=== PATIENT | female | born 1995 | race African-American/Black ===

== ENCOUNTER 2022-12-18 13:11 | Emergency (ER) | payer SELFPAY ==
[2022-12-18 13:15] VITALS: BP 126/80; PULSE 84; RESP 16; TEMP 36.6; O2SAT 99; BMI 28.3
--- NOTE | 2022-12-18 13:33 | EDS_ITS ---
HPI HPI - Female History of Present Illness Chief Complaint: Informant: patient Pain Pain: Positive for Pelvic Pain Onset: Days Context: Gradual Onset Timing: Waxes and wanes Quality: Positive for Cramping and Aching Location: Suprapubic Current Severity: Mild Maximum Severity: Moderate Narrative Narrative: Patient presents with lower abdominal cramping and positive test. She states her last normal period was November 01. Late last month she had a positive home test. She recently moved to the area from [place] and does not have any doctors established in this area. She states over the past couple days she has had pelvic cramping as if she is going to start her period but has not had any bleeding or spotting. Yesterday she noted sharp pain in the left lower quadrant. Patient has had 2 prior successful pregnancies. She is unsure of her blood type but does believe that she has had RhoGAM shots in the past. [facility] Medical History Anemia Allergy/AdvReac Type Severity Reaction Status Date / Time No Known Allergies Allergy Verified 12/18/22 13:20 Social History Smoking Status: Never smoker ROS ROS ED Constitutional Constitutional ED: Denies chills or fever(s) Eyes Eyes: Denies change in vision or discharge from eye(s) ENT ENT ED: Denies discharge from eye(s), rhinorrhea or sore throat Cardiovascular Cardiovascular: Denies chest pain Respiratory/Chest Respiratory/Chest: Denies cough or dyspnea Gastrointestinal Gastrointestinal: Reports abdominal pain; Denies nausea or vomiting Genitourinary Genitourinary ED: Denies difficulty urinating or dysuria Musculoskeletal Musculoskeletal: Reports back pain; Denies extremity pain Integumentary Denies Abrasions or rash Neurologic Neurologic: Denies headache(s) or weakness Allergic/Immunologic Allergic/Immunologic ED: Denies lip swelling or urticaria EXAM Physical Exam Const Vital Signs: 12/18/22 13:15 12/18/22 14:23 Temperature 98 F Temperature Source Temporal Pulse Rate 84 78 Respiratory Rate 16 16 Blood Pressure 126/80 H 126/76 H Blood Pressure Mean 95 92 Pulse Ox 99 98 Oxygen Delivery Method Room Air Room Air Positive well nourished and well developed General Appearance ED: well developed HEENT Reports normocephalic and head/scalp atraumatic Eyes PERRL and EOMs intact bilaterally Neck supple Chest Wall inspection of chest normal and palpation of chest normal Resp normal respiratory effort and clear to auscultation bilaterally Cardio regular rate and regular rhythm GI GI Narrative: Abdomen soft with minimal tenderness in the suprapubic area. No guarding or rebound. Palpation: soft Back/Spine no CVA tenderness Extremity normal to inspection Neuro oriented x3 and no sensory deficits noted Sensorium / Orientation: alert Motor Exam: strength 5/5 throughout Psych mental status grossly normal Skin no rashes or lesions noted MDM MDM MDM Narrative Medical decision making narrative: Labwork obtained to evaluate for leukocytosis, anemia, and electrolyte derangement. Urinalysis obtained to evaluate for infection/hematuria. Patient given IV fluids. Lab Data Attestation: I reviewed the patient's lab results. Labs: Laboratory Results - last 24 hr 12/18/22 12/18/22 12/18/22 13:40 13:50 13:50 WBC 4.6 RBC 3.72 L Hgb 10.4 L Hct 32.5 L MCV 87.4 MCH 28.0 MCHC 32.0 RDW Std Deviation 43.3 RDW Coeff of Danii 13.6 Plt Count 199 MPV 11.1 Immature Gran % (Auto) 0.200 Neut % (Auto) 45.9 L Lymph % (Auto) 43.1 H [place] % (Auto) 9.3 Eos % (Auto) 1.1 Baso % (Auto) 0.4 Absolute Neuts (auto) 2.1 Absolute Lymphs (auto) 2.00 Nucleated RBC % 0 Sodium 139 Potassium 3.9 Chloride 110 H Carbon Dioxide 22.0 Anion Gap 7 BUN 8 Creatinine 0.78 Estim Creat Clear Calc 114.22 Est GFR (MDRD) Af Amer 115 Est GFR (MDRD) Non-Af 95 BUN/Creatinine Ratio 10.3 Glucose 87 Calcium 8.9 HCG, Quant Urine Color Yellow Urine Clarity Sl. Cloudy Urine pH 6.0 Ur Specific [place] 1.010 Urine Protein Negative Urine Glucose (UA) Normal Urine Ketones Negative Urine Occult Blood Negative Urine Nitrite Negative Urine Bilirubin Negative Urine Urobilinogen Normal Ur Leukocyte Esterase 25 H Urine RBC 0 SEEN Urine WBC 0 SEEN Ur Squamous Epith Cells 0-5 SEEN Urine Bacteria 0 SEEN Urine Mucus 0 SEEN 12/18/22 13:50 WBC RBC Hgb Hct MCV MCH MCHC RDW Std Deviation RDW Coeff of Danii Plt Count MPV Immature Gran % (Auto) Neut % (Auto) Lymph % (Auto) [place] % (Auto) Eos % (Auto) Baso % (Auto) Absolute Neuts (auto) Absolute Lymphs (auto) Nucleated RBC % Sodium Potassium Chloride Carbon Dioxide Anion Gap BUN Creatinine Estim Creat Clear Calc Est GFR (MDRD) Af Amer Est GFR (MDRD) Non-Af BUN/Creatinine Ratio Glucose Calcium HCG, Quant 1352 H Urine Color Urine Clarity Urine pH Ur Specific [place] Urine Protein Urine Glucose (UA) Urine Ketones Urine Occult Blood Urine Nitrite Urine Bilirubin Urine Urobilinogen Ur Leukocyte Esterase Urine RBC Urine WBC Ur Squamous Epith Cells Urine Bacteria Urine Mucus Radiography Diagnostic Testing: Clinical Impression(s) from Imaging Studies Obstetrics Ultrasound 12/18/22 15:18 IMPRESSION: Early intrauterine with no pole identified. Electronically Signed: Allison Tinsley MD at 15:55 EDT , Treatment and Re-Evaluation Narrative: CBC and chemistry studies unremarkable. Quant does return at 1352. Urinalysis reveals no sign of infection or hematuria. Given the patient's positive and having sharp left lower quadrant pain yesterday ultrasound was performed. I advised her ahead of time that I will likely not see much with the , but but wanted to ensure there is no cyst noted around the left ovary. Ultrasound returns with evidence of a very early intrauterine . No abnormal findings noted around the left ovary. Patient states she had previously been referred to Dr. Sheron Spicer and will follow-up. Discharge Plan Triage Chief Complaint: ED Provider: Juliana Houston Dx/Rx/DC Orders Clinical Impression: First trimester Instructions: First Trimester Primary Care Provider: Care Physician,No Primary Referrals: Sheron Spicer MD [Med Staff - Active Staff] - 1-2 Weeks Care Physician,No Primary [Primary Care Provider] - Disposition Disposition: Home, Self Care
[2022-12-18 13:59] LABS: Bacteria 0 SEEN /hpf (None Seen); Mucous, Urine 0 SEEN /hpf (<or=2+); Red Blood Cells-Urine 0 SEEN /hpf (0-5); White Blood Cells 0 SEEN /hpf (0-5)
[2022-12-18 14:03] LABS: Absolute Neutrophil Count 2.1 X10^3/uL (2.0-7.7); Basophil# 0.02 X10^3/uL; Basophil% 0.4 % (0-1); Eosinophil# 0.05 X10^3/uL; Eosinophils% 1.1 % (0-5); Hematocrit 32.5 % (37-47); Hemoglobin 10.4 g/dL (12.0-15.0); Lymphocyte % 43.1 % (19-41); Mean Corpuscular Volume 87.4 fL (81-99); Mean Platelet Vol. 11.1 fl (6.2-12.0); Monocyte# 0.43 X10^3/uL; Monocyte% 9.3 % (0-10); NRBC Flagged by Analyzer 0 % (0-5); Neutrophil # 2.13 X10^3/uL (2.7-7.7); Neutrophil % 45.9 % (47-70); Platelet Count 199 K/mm3 (150-450); RBC Distribution Width CV 13.6 % (11.6-14.6); RBC Distribution Width SD 43.3 fl (35.1-43.9); Red Blood Count 3.72 M/mm3 (4.2-5.4); White Blood Count 4.6 K/mm3 (4.4-11.0)
[2022-12-18 14:15] LABS: Color, Urine Yellow (Yellow); Glucose, Dipstick Normal (Normal); Ketone-Dipstick Negative (Negative); Leukocyte Esterase-Dipstick 25 /ul (Negative); Nitrite-Dipstick Negative (Negative); Occult Blood-Urine Negative /ul (Negative); Protein-Dipstick Negative (Negative); Urine Bilirubin Dipstick Negative (Negative); Urine Clarity Sl. Cloudy (Clear); Urine Urobilinogen Normal (Normal)
[2022-12-18 14:21] LABS: Anion Gap 7 (5-15); BUN 8 mg/dL (7-18); BUN/Creat Ratio 10.3 RATIO (10-20); Calcium,Total 8.9 mg/dL (8.5-10.1); Chloride 110 mmol/L (98-107); Creatinine, Serum 0.78 mg/dL (0.55-1.02); EST Glomerular Filtration Rate 95 mL/min (>60); Est Glom Filt Rate - Afr Amer 115 mL/min (>60); Estimated Creatinine Clearance 114.22 ml/min; Glucose 87 mg/dL (74-106); Potassium 3.9 mmol/L (3.5-5.1); Sodium Level 139 mmol/L (136-145)
[2022-12-18 14:23] VITALS: BP 126/76; PULSE 78; RESP 16; O2SAT 98
[2022-12-18 14:23] LABS: Squamous Epithelial Cells - UA 0-5 SEEN /hpf (5-10)
[2022-12-18] MEDS: 0.9% Normal Saline 1,000 ML 150 ML IV (15:02)
[2022-12-18 15:14] LABS: hCG Titer Quant., Serum 1352 mIU/mL (1-3)
--- NOTE | 2022-12-18 15:18 | US_ITS ---
INDICATION: early , LLQ pain, hcg today-[id number] EXAMINATION: Ultrasound US OB Transvaginal TECHNIQUE: Transabdominal pelvic ultrasound was performed. Grayscale, spectral waveform, and color flow Doppler evaluation of the adnexa. COMPARISON: None. LMP: [December 02, 2022 corresponding to a gestational age of 5 weeks and 3 days. Beta-hC FINDINGS: UTERUS: 8.0 x 6.2 x 7.4 cm.. RIGHT OVARY: 1.9 x 2.4 x 2.4 cm. Normal. LEFT OVARY: 1.8 x 1.9 x 1.3 cm. Normal. FREE FLUID: None. INTRAUTERINE GESTATIONAL SAC(s) (size/shape): Single. The mean sac diameter measures 0.68 cm corresponding to gestational age of 5 weeks and 3 days. YOLK SAC: Identified POLE: Identified. No pole is identified. ESTIMATED GESTATION AGE by ultrasound: 5 weeks and 3 days. HEART MOTION: No cardiac activity is identified. PLACENTA: Not visualized due to age. SUBCHORIONIC HEMORRHAGE: None. AMNIOTIC FLUID: Qualitatively normal. US/Transvaginal w/Preg US IMPRESSION: Early intrauterine with no pole identified. Electronically Signed: Allison Tinsley MD at 15:55 EDT ,
[2022-12-18 16:51] VITALS: BP 118/79; PULSE 64; RESP 16; TEMP 36.6; O2SAT 100
== END 2022-12-18 16:53 | disposition home or self-care (01) ==
PROVIDERS: Emergency Provider Emergency Medicine; Visit Provider Emergency Medicine
DX: O26.891 Other specified pregnancy related conditions, first trimester (principal); R10.2 Pelvic and perineal pain; Z3A.00 Weeks of gestation of pregnancy not specified
CPT/HCPCS: 76817; 80048; 81001; 84702; 85025; 99283; J7030; A4216

== ENCOUNTER 2022-12-22 17:12 | Emergency (ER) | payer SELFPAY ==
[2022-12-22 17:12] VITALS: BP 121/84; PULSE 109; RESP 16; TEMP 36.2; O2SAT 99; BMI 27.8
--- NOTE | 2022-12-22 17:22 | US_ITS ---
EXAM: US , TRANSVAGINAL CLINICAL INDICATION: bleeding TECHNIQUE: Real-time transvaginal obstetrical ultrasound of the maternal pelvis and a first trimester with image documentation. Transvaginal imaging was used for better evaluation of the fetus and adnexa. COMPARISON: No relevant prior studies available. FINDINGS: GESTATION: There is a gestational sac that has a mean sac diameter of 8 mm age 5 weeks 4 days. There is a 1 mm yolk sac. There is a pole crown-rump length of 1.5 mm which is out of range for dates. No heart rate is identified. PLACENTA/AMNIOTIC FLUID: Cannot be adequately evaluated due to the early gestational age. UTERUS/CERVIX: Uterus measures 7.8 x 5.0 x 7.1 cm. No myometrial mass. OVARIES: The right ovary measures 4.2 x 1.7 x 2.7 cm. There is a 2.3 x 1.5 x 1.4 cm hypoechoic structure in the ovary which may represent a corpus luteum. The left ovary measures 2.8 x 1.6 x 1.7 cm. No mass. FREE FLUID: No free fluid. US/Transvaginal w/Preg US IMPRESSION: Intrauterine gestation with an average ultrasound age of 5 weeks 4 days and ultrasound estimated due date of 08/20/2023. There is a pole present but no evidence of a heart rate yet which is likely too early in the . Electronically Signed: Harsha Epstein MD at 19:39 EDT ,
--- NOTE | 2022-12-22 17:22 | EDS_ITS ---
HPI HPI - Female History of Present Illness Chief Complaint: Vag Bld, Preg Detail of Chief Complaint: Vaginal bleeding Informant: patient and spouse/S.O. Narrative Narrative: Patient presents with vaginal bleeding that started this morning. Patient states initially she woke up and had a bit of a headache and body aches. Patient then subsequently noticed some blood when she wiped after using the restroom and started having some increased vaginal bleeding. Patient think she is about 7 weeks . She was seen in the emergency department for 5 days ago for abdominal pain in and had a pelvic ultrasound that showed of intrauterine . Patient is unsure of her blood type but thinks she may be Rh- because she did have an injection possibly of RhoGAM in the past with other pregnancies. She is G3, P2. Patient's daughter recently had a viral infection about a week and a half 2 weeks ago and her thinks he may have had a little virus 5 days ago. [facility] Medical History Anemia Allergy/AdvReac Type Severity Reaction Status Date / Time No Known Allergies Allergy Verified 12/22/22 17:14 Social History Smoking Status: Never smoker ROS ROS ED Review of Systems ROS Unobtainable: other Constitutional Constitutional ED: Reports lethargy; Denies chills, fever(s), sweats or weight loss Eyes Eyes: Denies blurry vision, change in vision or diplopia ENT ENT ED: Denies rhinorrhea or sore throat Cardiovascular Cardiovascular: Denies chest pain, orthopnea or racing heartbeat Respiratory/Chest Respiratory/Chest: Denies cough, dyspnea, dyspnea on exertion, orthopnea or sputum Gastrointestinal Gastrointestinal: Denies abdominal pain, diarrhea, nausea or vomiting Genitourinary Genitourinary ED: Reports other Details: Vaginal bleeding ; Denies dysuria, hematuria or urinary frequency Musculoskeletal Musculoskeletal: Reports myalgias; Denies arthralgias, back pain or neck pain Integumentary Denies abscess, Abrasions or rash Neurologic Neurologic: Reports headache(s); Denies weakness Psychiatric Psychiatric: Denies anxiety, depression or suicidal thoughts Endocrine Endocrinology: Denies polydipsia, polyphagia or polyuria Hematologic/Lymphatic Hematologic/Lymphatic: Denies easy bleeding, easy bruising or lymphadenopathy Allergic/Immunologic Allergic/Immunologic ED: Denies mouth swelling, tongue swelling or urticaria EXAM Physical Exam Const Vital Signs: 12/22/22 17:12 Temperature 97.1 F L Temperature Source Temporal Pulse Rate 109 H Respiratory Rate 16 Blood Pressure 121/84 H Blood Pressure Mean 96 Pulse Ox 99 Oxygen Delivery Method Room Air Positive well nourished and well developed General Appearance ED: well developed and NAD HEENT Reports TM's clear and moist mucous membranes normocephalic and atraumatic; Negative for trauma or tenderness Tympanic Membrane ED: Yes TM's clear Eyes PERRL and EOMs intact bilaterally General Eye ED: Negative for pale conjunctiva or scleral icterus Neck no lymphadenopathy, supple and no JVD General: Negative for tenderness Chest Wall inspection of chest normal and palpation of chest normal Chest: Negative for tenderness Resp normal respiratory effort and clear to auscultation bilaterally Effort and Inspection: Negative for respiratory distress or pain with movement Auscultation: Negative for rhonchi, wheezes or diminished lung sounds Cardio regular rate, regular rhythm, S1 normal heart sound, S2 normal heart sound and no murmurs Peripheral Pulses: pulses 2+ throughout GI normal to inspection, nondistended, normoactive bowel sounds, soft to palpation, non-tender, non-distended and no masses Back/Spine no CVA tenderness and no thoracic nor lumbar tenderness Extremity normal to inspection General Extremety ED: Negative for edema General Extremity: Negative for edema Neuro oriented x3, CN's II-XII intact bilaterally, no sensory deficits noted and gait normal Sensorium / Orientation: awake, alert, oriented to person, oriented to place and oriented to time Motor Exam: strength 5/5 throughout and strength abnormal Psych mental status grossly normal Skin no rashes or lesions noted and no wounds MDM MDM MDM Narrative Medical decision making narrative: Patient presents with and vaginal bleeding. Concern for miscarriage. She has already had an ultrasound 4 days ago that showed an intrauterine gestation. Ectopic less likely. Patient not having pain. IV line was established. CBC with differential obtained showed a white count 4.6 and hemoglobin 10.9 hematocrit of 34.3 and platelets of 210. Quantitative hCG was 1408. Blood type was B-. Urinalysis showed blood otherwise no signs of infection. Pelvic ultrasound obtained showed intrauterine gestation with average ultrasound age of 5 weeks and 4 days and ultrasound estimated due date of 08/20/2023. There is a pole present but no evidence of heartbeat yet. [place]-rump length was 1.5 mm. I did discuss case with [facility] [employer] on-call Dr. Malcolm Pascual who recommended that she follow-up either with their office or she establish with somebody else. I was advised to give her RhoGAM. Patient will likely require an ultrasound repeat in 2 weeks. Patient advised to return if persistent heavy bleeding or severe pain or condition should worsen anyway. Patient likely having a threatened . Lab Data Attestation: I reviewed the patient's lab results. Labs: Laboratory Results - last 24 hr 12/22/22 12/22/22 12/22/22 17:38 17:38 17:38 WBC 4.6 RBC 3.84 L Hgb 10.9 L Hct 34.3 L MCV 89.3 MCH 28.4 MCHC 31.8 L RDW Std Deviation 43.9 RDW Coeff of Danii 13.5 Plt Count 210 MPV 11.0 Immature Gran % (Auto) 0.200 Neut % (Auto) 44.4 L Lymph % (Auto) 44.0 H [place] % (Auto) 9.3 Eos % (Auto) 1.7 Baso % (Auto) 0.4 Absolute Neuts (auto) 2.1 Absolute Lymphs (auto) 2.04 Nucleated RBC % 0 HCG, Quant 1408 H Urine Color Urine Clarity Urine pH Ur Specific [place] Urine Protein Urine Glucose (UA) Urine Ketones Urine Occult Blood Urine Nitrite Urine Bilirubin Urine Urobilinogen Ur Leukocyte Esterase Urine RBC Urine WBC Ur Squamous Epith Cells Urine Bacteria Urine Mucus Blood Type B NEGATIVE 12/22/22 18:00 WBC RBC Hgb Hct MCV MCH MCHC RDW Std Deviation RDW Coeff of Danii Plt Count MPV Immature Gran % (Auto) Neut % (Auto) Lymph % (Auto) [place] % (Auto) Eos % (Auto) Baso % (Auto) Absolute Neuts (auto) Absolute Lymphs (auto) Nucleated RBC % HCG, Quant Urine Color [place] Urine Clarity Turbid Urine pH 6.0 Ur Specific [place] 1.020 Urine Protein 100 H Urine Glucose (UA) Normal Urine Ketones 5 H Urine Occult Blood 250 H Urine Nitrite Negative Urine Bilirubin 1 H Urine Urobilinogen 4 H Ur Leukocyte Esterase 100 H Urine RBC > 100 SEEN Urine WBC 0-5 SEEN Ur Squamous Epith Cells 25-50 SEEN Urine Bacteria 0 SEEN Urine Mucus 0 SEEN Blood Type Radiography Diagnostic Testing: Clinical Impression(s) from Imaging Studies Obstetrics Ultrasound 12/22/22 17:22 IMPRESSION: Intrauterine gestation with an average ultrasound age of 5 weeks 4 days and ultrasound estimated due date of 08/20/2023. There is a pole present but no evidence of a heart rate yet which is likely too early in the . Electronically Signed: Harsha Epstein MD at 19:39 EDT , Discharge Plan Triage Chief Complaint: Vag Bld, Preg ED Provider: Alek Bowden Dx/Rx/DC Orders Clinical Impression: , threatened, First trimester Instructions: ED Possible Miscarriage ... Primary Care Provider: Care Physician,No Primary Referrals: Malcolm Pascual MD [Med Staff - Active Staff] - 3-5 Days Sheron Spicer MD [Med Staff - Active Staff] - 3-5 Days Care Physician,No Primary [Primary Care Provider] - Disposition Disposition: Home, Self Care
[2022-12-22 17:52] LABS: Absolute Lymphocyte Count 2.04 X10^3/uL (0.83-4.51); Absolute Neutrophil Count 2.1 X10^3/uL (2.0-7.7); Basophil# 0.02 X10^3/uL; Basophil% 0.4 % (0-1); Eosinophil# 0.08 X10^3/uL; Eosinophils% 1.7 % (0-5); Hematocrit 34.3 % (37-47); Hemoglobin 10.9 g/dL (12.0-15.0); Lymphocyte # 2.04 X10^3/ul (0.83-4.51); Mean Corp Hgb Conc 31.8 g/dL (32-36); Mean Corpuscular Hgb 28.4 pg (27.0-32.0); Mean Corpuscular Volume 89.3 fL (81-99); Monocyte# 0.43 X10^3/uL; Monocyte% 9.3 % (0-10); NRBC Flagged by Analyzer 0 % (0-5); Neutrophil # 2.06 X10^3/uL (2.7-7.7); Neutrophil % 44.4 % (47-70); Platelet Count 210 K/mm3 (150-450); RBC Distribution Width CV 13.5 % (11.6-14.6); RBC Distribution Width SD 43.9 fl (35.1-43.9); Red Blood Count 3.84 M/mm3 (4.2-5.4); White Blood Count 4.6 K/mm3 (4.4-11.0)
[2022-12-22 18:10] LABS: Bacteria 0 SEEN /hpf (None Seen); Mucous, Urine 0 SEEN /hpf (<or=2+)
[2022-12-22 18:12] LABS: Color, Urine Amber (Yellow); Glucose, Dipstick Normal (Normal); Ketone-Dipstick 5 mg/dl (Negative); Leukocyte Esterase-Dipstick 100 /ul (Negative); Nitrite-Dipstick Negative (Negative); Occult Blood-Urine 250 /ul (Negative); Protein-Dipstick 100 mg/dl (Negative); Urine Clarity Turbid (Clear); Urine Urobilinogen 4 mg/dl (Normal)
--- NOTE | 2022-12-22 18:13 | CM.ED ---
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 Patient agrees to speak with SW with guest present. SW inquired about patient's current insurance/ PCP. Patient reports she does not currently have insurance or PCP. SW reviewed Medicaid application and encouraged patient to complete the application by phone, computer or in person with completed application. SW also reviewed [employer], Aretha Mclaughlin and [employer] resource list. Patient is receptive towards resources and reports no other needs. SW remains available if needs arise. Kathleen Olea PUSHER OPERATOR, [employer]
[2022-12-22 18:18] LABS: Urine Bilirubin Dipstick 1 mg/dL (Negative)
[2022-12-22 18:19] LABS: Squamous Epithelial Cells - UA 25-50 SEEN /hpf (5-10)
[2022-12-22 18:20] LABS: Red Blood Cells-Urine > 100 SEEN /hpf (0-5); White Blood Cells 0-5 SEEN /hpf (0-5)
[2022-12-22 19:28] LABS: hCG Titer Quant., Serum 1408 mIU/mL (1-3)
[2022-12-22 20:20] VITALS: BP 125/74; PULSE 93; RESP 16; O2SAT 99
== END 2022-12-22 21:32 | disposition home or self-care (01) ==
PROVIDERS: Emergency Provider Emergency Medicine; Visit Provider Emergency Medicine
DX: O20.0 Threatened abortion (principal); Z3A.01 Less than 8 weeks gestation of pregnancy
CPT/HCPCS: 76817; 81001; 84702; 85025; 86850; 86900; 86901; 87428; 99283; A4216; J2790

== ENCOUNTER 2022-12-23 11:34 | Emergency (ER) | payer SELFPAY ==
[2022-12-23 11:35] VITALS: BP 114/75; PULSE 100; RESP 16; TEMP 36.6; O2SAT 100; BMI 26.1
--- NOTE | 2022-12-23 12:31 | ED.VIS.FEGU ---
HPI HPI - Female History of Present Illness Chief Complaint: Vag Bld, Preg Informant: patient Bleeding Issue: Positive for Vaginal bleeding Onset: Yesterday Context: Sudden Onset Timing: Waxes and wanes Current Severity: Mild Maximum Severity: Heavy Associated Symptoms Associated Symptoms: Negative for Dysuria, Frequency or Hematuria Test: Positive P: 2 Narrative Narrative: Patient presents with vaginal bleeding that began yesterday. Patient was seen here for this yesterday. Patient had ultrasound done yesterday along with blood work. Patient states that she was told that her quantitative hCG had increased from previous result 4 days earlier to that but it was not more than double the previous result. Patient states she was told to follow-up with her HELP DESK INTERN. Patient states she started having more bleeding today. Patient is unsure if she passed any tissue. Patient thinks that may have been either a clot or some small tissue. Patient states her cramping has improved after this. Patient denies any nausea or vomiting. Patient states she thinks she is approximately 7 weeks and 3 days. Patient states her blood type is B-. Patient states she did receive an injection of RhoGAM yesterday. PFSH PFS Medical History Anemia Allergy/AdvReac Type Severity Reaction Status Date / Time No Known Allergies Allergy Verified 12/23/22 11:35 Surgical History no surgical history no surgical history Social History Smoking Status: Never smoker ROS ROS ED Constitutional Constitutional ED: Denies chills or fever(s) Eyes Eyes: Denies blurry vision or change in vision ENT ENT ED: Denies rhinorrhea or sore throat Cardiovascular Cardiovascular: Denies chest pain or palpitations Respiratory/Chest Respiratory/Chest: Denies cough or dyspnea Gastrointestinal Gastrointestinal: Denies nausea or vomiting Genitourinary Genitourinary ED: Denies dysuria or hematuria Musculoskeletal Musculoskeletal: Denies back pain or neck pain Integumentary Denies abscess or rash Neurologic Neurologic: Reports headache(s); Denies weakness Allergic/Immunologic Allergic/Immunologic ED: Denies mouth swelling or urticaria EXAM Physical Exam Const Vital Signs: 12/23/22 11:35 Temperature 98 F Temperature Source Temporal Pulse Rate 100 Respiratory Rate 16 Blood Pressure 114/75 Blood Pressure Mean 88 Pulse Ox 100 Oxygen Delivery Method Room Air Positive well nourished and well developed General Appearance ED: well developed HEENT Reports moist mucous membranes Neck supple and no JVD Resp normal respiratory effort and clear to auscultation bilaterally Cardio regular rate, regular rhythm and no murmurs GI normal to inspection, nondistended, normoactive bowel sounds and non-tender Palpation: soft Extremity normal to inspection General Extremety ED: Negative for edema or tenderness General Extremity: Negative for edema Neuro oriented x3, CN's II-XII intact bilaterally and no sensory deficits noted Sensorium / Orientation: alert Motor Exam: strength 5/5 throughout Psych mental status grossly normal Skin no rashes or lesions noted MDM MDM MDM Narrative Medical decision making narrative: Differential diagnosis includes threatened miscarriage, spontaneous miscarriage, and incomplete miscarriage. CBC will be obtained to assess for anemia and leukocytosis. Quantitative hCG will be obtained to assess for level. Since patient has not currently having any bleeding or cramping, I do not feel the patient needs a repeat ultrasound at this time. However, if the quantitative hCG is markedly low compared to yesterday's result, we may need to repeat the pelvic ultrasound at that time. Lab Data Attestation: I reviewed the patient's lab results. Lab results narrative: CBC was reviewed and showed a mild anemia with a hemoglobin of 11.3 and hematocrit 33.7. Platelets were normal. Quantitative hCG was obtained and was 1015. This has decreased since yesterday. Labs: Laboratory Results - last 24 hr 12/23/22 12/23/22 12/23/22 12:25 12:45 13:20 WBC Cancelled 6.1 Corrected WBC Cancelled RBC Cancelled 3.85 L Hgb Cancelled 11.3 L Hct Cancelled 33.7 L MCV Cancelled 87.5 MCH Cancelled 29.4 MCHC Cancelled 33.5 D RDW Std Deviation Cancelled 43.4 RDW Coeff of Danii Cancelled 13.6 Plt Count Cancelled 193 MPV Cancelled 11.1 Immature Gran % (Auto) Cancelled 0.200 Neut % (Auto) Cancelled 66.9 Lymph % (Auto) Cancelled 24.6 Weston % (Auto) Cancelled 7.5 Eos % (Auto) Cancelled 0.5 Baso % (Auto) Cancelled 0.3 Absolute Neuts (auto) Cancelled 4.1 Absolute Lymphs (auto) Cancelled 1.51 Total Counted Cancelled Neutrophils % (Manual) Cancelled Band Neutrophils % Cancelled Lymphocytes % (Manual) Cancelled Monocytes % (Manual) Cancelled Eosinophils % (Manual) Cancelled Basophils % (Manual) Cancelled Metamyelocytes % Cancelled Myelocytes % Cancelled Promyelocytes % Cancelled Blast Cells % Cancelled Plasma Cell % (Manual) Cancelled Other Cells % Cancelled Nucleated RBC % Cancelled 0 Nucleated RBCs/100 WBC Cancelled Differential Comment Cancelled Diff Path Review Cancelled Hypersegmented Neuts Cancelled Atypical Lymphocytes Cancelled Reactive Lymphocytes Cancelled Smudge Cells Cancelled Toxic Granulation Cancelled Toxic Vacuolation Cancelled Dohle Bodies Cancelled Jer Rods Cancelled Platelet Estimate Cancelled Plt Morphology Comment Cancelled RBC Morphology Cancelled Polychromasia Cancelled Hypochromasia Cancelled Poikilocytosis Cancelled Basophilic Stippling Cancelled Anisocytosis Cancelled Microcytosis Cancelled Macrocytosis Cancelled Spherocytes Cancelled Sickle Cells Cancelled Target Cells Cancelled Tear Drop Cells Cancelled Ovalocytes Cancelled Stomatocytes Cancelled [place] Bodies Cancelled Dominguez Cells Cancelled Bite Cells Cancelled Crenated Cell Cancelled Acanthocytes (Spur) Cancelled Rouleaux Cancelled Schistocytes Cancelled HCG, Quant Cancelled 12/23/22 14:22 WBC Corrected WBC RBC Hgb Hct MCV MCH MCHC RDW Std Deviation RDW Coeff of Danii Plt Count MPV Immature Gran % (Auto) Neut % (Auto) Lymph % (Auto) Weston % (Auto) Eos % (Auto) Baso % (Auto) Absolute Neuts (auto) Absolute Lymphs (auto) Total Counted Neutrophils % (Manual) Band Neutrophils % Lymphocytes % (Manual) Monocytes % (Manual) Eosinophils % (Manual) Basophils % (Manual) Metamyelocytes % Myelocytes % Promyelocytes % Blast Cells % Plasma Cell % (Manual) Other Cells % Nucleated RBC % Nucleated RBCs/100 WBC Differential Comment Diff Path Review Hypersegmented Neuts Atypical Lymphocytes Reactive Lymphocytes Smudge Cells Toxic Granulation Toxic Vacuolation Dohle Bodies Jer Rods Platelet Estimate Plt Morphology Comment RBC Morphology Polychromasia Hypochromasia Poikilocytosis Basophilic Stippling Anisocytosis Microcytosis Macrocytosis Spherocytes Sickle Cells Target Cells Tear Drop Cells Ovalocytes Stomatocytes [place] Bodies Dominguez Cells Bite Cells Crenated Cell Acanthocytes (Spur) Rouleaux Schistocytes HCG, Quant 1015 H Treatment and Re-Evaluation Narrative: Patient was advised of her findings. Patient states she has not had any further bleeding or cramping since she has been here. Patient was advised that the tissue she passed could have been the fetus. Patient does not want any pain medication at this time. Patient was advised to follow-up with her HELP DESK INTERN in 3 to 5 days. Patient was instructed to return if any worsening bleeding or cramping. Patient was instructed return if worse in any way. Patient understood and was agreeable with the plan. All questions were answered. Discharge Plan Triage Chief Complaint: Vag Bld, Preg ED Provider: Jeff Cruz Dx/Rx/DC Orders Clinical Impression: Spontaneous Instructions: ED Miscarriage Spontaneous Primary Care Provider: Care Physician,No Primary Referrals: Juliana Mike DO [Med Staff - Active Staff] - 3-5 Days Care Physician,No Primary [Primary Care Provider] - Disposition Disposition: Home, Self Care
[2022-12-23 12:57] LABS: Absolute Lymphocyte Count 1.51 X10^3/uL (0.83-4.51); Absolute Neutrophil Count 4.1 X10^3/uL (2.0-7.7); Basophil# 0.02 X10^3/uL; Basophil% 0.3 % (0-1); Eosinophil# 0.03 X10^3/uL; Eosinophils% 0.5 % (0-5); Hematocrit 33.7 % (37-47); Hemoglobin 11.3 g/dL (12.0-15.0); Lymphocyte # 1.51 X10^3/ul (0.83-4.51); Lymphocyte % 24.6 % (19-41); Mean Corp Hgb Conc 33.5 g/dL (32-36); Mean Corpuscular Hgb 29.4 pg (27.0-32.0); Mean Corpuscular Volume 87.5 fL (81-99); Mean Platelet Vol. 11.1 fl (6.2-12.0); Monocyte# 0.46 X10^3/uL; Monocyte% 7.5 % (0-10); NRBC Flagged by Analyzer 0 % (0-5); Neutrophil % 66.9 % (47-70); Platelet Count 193 K/mm3 (150-450); RBC Distribution Width CV 13.6 % (11.6-14.6); RBC Distribution Width SD 43.4 fl (35.1-43.9); Red Blood Count 3.85 M/mm3 (4.2-5.4); White Blood Count 6.1 K/mm3 (4.4-11.0)
[2022-12-23 15:24] LABS: hCG Titer Quant., Serum 1015 mIU/mL (1-3)
[2022-12-23 15:38] VITALS: BP 121/71; PULSE 81; RESP 16; O2SAT 97
--- NOTE | 2022-12-23 18:26 | CM.ED ---
Social Work SW introduced self and role. SW provided emotional support as patient was tearful. SW provided counseling resources and PCP resource. Miri Brar TELEPRINTER, RECIPROCATING DRILL OPERATOR
== END 2022-12-23 15:45 | disposition home or self-care (01) ==
PROVIDERS: Emergency Provider Emergency Medicine; Visit Provider Emergency Medicine
DX: O03.9 Complete or unspecified spontaneous abortion without complication (principal)
CPT/HCPCS: 36415; 84702; 85025; 99283; A4216

== ENCOUNTER → 2023-03-29 | Outpatient (CLI) | payer OTHER, SELFPAY ==
[2023-03-29 11:06] LABS: hCG Titer Quant., Serum 11113 mIU/mL (1-3)
== END | disposition home or self-care (01) ==
LOC: LAB 09:55
PROVIDERS: Referring Provider Obstetrics & Gynecology; Visit Provider Obstetrics & Gynecology
DX: N91.2 Amenorrhea, unspecified (principal)
CPT/HCPCS: 36415; 84702

== ENCOUNTER → 2023-03-31 | Outpatient (CLI) | payer OTHER, SELFPAY ==
[2023-03-31 08:49] LABS: Absolute Lymphocyte Count 1.31 X10^3/uL (0.83-4.51); Absolute Neutrophil Count 2.7 X10^3/uL (2.0-7.7); Basophil# 0.02 X10^3/uL; Basophil% 0.5 % (0-1); Eosinophil# 0.04 X10^3/uL; Eosinophils% 0.9 % (0-5); Hematocrit 32.9 % (37-47); Hemoglobin 10.2 g/dL (12.0-15.0); Lymphocyte # 1.31 X10^3/ul (0.83-4.51); Mean Corpuscular Hgb 27.3 pg (27.0-32.0); Mean Corpuscular Volume 88.2 fL (81-99); Mean Platelet Vol. 11.4 fl (6.2-12.0); Monocyte% 6.9 % (0-10); NRBC Flagged by Analyzer 0 % (0-5); Neutrophil # 2.69 X10^3/uL (2.7-7.7); Neutrophil % 61.7 % (47-70); Platelet Count 213 K/mm3 (150-450); RBC Distribution Width CV 14.4 % (11.6-14.6); RBC Distribution Width SD 46.3 fl (35.1-43.9); Red Blood Count 3.73 M/mm3 (4.2-5.4); White Blood Count 4.4 K/mm3 (4.4-11.0)
[2023-03-31 10:01] LABS: hCG Titer Quant., Serum 13160 mIU/mL (1-3)
[2023-03-31 22:08] LABS: HIV - WCH Non-Reactive (Nonreactive); Hepatitis B Surface Antigen Non-Reactive (Nonreactive); Hepatitis C Antibody Non-Reactive (Nonreactive); Rubella IgG Reactive (Nonreactive); Syphilis Antibodies Non-reactive
== END | disposition home or self-care (01) ==
LOC: LAB 08:20
PROVIDERS: Referring Provider Obstetrics & Gynecology; Visit Provider Obstetrics & Gynecology
DX: Z34.90 Encounter for supervision of normal pregnancy, unspecified, unspecified trimester (principal)
CPT/HCPCS: 36415; 84702; 85025; 86703; 86762; 86780; 86803; 86850; 86870; 86900; 86901; 87340

== ENCOUNTER → 2023-04-08 | Outpatient (CLI) | payer OTHER, SELFPAY ==
[2023-04-08 11:36] LABS: Protein, Urine (Random) 6.4 mg/dL (<11.9); Protein:Creat Ratio 101 mg/g CRE (0-200)
[2023-04-11 07:07] LABS: Chlamydia By Nucleic Acid AMP Negative (Negative); Gonococcus By Nucleic Acid AMP Negative (Negative)
== END | disposition home or self-care (01) ==
LOC: LABSPEC 11:09
PROVIDERS: Referring Provider Obstetrics & Gynecology; Visit Provider Obstetrics & Gynecology
DX: Z34.90 Encounter for supervision of normal pregnancy, unspecified, unspecified trimester (principal); Z87.59 Personal history of other complications of pregnancy, childbirth and the puerperium
CPT/HCPCS: 82570; 84156; 87086; 87088; 87491; 87591

== ENCOUNTER → 2023-05-06 | Outpatient (CLI) | payer OTHER, SELFPAY | END | disposition home or self-care (01) | LOC: LABSPEC 11:51 | PROVIDERS: Referring Provider Registered Nurse; Visit Provider Registered Nurse | DX: Z34.90 Encounter for supervision of normal pregnancy, unspecified, unspecified trimester (principal) | CPT/HCPCS: 87086; 87088 ==

== ENCOUNTER → 2023-09-02 | Outpatient (CLI) | payer OTHER, SELFPAY ==
--- OUTSIDE RECORDS SUMMARY | 2023-09-02 09:12 | XMS RPT_ITS | CCD ---
Author Name Unknown Address [address] [place] [address] Organization [facility] Care Team Providers Care Chip Drier Name Role Phone ROXI JEAN Referring Unavailab ROXI Vivar Primary Care Unavailab MECCA Higgins Attending Unavailable Encounters Encounter Date Encounter Type Care Provider Facility Start: 06-27-2023 End: 06-27-2023 ambulatory ROXI JEAN [facility] Payers Date Payer Category Payer Unknown [id number] Unknown [id number] Summary Purpose Family History No Family History Records Found Advance Directives No Advanced Directives Records Found Additional Source Comments INFORMATION SOURCE (unrecogn ized section and content) FOR RECORDS PERTAINING TO PATIENTS WHO ARE OR HAVE BEEN ENROLLED IN A CHEMICAL DEPENDENCY/SUBSTANCEABUSE PROGRAM, SOME INFORMATION MAY BE OMITTED. This clinical summary was aggregated from multiple sources. Caution should be exercised in using it in the provision of clinical care. This summary normalizes information from multiple sources, and as a consequence, information in this document may materially change the coding, format and clinical context of patient data. In addition, data may be omitted in some cases. CLINICAL DECISIONS SHOULD BE BASED ON THE PRIMARY CLINICAL RECORDS. [facility]. provides no warranty or guarantee of the accuracy or completeness of information in this document.
[2023-09-02 09:37] LABS: Absolute Neutrophil Count 3.8 X10^3/uL (2.0-7.7); Basophil# 0.01 X10^3/uL; Basophil% 0.2 % (0-1); Eosinophil# 0.04 X10^3/uL; Eosinophils% 0.8 % (0-5); Hematocrit 27.6 % (37-47); Hemoglobin 9.3 g/dL (12.0-15.0); Lymphocyte % 20.8 % (19-41); Mean Corp Hgb Conc 33.7 g/dL (32-36); Mean Corpuscular Hgb 29.4 pg (27.0-32.0); Mean Corpuscular Volume 87.3 fL (81-99); Monocyte# 0.31 X10^3/uL; Monocyte% 5.8 % (0-10); NRBC Flagged by Analyzer 0 % (0-5); Neutrophil # 3.81 X10^3/uL (2.7-7.7); Neutrophil % 71.8 % (47-70); Platelet Count 200 K/mm3 (150-450); RBC Distribution Width CV 13.1 % (11.6-14.6); RBC Distribution Width SD 41.8 fl (35.1-43.9); Red Blood Count 3.16 M/mm3 (4.2-5.4); White Blood Count 5.3 K/mm3 (4.4-11.0)
[2023-09-02 10:09] LABS: Glucose Challenge Gest 1H 50g 147 mg/dL (70-140)
[2023-09-02 10:13] LABS: HIV - WCH Non-Reactive (Nonreactive); Syphilis Antibodies Non-reactive
[2023-09-02 10:22] LABS: ALB/GLOB Ratio 0.7 RATIO (0.9-2.4); AST(SGOT) 10 U/L (15-37); Alanine Aminotransfer ALT/SGPT 11 U/L (13-56); Albumin, Serum 2.8 g/dL (3.2-5.0); Alkaline Phosphatase 89 U/L (45-117); Anion Gap 7 (5-15); BUN 4 mg/dL (7-18); BUN/Creat Ratio 7.3 RATIO (10-20); Calcium,Total 9.2 mg/dL (8.5-10.1); Chloride 109 mmol/L (98-107); Creatinine, Serum 0.55 mg/dL (0.55-1.02); EST Glomerular Filtration Rate 141 mL/min (>60); Est Glom Filt Rate - Afr Amer 170 mL/min (>60); Globulin 4.2 g/dL (2.2-4.2); Glucose 145 mg/dL (74-106); Potassium 2.8 mmol/L (3.5-5.1); Sodium Level 138 mmol/L (136-145)
[2023-09-02 10:41] LABS: Vitamin B12 317 pg/mL (211-911)
[2023-09-02 10:47] LABS: Ferritin 5 ng/mL (8-252); Iron Binding Capacity,Total 478 ug/dL (250-450)
== END | disposition home or self-care (01) ==
LOC: LAB 08:53
PROVIDERS: Registered Nurse; Referring Provider Obstetrics & Gynecology; Visit Provider Obstetrics & Gynecology
DX: O99.019 Anemia complicating pregnancy, unspecified trimester (principal); O26.899 Other specified pregnancy related conditions, unspecified trimester; Z67.91 Unspecified blood type, Rh negative; Z3A.00 Weeks of gestation of pregnancy not specified; Z13.1 Encounter for screening for diabetes mellitus
CPT/HCPCS: 36415; 80053; 82607; 82728; 82950; 83550; 85025; 86703; 86780; 86850; 86900; 86901

== ENCOUNTER → 2023-09-09 | Outpatient (CLI) | payer OTHER, SELFPAY ==
--- OUTSIDE RECORDS SUMMARY | 2023-09-09 08:05 | XMS RPT_ITS | CCD ---
Author Name Unknown Address [address] [place] [address] Organization [facility] Care Team Providers Care Tapper Bit Name Role Phone ROXI JEAN Referring Unavailab ROXI Vivar Primary Care Unavailab MECCA Higgins Attending Unavailable Encounters Encounter Date Encounter Type Care Provider Facility Start: 06-27-2023 End: 06-27-2023 ambulatory ROXI JEAN [facility] Payers Date Payer Category Payer Unknown [id number] Unknown [id number] Summary Purpose Family History No Family History [...] BE BASED ON THE PRIMARY CLINICAL RECORDS. [facility] listedplaces [facility]. provides no warranty or guarantee of the accuracy or completeness of information in this document.
--- NOTE | 2023-09-09 08:06 | US_ITS ---
HISTORY: growth. age by LMP 29 weeks 2 days. TECHNIQUE: Transabdominal pelvic ultrasound was performed. 52 images. COMPARISON: None. FINDINGS: INTRAUTERINE GESTATION(s): Single. PRESENTATION: Cephalic. HEART MOTION: 152 bpm. PLACENTA: Anterior, grade 0. No placenta previa. CERVIX: Not well visualized. AMNIOTIC FLUID INDEX (TAINA): 15.1 cm. Largest fluid pocket 5.5 cm. biometry- BIPARIETAL DIAMETER: 7.5 cm, corresponding to 30 weeks 0 days. HEAD CIRCUMFERENCE: 27.4 cm, corresponding to 29 weeks 6 days. ABDOMINAL CIRCUMFERENCE: 24.5 cm, corresponding to 28 weeks 5 days. FEMUR LENGTH: 5.8 cm, corresponding to 30 weeks 2 days. ESTIMATED GESTATIONAL AGE: 29 weeks 3 days. ESTIMATED DUE DATE (SIVA): 11/22/2023. ESTIMATED WEIGHT: 1408 g corresponding to 45th percentile. US/OB Limited With Biometrics IMPRESSION: Single live intrauterine with an estimated gestational age of 29 weeks 3 days. Electronically Signed: Dory Ellis MD at 9:18 EST ,
== END | disposition home or self-care (01) ==
LOC: OPUS 08:02
PROVIDERS: Referring Provider Obstetrics & Gynecology; Visit Provider Obstetrics & Gynecology
DX: O43.119 Circumvallate placenta, unspecified trimester (principal); Z3A.00 Weeks of gestation of pregnancy not specified
CPT/HCPCS: 76816

== ENCOUNTER 2023-09-16 10:20 | Outpatient (CLI) | payer OTHER, SELFPAY ==
[2023-09-16] VITALS (36 sets, daily range): BP systolic 118–130; BP diastolic 78–86; PULSE 86–163; RESP 16; TEMP 37.1–38.1; O2SAT 81–100; BMI 31.2
[2023-09-16] MEDS: Magnesium Sulfate 4gm/100mL 4 GM/100 ML IV.SOLN. IV (10:46)
[2023-09-16 10:54] LABS: Hematocrit 27.9 % (37-47); Mean Corp Hgb Conc 32.3 g/dL (32-36); Mean Corpuscular Hgb 28.4 pg (27.0-32.0); Mean Platelet Vol. 11.1 fl (6.2-12.0); Platelet Count 183 K/mm3 (150-450); RBC Distribution Width CV 13.7 % (11.6-14.6); RBC Distribution Width SD 43.6 fl (35.1-43.9); Red Blood Count 3.17 M/mm3 (4.2-5.4); White Blood Count 5.3 K/mm3 (4.4-11.0)
[2023-09-16 10:59] LABS: Protein, Urine (Random) 19.9 mg/dL (<11.9); Protein:Creat Ratio 186 mg/g CRE (0-200)
[2023-09-16 11:02] LABS: Protein, Urine (Random) < 6.0 mg/dL (<11.9); Protein:Creat Ratio 277 mg/g CRE (0-200)
[2023-09-16] MEDS: Magnesium Sulfate 4gm/100mL 2 GM/50 ML IV.SOLN. IV (11:16)
[2023-09-16] MEDS: Betamethasone/Betamethasone 30 MG/5 ML Vial 12 MG IM (11:17)
[2023-09-16 11:20] LABS: AST(SGOT) 18 U/L (15-37); Alanine Aminotransfer ALT/SGPT 13 U/L (13-56); Creatinine, Serum 0.55 mg/dL (0.55-1.02); EST Glomerular Filtration Rate 140 mL/min (>60); Est Glom Filt Rate - Afr Amer 170 mL/min (>60); Estimated Creatinine Clearance 189.38 ml/min; Uric Acid 2.9 mg/dL (2.6-6.0)
[2023-09-16] MEDS: Magnesium Sulfate 20 GM/500 ML BAG IV (11:26)
--- NOTE | 2023-09-16 12:11 | OB.TRI.PN ---
Progress Notes Laboratory Studies: Laboratory Tests 09/16/23 09/16/23 Range/Units 10:43 10:30 WBC 5.3 (4.4-11.0) K/mm3 RBC 3.17 L (4.2-5.4) M/mm3 Hgb 9.0 L (12.0-15.0) g/dL Hct 27.9 L (37-47) % MCV 88.0 (81-99) fL MCH 28.4 (27.0-32.0) pg MCHC 32.3 (32-36) g/dL RDW Std Deviation 43.6 (35.1-43.9) fl RDW Coeff of Danii 13.7 (11.6-14.6) % Plt Count 183 (150-450) K/mm3 MPV 11.1 (6.2-12.0) fl Creatinine 0.55 (0.55-1.02) mg/dL Estim Creat Clear Calc 189.38 ml/min Est GFR (MDRD) Af Amer 170 (>60) mL/min Est GFR (MDRD) Non-Af 140 (>60) mL/min Uric Acid 2.9 (2.6-6.0) mg/dL AST 18 (15-37) U/L ALT 13 (13-56) U/L U Random Total Protein 19.9 H < 6.0 (<11.9) mg/dL Urine Creatinine 107.00 18.80 (NO RANGE EST.) mg/dL Protein/Creatinin Ratio 186 277 H (0-200) mg/g CRE Assessment & Plan (1) Preeclampsia, severe:
--- OUTSIDE RECORDS SUMMARY | 2023-09-16 13:20 | XMS RPT_ITS | CCD ---
Author Name Unknown Address [address] [place] [address] Organization [facility] Care Team Providers Care Seasonal Greenery Bundler Name Role Phone ROXI JEAN Referring Unavailab ROXI Vivar Primary Care Unavailab MECCA Higgins Attending Unavailable Encounters Encounter Date Encounter Type Care Provider Facility Start: 06-27-2023 End: 06-27-2023 ambulatory ROXI JEAN [facility] Payers Date Payer Category Payer Unknown [id number] Unknown [id number] Summary Purpose Family History No Family History [...] BE BASED ON THE PRIMARY CLINICAL RECORDS. [facility] [employer] [facility]. provides no warranty or guarantee of the accuracy or completeness of information in this document.
[2023-09-16 13:36] LABS: Syphilis Antibodies Non-reactive
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
== END 2023-09-16 13:43 | disposition home or self-care (01) ==
LOC: WPOUT 10:25 → WP 10:26
PROVIDERS: Registered Nurse; Referring Provider Obstetrics & Gynecology; Visit Provider Obstetrics & Gynecology
DX: O14.13 Severe pre-eclampsia, third trimester (principal); Z3A.30 30 weeks gestation of pregnancy
CPT/HCPCS: 96365; 36415; 59050; 82565; 82570; 84156; 84450; 84460; 84550; 85027; 86780; 86850; 86870; 86900; 86901; 96372; J0702

== ENCOUNTER 2023-09-26 03:30 | Outpatient (CLI) | payer OTHER, SELFPAY ==
[2023-09-26] VITALS (97 sets, daily range): BP systolic 115–147; BP diastolic 68–98; PULSE 81–118; RESP 16; TEMP 36.6–37.3; O2SAT 92–100; BMI 31.4
--- OUTSIDE RECORDS SUMMARY | 2023-09-26 03:40 | XMS RPT_ITS | CCD ---
Author Name Unknown Address [address] [place] [address] Organization [facility] Care Team Providers Care Sausage Machine Operator Name Role Phone Unavailable Primary Care Provider UnavailSTEPHANIE Gould Attending Unavailable STEPHANIE RUIZ Admitting Unavailable ROXI JEAN Referring Unavailab ROXI Vivar Primary Care Unavailab ZEYAD Gutierrez Attending Unavailable MECCA GILLESPIE Attending Unavailable ROXI JEAN Referring Unavailab ROXI Vivar Primary Care Unavailab le Medications Current Medications Medication Drug Class(es) Dates Sig (Normalized) Sig (Original) acetaminophen 325 mg oral tablet (4 sources) Start: 09-18-2023 End: 09-28-2023 take 2 tablets by mouth every four hours as needed for pain acetaminophen (Tylenol) 325 MG tablet Take 2 tablets (650 mg) by mouth every 4 hours as needed for mild pain (1-3) (Fever GREATER than 100.5 F (38 C)) for up to 10 days. 30 tablet 0 09/18/2023 09/28/2023 Active Completed/Discontinued Medications Medication Drug Class(es) Dates Sig (Normalized) Sig (Original) betamethasone 3 mg/ml / betamethasone acetate 3 mg/ml injectable suspension (2 sources) Corticosteroid Start: 09-17-2023 End: 09-17-2023 betamethasone acetate-betamethaso ne sodium phosphate (Celestone) injection 12 mg calcium chloride 0.0014 meq/ml / potassium chloride 0.004 meq/ml / sodium chloride 0.103 meq/ml / sodium lactate 0.028 meq/ml injectable solution (2 sources) Start: 09-16-2023 End: 09-17-2023 lactated Ringer's infusion 10 ml calcium gluconate 100 mg/ml injection (2 sources) Start: 09-16-2023 End: 09-18-2023 calcium gluconate 10 % injection 1 g Famotidine (2 sources) Histamine-2 Receptor Antagonist Start: 09-17-2023 End: 09-18-2023 famotidine (Pepcid) tablet 20 mg famotidine (Pepcid) 20 mg in sodium chloride (PF) 0.9 % 10 mL injection (2 sources) Start: 09-16-2023 End: 09-17-2023 famotidine (Pepcid) 20 mg in sodium chloride (PF) 0.9 % 10 mL injection ferrous sulfate 325 mg oral tablet (4 sources) Start: 09-16-2023 End: 09-18-2023 ferrous sulfate tablet 325 mg 500 ml magnesium sulfate 40 mg/ml injection (2 sources) Start: 09-16-2023 End: 09-17-2023 magnesium sulfate 20 GM/500ML infusion 2 ml metoclopramide 5 mg/ml prefilled syringe (2 sources) Dopamine-2 Receptor Antagonist Start: 09-16-2023 End: 09-17-2023 take 10 mg intravenously every six hours as needed metoclopramide (Reglan) injection 10 mg vitamin tablet (2 sources) Start: 09-16-2023 End: 09-18-2023 take 1 tablet by mouth once daily 1 tablet, Oral, Daily, First dose on Tue09/16/23 at 1500 5 ml sodium chloride 9 mg/ml injection (6 sources) Start: 09-16-2023 End: 09-18-2023 10 mL, IntraVENous, Every 12 hours scheduled (2 times per day), First dose on Tue09/16/23 at 2100 Problems Problem Classification Problem Date Documented Da te Episodic/Chronic Hypertension complicating ; childbirth and the puerperium (6 sources) Severe pre-eclampsia; Translations: [Severe pre-eclampsia, third trimester] Onset: 09-16-2023 09-16-2023 Episodic Results Test Name Value Interpretation Reference Range Facil ity Vital Signs Date Time Vital Sign Value Performing Clinician Rambo allen 09-18-2023 16:55-0500 Body temperature 97.9 [degF] Stephanie Ruiz DO Work Phone: [employer] 09-18-2023 16:55-0500 Diastolic blood pressure 75 mm[Hg] Stephanie Ruiz DO Work Phone: [employer] 09-18-2023 16:55-0500 Heart rate 92 /min Stephanie Ruiz DO Work Phone: [employer] 09-18-2023 16:55-0500 Respiratory rate 18 /min Stephanie Ruiz DO Work Phone: [employer] 09-18-2023 16:55-0500 SaO2% (BldA) [Mass fraction] 98 % Stephanie Ruiz DO Work Phone: [employer] 09-18-2023 16:55-0500 Systolic blood pressure 113 mm[Hg] Stephanie Ruiz DO Work Phone: [employer] 09-16-2023 15:10-0500 Body height 165.1 cm Stephanie Ruiz DO Work Phone: [employer] 09-16-2023 15:10-0500 Body mass index (BMI) [Ratio] 33.95 kg/m2 Stephanie Ruiz DO Work Phone: [employer] 09-16-2023 15:10-0500 Body weight 92.53 kg Stephanie Ruiz DO Work Phone: [employer] Encounters Encounter Date Encounter Type Care Provider Facility Start: 09-20-2023 End: [facility]: 09-16-2023 End: 09-18-2023 Evaluation and management of inpatient STEPHANIE RUIZ [facility] Start: 09-16-2023 End: 09-18-2023 Evaluation and management of inpatient Stephanie Ruiz DO Work Phone: [facility] Start: 06-27-2023 End: 06-27-2023 ambulatory MECCA GILLESPIE [facility] Procedures Date Procedure Procedure Detail Performing Clinician Start: 09-18-2023 Glucose quantitative blood xcpt reagent strip Stephanie Ruiz DO Work Phone: Start: 09-18-2023 Glucose quantitative blood xcpt reagent strip Stephanie Ruiz DO Work Phone: Start: 09-18-2023 Glucose quantitative blood xcpt reagent strip Stephanie Ruiz DO Work Phone: Start: 09-18-2023 Ecg routine ecg w/le ast 12 lds trcg only w/o i&r Kassi Wiseman DO Work Phone: Start: 09-17-2023 End: 09-17-2023 Mra head w/o contrst material Erwin Leone MD Work Phone: Start: 09-17-2023 Glucose quantitative blood xcpt reagent strip Stephanie Ruiz DO Work Phone: Start: 09-17-2023 Glucose quantitative blood xcpt reagent strip Stephanie Ruiz DO Work Phone: Start: 09-17-2023 Glucose quantitative blood xcpt reagent strip Stephanie Ruiz DO Work Phone: Start: 09-17-2023 Antibody screen COREEN RUIZ Plan of Treatment Date Care Activity Detail Author Start: 2046 Zoster Vaccines (1 of 2) Zoster Vacc daisy (1 of 2) [facility] Start: 04-15-2023 Influenza vaccination Influenza Vacc ine (#1) [facility] Start: 2017 Screening for malign ant neoplasm of cervix Pap Smear [facility] Start: 2015 DTaP/Tdap/Td Vaccine s (1 - Tdap) DTaP/Tdap/Td Vaccines (1 - Tdap) [facility] Start: 2014 Hepatitis C screening Hepatitis C Sc reening [facility] Start: 2008 Depression Screening Depression Scre ening [facility] Start: 1997 MMR Vaccines (1 of 1 - Standard series) MMR Vaccines (1 of 1 - Standard series) [facility] Start: 1997 Varicella vaccination Varicell a Vaccines (1 of 2 - 2-dose childhood series) [facility] Start: 1996 COVID-19 Vaccine (#1) COVID-19 Vacci ne (#1) [facility] Start: 1996 Hepatitis B Vaccines (1 of 3 - 3-dose series) Hepatitis B Vaccines (1 of 3 - 3-dose series) [facility] Start: 1996 HIV screening HIV Screening [facility] Start: 1996 Lipid panel Lipid Panel [facility] Payers Date Payer Category Payer Unknown [employer] [id number] 2023-Present [address] [place] [address] Commercial [id number] 2023 Unknown [id number] 1995 Unknown [id number] 1995 Unknown [id number] Social History Date Type Detail Facility Start: 09-16-2023 Tobacco smoking status NHIS Never sm oked tobacco [facility] Start: 09-16-2023 Tobacco use and exposure Smoke less tobacco non-user [facility] Start: 09-16-2023 Alcohol intake Ex-drinker (finding) [facility] Start: 09-16-2023 History of Social function [facility] Start: 09-16-2023 Humiliation, Afraid, Rape, and Kick questionnaire [HARK] [facility] Within the last year , have you been afraid of your partner or ex-partner? No [facility] In the past 12 month s, has lack of transportation kept you from medical appointments or from getting medications? No [facility] Start: 03-02-2023 [facility] Start: 1995 Sex Assigned At Not on file S [facility] History of Present illness Narrative 09-18-2023 Herbert Mohan RN - 09/18/2023 7:14 PM Mariah Leone MD - 09/18/2023 9:47 AM Bautista Pascual - 09/18/2023 7:47 AM Ava Warner DO - 09/18/2023 6:10 AM EST Note Date & Type Note Facility 09-18-2023 History of Presen t illness Narrative Discharge instructions given to the patient at this time. Kick counts reviewed with the patient. Patient is to follow up with her OB within a week, has appointment scheduled for Tuesday09/23/23. Patient will cone picker her antibiotic from the pharmacy in [place] tomorrow morning when the pharmacy opens. IV removed. Patient verbalizes understanding of instructions. Neurology update: Patient's neuroimaging study results are pending. Please review neurology consultation note from yesterday for detailed recommendations. Thank you. .Nutrition rescreen completed. Chart reviewed. Patient to be monitored and followed by the diet precision optics technician. .WILLY Hannah Images from the original note were not included. Maternal Medicine Service Resident Progress Note 09/18/2023 6:11 AM 09/16/2023 Hospital Day: 3 Jo Linda, 28 y.o. 30w4d Patient has been seen and examined. Pt has no complaints this AM. Patient states that her BOURGEOIS has completely resolved and denies any other s/sx of PreE. Positive movement Negative vaginal bleeding Negative LOF Negative Contractions Vitals: 09/17/23 1559 09/17/23 1932 09/17/23 2331 09/18/23 0511 BP: 110/81 118/79 117/76 111/71 BP Location: Right arm Right arm Right arm Right arm Patient Position: Sitting Lying Lying Lying Pulse: 101 112 95 90 Resp: 20 18 18 16 Temp: 36.7 C (98 F) 36.6 C (97.8 F) 36.4 C (97.6 F) 36.8 C (98.3 F) TempSrc: Temporal Temporal Temporal Temporal SpO2: 97% 98% 98% 98% Weight: Height: FHT: 130, moderate variability Accels: present Decels: absentabsent Contractions: none Physical Exam: Gen: NAD, resting comfortably in bed HEENT: Normocephalic, Atraumatic Resp: No increased WOB, no respiratory distress Card: Regular rate Ext: No calf tenderness, swelling Medications: Current Facility-Administered Medications Medication Dose Route Frequency Provider Last Rate Last Admin acetaminophen (Tylenol) tablet 650 mg 650 mg Oral q4h PRN Noelle Moschella, DO 650 mg at 09/17/23 0703 amoxicillin (Amoxil) capsule 500 mg 500 mg Oral 3 times per day Silvia Aramovic, DO 500 mg at 09/18/23 0512 calcium gluconate 10 % injection 1 g 1 g IntraVENous PRN Noelle Moschella, DO famotidine (Pepcid) tablet 20 mg 20 mg Oral q12h PRN Kassi Ivone, DO Or famotidine (Pepcid) 20 mg in sodium chloride (PF) 0.9 % 10 mL injection 20 mg IntraVENous q12h PRN Kassi Ivone, DO ferrous sulfate tablet 325 mg 325 mg Oral BID WC Noelle Moschella, DO 325 mg at 09/17/23 1719 vitamin tablet 1 tablet Oral Daily Noelle Moschella, DO 1 tablet at 09/17/23 0953 sodium chloride 0.9 % infusion 5-250 mL/hr IntraVENous PRN Noelle Moschella, DO sodium chloride 0.9% (NS) flush 10 mL 10 mL IntraVENous 2 times per day Noelle Moschella, DO 10 mL at 09/17/232127 sodium chloride 0.9% (NS) flush 10 mL 10 mL IntraVENous PRN Noelle Moschella, DO 10 mL at 09/16/232027 Assessment/Plan: Jo Linda is a 28 y.o. female 30w4d PreEwSF vs Complex Migraine Hx gHTN - Presented to [facility] on 09/16/23 with headache, vision changes, and mild range BPs; PreE labs negative at [place], [facility] WNL - Started on magnesium at [facility] with improvement of BOURGEOIS - Transferred to [facility] for further management - History of gHTN in G2 , had seizure mid but suspect related to epilepsy - Endorsed mild BOURGEOIS short episodes of blurred vision, and chest pain or arrival - EKG ordered on admission and NSR - BSUS performed with grossly normal TAINA and measuring appropriate for GA - S/P Magnesium fo seizure ppx - S/p BMZ x2 09/16-09/17 - Bps overnight normotensive - Repeat PreE labs on 09/17 WNL - Patient declines BOURGEOIS this AM and overall asymptomatic this morning - Growth US and BPP ordered for 09/19/23 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 - Per patient, history of stroke as an - 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 - Last seizure in 2019 (during last ) - Previously followed with neurologist in [place], has not established care in [place] - Not currently on antiepileptic medications - Neurology consulted, appreciate further recommendations - MRA, MRV, MRI Brain read pending this AM Dental Infection - Diagnosed with tooth infection at [facility] - Started on Augmentin on 09/11, adjusted to Amoxicillin overnight in setting of concern for NEC in third trimester, plan to continue 10 day course - Dentistry consulted, appreciate further recommendations Abnormal Glucose Testing - Failed 1 hour GCT, never completed 3 hour GTT - Continue trending BGTs - Fasting BGT elevated yesterday, other BGTs WNL Rh Negative - S/p Rhogam at 09/02/23 Anemia - Hgb 9.0 - Continue PO iron supplementation - Asymptomatic Circumvallate Placenta - Will obtain growth US on 09/19/23 IUP @ 30w4d - Dating by 7w2d US - Cephalic on 09/16 - Monitoring:CEFM - Diet:General - BMZ x2 on 09/16 - 09/17 Further plan pending d/w attending. Christina Warner DO 09/18/2023, 6:11 AM Associated attestation - Stephanie Ruiz DO - 09/18/2023 7:11 PM EST Hospital Care (Independent): I independently saw and evaluated the patient. I agree with the findings and plan of care as documented in the resident's note. Pt doing well today. No BOURGEOIS, visual changes, abdominal pain. No CTXS, VB, LOF. +FM. BP 111/71 (BP Location: Right arm, Patient Position: Lying) Pulse 90 Temp 36.8 C (98.3 F) (Temporal) Resp 16 Ht 1.651 m (5' 5 ) Wt 92.5 kg (204 lb) SpO2 98% BMI 33.95 kg/m AAOx3, NAD Resp effort normal Neuro evaluation in progress. EKG with borderline QT prolongation. Consult cardiology. Please advise if pt can receive magnesium sulfate if needed during . Evaluation not consistent with preeclampsia at this time. If neurology and cardiology assessment normal - will likely dc to home today. Will need FU growth as outpt. Has dental follow-up scheduled. Chart review and preparation: 10 minutes. Face to face: 10 minutes. Documentation and care coordination: 10 minutes. Total time spent on patient care today: 30 minutes. [facility] update: Pt asymptomatic, would like to be dced to home. [facility] team discussed EKG with cardiology. Borderline prolonged QT was okay, cardiology consult not indicated, no medication restriction advised. Neuroimaging completed. IMPRESSION: 1. 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 2. No evidence of an acute intracranial process. [facility] team to review with neurologist for any additional recommendations. Outpt FU with opthalmology as an outpt for evaluation as recommended by neurology's initial consult. Outpt FU with dentist for dental infection. Outpt FU with [facility] [place] office for growth US this week. (Note sent to [facility] materials scheduler). Please screen patient for MRI. Thank you Images from the original note were not included. Maternal Medicine Service Resident Progress Note 09/17/2023 6:01 AM 09/16/2023 Hospital Day: 2 Jo Linda, 28 y.o. 30w3d Patient has been seen and examined. Pt notes she is feeling much better this morning than when she first arrived. She notes her headache has resolved at this time. She denies any further vision changes or chest pain, denies RUQ pain. She notes that she also feels that the swelling in her face has improved . Positive movement Negative vaginal bleeding Negative LOF Negative Contractions Vitals: 09/16/23 1942 09/16/23 1942 09/16/23 2345 09/17/23 0328 BP: 122/84 114/73 109/69 BP Location: Right arm Pulse: 111 92 109 Resp: 17 17 17 Temp: 36.7 C (98 F) 36.7 C (98 F) 36.8 C (98.2 F) TempSrc: Temporal Temporal Temporal SpO2: 97% 98% 98% Weight: Height: FHT: 120, moderate variability Accels: present Decels: absent Contractions: none Physical Exam: Gen: NAD HEENT: Normocephalic, Atraumatic, EOMI, MMM Resp: CTABL, no WRR Card: RRR S1S2 Abd: soft, gravid, NTND, no rebound, no guarding. No fundal tenderness Ext: No LE edema, no calf tenderness or swelling Medications: Current Facility-Administered Medications Medication Dose Route Frequency Provider Last Rate Last Admin acetaminophen (Tylenol) tablet 650 mg 650 mg Oral q4h PRN Noelle Yumikolla, DO 650 mg at 09/16/23 1622 amoxicillin (Amoxil) capsule 500 mg 500 mg Oral 3 times per day Silvia Morelos, betamethasone acetate-betamethasone sodium phosphate (Celestone) injection 12 mg 12 mg IntraMUSCular Once Noelle Escalante, DO calcium gluconate 10 % injection 1 g 1 g IntraVENous PRN Noellejeff Escalante, DO famotidine (Pepcid) 20 mg in sodium chloride (PF) 0.9 % 10 mL injection 20 mg IntraVENous q12h PRN Noellejeff Calderonlla, DO 20 mg at 09/16/23 2026 ferrous sulfate tablet 325 mg 325 mg Oral BID WC Noelle Bonifacioa, DO 325 mg at 09/16/23 1741 lactated Ringer's infusion 25 mL/hr IntraVENous Continuous Paulina Schlieper, DO 25 mL/hr at 09/16/23 1620 25 mL/hr at 09/16/23 1620 magnesium sulfate 20 GM/500ML infusion 2,000 mg/hr IntraVENous Continuous Noelle Yumikolla, DO 50 mL/hr at 09/17/23 0231 2,000 mg/hr at 09/17/23 0231 metoclopramide (Reglan) injection 10 mg 10 mg IntraVENous q6h PRN Silvia Jethro, DO 10 mg at 09/16/232008 ondansetron ODT (Zofran-ODT) disintegrating tablet 4 mg 4 mg Oral q8h PRN Noelle Moschella, DO Or ondansetron (Zofran) injection 4 mg 4 mg IntraVENous q6h PRN Noelle Moschella, DO vitamin tablet 1 tablet Oral Daily Noelle Moschella, DO sodium chloride 0.9 % infusion 5-250 mL/hr IntraVENous PRN Noelle Moschella, DO sodium chloride 0.9% (NS) flush 10 mL 10 mL IntraVENous 2 times per day Noelle Moschella, DO 10 mL at 09/16/232007 sodium chloride 0.9% (NS) flush 10 mL 10 mL IntraVENous PRN Noelle Moschella, DO 10 mL at 09/16/232027 Assessment/Plan: Jo Linda is a 28 y.o. female 30w3d PreEwSF vs. Complex Migraine Hx gHTN - Presented to [facility] on 09/16/23 with headache, vision changes, and mild range BPs; PreE labs negative at [place], [facility] WNL - Started on magnesium at OSH with improvement of BOURGEOIS - Transferred to [facility] for further management - History of gHTN in G2 , had seizure mid but suspect related to epilepsy - Endorsed mild BOURGEOIS short episodes of blurred vision, and chest pain or arrival - EKG ordered on admission and NSR - BSUS performed with grossly normal TAINA and measuring appropriate for GA - Magnesium running for seizure ppx - S/p BMZ x1 09/16, second dose ordered for today - Bps overnight normotensive - Repeat PreE labs this am pending - Patient asymptomatic this morning - Growth US and BPP ordered for 09/19/23 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 - Per patient, history of stroke as an - 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 - Last seizure in 2019 (during last ) - Previously followed with neurologist in [place], has not established care in [place] - Not currently on antiepileptic medications - Neurology consulted, appreciate further recommendations Dental Infection - Diagnosed with tooth infection at [facility] - Started on Augmentin on 09/11, adjusted to Amoxicillin overnight in setting of concern for NEC in third trimester, plan to continue 10 day course - Dentistry consulted, appreciate further recommendations Abnormal Glucose Testing - Failed 1 hour GCT, never completed 3 hour GTT - Plan to trend BGTs AM fasting and 1 hour postprandial Rh Negative - S/p Rhogam at 09/02/23 Anemia - Hgb 9.0 - Continue PO iron supplementation Circumvallate Placenta - Will obtain growth US on 09/19/23 IUP @ 30w3d - Dating by 7 w 2 d US - Cephalic 09/16 - Monitoring:CEFM - Diet:General - BMZ x1 on 09/16 Further plan pending d/w attending. Paulina Nath DO 09/17/2023, 6:01 AM Associated attestation - Stephanie Ruiz DO - 09/17/2023 8:20 AM EST Hospital Care (Independent): I independently saw and evaluated the patient. I agree with the findings and plan of care as documented in the resident's note. Ashamonique denies nausea, vomiting, swelling, RUQ pain. Headache waxes and wanes. Mild BOURGEOIS now. BP 115/83 (BP Location: Right arm, Patient Position: Sitting) Pulse 102 Temp 36.6 C (97.8 F) (Temporal) Resp 20 Ht 1.651 m (5' 5 ) Wt 92.5 kg (204 lb) SpO2 99% BMI 33.95 kg/m AAOx3 NAD Resp effort normal Abd gravid, NTTP Ext no edema, patellar reflex normal 2/4 FHR reassuring [place] - irritability this AM, no ctxs or irritability at this time Borderline prolonged QT - will dc magnesium sulfate as she is stable from a preeclampsia evaluation. Repeat EKG off magnesium sulfate. No visual changes. BP normotensive. Anemia on CBC - will check ferritin level. Pt reports tolerating PNV without difficulty. Give second dose of BMZ today. Neurology consult today. Chart review and preparation: 10 minutes. Face to face: 10 minutes. Documentation and care coordination: 15 minutes. Total time spent on patient care today: 35 minutes. Per day shift RN in report, resident on day shift told her that we can wait to obtain Type and screen tomorrow am with patient's other lab work. documented in this encounter [facility] Discharge instructions 09-18-2023 Discharge Instructions Note Date & Type Note Facility 09-18-2023 Hospital Discharg e instructions Rosamaria Galvez DO - 09/18/2023 6:49 PM EST Follow up appointment with your doctor/manager of care - Call office for appointment in 7days Activity - Normal Activity Call your doctor/manager of care if you have: - leaking fluid - vaginal bleeding - regular contractions: More than 6 contractions in one hour - decreased movement - worsening abdominal (belly) pain - headache, blurry vision, increased swelling, upper abdominal pain If you are going home with contractions that are uncomfortable/painful- we recommend these coping strategies: rhythmic breathing, hydrotherapy, imagery or visualization, gentle massage, walking and changing your position. Treatment Verification: Jo Linda was assessed on Labor and Delivery for a related visit on 09/18/23 . ROSAMARIA Galvez DO [facility] documented in this encounter [facility] Clinical Note 09-18-2023 Note Date & Type Note Facility 09-18-2023 Note Neurology update: Patient's neuroimaging study results are pending. Please review neurology consultation note from yesterday for detailed recommendations. Thank you. [facility] Consult note 09-17-2023 Erwin Leone MD - 09/17/2023 10:45 AM EST Note Date & Type Note Facility 09-17-2023 Consult note Associated Order (s): IP CONSULT TO NEUROLOGY Neurology Consult Note - Neurology Service Patient Name: Jo Linda Patient : 1995 Acct: [id number] Date of Admission: 09/16/2023 Room/Bed: H-2205/H-2205 A PCP: No primary care provider on file. Date of service: 09/17/2023 Reason for Consult: Headache and vision changes in . History of Presenting Illness: The patient is 28 y.o. -female- who is being seen as a new consult for headache and vision changes in . Symptom: Headache and vision changes while . Manner of onset: Sudden with gradual progression. Description of event(s): The patient reports prior history of headaches while . The patient reports history of migraine like headaches in the past. However, the headaches were reasonably well-controlled prior to the start of the current headaches. The patient reports that she developed mild headache while she was in her 20th week of the current . She reports that since then, the headaches have been getting worse and currently she is 30 weeks and 3 days with ongoing headache that is moderate to severe and, incapacitating while severe. The patient has a baseline history of stroke in childhood with dense right upper extremity and modest right lower extremity weakness along with some spasticity in the right upper extremity. Due to worsening of her headaches in , the patient became concerned and came into the ER at [facility] where she was admitted for further evaluation and recommendations. Duration: Symptoms started while she was 20 weeks . Current state: Symptoms are ongoing. Severity: Current severity reported at ranging between 4-6 out of 10 with treatment by the primary team on board. Symptoms fluctuate between mild to severe and while severe, they impair ability to perform ADLs. Modifying factors: Symptomatic care provided by the primary team improves the headache. Neurology service was consulted. Thank you. Review of systems: General: No reported chills, no fever, reports obesity. HEENT: Reported history of migraine headaches, no head injury. No reported eye pain or eye congestion. No reported ear pain or ear congestion. No reported nasal congestion or nosebleed. No reported throat congestion or infection. Neck: No reported neck pain. No reported neck stiffness. Respiratory: No reported wheezing and no reported shortness of breath. Cardiac: No reported chest pain and no reported palpitations. Gastrointestinal: No reported nausea, vomiting, abdominal pain and, no reported diarrhea. Musculoskeletal: No reported arthralgia and, no reported low back pain. Endocrine: No reported thyroid disease. No reported type 1 or type 2 diabetes mellitus. Psychiatry: No reported anxiety and no reported depression. Neurological: No reported alteration in mental state. Reported right upper extremity and right lower extremity weakness due to old stroke no reported speech deficit. No reported seizures. No reported tongue bite or loss of bowel/bladder control. Reports headache associated intermittent generalized blurred vision and, seeing spots in front of her eyes on and off. No reported vertigo. No reported hearing loss. No reported new gait or new ambulatory decline. However, patient does have an impaired gait and ambulation when walking for prolonged duration of time. Past medical History, surgical history, family history and social history were reviewed with the patient/care provider and were reviewed in the chart. Only the available information is documented below. Thank you. 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 No pertinent surgical history. Family History: No family history on file. Social History: TOBACCO: reports that she has never smoked. She has never used smokeless tobacco. ETOH: reports that she does not currently use alcohol. RECREATIONAL DRUG USE: Social History Substance and Sexual Activity Drug Use Never The patient's medications and allergies were reviewed and the available information is documented below. Thank you. Allergies: Patient has no known allergies. Home Medications: Prior to Admission medications Medication Sig Start Date End Date Taking? Authorizing Provider ferrous sulfate 325 (65 Fe) MG tablet Take 325 mg by mouth in the morning and 325 mg in the evening. Take with meals. Historical ProviderMD Vit-Fe Fumarate-FA ( VITAMINS PO) Take 1 tablet by mouth daily. Historical Provider, Current Hospital Medications: Current Facility-Administered Medications: acetaminophen (Tylenol) tablet 650 mg, 650 mg, Oral, q4h PRN, Noelle Escalante DO, 650 mg at 09/17/23 0703 amoxicillin (Amoxil) capsule 500 mg, 500 mg, Oral, 3 times per day, Silviabindu Morelos DO, 500 mg at 09/17/23 0603 betamethasone acetate-betamethasone sodium phosphate (Celestone) injection 12 mg, 12 mg, IntraMUSCular, Once, Noelle Escalante DO calcium gluconate 10 % injection 1 g, 1 g, IntraVENous, PRN, Noelle Moschella, DO famotidine (Pepcid) tablet 20 mg, 20 mg, Oral, q12h PRN OR famotidine (Pepcid) 20 mg in sodium chloride (PF) 0.9 % 10 mL injection, 20 mg, IntraVENous, q12h PRN, Kassi Wiseman, ferrous sulfate tablet 325 mg, 325 mg, Oral, BID WC, Noelle Moschella, DO, 325 mg at 09/17/23 09 vitamin tablet, 1 tablet, Oral, Daily, Noelle Moschella, DO, 1 tablet at 09/17/23 09 sodium chloride 0.9 % infusion, 5-250 mL/hr, IntraVENous, PRN, Noelle Moschella, DO sodium chloride 0.9% (NS) flush 10 mL, 10 mL, IntraVENous, 2 times per day, Noelle Moschella, DO, 10 mL at 09/16/232007 sodium chloride 0.9% (NS) flush 10 mL, 10 mL, IntraVENous, PRN, Noelle Moschella, DO, 10 mL at 09/16/232027 Continuous Infusions: Vital Signs: Patient Vitals for the past 24 hrs: BP Temp Temp src Pulse Resp SpO2 Height Weight 09/17/23 0749 115/83 36.6 C (97.8 F) Temporal 102 20 99 % -- -- 09/17/238 109/69 36.8 C (98.2 F) Temporal 109 17 98 % -- -- 09/16/235 114/73 36.7 C (98 F) Temporal 92 17 98 % -- -- 09/16/231941 -- -- -- -- 17 -- -- -- 09/16/231941 122/84 36.7 C (98 F) Temporal 111 -- 97 % -- -- 09/16/231834 -- -- -- 103 -- -- -- -- 09/16/231829 -- -- -- 100 -- -- -- -- 09/16/231824 -- -- -- 105 -- -- -- -- 09/16/231819 -- -- -- 102 -- -- -- -- 09/16/231809 -- -- -- 90 -- -- -- -- 09/16/23 1805 -- -- -- 95 -- -- -- -- 09/16/23 180 111/73 -- -- 92 -- -- -- -- 09/16/23 1800 -- -- -- 93 -- -- -- -- 09/16/23 1755 -- -- -- 92 -- -- -- -- 09/16/23 1750 -- -- -- 92 -- -- -- -- 09/16/23 1745 -- -- -- 94 -- -- -- -- 09/16/23 174 -- -- -- 89 -- -- -- -- 09/16/23 173 -- -- -- 94 -- -- -- -- 09/16/23 173 -- -- -- 90 -- -- -- -- 09/16/23 1730 119/76 -- -- 91 -- -- -- -- 09/16/23 1725 -- -- -- 94 -- -- -- -- 09/16/23 172 -- -- -- 88 -- -- -- -- 09/16/23 1715 -- -- -- 95 -- -- -- -- 09/16/23 171 -- -- -- 88 -- -- -- -- 09/16/23 170 -- -- -- 92 -- -- -- -- 09/16/23 1701 123/82 -- -- 95 -- -- -- -- 09/16/23 1700 -- -- -- 90 -- -- -- -- 09/16/23 1655 -- -- -- 92 -- -- -- -- 09/16/23 1650 -- -- -- 89 -- -- -- -- 09/16/23 1645 123/71 -- -- 94 -- -- -- -- 09/16/23 1640 -- -- -- 87 -- -- -- -- 09/16/23 1635 -- -- -- 88 -- -- -- -- 09/16/23 1632 127/76 -- -- 89 -- -- -- -- 09/16/23 1630 -- -- -- 92 -- -- -- -- 09/16/23 1625 -- -- -- 89 -- -- -- -- 09/16/23 1620 -- -- -- 91 -- -- -- -- 09/16/23 1616 -- -- -- 88 -- -- -- -- 09/16/23 1615 122/75 36.7 C (98.1 F) Oral 91 16 100 % -- -- 09/16/23 1610 -- -- -- 95 -- -- -- -- 09/16/23 1605 -- -- -- 93 -- -- -- -- 09/16/23 1600 -- -- -- 96 -- -- -- -- 09/16/23 1555 -- -- -- (!) 164 -- -- -- -- 09/16/23 1510 -- -- -- -- -- -- 5' 5 (1.651 m) 204 lb (92.5 kg) Physical Examination: General Exam: Constitutional: The patient is obese. Cardiovascular: S1 and S2, regular rate and rhythm no overt murmurs. No carotid bruit and normal carotid pulse. Extremities: No cyanosis, no clubbing, and no edema. Ophthalmology/funduscopic exam: Unremarkable/normal. Neurological Exam: Dexterity: The patient is LEFT handed. Mental Status: Alert, Awake, Oriented x 4, Normal Speech and intact comprehension - 3/3 repetition and recall. Follows 1-3 step commands. Fund of knowledge: Appropriate. Attention/concentration: Appropriate. Cranial Nerves: CN-II, CN-III, CN-IV, CN-V, CN-, CN-VII, CN-VIII, CN-IX, CN-X, CN-XI and, CN-XII are within normal limits bilaterally. Motor: Bulk = profoundly diminished in the right upper extremity and modestly diminished in the right lower extremity. Normal on the left side. Tone = normal on the left. Spastic on the right, worse in the upper than in the lower extremity. Strength = 5+/5 in all 4 extremities. DTRs = Trace throughout. Plantars = upgoing on the right and downgoing on the left. Abnormal movements = None. Opposition = Normal in both upper extremities. Pronator Drift = Pronator drift is present on the right, and, no pronator drift on the LEFT side. Sensory: Light touch, pinprick and vibration exams are within normal limits on the left and, are significantly diminished on the right side throughout. Coordination: Finger to nose is grossly impaired on the right side and, is within normal limits on the left side. Heel to ellsworth is modestly impaired on the right side and, is within normal limits on the left side. Rapid alternation movements are grossly impaired on the right side and, are within normal limits on the left side. Gait: Deferred due to patient's inability to participate at this time. Romberg: Deferred due to patient's inability to participate at this time. NIHSS score: N/A. Results: Labs: Last 24hrs Recent Results (from the past 24 hour(s)) ECG 12 lead Collection Time: 09/16/23 4:55 PM Result Value Ref Range Heart Rate 91 bpm QRSD Interval 100 ms QT Interval 397 ms QTC Interval 489 ms P Stanley 39 degrees QRS Stanley 31 degrees T Wave Stanley 31 degrees [place] Interval 144 ms Chlamydia/Gonorrhea Collection Time: 09/16/23 6:21 PM Specimen: Urine, Clean Catch Result Value Ref Range N gonorrhoeae, DNA Probe Not Detected Not Detected Chlamydia, DNA Probe Not Detected Not Detected Trichomonas vaginalis PCR Collection Time: 09/16/23 6:21 PM Specimen: Urine, Clean Catch Result Value Ref Range Trichomonas vaginalis Not Detected Not Detected POCT glucose meter Collection Time: 09/16/23 7:46 PM Result Value Ref Range Glucose 149 (H) 70 - 100 mg/dL CBC Collection Time: 09/17/23 6:11 AM Result Value Ref Range Auto WBC 8.3 3.6 - 10.7 10*3/uL RBC 3.34 (L) 3.8 - 5.20 10*6/uL Hemoglobin 9.6 (L) 11.7 - 16.0 g/dL Hematocrit 28.8 (L) 35.0 - 47.0 % MCV 86.0 80.0 - 98.0 fL MCH 28.7 26.0 - 34.0 pg MCHC 33.4 32.0 - 36.0 % RDW 14.8 (H) 11.5 - 14.5 % Platelets 204 140 - 440 10*3/uL MPV 9.4 7.4 - 12.4 fL Comprehensive metabolic panel Collection Time: 09/17/23 6:11 AM Result Value Ref Range SODIUM 135 135 - 145 mmol/L POTASSIUM 3.5 3.5 - 5.1 mmol/L CHLORIDE 106 98 - 107 mmol/L CARBON DIOXIDE 20 (L) 22 - 30 mmol/L ANION GAP 9 3 - 13 mmol/L UREA NITROGEN 3 (L) 7 - 17 mg/dL CREATININE 0.44 (L) 0.52 - 1.04 mg/dL GLUCOSE 124 (H) 70 - 100 mg/dL CALCIUM 7.3 (L) 8.4 - 10.4 mg/dL AST (SGOT) 22 15 - 46 U/L ALT 12 0 - 34 U/L ALKALINE PHOSPHATASE 114 38 - 126 U/L ALBUMIN 3.5 3.5 - 5.0 g/dL BILIRUBIN, TOTAL 0.3 0.2 - 1.3 mg/dL TOTAL PROTEIN 7.2 6.3 - 8.2 g/dL eGFR >90.0 >60.0 mL/min/1.73m*2 Type and screen Collection Time: 09/17/23 6:11 AM Result Value Ref Range ABO Grouping B Antibody Screen POS Rh Type NEG Confirmatory ABO/Rh Collection Time: 09/17/23 6:11 AM Result Value Ref Range ABO Grouping B Rh Type NEG Ferritin Collection Time: 09/17/23 6:11 AM Result Value Ref Range FERRITIN 5 (L) 6 - 137 ng/mL Antibody identification Collection Time: 09/17/23 6:11 AM Result Value Ref Range Antibody Identification DPASSIVE POCT glucose meter Collection Time: 09/17/23 7:52 AM Result Value Ref Range Glucose 119 (H) 70 - 100 mg/dL POCT glucose meter Collection Time: 09/17/23 9:57 AM Result Value Ref Range Glucose 131 (H) 70 - 100 mg/dL Recent Labs 09/17/23 0611 ALKPHOS 114 ALT 12 AST 22 BILITOT 0.3 Radiology Personal review: None available for my review. Neurophysiology Results: EEG: N/A EMG/NCS: N/A. ASSESSMENT / PLAN / RECOMMENDATIONS : Assessment: Progressively worsening headache starting at the 20th week of the . Rule out intracranial etiology such as extension of stroke versus venous sinus thrombosis versus occlusive or stenotic cerebral vascular disease. The patient is currently in the 31st week of . Baseline history of stroke as a child with dense right upper extremity weakness and mild right lower extremity weakness. Recommendations: MRI of the brain without contrast. Ordered. MRV of the head without contrast. Ordered MRA of the head without contrast. Ordered. With contrast studies were not ordered due to [facility] radiology protocol. Please continue with symptomatic treatment of patient's headaches. No triptan, DHE or any other migraine abortive treatment is recommended at this time. Outpatient neurology follow-up, 4 to 6 weeks postdischarge for evaluation and treatment of migraines. Please obtain ophthalmology consult for eye exam to rule out any intraocular pathology related to patient's headaches. This may be performed as outpatient versus inpatient, per discretion of the primary team. Please continue with supportive care and, please implement fall precautions. Disposition/Discharge issues: Neurology service will make further recommendations after reviewing the results of the above ordered and, pending studies. Further recommendations, per primary and the other care providing teams. Attestation: I spent 80 minutes in providing care to this patient. I discussed the above assessment and plan with the patient in detail and, addressed all of her questions and concerns to her expressed understanding and satisfaction. Thank you. [facility] Consult note 09-17-2023 Erwin Leone MD - 09/17/2023 10:45 AM EST Note Date & Type Note Facility 09-17-2023 Consult note Associated Order (s): IP CONSULT TO NEUROLOGY Neurology Consult Note - Neurology Service Patient Name: Jo Linda Patient : 1995 Acct: [id number] Date of Admission: 09/16/2023 Room/Bed: H-2205/H-2205 A PCP: No primary care provider on file. Date of service: 09/17/2023 Reason for Consult: Headache and vision changes in . History of Presenting Illness: The patient is 28 y.o. -female- who is being seen as a new consult for headache and vision changes in . Symptom: Headache and vision changes while . Manner of onset: Sudden with gradual progression. Description of event(s): The patient reports prior history of headaches while . The patient reports history of migraine like headaches in the past. However, the headaches were reasonably well-controlled prior to the start of the current headaches. The patient reports that she developed mild headache while she was in her 20th week of the current . She reports that since then, the headaches have been getting worse and currently she is 30 weeks and 3 days with ongoing headache that is moderate to severe and, incapacitating while severe. The patient has a baseline history of stroke in childhood with dense right upper extremity and modest right lower extremity weakness along with some spasticity in the right upper extremity. Due to worsening of her headaches in , the patient became concerned and came into the ER at [facility] where she was admitted for further evaluation and recommendations. Duration: Symptoms started while she was 20 weeks . Current state: Symptoms are ongoing. Severity: Current severity reported at ranging between 4-6 out of 10 with treatment by the primary team on board. Symptoms fluctuate between mild to severe and while severe, they impair ability to perform ADLs. Modifying factors: Symptomatic care provided by the primary team improves the headache. Neurology service was consulted. Thank you. Review of systems: General: No reported chills, no fever, reports obesity. HEENT: Reported history of migraine headaches, no head injury. No reported eye pain or eye congestion. No reported ear pain or ear congestion. No reported nasal congestion or nosebleed. No reported throat congestion or infection. Neck: No reported neck pain. No reported neck stiffness. Respiratory: No reported wheezing and no reported shortness of breath. Cardiac: No reported chest pain and no reported palpitations. Gastrointestinal: No reported nausea, vomiting, abdominal pain and, no reported diarrhea. Musculoskeletal: No reported arthralgia and, no reported low back pain. Endocrine: No reported thyroid disease. No reported type 1 or type 2 diabetes mellitus. Psychiatry: No reported anxiety and no reported depression. Neurological: No reported alteration in mental state. Reported right upper extremity and right lower extremity weakness due to old stroke no reported speech deficit. No reported seizures. No reported tongue bite or loss of bowel/bladder control. Reports headache associated intermittent generalized blurred vision and, seeing spots in front of her eyes on and off. No reported vertigo. No reported hearing loss. No reported new gait or new ambulatory decline. However, patient does have an impaired gait and ambulation when walking for prolonged duration of time. Past medical History, surgical history, family history and social history were reviewed with the patient/care provider and were reviewed in the chart. Only the available information is documented below. Thank you. 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 No pertinent surgical history. Family History: No family history on file. Social History: TOBACCO: reports that she has never smoked. She has never used smokeless tobacco. ETOH: reports that she does not currently use alcohol. RECREATIONAL DRUG USE: Social History Substance and Sexual Activity Drug Use Never The patient's medications and allergies were reviewed and the available information is documented below. Thank you. Allergies: Patient has no known allergies. Home Medications: Prior to Admission medications Medication Sig Start Date End Date Taking? Authorizing Provider ferrous sulfate 325 (65 Fe) MG tablet Take 325 mg by mouth in the morning and 325 mg in the evening. Take with meals. Historical Provider, Vit-Fe Fumarate-FA ( VITAMINS PO) Take 1 tablet by mouth daily. Historical Provider, Current Hospital Medications: Current Facility-Administered Medications: acetaminophen (Tylenol) tablet 650 mg, 650 mg, Oral, q4h PRN, Noelle Escalante DO, 650 mg at 09/17/23 0703 amoxicillin (Amoxil) capsule 500 mg, 500 mg, Oral, 3 times per day, Silvia Jethro, DO, 500 mg at 09/17/23 0603 betamethasone acetate-betamethasone sodium phosphate (Celestone) injection 12 mg, 12 mg, IntraMUSCular, Once, Noelle Escalante DO calcium gluconate 10 % injection 1 g, 1 g, IntraVENous, PRN, Noelle Escalante DO famotidine (Pepcid) tablet 20 mg, 20 mg, Oral, q12h PRN OR famotidine (Pepcid) 20 mg in sodium chloride (PF) 0.9 % 10 mL injection, 20 mg, IntraVENous, q12h PRN, Kassi Wiseman DO ferrous sulfate tablet 325 mg, 325 mg, Oral, BID WC, Noelle Aurorachella, DO, 325 mg at 09/17/23 0953 vitamin tablet, 1 tablet, Oral, Daily, Noelle Aurorachella, DO, 1 tablet at 09/17/23 0953 sodium chloride 0.9 % infusion, 5-250 mL/hr, IntraVENous, PRN, Noelle Moschella, DO sodium chloride 0.9% (NS) flush 10 mL, 10 mL, IntraVENous, 2 times per day, Noelle Moschella, DO, 10 mL at 09/16/232007 sodium chloride 0.9% (NS) flush 10 mL, 10 mL, IntraVENous, PRN, Noelle Moschella, DO, 10 mL at 09/16/232027 Continuous Infusions: Vital Signs: Patient Vitals for the past 24 hrs: BP Temp Temp src Pulse Resp SpO2 Height Weight 09/17/23 0749 115/83 36.6 C (97.8 F) Temporal 102 20 99 % -- -- 09/17/23 0328 109/69 36.8 C (98.2 F) Temporal 109 17 98 % -- -- 09/16/23 2345 114/73 36.7 C (98 F) Temporal 92 17 98 % -- -- 09/16/231941 -- -- -- -- 17 -- -- -- 09/16/231941 122/84 36.7 C (98 F) Temporal 111 -- 97 % -- -- 09/16/231834 -- -- -- 103 -- -- -- -- 09/16/231829 -- -- -- 100 -- -- -- -- 09/16/231824 -- -- -- 105 -- -- -- -- 09/16/231819 -- -- -- 102 -- -- -- -- 09/16/23 181 -- -- -- 90 -- -- -- -- 09/16/231804 -- -- -- 95 -- -- -- -- 09/16/231800 111/73 -- -- 92 -- -- -- -- 09/16/23 1800 -- -- -- 93 -- -- -- -- 09/16/23 1755 -- -- -- 92 -- -- -- -- 09/16/23 175 -- -- -- 92 -- -- -- -- 09/16/23 1745 -- -- -- 94 -- -- -- -- 09/16/23 174 -- -- -- 89 -- -- -- -- 09/16/23 1735 -- -- -- 94 -- -- -- -- 09/16/23 173 -- -- -- 90 -- -- -- -- 09/16/23 1730 119/76 -- -- 91 -- -- -- -- 09/16/23 1725 -- -- -- 94 -- -- -- -- 09/16/23 172 -- -- -- 88 -- -- -- -- 09/16/23 171 -- -- -- 95 -- -- -- -- 09/16/23 171 -- -- -- 88 -- -- -- -- 09/16/23 170 -- -- -- 92 -- -- -- -- 09/16/23 170 123/82 -- -- 95 -- -- -- -- 09/16/23 170 -- -- -- 90 -- -- -- -- 09/16/23 165 -- -- -- 92 -- -- -- -- 09/16/23 165 -- -- -- 89 -- -- -- -- 09/16/23 1645 123/71 -- -- 94 -- -- -- -- 09/16/23 1640 -- -- -- 87 -- -- -- -- 09/16/23 1635 -- -- -- 88 -- -- -- -- 09/16/23 1632 127/76 -- -- 89 -- -- -- -- 09/16/23 163 -- -- -- 92 -- -- -- -- 09/16/23 1625 -- -- -- 89 -- -- -- -- 09/16/23 1620 -- -- -- 91 -- -- -- -- 09/16/23 1616 -- -- -- 88 -- -- -- -- 09/16/23 1615 122/75 36.7 C (98.1 F) Oral 91 16 100 % -- -- 09/16/23 1610 -- -- -- 95 -- -- -- -- 09/16/23 1605 -- -- -- 93 -- -- -- -- 09/16/23 1600 -- -- -- 96 -- -- -- -- 09/16/23 1555 -- -- -- (!) 164 -- -- -- -- 09/16/23 1510 -- -- -- -- -- -- 5' 5 (1.651 m) 204 lb (92.5 kg) Physical Examination: General Exam: Constitutional: The patient is obese. Cardiovascular: S1 and S2, regular rate and rhythm no overt murmurs. No carotid bruit and normal carotid pulse. Extremities: No cyanosis, no clubbing, and no edema. Ophthalmology/funduscopic exam: Unremarkable/normal. Neurological Exam: Dexterity: The patient is LEFT handed. Mental Status: Alert, Awake, Oriented x 4, Normal Speech and intact comprehension - 3/3 repetition and recall. Follows 1-3 step commands. Fund of knowledge: Appropriate. Attention/concentration: Appropriate. Cranial Nerves: CN-II, CN-III, CN-IV, CN-V, CN-, CN-VII, CN-VIII, CN-IX, CN-X, CN-XI and, CN-XII are within normal limits bilaterally. Motor: Bulk = profoundly diminished in the right upper extremity and modestly diminished in the right lower extremity. Normal on the left side. Tone = normal on the left. Spastic on the right, worse in the upper than in the lower extremity. Strength = 5+/5 in all 4 extremities. DTRs = Trace throughout. Plantars = upgoing on the right and downgoing on the left. Abnormal movements = None. Opposition = Normal in both upper extremities. Pronator Drift = Pronator drift is present on the right, and, no pronator drift on the LEFT side. Sensory: Light touch, pinprick and vibration exams are within normal limits on the left and, are significantly diminished on the right side throughout. Coordination: Finger to nose is grossly impaired on the right side and, is within normal limits on the left side. Heel to ellsworth is modestly impaired on the right side and, is within normal limits on the left side. Rapid alternation movements are grossly impaired on the right side and, are within normal limits on the left side. Gait: Deferred due to patient's inability to participate at this time. Romberg: Deferred due to patient's inability to participate at this time. NIHSS score: N/A. Results: Labs: Last 24hrs Recent Results (from the past 24 hour(s)) ECG 12 lead Collection Time: 09/16/23 4:55 PM Result Value Ref Range Heart Rate 91 bpm QRSD Interval 100 ms QT Interval 397 ms QTC Interval 489 ms P Stanley 39 degrees QRS Stanley 31 degrees T Wave Stanley 31 degrees [place] Interval 144 ms Chlamydia/Gonorrhea Collection Time: 09/16/23 6:21 PM Specimen: Urine, Clean Catch Result Value Ref Range N gonorrhoeae, DNA Probe Not Detected Not Detected Chlamydia, DNA Probe Not Detected Not Detected Trichomonas vaginalis PCR Collection Time: 09/16/23 6:21 PM Specimen: Urine, Clean Catch Result Value Ref Range Trichomonas vaginalis Not Detected Not Detected POCT glucose meter Collection Time: 09/16/23 7:46 PM Result Value Ref Range Glucose 149 (H) 70 - 100 mg/dL CBC Collection Time: 09/17/23 6:11 AM Result Value Ref Range Auto WBC 8.3 3.6 - 10.7 10*3/uL RBC 3.34 (L) 3.8 - 5.20 10*6/uL Hemoglobin 9.6 (L) 11.7 - 16.0 g/dL Hematocrit 28.8 (L) 35.0 - 47.0 % MCV 86.0 80.0 - 98.0 fL MCH 28.7 26.0 - 34.0 pg MCHC 33.4 32.0 - 36.0 % RDW 14.8 (H) 11.5 - 14.5 % Platelets 204 140 - 440 10*3/uL MPV 9.4 7.4 - 12.4 fL Comprehensive metabolic panel Collection Time: 09/17/23 6:11 AM Result Value Ref Range SODIUM 135 135 - 145 mmol/L POTASSIUM 3.5 3.5 - 5.1 mmol/L CHLORIDE 106 98 - 107 mmol/L CARBON DIOXIDE 20 (L) 22 - 30 mmol/L ANION GAP 9 3 - 13 mmol/L UREA NITROGEN 3 (L) 7 - 17 mg/dL CREATININE 0.44 (L) 0.52 - 1.04 mg/dL GLUCOSE 124 (H) 70 - 100 mg/dL CALCIUM 7.3 (L) 8.4 - 10.4 mg/dL AST (SGOT) 22 15 - 46 U/L ALT 12 0 - 34 U/L ALKALINE PHOSPHATASE 114 38 - 126 U/L ALBUMIN 3.5 3.5 - 5.0 g/dL BILIRUBIN, TOTAL 0.3 0.2 - 1.3 mg/dL TOTAL PROTEIN 7.2 6.3 - 8.2 g/dL eGFR >90.0 >60.0 mL/min/1.73m*2 Type and screen Collection Time: 09/17/23 6:11 AM Result Value Ref Range ABO Grouping B Antibody Screen POS Rh Type NEG Confirmatory ABO/Rh Collection Time: 09/17/23 6:11 AM Result Value Ref Range ABO Grouping B Rh Type NEG Ferritin Collection Time: 09/17/23 6:11 AM Result Value Ref Range FERRITIN 5 (L) 6 - 137 ng/mL Antibody identification Collection Time: 09/17/23 6:11 AM Result Value Ref Range Antibody Identification DPASSIVE POCT glucose meter Collection Time: 09/17/23 7:52 AM Result Value Ref Range Glucose 119 (H) 70 - 100 mg/dL POCT glucose meter Collection Time: 09/17/23 9:57 AM Result Value Ref Range Glucose 131 (H) 70 - 100 mg/dL Recent Labs 09/17/23 0611 ALKPHOS 114 ALT 12 AST 22 BILITOT 0.3 Radiology Personal review: None available for my review. Neurophysiology Results: EEG: N/A EMG/NCS: N/A. ASSESSMENT / PLAN / RECOMMENDATIONS : Assessment: Progressively worsening headache starting at the 20th week of the . Rule out intracranial etiology such as extension of stroke versus venous sinus thrombosis versus occlusive or stenotic cerebral vascular disease. The patient is currently in the 31st week of . Baseline history of stroke as a child with dense right upper extremity weakness and mild right lower extremity weakness. Recommendations: MRI of the brain without contrast. Ordered. MRV of the head without contrast. Ordered MRA of the head without contrast. Ordered. With contrast studies were not ordered due to [facility] radiology protocol. Please continue with symptomatic treatment of patient's headaches. No triptan, DHE or any other migraine abortive treatment is recommended at this time. Outpatient neurology follow-up, 4 to 6 weeks postdischarge for evaluation and treatment of migraines. Please obtain ophthalmology consult for eye exam to rule out any intraocular pathology related to patient's headaches. This may be performed as outpatient versus inpatient, per discretion of the primary team. Please continue with supportive care and, please implement fall precautions. Disposition/Discharge issues: Neurology service will make further recommendations after reviewing the results of the above ordered and, pending studies. Further recommendations, per primary and the other care providing teams. Attestation: I spent 80 minutes in providing care to this patient. I discussed the above assessment and plan with the patient in detail and, addressed all of her questions and concerns to her expressed understanding and satisfaction. Thank you. documented in this encounter [facility] Discharge summary note 09-16-2023 Note Date & Type Note Facility 09-16-2023 Note Attestation signed by Stephanie Ruiz DO at 09/19/2023 9:06 AM Pt discharged to home 09/18/23 evening. She was asymptomatic at discharge. No headache, vision changes nor chest pain. EKG IMPRESSION: Sinus rhythm Borderline prolonged QT interval [facility] team discussed EKG results with cardiology. Borderline prolonged QT not clinically significant and does not need restriction of medications including magnesium sulfate. MRV HEAD WO CONTRAST IMPRESSION: Normal study without evidence of superior sagittal sinus thrombosis. MR HEAD ANGIO WO IV CONTRAST IMPRESSION: 1. 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 2. No evidence of an acute intracranial process. MR BRAIN WO CONTRASTIMPRESSION: 1. 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 2. No evidence of an acute intracranial process. Recommended follow up: Outpatient neurology follow-up, 4 to 6 weeks postdischarge for evaluation and treatment of migraines. Please obtain ophthalmology consult for eye exam to rule out any intraocular pathology related to patient's headaches. Jo elects for outpatient follow-up. [facility] growth ultrasound - note sent to office to schedule. OB follow-up with Dr. Spicer this week. Department of Obstetrics and Gynecology [facility] Discharge Summary Admission on 09/16/2023 2:47 PM Jo Linda is a 28 y.o. at 30 w 2 d who presented to Labor and Delivery for direct admission as transfer of care from [place] for concerns for PreEwSF vs complex migraine. Patient initially presented to her Ob visit on 09/16/2023 with complaints of BOURGEOIS, vision changes, and intermittent chest pain. She was noted to have mild range Bps in the office. She was started on magnesium sulfate at OSH on 09/16/23. Her initial PreE labs collected at OSH were wnl. She received BMZ x2 on 09/16-09/17. Neurology was consulted in setting of BOURGEOIS and vision changes. Workup included MRI/MRA imaging of the brain, all that were WNL. Neurology recommended symptomatic treatment and follow up as an outpatient. Patient also was being treated for suspected tooth infection diagnosed prior to admission, so Dentistry was consulted and she was started on Augmentin, which was switched to Amoxicillin. During admission, pt did have prolonged QT interval, and cardiology was contacted about magnesium sulfate if she should need another dose later in her . They said that it should be fine. Meds: Current Facility-Administered Medications: acetaminophen (Tylenol) tablet 650 mg, 650 mg, Oral, q4h PRN, Noelle Yumikolla, DO, 650 mg at 09/17/23 0703 amoxicillin (Amoxil) capsule 500 mg, 500 mg, Oral, 3 times per day, Silvia Jethro, DO, 500 mg at 09/18/23 1405 calcium gluconate 10 % injection 1 g, 1 g, IntraVENous, PRN, Noelle Moschella, DO famotidine (Pepcid) tablet 20 mg, 20 mg, Oral, q12h PRN OR famotidine (Pepcid) 20 mg in sodium chloride (PF) 0.9 % 10 mL injection, 20 mg, IntraVENous, q12h PRN, Kassi Wiseman DO ferrous sulfate tablet 325 mg, 325 mg, Oral, BID WC, Noelle Moschella, DO, 325 mg at 09/18/23 0906 vitamin tablet, 1 tablet, Oral, Daily, Noelle Moschella, DO, 1 tablet at 09/18/23 0906 sodium chloride 0.9 % infusion, 5-250 mL/hr, IntraVENous, PRN, Noelle Moschella, DO sodium chloride 0.9% (NS) flush 10 mL, 10 mL, IntraVENous, 2 times per day, Noelle Moschella, DO, 10 mL at 09/18/23 0907 sodium chloride 0.9% (NS) flush 10 mL, 10 mL, IntraVENous, PRN, Noelle Moschella, DO, 10 mL at 09/16/232027 Discharge to: Home Discharge date: 09/18/23 Discharge Dx: Complex migraine Follow up appointment with your doctor/manager of care - Keep next scheduled appointment Activity - Normal Activity Call your doctor/manager of care if you have: - leaking fluid - vaginal bleeding - regular contractions: More than 6 contractions in one hour - decreased movement - worsening abdominal (belly) pain - headache, blurry vision, increased swelling, upper abdominal pain ROSAMARIA Galvez DO 09/18/2023 4:22 PM [facility] Clinical Note 09-16-2023 Note Date & Type Note Facility 09-16-2023 Note Attestation signed by Stephanie Ruiz DO at 09/16/2023 8:09 PM Hospital Care (Present): I was present with the resident during the history and exam. I discussed the case with the resident and agree with the findings and plan as documented in the resident's note. Transport from Dr. Spicer at [facility] due to concern for preeclampsia. Mild range HTN and BOURGEOIS. Pt reports PMHx of epilepsy, stroke and subsequent muscle atrophy on her right side. BP 122/84 Pulse 111 Temp 36.7 ?C (98 ?F) (Temporal) Resp 17 Ht 1.651 m (5' 5 ) Wt 92.5 kg (204 lb) SpO2 97% BMI 33.95 kg/m? AAOx3, NAD HRRR LCTABL Abd gravid NTTP Upper extremities: right arm limited in extension of the elbow, R upper extremity smaller than left Lower extremities - no swelling, negative Homans, normal 2/4 patellar reflex Plan: - monitor for preeclampsia - continue magnesium sulfate for seizure prophylaxis x 24 hours. Repeat CBC, CMP, UPC in AM. CFM at this time. - Neurology consult regarding new onset BOURGEOIS, hx of epilepsy, hx of stroke - Continue antibiotics for dental infection, consult dentistry Chart review and preparation: 15 minutes. Face to face: 40 minutes. Documentation and care coordination: 10 minutes. Total time spent on patient care today: 65 minutes. Department of Maternal Medicine History and Physical CHIEF COMPLAINT: PreEwSF vs. Complex Migraine HISTORY OF PRESENT ILLNESS: The patient is a 28 y.o. female at 30w2d. OB History No obstetric history on file. Patient presents with a chief complaint as above and is being admitted for headache, vision changes, and elevated BPs. Patient presented to [facility] due to two week history of headaches and episodes of blurred vision and vision loss. Patient states the headaches were intermittent but would not resolve with Tylenol. The episodes of vision changes come and go. She states she will get episodes of spots in her vision and vision loss in her peripheral vision as well as generalized blurred vision. She denies history of headaches or migraines. She states she also has had episodes of chest pain/burning as well as shortness of breath both with exertion and laying down that has progressively been getting worse over the past few weeks. She also endorses increased pelvic pain and low back pain. Denies leakage of fluid, vaginal bleeding, or decreased movement. 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 Last seizure was in 2019. She is not currently on antiepileptic medications. She has RUE motor deficits and full body right-sided sensory deficits. Transport: Yes Prior Hospitalizations: No Estimated Due Date: Estimated Date of Delivery: 11/23/23. CARE: Complications: See Below Past OB History: OB History No obstetric history on file. Detailed OB History at 36 weeks Term MAB Current Past Medical History: No past medical history on file. Past Surgical History: No past surgical history on file. Allergies: Not on File Social History: Social History Socioeconomic History Marital status: Spouse name: Not on file Number of children: Not on file Years of education: Not on file Highest education level: Not on file Occupational History Not on file Tobacco Use Smoking status: Not on file Smokeless tobacco: Not on file Substance and Sexual Activity Alcohol use: Not on file Drug use: Not on file Sexual activity: Not on file Other Topics Concern Not on file Social History Narrative Not on file Social Determinants of Health Financial Resource Strain: Not on file Food Insecurity: Not on file Transportation Needs: Not on file Physical Activity: Not on file Stress: Not on file Social Connections: Not on file Intimate Partner Violence: Not on file Housing Stability: Not on file Family History: No family history on file. Medications Prior to Admission: No medications prior to admission. REVIEW OF SYSTEMS: Review of Systems Constitutional: Negative for chills and fever. HENT: Negative for congestion, hearing loss and voice change. Eyes: Positive for visual disturbance. Negative for pain. Respiratory: Negative for shortness of breath. Cardiovascular: Negative for chest pain and leg swelling. Gastrointestinal: Negative for abdominal pain, constipation, diarrhea, nausea and vomiting. Genitourinary: Positive for pelvic pain. Negative for difficulty urinating, dysuria and frequency. Musculoskeletal: Negative for arthralgias, back pain and myalgias. Skin: Negative for color change and wound. Allergic/Immunologic: Ne (more content not included)... [facility] History and physical note 09-16-2023 Noelle EscalanteDO - 09/16/2023 2:52 PM EST Note Date & Type Note Facility 09-16-2023 History and physi gustavo note Department of Maternal Medicine History and Physical CHIEF COMPLAINT: PreEwSF vs. Complex Migraine HISTORY OF PRESENT ILLNESS: The patient is a 28 y.o. female at 30w2d. OB History No obstetric history on file. Patient presents with a chief complaint as above and is being admitted for headache, vision changes, and elevated BPs. Patient presented to [facility] due to two week history of headaches and episodes of blurred vision and vision loss. Patient states the headaches were intermittent but would not resolve with Tylenol. The episodes of vision changes come and go. She states she will get episodes of spots in her vision and vision loss in her peripheral vision as well as generalized blurred vision. She denies history of headaches or migraines. She states she also has had episodes of chest pain/burning as well as shortness of breath both with exertion and laying down that has progressively been getting worse over the past few weeks. She also endorses increased pelvic pain and low back pain. Denies leakage of fluid, vaginal bleeding, or decreased movement. She has a history of epilepsy, stroke as an , and hemiplegia related to brain damage. Last seizure was in 2019. She is not currently on antiepileptic medications. She has RUE motor deficits and full body right-sided sensory deficits. Transport: Yes Prior Hospitalizations: No Estimated Due Date: Estimated Date of Delivery: 11/23/23. CARE: Complications: See Below Past OB History: OB History No obstetric history on file. Detailed OB History at 36 weeks Term MAB Current Past Medical History: No past medical history on file. Past Surgical History: No past surgical history on file. Allergies: Not on File Social History: Social History Socioeconomic History Marital status: Spouse name: Not on file Number of children: Not on file Years of education: Not on file Highest education level: Not on file Occupational History Not on file Tobacco Use Smoking status: Not on file Smokeless tobacco: Not on file Substance and Sexual Activity Alcohol use: Not on file Drug use: Not on file Sexual activity: Not on file Other Topics Concern Not on file Social History Narrative Not on file Social Determinants of Health Financial Resource Strain: Not on file Food Insecurity: Not on file Transportation Needs: Not on file Physical Activity: Not on file Stress: Not on file Social Connections: Not on file Intimate Partner Violence: Not on file Housing Stability: Not on file Family History: No family history on file. Medications Prior to Admission: No medications prior to admission. REVIEW OF SYSTEMS: Review of Systems Constitutional: Negative for chills and fever. HENT: Negative for congestion, hearing loss and voice change. Eyes: Positive for visual disturbance. Negative for pain. Respiratory: Negative for shortness of breath. Cardiovascular: Negative for chest pain and leg swelling. Gastrointestinal: Negative for abdominal pain, constipation, diarrhea, nausea and vomiting. Genitourinary: Positive for pelvic pain. Negative for difficulty urinating, dysuria and frequency. Musculoskeletal: Negative for arthralgias, back pain and myalgias. Skin: Negative for color change and wound. Allergic/Immunologic: Negative for immunocompromised state. Neurological: Positive for numbness and headaches. Negative for weakness and light-headedness. Psychiatric/Behavioral: Negative for agitation, behavioral problems and dysphoric mood. PHYSICAL EXAM: Vitals: 09/16/23 1510 Weight: 204 lb (92.5 kg) General appearance: awake, alert, cooperative, no apparent distress, and appears stated age Neurologic: Awake, alert, oriented to name, place and time. Lungs: No increased work of breathing, good air exchange Abdomen: Soft, non tender, gravid, consistent with her gestational age Sterile Speculum Exam: Membranes: Intact HSV Lesions: not applicable Cervix: Closed Contraction frequency: None Fetus: EFW: Not available Presentation: Vertex by U/S NST: N/A BPP: Not Performed ASSESSMENT AND PLAN: LABOR DELIVERY ??? SCD's ONLY (labor through ambulation) SCD's PLUS Prophylactic Anticoagulation until discharge SCD's PLUS Prophylactic Anticoagulation for 6 weeks SCD's PLUS Therapeutic Anticoagulation for 6 weeks Vaginal Delivery [] BMI ? 40 kg/m2 Delivery All patients Vaginal Delivery [] BMI ? 40 kg/m2 AND [] Antepartum hospitalization ? 72 hours within the past month Delivery 1 Major Risk Factor: [] BMI ? 35 kg/m2 [] Low Risk Thrombophilia [] PPH+RBCs, IR, or operation [] Infection+Antibiotics [] Antepartum hospitalization ? 72 hours within the past month [] PMH: Sickle Cell, SLE, Cardiac Dz, Active IBD, Active Cancer, Nephrotic Syndrome OR 2 Minor Risk Factors: [] Multiple gestation [] Age > 40 [] PPH ? 1,000cc [] (+)FMH of VTE [] Smoker [] Preeclampsia [] BMI ? 40 kg/m2 AND [] Low Risk Thrombophilia OR ANY OF THE FOLLOWING: [] High Risk Thrombophilia without prior VTE [] Low Risk Thrombophilia with (+)FMH of VTE [] Any single prior VTE ANY OF THE FOLLOWING: [] Already on LMWH/UFH [] Multiple prior VTE [] High Risk Thrombophilia with prior VTE Low Risk Thrombophilia: FVL (heterozygous), Prothrombin (heterozygous), Protein C, Protein S High Risk Thrombophilia: FVL (homozygous), Prothrombin (homozygous), FVL+Prothrombin (heterozygous), Antithrombin III, APLS VTE Prophylaxis: Not Indicated Admission: Admit to FHR: Category 1 Labs: GBS: ordered, but not yet obtained GC/CT: ordered, but not yet obtained Urine: ordered, but not yet obtained FFN: not obtained Type & Screen: ordered, but not yet obtained Serum Labs: CBC, CMP Consults: Neurology and Dentistry Imaging: Indicated/ordered: Growth US, BPP Diet: General Testing: TBD Timing and Route of Delivery: TBD Medications: Neuroprotection: Not indicated Tocolysis: Not indicated Antibiotics: Not indicated Steroids: Indicated/ordered PreEwSF vs. Complex Migraine Hx gHTN - Presented to [facility] on 09/16/23 with headache, vision changes, and mild range BPs; PreE labs negative at [place], UPC WNL - Started on magnesium at OSH with improvement of BOURGEOIS - Transferred to [facility] for further management - History of gHTN in G2 , had seizure mid but suspect related to epilepsy - BP normotensive on admission - Complaining of mild BOURGEOIS currently, short episodes of blurred vision, and chest pain - EKG ordered - Continue magnesium sulfate for seizure prophylaxis - S/p BMZ x1 today for lung maturity, will give second dose tomorrow - BSUS performed with grossly normal TAINA and measuring appropriate for GA - Repeat PreE labs tomorrow - Growth US and BPP ordered for 09/19/23 - Continue to monitor BPs and signs/symptoms of PreE 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 - Per patient, history of stroke as an - 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 - Last seizure in 2019 (during last ) - Previously followed with neurologist in [place], has not established care in [place] - Not currently on antiepileptic medications - Neurology consulted, appreciate further recommendations Dental Infection - Diagnosed with tooth infection at [facility] - Started on Augmentin on 09/11, plan to continue 10 day course - Dentistry consulted, appreciate further recommendations Abnormal Glucose Testing - Failed 1 hour GCT, never completed 3 hour GTT - Plan to trend BGTs AM fasting and 1 hour postprandial Rh Negative - S/p Rhogam at 09/02/23 Anemia - Hgb 9.0 - Continue PO iron supplementation Circumvallate Placenta - Will obtain growth US on 09/19/23 IUP @ 30w2d - Dating by: 7w2d US - Presentation: Cephalic on 09/16 - Monitoring: CEFM - Diet: General - Steroids: BMZ x1 on 09/[address] Ruiz, who agrees with plan. NOELLE ESCALANTE DO 09/16/2023, 4:15 PM Cc: Stephanie Ruiz DO Associated attestation - Stephanie Ruiz DO - 09/16/2023 8:09 PM EST Hospital Care (Present): I was present with the resident during the history and exam. I discussed the case with the resident and agree with the findings and plan as documented in the resident's note. Transport from Dr. Spicer at [facility] due to concern for preeclampsia. Mild range HTN and BOURGEOIS. Pt reports PMHx of epilepsy, stroke and subsequent muscle atrophy on her right side. BP 122/84 Pulse 111 Temp 36.7 C (98 F) (Temporal) Resp 17 Ht 1.651 m (5' 5 ) Wt 92.5 kg (204 lb) SpO2 97% BMI 33.95 kg/m AAOx3, NAD HRRR LCTABL Abd gravid NTTP Upper extremities: right arm limited in extension of the elbow, R upper extremity smaller than left Lower extremities - no swelling, negative Homans, normal 2/4 patellar reflex Plan: - monitor for preeclampsia - continue magnesium sulfate for seizure prophylaxis x 24 hours. Repeat CBC, CMP, UPC in AM. CFM at this time. - Neurology consult regarding new onset BOURGEOIS, hx of epilepsy, hx of stroke - Continue antibiotics for dental infection, consult dentistry Chart review and preparation: 15 minutes. Face to face: 40 minutes. Documentation and care coordination: 10 minutes. Total time spent on patient care today: 65 minutes. [facility] History and physical note 09-16-2023 Noelle Escalante DO - 09/16/2023 2:52 PM EST Note Date & Type Note Facility 09-16-2023 History and physi gustavo note Department of Maternal Medicine History and Physical CHIEF COMPLAINT: PreEwSF vs. Complex Migraine HISTORY OF PRESENT ILLNESS: The patient is a 28 y.o. female at 30w2d. OB History No obstetric history on file. Patient presents with a chief complaint as above and is being admitted for headache, vision changes, and elevated BPs. Patient presented to [facility] due to two week history of headaches and episodes of blurred vision and vision loss. Patient states the headaches were intermittent but would not resolve with Tylenol. The episodes of vision changes come and go. She states she will get episodes of spots in her vision and vision loss in her peripheral vision as well as generalized blurred vision. She denies history of headaches or migraines. She states she also has had episodes of chest pain/burning as well as shortness of breath both with exertion and laying down that has progressively been getting worse over the past few weeks. She also endorses increased pelvic pain and low back pain. Denies leakage of fluid, vaginal bleeding, or decreased movement. 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 Last seizure was in 2019. She is not currently on antiepileptic medications. She has RUE motor deficits and full body right-sided sensory deficits. Transport: Yes Prior Hospitalizations: No Estimated Due Date: Estimated Date of Delivery: 11/23/23. CARE: Complications: See Below Past OB History: OB History No obstetric history on file. Detailed OB History at 36 weeks Term MAB Current Past Medical History: No past medical history on file. Past Surgical History: No past surgical history on file. Allergies: Not on File Social History: Social History Socioeconomic History Marital status: Spouse name: Not on file Number of children: Not on file Years of education: Not on file Highest education level: Not on file Occupational History Not on file Tobacco Use Smoking status: Not on file Smokeless tobacco: Not on file Substance and Sexual Activity Alcohol use: Not on file Drug use: Not on file Sexual activity: Not on file Other Topics Concern Not on file Social History Narrative Not on file Social Determinants of Health Financial Resource Strain: Not on file Food Insecurity: Not on file Transportation Needs: Not on file Physical Activity: Not on file Stress: Not on file Social Connections: Not on file Intimate Partner Violence: Not on file Housing Stability: Not on file Family History: No family history on file. Medications Prior to Admission: No medications prior to admission. REVIEW OF SYSTEMS: Review of Systems Constitutional: Negative for chills and fever. HENT: Negative for congestion, hearing loss and voice change. Eyes: Positive for visual disturbance. Negative for pain. Respiratory: Negative for shortness of breath. Cardiovascular: Negative for chest pain and leg swelling. Gastrointestinal: Negative for abdominal pain, constipation, diarrhea, nausea and vomiting. Genitourinary: Positive for pelvic pain. Negative for difficulty urinating, dysuria and frequency. Musculoskeletal: Negative for arthralgias, back pain and myalgias. Skin: Negative for color change and wound. Allergic/Immunologic: Negative for immunocompromised state. Neurological: Positive for numbness and headaches. Negative for weakness and light-headedness. Psychiatric/Behavioral: Negative for agitation, behavioral problems and dysphoric mood. PHYSICAL EXAM: Vitals: 09/16/23 1510 Weight: 204 lb (92.5 kg) General appearance: awake, alert, cooperative, no apparent distress, and appears stated age Neurologic: Awake, alert, oriented to name, place and time. Lungs: No increased work of breathing, good air exchange Abdomen: Soft, non tender, gravid, consistent with her gestational age Sterile Speculum Exam: Membranes: Intact HSV Lesions: not applicable Cervix: Closed Contraction frequency: None Fetus: EFW: Not available Presentation: Vertex by U/S NST: N/A BPP: Not Performed ASSESSMENT AND PLAN: LABOR DELIVERY ??? SCD's ONLY (labor through ambulation) SCD's PLUS Prophylactic Anticoagulation until discharge SCD's PLUS Prophylactic Anticoagulation for 6 weeks SCD's PLUS Therapeutic Anticoagulation for 6 weeks Vaginal Delivery [] BMI ? 40 kg/m2 Delivery All patients Vaginal Delivery [] BMI ? 40 kg/m2 AND [] Antepartum hospitalization ? 72 hours within the past month Delivery 1 Major Risk Factor: [] BMI ? 35 kg/m2 [] Low Risk Thrombophilia [] PPH+RBCs, IR, or operation [] Infection+Antibiotics [] Antepartum hospitalization ? 72 hours within the past month [] PMH: Sickle Cell, SLE, Cardiac Dz, Active IBD, Active Cancer, Nephrotic Syndrome OR 2 Minor Risk Factors: [] Multiple gestation [] Age > 40 [] PPH ? 1,000cc [] (+)FMH of VTE [] Smoker [] Preeclampsia [] BMI ? 40 kg/m2 AND [] Low Risk Thrombophilia OR ANY OF THE FOLLOWING: [] High Risk Thrombophilia without prior VTE [] Low Risk Thrombophilia with (+)FMH of VTE [] Any single prior VTE ANY OF THE FOLLOWING: [] Already on LMWH/UFH [] Multiple prior VTE [] High Risk Thrombophilia with prior VTE Low Risk Thrombophilia: FVL (heterozygous), Prothrombin (heterozygous), Protein C, Protein S High Risk Thrombophilia: FVL (homozygous), Prothrombin (homozygous), FVL+Prothrombin (heterozygous), Antithrombin III, APLS VTE Prophylaxis: Not Indicated Admission: Admit to [facility]: Category 1 Labs: GBS: ordered, but not yet obtained GC/CT: ordered, but not yet obtained Urine: ordered, but not yet obtained FFN: not obtained Type & Screen: ordered, but not yet obtained Serum Labs: CBC, CMP Consults: Neurology and Dentistry Imaging: Indicated/ordered: Growth US, BPP Diet: General Testing: TBD Timing and Route of Delivery: TBD Medications: Neuroprotection: Not indicated Tocolysis: Not indicated Antibiotics: Not indicated Steroids: Indicated/ordered PreEwSF vs. Complex Migraine Hx gHTN - Presented to [facility] on 09/16/23 with headache, vision changes, and mild range BPs; PreE labs negative at [place], [facility] WNL - Started on magnesium at OSH with improvement of BOURGEOIS - Transferred to [facility] for further management - History of gHTN in G2 , had seizure mid but suspect related to epilepsy - BP normotensive on admission - Complaining of mild BOURGEOIS currently, short episodes of blurred vision, and chest pain - EKG ordered - Continue magnesium sulfate for seizure prophylaxis - S/p BMZ x1 today for lung maturity, will give second dose tomorrow - BSUS performed with grossly normal TAINA and measuring appropriate for GA - Repeat PreE labs tomorrow - Growth US and BPP ordered for 09/19/23 - Continue to monitor BPs and signs/symptoms of PreE 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 - Per patient, history of stroke as an infant - 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 - Last seizure in 2019 (during last ) - Previously followed with neurologist in [place], has not established care in [place] - Not currently on antiepileptic medications - Neurology consulted, appreciate further recommendations Dental Infection - Diagnosed with tooth infection at [facility] - Started on Augmentin on 09/11, plan to continue 10 day course - Dentistry consulted, appreciate further recommendations Abnormal Glucose Testing - Failed 1 hour GCT, never completed 3 hour GTT - Plan to trend BGTs AM fasting and 1 hour postprandial Rh Negative - S/p Rhogam at 09/02/23 Anemia - Hgb 9.0 - Continue PO iron supplementation Circumvallate Placenta - Will obtain growth US on 09/19/23 IUP @ 30w2d - Dating by: 7w2d US - Presentation: Cephalic on 09/16 - Monitoring: CEFM - Diet: General - Steroids: BMZ x1 on 09/[address] Ruiz, who agrees with plan. NOELLE ESCALANTE DO 09/16/2023, 4:15 PM Cc: Stephanie Ruiz DO Associated attestation - Stephanie Ruiz DO - 09/16/2023 8:09 PM EST Hospital Care (Present): I was present with the resident during the history and exam. I discussed the case with the resident and agree with the findings and plan as documented in the resident's note. Transport from Dr. Spicer at [facility] due to concern for preeclampsia. Mild range HTN and BOURGEOIS. Pt reports PMHx of epilepsy, stroke and subsequent muscle atrophy on her right side. BP 122/84 Pulse 111 Temp 36.7 C (98 F) (Temporal) Resp 17 Ht 1.651 m (5' 5 ) Wt 92.5 kg (204 lb) SpO2 97% BMI 33.95 kg/m AAOx3, NAD HRRR LCTABL Abd gravid NTTP Upper extremities: right arm limited in extension of the elbow, R upper extremity smaller than left Lower extremities - no swelling, negative Homans, normal 2/4 patellar reflex Plan: - monitor for preeclampsia - continue magnesium sulfate for seizure prophylaxis x 24 hours. Repeat CBC, CMP, UPC in AM. CFM at this time. - Neurology consult regarding new onset BOURGEOIS, hx of epilepsy, hx of stroke - Continue antibiotics for dental infection, consult dentistry Chart review and preparation: 15 minutes. Face to face: 40 minutes. Documentation and care coordination: 10 minutes. Total time spent on patient care today: 65 minutes. documented in this encounter [facility] Evaluation note Note Date & Type Note Facility documented in this encounter [facility] Advance Directives No Advanced Directives Records FoundLatest Code Status on File Code Status Date Activated Date Inactivated Comments Full Code 09/16/2023 2:58 PM 09/18/2023 9:25 PM Summary Purpose Family History No Family History Records FoundNo Family History Records Found Additional Source Comments Reason for Visit (unrecogniz ed section and content) Specialty Diagnoses / Procedures Referred By Ginny t Referred To Contact Diagnoses Preeclampsia, severe, third trimester Procedures [id number] , severe, third trimester [place] [address] [address] [place] [address] Referral ID Status Reason Start Date Expiration Date Visits Re quested Visits Authorized [id number] 1 1 Scheduled Active and Recently Administ ered Medications (unrecognized section and content) Continuous Medication Order 09/16/2023 09/17/2023 09/18/2023 lactated Ringer's infusion (CANCELED) 25 mL/hr, IntraVENous, Continuous, Starting on Tue09/16/23 at 1745 1620 (New Bag - Provider: Sarahy Lu RN) 0820 (Stopped - Provider: Leah Pearl RN) magnesium sulfate 20 GM/500ML infusion (CANCELED) 2,000 mg/hr (50 mL/hr), IntraVENous, Continuous, Starting on Tue09/16/23 at 1630, For 19 hours, Pre-Infusion: Assess baseline vital signs (blood pressure, pulse, pulse oximetry, respirations, and temperature), breath sounds, strict intake and output, neurologic status (deep tendon reflexes, presence or absence of clonus, level of consciousness (LOC), presence of headaches/visual disturbances, presence/absence of epigastric pain, and if applicable Heart Rate/Contractions (continuous monitoring). Loading Dose/Infusion: - Stay with the patient during the loading dose and the first hour of the infusion to monitor for adverse reactions. - Continuously monitor the patient's pulse oximetry. - Monitor the patient's vital signs, deep tendon reflexes, level of consciousness every 15 minutes for the first hour after the start of the loading dose, then every 30 minutes for 1 hour, then every 4 hours thereafter unless more frequent assessments are warranted based on the patient's condition. After delivery, run oxytocin per post delivery orders, then resume 125cc/hr total IV fluid restriction. Notify care provider immediately of absent deep tendon reflexes, a urine output of less than 30 mL/hour, respirations of less than 10 breaths/minute, or an oxygen saturation level of less than 95% Grams to milligrams conversion table: 1 gram = 1000 mg 2 grams = 2000 mg 4 grams = 4000 mg 6 grams = 6000 mg 20 grams = 20,000 mg 1620 (New Bag - Provider: Sarahy Lu RN) 0231 (New Bag - Provider: Sheron Meier RN)0755 (Rate/Dose Verify - Provider: Herbert Mohan, RN)0820 (Stopped - Provider: Leah Pearl RN) PRN Medication Order 09/16/2023 09/17/2023 09/18/2023 acetaminophen (Tylenol) tablet 650 mg 650 mg, Oral, Every 4 hours PRN, mild pain (1-3), Fever GREATER than 100.5 F (38 C), Starting on Tue09/16/23 at 1453, Maximum dose of acetaminophen is 4000 mg from all sources in 24 hours. 1622 (Given - Provider: Sarahy Lu RN) 0703 (Given - Provider: Sheron Meier RN) calcium gluconate 10 % injection 1 g 1 g, IntraVENous, PRN, For suspected magnesium toxicity or for respiratory rate less than 6 per minute., Starting on Tue09/16/23 at 1557, Administer slow IV push over 5 minutes. famotidine (Pepcid) 20 mg in sodium chloride (PF) 0.9 % 10 mL injection (CANCELED) 20 mg, IntraVENous, Administer over 2 Minutes, Every 12 hours PRN, heartburn, Starting on Tue09/16/23 at 1635, IV Push over minimum of 2 minutes - Dilute with 10 mL NS 2025 (Given - Provider: Sheron Meier RN - Comment: injected slow over 2 minutes) famotidine (Pepcid) 20 mg in sodium chloride (PF) 0.9 % 10 mL injection(Linked Group 1) 20 mg, IntraVENous, Administer over 2 Minutes, Every 12 hours PRN, heartburn, Starting on 09/17/23 at 0948, IV or ORAL famotidine (Pepcid) tablet 20 mg(Linked Group 1) 20 mg, Oral, Every 12 hours PRN, heartburn, Starting on 09/17/23 at 0948, IV or ORAL metoclopramide (Reglan) injection 10 mg (CANCELED) 10 mg, IntraVENous, Every 6 hours PRN, headache, Starting on Tue09/16/23 at 1746 2008 (Given - Provider: Sheron Meier RN) 0745 (Given - Provider: Herbert Mohan, SAL) sodium chloride 0.9 % infusion 5-250 mL/hr, IntraVENous, PRN, if patient receiving piggyback infusions and maintenance fluids are not ordered OR KVO fluids to protect IV site / prevent frequent line interruptions/ long duration, Starting on Tue09/16/23 at 1453, For piggyback infusion, administer at same rate as piggyback for a total of 25 mL. Enter 25 mL into dose field and piggyback rate into rate field of order. If piggyback is infusing at a rate less than 100 mL/hr, enter 25 mL into dose field and 100 mL/hr into rate field of order. For KVO fluids, enter rate of 20 mL/hr or less into rate field of order. sodium chloride 0.9% (NS) flush 10 mL 10 mL, IntraVENous, PRN, line care, Starting on Tue09/16/23 at 1453, After every IV line use 2009 (Given - Provider: Sheron Meier RN - Comment: IV flushed after Reglan injection before restarting Magnsium sulfate infusion)2024 (Given - Provider: Sheron Meier RN - Comment: Magnesium sulfate stopped, line flushed before injection of Pepcid; will then flush again after pepcid, before restart of Magnesium sulfate)2027 (Given - Provider: Sheron Meier RN - Comment: injected into iv line after pepcid to clear line before restarting Magnesium sulfate infusion) Linked Groups Order Group 1: famotidine (Pepcid) tablet 20 mgJump to med 20 mg, Oral, Every 12 hours PRN, heartburn, Starting on 09/17/23 at 0948, IV or ORAL Or famotidine (Pepcid) 20 mg in sodium chloride (PF) 0.9 % 10 mL injectionJump to med 20 mg, IntraVENous, Administer over 2 Minutes, Every 12 hours PRN, heartburn, Starting on 09/17/23 at 0948, IV or ORAL INFORMATION SOURCE (unrecogn ized section and content) DATE CREATED AUTHOR AUTHOR'S ORGANIZ ATION 09/24/2023 [facility] FOR RECORDS PERTAINING TO PATIENTS WHO ARE [...] BE BASED ON THE PRIMARY CLINICAL RECORDS. [employer] [facility]. provides no warranty or guarantee of the accuracy or completeness of information in this document.
[2023-09-26 04:00] LABS: Bacteria 0 SEEN /hpf (None Seen); Mucous, Urine 0 SEEN /hpf (<or=2+)
[2023-09-26 04:24] LABS: Color, Urine Yellow (Yellow); Glucose, Dipstick Normal (Normal); Ketone-Dipstick Negative (Negative); Leukocyte Esterase-Dipstick Negative /ul (Negative); Nitrite-Dipstick Negative (Negative); Occult Blood-Urine Negative /ul (Negative); Protein-Dipstick 100 mg/dl (Negative); Urine Bilirubin Dipstick Negative (Negative); Urine Clarity Clear (Clear); Urine Urobilinogen 1 mg/dl (Normal); Urine pH 6.5 (5.0 - 8.0)
[2023-09-26 04:28] LABS: ROM Internal Control Test YES-OK TO RESULT pt. (Internal QC); ROM Patient Test Negative (Negative)
[2023-09-26] MEDS: Lactated Ringers 1,000 ML 999 ML IV (04:30)
[2023-09-26 04:44] LABS: Red Blood Cells-Urine 10-25 SEEN /hpf (0-5); Squamous Epithelial Cells - UA 25-50 SEEN /hpf (5-10)
[2023-09-26 04:45] LABS: Coarse Granular Cast 10-25 SEEN /lpf (0-5 /lpf); Transitional Epithelial - Ur 0-5 SEEN /hpf (0-5); White Blood Cells 5-10 SEEN /hpf (0-5)
[2023-09-26 05:11] LABS: Hematocrit 25.4 % (37-47); Hemoglobin 8.1 g/dL (12.0-15.0); Mean Corp Hgb Conc 31.9 g/dL (32-36); Mean Corpuscular Hgb 27.9 pg (27.0-32.0); Mean Corpuscular Volume 87.6 fL (81-99); Mean Platelet Vol. 10.8 fl (6.2-12.0); Platelet Count 181 K/mm3 (150-450); RBC Distribution Width CV 13.9 % (11.6-14.6); RBC Distribution Width SD 43.9 fl (35.1-43.9); White Blood Count 6.6 K/mm3 (4.4-11.0)
[2023-09-26 05:27] LABS: AST(SGOT) 11 U/L (15-37); Alanine Aminotransfer ALT/SGPT 15 U/L (13-56); Creatinine, Serum 0.46 mg/dL (0.55-1.02); EST Glomerular Filtration Rate 172 mL/min (>60); Est Glom Filt Rate - Afr Amer 208 mL/min (>60); Estimated Creatinine Clearance 227.36 ml/min; Uric Acid 2.7 mg/dL (2.6-6.0)
[2023-09-26 05:32] LABS: Amphetamine Urine VISTA NEGATIVE (<1000 ng/mL); Barbiturate Urine VISTA NEGATIVE (< 200 ng/mL); Benzodiazepine Urine VISTA NEGATIVE (< 200 ng/mL); Cocaine Urine VISTA NEGATIVE (< 300 ng/mL); Ecstacy Urine VISTA NEGATIVE (< 500 ng/mL); Methadone Urine VISTA NEGATIVE (< 300 ng/mL); PCP Urine VISTA NEGATIVE (< 25 ng/mL); THC Urine VISTA NEGATIVE (< 50 ng/mL); Vista UDS pH Range 6
[2023-09-26 05:37] LABS: ALB/GLOB Ratio 0.7 RATIO (0.9-2.4); AST(SGOT) 10 U/L (15-37); Alanine Aminotransfer ALT/SGPT 14 U/L (13-56); Albumin, Serum 2.6 g/dL (3.2-5.0); Alkaline Phosphatase 94 U/L (45-117); Anion Gap 9 (5-15); BUN 5 mg/dL (7-18); BUN/Creat Ratio 11.4 RATIO (10-20); Calcium,Total 8.7 mg/dL (8.5-10.1); Chloride 110 mmol/L (98-107); Creatinine, Serum 0.44 mg/dL (0.55-1.02); EST Glomerular Filtration Rate 182 mL/min (>60); Est Glom Filt Rate - Afr Amer 220 mL/min (>60); Globulin 3.8 g/dL (2.2-4.2); Glucose 111 mg/dL (74-106); Potassium 2.8 mmol/L (3.5-5.1); Protein, Total 6.4 g/dL (6.4-8.2); Sodium Level 141 mmol/L (136-145)
[2023-09-26 05:47] LABS: Protein, Urine (Random) 81.6 mg/dL (<11.9); Protein:Creat Ratio 591 mg/g CRE (0-200)
[2023-09-26] MEDS: Potassium Chloride Oral Tablet 20 MEQ 40 MEQ PO (06:32)
[2023-09-26] MEDS: Magnesium Sulfate 4gm/100mL 4 GM/100 ML IV.SOLN. IV (06:40)
[2023-09-26] MEDS: Magnesium Sulfate 20 GM/500 ML BAG IV (06:58)
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
== END 2023-09-26 10:32 | disposition home or self-care (01) ==
LOC: WPOUT 03:37 → WP 03:38
PROVIDERS: Visit Provider Obstetrics & Gynecology
DX: O14.13 Severe pre-eclampsia, third trimester (principal); G40.909 Epilepsy, unspecified, not intractable, without status epilepticus; O99.810 Abnormal glucose complicating pregnancy; O43.113 Circumvallate placenta, third trimester; O99.353 Diseases of the nervous system complicating pregnancy, third trimester; Z3A.31 31 weeks gestation of pregnancy
CPT/HCPCS: 96365; 96367 ×2; 96366 ×2; 36415; 59025; 59050; 80053; 80307; 81001; 82565; 82570; 84112; 84156; 84450; 84460; 84550; 85027; 94760; 99221; J7120; G0378

== ENCOUNTER → 2023-10-06 | Outpatient (CLI) | payer OTHER, SELFPAY ==
--- NOTE | 2023-10-06 08:36 | US_ITS ---
STUDY: SECOND AND THIRD TRIMESTER OBSTETRICAL ULTRASOUND - LIMITED REASON FOR EXAM: Female, 28 years old growth and amp; BPP ; circumvallate placenta LMP: February 16, 2023. PRIOR ULTRASOUND: Comparison is made with prior study dated 05/10/2024. TECHNIQUE: Transabdominal TECHNICAL QUALITY: Adequate. FINDINGS: There is a single intrauterine fetus. The fetus is in a cephalic presentation. There is demonstrated cardiac activity with a heart rate of 137 bpm. There is a normal amniotic fluid volume. The largest amniotic fluid pocket measures 4.3 cm. The amniotic fluid index (TAINA) is 14.8 cm. The placenta is anterior in location and is not low lying. There are Grade 1 placental changes. The cervix was not measured due to the head position. BIOMETRY: BPD: 8.46 cm: 34 weeks, 1 days HC: 30.99 cm: 34 weeks, 4 days AC: 28.74 cm: 32 weeks, 5 days FL: 6.51 cm: 33 weeks, 4 days Age by LMP: 33 weeks, 1 days. SIVA by LMP: November 23, 2023. age by prior US: 33 weeks, 2 days. SIVA by prior US: November 22, 2023. age by current US: 33 weeks, 5 days. SIVA by current US: November 19, 2023. Estimated weight: 2170 grams, +/- 326 grams, 47 percentile. IMPRESSION: Single live uterine gestation with a mean gestational age of 33 weeks and 2 days. The measurements obtained today following within the normal expected range. Electronically Signed: Brian Hernandez MD at 10:43 EST , STUDY: OBSTETRICAL ULTRASOUND - BIOPHYSICAL PROFILE REASON FOR EXAM: Female, 28 years old growth and amp; BPP ; circumvallate placenta LMP: February 16, 2023. PRIOR ULTRASOUND: Comparison is made with prior study dated September 09, 2023. TECHNIQUE: Transabdominal TECHNICAL QUALITY: Adequate. FINDINGS: BIOPHYSICAL PROFILE: Breathing Movements (FBM): 2 Gross Body Movements (GBM): 2 Tone (FT): 2 Amniotic Fluid Volume (AFV): 2 TOTAL SCORE: 8 / 8 US/OB Limited With Biometrics IMPRESSION: Normal biophysical profile of 8/8. Electronically Signed: Brian Hernandez MD at 10:45 EST ,
== END | disposition home or self-care (01) ==
PROVIDERS: Referring Provider Advanced Practice Midwife; Visit Provider Advanced Practice Midwife
DX: O12.10 Gestational proteinuria, unspecified trimester (principal); O14.10 Severe pre-eclampsia, unspecified trimester; O43.119 Circumvallate placenta, unspecified trimester; Z3A.00 Weeks of gestation of pregnancy not specified
CPT/HCPCS: 76816; 76819

== ENCOUNTER → 2023-10-07 | Outpatient (CLI) | payer OTHER, SELFPAY ==
--- OUTSIDE RECORDS SUMMARY | 2023-10-07 12:13 | XMS RPT_ITS | CCD ---
Author Name Unknown Address [address] [place] [address] Organization [facility] Care Team Providers Care Contact Center Associate Name Role Phone Unavailable Primary Care Provider JULIANA Dolan Referring Unavailab JULIANA Vivar Primary Care Unavailab ZEYAD Gutierrez Attending Unavailable MECCA GILLESPIE Attending JULIANA Mitchell Referring Unavailab JULIANA Vivar Primary Care UnavailSTEPHANIE Hayden Admitting Unavailable STEPHANIE RUIZ Attending Unavailable STEPHANIE RUIZ Admitting Unavailable STEPHANIE RUIZ Attending ALVIN Hunter Unavailable JORGE JEAN Referring Gennya ble Medications Current Medications Medication Drug Class(es) Dates Sig (Normalized) Sig (Original) amoxicillin 500 mg oral capsule (6 sources) Penicillin-class Antibacterial Start: 09-17-2023 End: 09-28-2023 amoxicillin (Amoxil) 500 MG capsule Take 1 capsule (500 mg) by mouth in the morning and 1 capsule (500 mg) at noon and 1 capsule (500 mg) before bedtime. Do all this for 10 days. 30 capsule 0 09/18/2023 09/28/2023 Active Vit-Fe Fumarate-FA ( VITAMINS PO) (4 sources) take 1 tablet by mouth once daily Vit-Fe Fumarate-FA ( VITAMINS PO) Take 1 tablet by mouth daily. 0 Active Completed/Discontinued Medications Medication Drug Class(es) Dates Sig (Normalized) Sig (Original) acetaminophen 325 mg oral tablet (8 sources) Start: 09-26-2023 End: 09-28-2023 take 1 tablet by mouth every four hours as needed for pain acetaminophen (Tylenol) tablet 650 mg Problems Active Problems Problem Classification Problem Date Documented Da te Episodic/Chronic Hypertension complicating ; childbirth and the puerperium (8 sources) Severe pre-eclampsia; Translations: [Severe pre-eclampsia, third trimester] Onset: 09-16-2023 09-16-2023 Episodic Nonspecific chest pain (2 sources) Chest pain, unspecified; Translations: [Chest pain, unspecified] Onset: 09-26-2023 Episodic Other complications of (4 sources) Chest pain; Translations: [Chest pain during ] Onset: 09-26-2023 09-26-2023 Episodic Unclassified (1 source) Other specified diseases and conditions complicating ; Translations: [Other specified diseases and conditions complicating ] Onset: 09-26-2023 Past or Other Problems Problem Classification Problem Date Documented Da te Episodic/Chronic Unclassified (1 source) Other specified diseases and conditions complicating ; Translations: [Other specified diseases and conditions complicating ] Onset: 09-26-2023 Results Test Name Value Interpretation Reference Range Facil ity Vital Signs Date Time Vital Sign Value Performing Clinician Faci lity 09-28-2023 07:53-0500 Body temperature 99.9 [degF] Stephanie Ruiz DO Work Phone: [employer] 09-28-2023 07:53-0500 Diastolic blood pressure 79 mm[Hg] Stephanie Ruiz DO Work Phone: [facility] 09-28-2023 07:53-0500 Heart rate 100 /min Stephanie Ruiz DO Work Phone: [facility] 09-28-2023 07:53-0500 Respiratory rate 18 /min Stephanie Ruiz DO Work Phone: [facility] 09-28-2023 07:53-0500 SaO2% (BldA) [Mass fraction] 97 % Stephanie Ruiz DO Work Phone: [employer] [facility] 09-28-2023 07:53-0500 Systolic blood pressure 119 mm[Hg] Stephanie Ruiz DO Work Phone: [facility] 09-26-2023 14:35-0500 Body height 175.3 cm Stephanie Ruiz DO Work Phone: [facility] 09-26-2023 14:35-0500 Body mass index (BMI) [Ratio] 29.68 kg/m2 Stephanie Ruiz DO Work Phone: [employer] 09-26-2023 14:35-0500 Body weight 91.17 kg Stephanie Ruiz DO Work Phone: [facility] [employer] 09-18-2023 16:55-0500 Body temperature 97.9 [degF] Stephanie Ruiz DO Work Phone: [facility] 09-18-2023 16:55-0500 Diastolic blood pressure 75 mm[Hg] Stephanie Ruiz DO Work Phone: [employer] 09-18-2023 16:55-0500 Heart rate 92 /min Stephanie Ruiz DO Work Phone: [facility] [employer] 09-18-2023 16:55-0500 Respiratory rate 18 /min Stephanie Ruiz DO Work Phone: [facility] 09-18-2023 16:55-0500 SaO2% (BldA) [Mass fraction] 98 % Stephanie Ruiz DO Work Phone: [employer] 09-18-2023 16:55-0500 Systolic blood pressure 113 mm[Hg] Stephanie Ruiz DO Work Phone: [facility] 09-16-2023 15:10-0500 Body height 165.1 cm Stephanie Ruiz DO Work Phone: [employer] [employer] 09-16-2023 15:10-0500 Body mass index (BMI) [Ratio] 33.95 kg/m2 Stephanie Ruiz DO Work Phone: [employer] 09-16-2023 15:10-0500 Body weight 92.53 kg Stephanie Ruiz DO Work Phone: [employer] Encounters Encounter Date Encounter Type Care Provider Facility Start: 09-26-2023 End: 09-28-2023 Evaluation and management of inpatient STEPHANIE RUIZ [facility] Start: 09-26-2023 End: 09-28-2023 Evaluation and management of inpatient Stephanie Ruiz DO Work Phone: [facility] Start: 09-20-2023 End: 09-20-2023 ambulatory JULIANA R TED [facility] Start: 09-16-2023 End: 09-18-2023 Evaluation and management of inpatient STEPHANIE RUIZ [facility] Start: 09-16-2023 End: 09-18-2023 Evaluation and management of inpatient Stephanie Ruiz DO Work Phone: [facility] Start: 06-27-2023 End: 06-27-2023 ambulatory MECCA Nav GILLESPIE [facility] Procedures Date Procedure Procedure Detail Performing Clinician Start: 09-27-2023 Volume measurement t imed collection each Noelle Moschella DO Work Phone: Start: 09-27-2023 Basic metabolic pane l calcium total Noelle Moschella DO Work Phone: Start: 09-26-2023 Assay of troponin quantitative Stephanie Atkinson DO Work Phone: Start: 09-26-2023 Assay of troponin quantitative Stephanie Evelin Atkinson DO Work Phone: Start: 09-26-2023 Antibody screen COREEN RUIZ Plan of Treatment Date Care Activity Detail Author Start: 2046 Zoster Vaccines (1 of 2) Zoster Vacc daisy (1 of 2) [facility] Start: 04-15-2023 Influenza vaccination Influenza Vacc ine (#1) [facility] Start: 2017 Screening for malign ant neoplasm of cervix Pap Smear [facility] Start: 2015 DTaP/Tdap/Td Vaccine s (1 - Tdap) DTaP/Tdap/Td Vaccines (1 - Tdap) [facility] Start: 2014 Hepatitis C screening Hepatitis C Sc reening [facility] Start: 2008 Depression Screening Depression Scre ening [facility] Start: 1997 MMR Vaccines (1 of 1 - Standard series) MMR Vaccines (1 of 1 - Standard series) [facility] Start: 1997 Varicella vaccination Varicell a Vaccines (1 of 2 - 2-dose childhood series) [facility] Start: 1996 COVID-19 Vaccine (#1) COVID-19 Vacci ne (#1) [facility] Start: 1996 Hepatitis B Vaccines (1 of 3 - 3-dose series) Hepatitis B Vaccines (1 of 3 - 3-dose series) [facility] Start: 1996 HIV screening HIV Screening [facility] Start: 1996 Lipid panel Lipid Panel [facility] Payers Date Payer Category Payer Unknown [employer] [id number] 2023-Present [address] [place] [address] Commercial [id number] 2023 Unknown [id number] 1996 Unknown [id number] 1996 Unknown [id number] Social History Date Type Detail Facility Start: 09-16-2023 Tobacco smoking status VAIS Never sm oked tobacco [facility] Start: 09-16-2023 Tobacco use and exposure Smoke less tobacco non-user [facility] Start: 09-16-2023 End: 09-26-2023 Alcohol intake Ex-drinker (finding) [facility] Start: 09-16-2023 End: 09-26-2023 History of Social function [facility] Start: 09-16-2023 End: 09-26-2023 Humiliation, Afraid, Rape, and Kick questionnaire [HARK] [facility] Within the last year , have you been afraid of your partner or ex-partner? No [facility] In the past 12 month s, has lack of transportation kept you from medical appointments or from getting medications? No [facility] Start: 03-02-2023 [facility] Start: 1996 Sex Assigned At Not on file [facility] Clinical Notes 09-16-2023 to 09-28-2023 Kody Milton RN - 09/28/2023 12:24 PM Jessica Milton, RN - 09/28/2023 12:24 PM Kendell Escla[place], DO - 09/28/2023 11:46 AM Kevin Jesse Nath, DO - 09/28/2023 6:14 AM EST Note Date & Type Note Facility 09-28-2023 Note Attestation signed by Viktoriya Sellers MD at 09/28/2023 4:25 PM Maternal Medicine attending attestation: I reviewed and agree with the care provided by the resident during or immediately following the visit including the patient's medical history, the resident's findings in the physical exam, patient's diagnosis and discharge plan. See note today Disposition good Follow up [place] with Dr. Jean for weekly BP check and labs with testing. Has BP cuff and was instructed to call if any BP > 140/90 or any concerns for worsening BOURGEOIS or stroke symptoms The total patient time of the visit was 25 minutes, of which was greater than 50% of the time was spent counseling and coordinating care. Department of Obstetrics and Gynecology [facility] Discharge Summary Admission on 09/26/2023 11:30 AM Jo Linda is a 28 y.o. at 31w5d who presented to Labor and Delivery as a trasnport from [place] due to concern for PreE. Pt was previously admitted for similar sx of CP and severe BOURGOEIS. She was normotensive throughout her admission and had a normal neuro workup as well as EKG. She received BMZx2 on 09/16-. Her sx improved and not consistent with PreE, so she was discharged home. She again presented to [facility] after having severe cramping, diarrhea, CP and mild BOURGEOIS. Her cervix was closed on admission. She again did not fit the presentation of PreE with normotensive BP's and magnesium sulfate was deferred. Cardiology was consulted and did not feel chest pain was cardiogenic in nature. Her chest pain resolved during admission with scheduled Pepcid. Ophthalmology was consulted due to intermittent headaches and patient had normal eye exam. Her UPC to 0.88 was elevated and a 24 urine protein collection was 689. Her BPs remained normotensive during admission. Her potassium was low on arrival and repleted. She had moderate anemia and received two IV Venofer infusions. She was deemed stable and discharged home on 10/08/23. She was instructed to follow up weekly with primary CAMPAIGN MANAGER. All questions answered and discharge instructions reviewed. Meds: Current Facility-Administered Medications: acetaminophen (Tylenol) tablet 650 mg, 650 mg, Oral, q4h PRN, Stephanie Atkinson DO, 650 mg at 09/27/232050 famotidine (Pepcid) 20 mg in sodium chloride (PF) 0.9 % 10 mL injection, 20 mg, IntraVENous, 2 times per day, Noelle [place] DO, 20 mg at 09/27/232043 iron sucrose (Venofer) 200 mg in sodium chloride 0.9 % 100 mL IVPB, 200 mg, IntraVENous, q24h, Noelle [place] DO, Last Rate: 300 mL/hr at 09/27/23 1825, 200 mg at 09/27/23 182 ondansetron ODT (Zofran-ODT) disintegrating tablet 4 mg, 4 mg, Oral, q8h PRN OR ondansetron (Zofran) injection 4 mg, 4 mg, IntraVENous, q6h PRN, Stephanie Atkinson DO Polyvinyl Alcohol-Povidone 5-6 MG/ML solution 1 drop, 1 drop, Both Eyes, PRN, Robb López MD vitamin tablet, 1 tablet, Oral, Daily, Stephanie Atkinson DO, 1 tablet at 09/28/23 0941 sodium chloride 0.9 % infusion, 5-250 mL/hr, IntraVENous, PRN, Stephanie Atkinson DO sodium chloride 0.9% (NS) flush 10 mL, 10 mL, IntraVENous, 2 times per day, Stephanie Atkinson DO, 10 mL at 09/27/23 2045 sodium chloride 0.9% (NS) flush 10 mL, 10 mL, IntraVENous, PRN, Stephanie Atkinson DO Discharge to: Home Discharge date: 09/28/23 Discharge Dx: Chest Pain, Headache Follow up appointment with your doctor/client experience specialist - Call office for appointment in 7days Activity - Normal Activity Call your doctor/client experience specialist if you have: - leaking fluid - vaginal bleeding - regular contractions: More than 6 contractions in one hour - decreased movement - worsening abdominal (belly) pain - headache, blurry vision, increased swelling, upper abdominal pain NOELLE [place] DO 09/28/2023 2:49 PM [facility] 09-28-2023 Nurse Note Follow up appointment with your doctor/client experience specialist - Keep next scheduled appointment Activity - Normal Activity Call your doctor/client experience specialist if you have: - leaking fluid - vaginal bleeding - regular contractions: - decreased movement - worsening abdominal (belly) pain - headache, blurry vision, increased swelling, upper abdominal pain If you are going home with contractions that are uncomfortable/painful- we recommend these coping strategies: rhythmic breathing, hydrotherapy, imagery or visualization, gentle massage, walking and changing your position. Treatment Verification: Jo Linda was assessed on Labor and Delivery for a related visit on 09/28/23 . Kody Milton RN [facility] 09-28-2023 Nurse Note Follow up appointment with your doctor/client experience specialist - Keep next scheduled appointment Activity - Normal Activity Call your doctor/client experience specialist if you have: - leaking fluid - vaginal bleeding - regular contractions: - decreased movement - worsening abdominal (belly) pain - headache, blurry vision, increased swelling, upper abdominal pain If you are going home with contractions that are uncomfortable/painful- we recommend these coping strategies: rhythmic breathing, hydrotherapy, imagery or visualization, gentle massage, walking and changing your position. Treatment Verification: Jo Linda was assessed on Labor and Delivery for a related visit on 09/28/23 . Kody Milton RN [facility] documented in this encounter [facility] 09-28-2023 Hospital course Narrative Images from the original note were not included. Department of Obstetrics and Gynecology [facility] Discharge Summary Admission on 09/26/2023 11:30 AM Jo Linda is a 28 y.o. at 31w5d who presented to Labor and Delivery as a trasnport from [place] due to concern for PreE. Pt was previously admitted for similar sx of CP and severe BOURGEOIS. She was normotensive throughout her admission and had a normal neuro workup as well as EKG. She received BMZx2 on 09/16-. Her sx improved and not consistent with PreE, so she was discharged home. She again presented to [facility] after having severe cramping, diarrhea, CP and mild BOURGEOIS. Her cervix was closed on admission. She again did not fit the presentation of PreE with normotensive BP's and magnesium sulfate was deferred. Cardiology was consulted and did not feel chest pain was cardiogenic in nature. Her chest pain resolved during admission with scheduled Pepcid. Ophthalmology was consulted due to intermittent headaches and patient had normal eye exam. Her UPC to 0.88 was elevated and a 24 urine protein collection was 689. Her BPs remained normotensive during admission. Her potassium was low on arrival and repleted. She had moderate anemia and received two IV Venofer infusions. She was deemed stable and discharged home on 10/08/23. She was instructed to follow up weekly with primary CAMPAIGN MANAGER. All questions answered and discharge instructions reviewed. Meds: Current Facility-Administered Medications: acetaminophen (Tylenol) tablet 650 mg, 650 mg, Oral, q4h PRN, Stephanie Atkinson, , 650 mg at 09/27/232050 famotidine (Pepcid) 20 mg in sodium chloride (PF) 0.9 % 10 mL injection, 20 mg, IntraVENous, 2 times per day, Noelle [place] DO, 20 mg at 09/27/232043 iron sucrose (Venofer) 200 mg in sodium chloride 0.9 % 100 mL IVPB, 200 mg, IntraVENous, q24h, Noelle [place] DO, Last Rate: 300 mL/hr at 09/27/231824, 200 mg at 09/27/231824 ondansetron ODT (Zofran-ODT) disintegrating tablet 4 mg, 4 mg, Oral, q8h PRN OR ondansetron (Zofran) injection 4 mg, 4 mg, IntraVENous, q6h PRN, Stephanie Atkinson DO Polyvinyl Alcohol-Povidone 5-6 MG/ML solution 1 drop, 1 drop, Both Eyes, PRN, Robb López MD vitamin tablet, 1 tablet, Oral, Daily, Stephanie Atkinson DO, 1 tablet at 09/28/23 0941 sodium chloride 0.9 % infusion, 5-250 mL/hr, IntraVENous, PRN, Stephanie Atkinson DO sodium chloride 0.9% (NS) flush 10 mL, 10 mL, IntraVENous, 2 times per day, Stephanie Atkinson DO, 10 mL at 09/27/232044 sodium chloride 0.9% (NS) flush 10 mL, 10 mL, IntraVENous, PRN, Stephanie Atkinson DO Discharge to: Home Discharge date: 09/28/23 Discharge Dx: Chest Pain, Headache Follow up appointment with your doctor/client experience specialist - Call office for appointment in 7days Activity - Normal Activity Call your doctor/client experience specialist if you have: - leaking fluid - vaginal bleeding - regular contractions: More than 6 contractions in one hour - decreased movement - worsening abdominal (belly) pain - headache, blurry vision, increased swelling, upper abdominal pain NOELLE ESCALANTE DO 09/28/2023 2:49 PM Associated attestation - Viktoriya Sellers MD - 09/28/2023 4:25 PM EST Maternal Medicine attending attestation: I reviewed and agree with the care provided by the resident during or immediately following the visit including the patient's medical history, the resident's findings in the physical exam, patient's diagnosis and discharge plan. See note today Disposition good Follow up [place] with Dr. Jean for weekly BP check and labs with testing. Has BP cuff and was instructed to call if any BP > 140/90 or any concerns for worsening BOURGEOIS or stroke symptoms The total patient time of the visit was 25 minutes, of which was greater than 50% of the time was spent counseling and coordinating care. documented in this encounter [facility] 09-28-2023 Hospital Discharg e instructions Noelle [place] DO - 09/28/2023 11:39 AM EST Follow up appointment with your doctor/client experience specialist - Call office for appointment in 7days Activity - Normal Activity Call your doctor/client experience specialist if you have: - leaking fluid - [...] and Delivery for a related visit on 09/28/23 . NOELLE ESCALANTE DO [facility] documented in this encounter [facility] 09-28-2023 History of Presen t illness Narrative Images from the original note were not included. Maternal Medicine Service Resident Progress Note 09/28/2023 6:14 AM 09/26/2023 Hospital Day: 3 Jo Linda, 28 y.o. 32w0d Patient has been seen and examined. Pt complains of feeling anxious about still being in the hospital. She notes her IV came out and caused some pain and swelling in her arm. She notes her headache has resolved, denies further chest pain, denies RUQ pain, worsening SOB, or worsening swelling . Positive movement Negative vaginal bleeding Negative LOF Negative Contractions Vitals: 09/26/23 2210 09/27/23 0828 09/27/23 1759 09/27/23 2358 BP: 121/77 136/86 113/76 BP Location: Right arm Patient Position: Lying Pulse: 103 103 92 98 Resp: 18 18 16 Temp: 37.4 C (99.3 F) 36.7 C (98 F) 36.7 C (98 F) TempSrc: Temporal Temporal Temporal SpO2: 98% 99% 97% Weight: Height: FHT: 130, moderate variability Accels: present Decels: absent Contractions: none Physical Exam: Gen: NAD HEENT: Normocephalic, Atraumatic, EOMI, MMM Resp: No increased work of breathing Card: Regular rate Abd: soft, gravid, NTND, no rebound, no guarding. No fundal tenderness Ext: No LE edema, no calf tenderness or swelling Medications: Current Facility-Administered Medications Medication Dose Route Frequency Provider Last Rate Last Admin acetaminophen (Tylenol) tablet 650 mg 650 mg Oral q4h PRN Stephanie Atkinson DO 650 mg at 09/27/232050 famotidine (Pepcid) 20 mg in sodium chloride (PF) 0.9 % 10 mL injection 20 mg IntraVENous 2 times per day Noelle [place] DO 20 mg at 09/27/23 204 iron sucrose (Venofer) 200 mg in sodium chloride 0.9 % 100 mL IVPB 200 mg IntraVENous q24h Noelle [place] DO 300 mL/hr at 09/27/23 1825 200 mg at 09/27/23 1825 ondansetron ODT (Zofran-ODT) disintegrating tablet 4 mg 4 mg Oral q8h PRN Stephanie Atkinson DO Or ondansetron (Zofran) injection 4 mg 4 mg IntraVENous q6h PRN Stephanie Atkinson, DO Polyvinyl Alcohol-Povidone 5-6 MG/ML solution 1 drop 1 drop Both Eyes PRN Robb López MD vitamin tablet 1 tablet Oral Daily Stephanie Atkinson DO 1 tablet at 09/27/23 0831 sodium chloride 0.9 % infusion 5-250 mL/hr IntraVENous PRN Stephanie Atkinson, sodium chloride 0.9% (NS) flush 10 mL 10 mL IntraVENous 2 times per day Stephanie Atkinson DO 10 mL at 09/27/23 2045 sodium chloride 0.9% (NS) flush 10 mL 10 mL IntraVENous PRN Stephanie Atkinson DO Assessment/Plan: Jo Linda is a 28 y.o. female 32w0d Chest Pain Headache Hx gHTN - Presented to OSH with multiple complaints including chest pain, headaches, pelvic pain/cramping - Cervix closed on admission and no contractions on toco, low concern for tPTL - VSS, BP normotensive in OB triage - Headache present but improving - Patient reporting stabbing chest pain that has been ongoing for several weeks, per patient not related to heartburn - PreE labs negative at OSH as well as on admission, UPC elevated at 0.88 - Low concern for preeclampsia with severe features given BPs normotensive, PreE labs normal and symptoms are more chronic in nature - Started on magnesium sulfate at OSH, discontinued on arrival - S/p BMZ x2 on 09/16-09/17 for lung maturity - Growth US (09/20): EFW 1666g, 50% - EKG sinus rhythm - Cardiology consulted for chest pain, suspect CP noncardiac related in setting of normal EKG and negative troponins, signed off - Chest pain resolved with pepcid - Opthalmology consulted yesterday, normal dilated eye exam, recommended wearing glasses as needed and eye drops - 24 hr urine pending to confirm proteinuria - Bps have remained normotensive this admission, patient asymptomatic this am 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 - Per patient, history of stroke as an - 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 - Last seizure in 2019 (during last ) - Previously followed with neurologist in [place], has not established care in [place] - Not currently on antiepileptic medications - MRI/MRV/MRA normal on 09/17/23 - Neurology consulted during previous admission who did not have further recommendations Rh Negative - S/p Rhogam at 09/02/23 Anemia - Hgb 9.1 on admission - Started on Venofer infusions Circumvallate Placenta - Growth US performed on 09/20/23, EFW 1666 g, 50%ile IUP @ 32w0d - Dating by 7 w 2 d US - Cephalic on 09/26 - Monitoring: NST BID - Diet:General - BMZ x2 on 09/16, 09/17 Further plan pending d/w attending. Paulina Nath, DO 09/28/2023, 6:14 AM Associated attestation - Viktoriya Sellers MD - 09/28/2023 4:24 PM EST Maternal Medicine attending attestation: I reviewed and agree with the care provided by the resident during or immediately following the visit including the patient's medical history, the resident's findings in the physical exam, patient's diagnosis and treatment plan. I reviewed personally the labs including confirmation of gestational proteinuria in the face of continued normal BP. Ophthalmology examination normal Cat I tracing Discussed discharge today with close follow up weekly in [place] with weekly labs and surveillance for pre-eclampsia. She will continue her care with Dr. Freire and plan for return if concerns for severe features. If no severe features and normal labs recommend delivery at 37 0/7 weeks GA. Reassurance given and she was told to return for severe headache any concerns for stroke with including blurry vision or new weakness (she has had a prior stroke) and discussed for any concerns to return. Cat 1 tracing Images from the original note were not included. Maternal Medicine Service Resident Progress Note 09/27/2023 5:57 AM 09/26/2023 Hospital Day: 2 Jo Linda, 28 y.o. 31w6d Patient has been seen and examined. Patient notes she is feeling better. She states she had a headache last night, but denies BOURGEOIS currently. She is no longer experiencing chest pain. She notes she would like to try to continue to rest and inquired about discharge. She denies any vision changes, worsening SOB, or RUQ pain . Positive movement Negative vaginal bleeding Negative LOF Negative Contractions Vitals: 09/26/23 2155 09/26/23 2200 09/26/23 2205 09/26/23 2210 BP: BP Location: Patient Position: Pulse: 98 95 101 103 Resp: Temp: TempSrc: SpO2: Weight: Height: FHT: 130, moderate variability Accels: present Decels: absent Contractions: [...] 650 mg 650 mg Oral q4h PRN Stephanie Atkinson, DO 650 mg at 09/26/232004 famotidine (Pepcid) 20 mg in sodium chloride (PF) 0.9 % 10 mL injection 20 mg IntraVENous 2 times per day Noelle [place] DO 20 mg at 09/26/232004 iron sucrose (Venofer) 200 mg in sodium chloride 0.9 % 100 mL IVPB 200 mg IntraVENous q24h Noelle [place] DO Stopped at 09/26/23 1853 ondansetron ODT (Zofran-ODT) disintegrating tablet 4 mg 4 mg Oral q8h PRN Stephanie Atkinson DO Or ondansetron (Zofran) injection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 she had an episode of sharp chest pain in her upper mid sternum with radiation to her neck yesterday lasting for 10-15min while she was resting in bed and this triggered her pelvic pain and admission to hospital. No other associated symptoms with chest pain. Denies difficult breathing, palpitations, presyncope/syncope. She has a similar episode last week while she was in hospital. This admission hemodynamically stable, labs shows low potassium and mild urinary protein. ECG x 2 NSR with no ischemic concern, troponin x 1 negative. Impression and Recommendations Chest pain. Appears to be noncardiac with sharp pain at rest along with negative trops and ECG without concern for ischemia. Currently asymptomatic. No further testing recommended. Cardiology will sign off. Data Collection Cardiac Testin09/26/23 ECG 12-LEAD (Preliminary) This result has not been signed. Information might be incomplete. Impression Sinus rhythm Borderline prolonged QT interval No results found for this or any previous visit. No results found for this or any previous visit. No results found for this or any previous visit. Past Medical History: has a past medical history of Abnormal Pap smear of cervix, ADHD, Anemia, Anxiety, Depression, Hemiplegia (CMS/HCC) ([facility]), Hypertension, Preeclampsia, severe, third trimester (09/16/2023), Seizures ([facility]), Stroke ([facility]) (1995), and Urinary tract infection. SurgicalHistory: has no past surgical history on file. Social History: reports that she has never smoked. She has never used smokeless tobacco. She reports that she does not currently use alcohol. She reports that she does not use drugs. Family History: family history is not on file. HomeMedications: Prior to Admission medications Medication Sig Start Date End Date Taking? Authorizing Provider amoxicillin (Amoxil) 500 MG capsule Take 1 capsule (500 mg) by mouth in the morning and 1 capsule (500 mg) at noon and 1 capsule (500 mg) before bedtime. Do all this for 10 days. 09/18/23 09/28/23 Yes Rosamaria Galvez, ferrous sulfate 325 (65 Fe) MG tablet Take 325 mg by mouth in the morning and 325 mg in the evening. Take with meals. Yes Historical Provider, Vit-Fe Fumarate-FA ( VITAMINS PO) Take 1 tablet by mouth daily. Yes Historical Provider, acetaminophen (Tylenol) 325 MG tablet Take 2 tablets (650 mg) by mouth every 4 hours as needed for mild pain (1-3) (Fever GREATER than 100.5 F (38 C)) for up to 10 days. 09/18/23 09/28/23 Rosamaria Galvez, Scheduled medications: ferrous sulfate, 325 mg, Oral, BID WC vitamin, 1 tablet, Oral, Daily sodium chloride 0.9%, 10 mL, IntraVENous, 2 times per day Allergies: Patient has no known allergies. Other relevant review of systems: Review of Systems Respiratory: Negative for chest tightness and shortness of breath. Cardiovascular: Negative for chest pain, palpitations and leg swelling. All other systems reviewed and are negative. Physical Exam: Vitals: 09/26/23 1401 09/26/23 1405 09/26/23 1435 09/26/23 1438 BP: 114/81 Pulse: 95 85 88 Resp: 16 Temp: 37.6 C (99.7 F) TempSrc: Temporal SpO2: 99% Weight: 201 lb (91.2 kg) Height: 5' 9 (1.753 m) No intake or output data in the 24 hours ending 09/26/23 1600 Wt Readings from Last 4 Encounters: 09/26/23 201 lb (91.2 kg) 09/16/23 204 lb (92.5 kg) Physical Exam Constitutional: Appearance: Normal appearance. HENT: Head: Normocephalic. Cardiovascular: Rate and Rhythm: Normal rate and regular rhythm. Pulses: Normal pulses. Heart sounds: Normal heart sounds. No murmur heard. No friction rub. Pulmonary: Effort: Pulmonary effort is normal. Breath sounds: Normal breath sounds. No rales. Chest: Chest wall: No tenderness. Abdominal: General: Abdomen is flat. Palpations: Abdomen is soft. Musculoskeletal: Right lower leg: No edema. Left lower leg: No edema. Skin: General: Skin is warm and dry. Capillary Refill: Capillary refill takes less than 2 seconds. Neurological: Mental Status: She is alert. Associated attestation - Kassandra, Alvin Chopar MD - 09/27/2023 9:03 AM EST I, Dr. Cannon, saw and evaluated the patient. I personally obtained the sidhu and critical portions of the history and physical exam. I reviewed the chart, the fellow's documentation, and discussed the patient with the fellow. I agree with the fellow's clinical findings, medical decision making and assessment and plan with the following changes or additions. Her chest pain is sharp and fleeting, seems to radiate from abd/pelvic area. Cardiac exam, biomarkers, ECG normal. No further workup is recommended. Monitor for elevated risk of recurrent gestational hypertension. documented in this encounter [facility] 09-26-2023 Note Attestation signed by Stephanie Ruiz DO at 09/26/2023 4:25 PM Hospital Care (Present): I was present with the resident during the history and exam. I discussed the case with the resident and agree with the findings and plan as documented in the resident's note. PT admitted with above symptoms. Persistently c/o chest pain. Cardiology consulted for evaluation. Observation at this time. Normotensive and exam not consistent with preeclampsia, however her UPC is elevated at 0.88. Iron deficiency anemia - offer Venofer. Hypokalemia - replace. Chart review and preparation: 15 minutes. Face to face: 15 minutes. Documentation and care coordination: 10 minutes. Total time spent on patient care today: 40 minutes. Department of Maternal Medicine History and Physical CHIEF COMPLAINT: Chest Pain, Headache HISTORY OF PRESENT ILLNESS: The patient is a 28 y.o. female at 31w5d. OB History 4 Para 2 Term 1 1 AB 1 Living 2 SAB 1 IAB 0 Ectopic 0 Multiple 0 Live Births 2 Patient presents with a chief complaint as above and is being admitted for ongoing chest pain and headache. Patient states she developed pelvic pain and cramping along with low back pain yesterday. Patient states she woke up in the middle of the night, approximately 0330, with excruciating abdominal pain. She states she fell to the floor secondary to pain but did not hit her abdomen. She also endorses intermittent headache and vision changes but improved since being in triage. She endorses ongoing chest pain that is worse today. States it does not feel like heartburn. Denies shortness of breath or RUQ pain. She presented to [facility] and was started on magnesium sulfate given patient's symptoms. Patient transferred to [facility] for further evaluation. She has a history of PreE in previous and recently admitted to [facility] due to concerns for PreEwSF vs. Complex migraine. She is feeling normal movement, denies any vaginal bleeding, leakage of fluid or contractions. Transport: Yes Prior Hospitalizations: Yes - Complex migraine on 09/16-09/18 Estimated Due Date: Estimated Date of Delivery: 11/23/23 CARE: Complications: See Below Past OB History: OB History 4 Para 2 Term 1 1 AB 1 Living 2 SAB 1 IAB 0 Ectopic 0 Multiple 0 Live Births 2 Detailed OB History at 36 weeks Term MAB Current Past Medical History: Past Medical History: Diagnosis Date Abnormal Pap smear of cervix ADHD Anemia Anxiety Depression Hemiplegia ([facility]) ([facility]) Hypertension Preeclampsia, severe, third trimester 09/16/2023 Seizures ([facility]) last seizure in 2019 Stroke ([facility]) 1995 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 Allergies: No Known Allergies Social History: Social History Socioeconomic History Marital status: Spouse name: Not on file Number of children: Not on file Years of education: Not on file Highest education level: Not on file Occupational History Not on file Tobacco Use Smoking status: Never Smokeless tobacco: Never Vaping Use Vaping Use: Never used Substance and Sexual Activity Alcohol use: Not Currently Drug use: Never Sexual activity: Not on file Other Topics Concern Not on file Social History Narrative Not on file Social Determinants of Health Financial Resource Strain: Not on file Food Insecurity: Not on file Transportation Needs: No Transportation Needs (09/16/2023) PRAPARE - Transportation Lack of Transportation (Medical): No Lack of Transportation (Non-Medical): No Physical Activity: Not on file Stress: Not on file Social Connections: Not on file Intimate Partner Violence: Not At Risk (09/26/2023) Humiliation, Afraid, Rape, and Kick questionnaire Fear of Current or Ex-Partner: No Emotionally Abused: No Physically Abused: No Sexually Abused: No Housing Stability: Unknown (09/16/2023) Housing Stability Vital Sign Unable to Pay for Housing in the Last Year: Not on file Number of Places Lived in the Last Year: 1 Unstable Housing in the Last Year: No Family History: No family history on file. Medications Prior to Admission: Medications Prior to Admission Medication Sig Dispense Refill Last Dose amoxicillin (Amoxil) 500 MG capsule Take 1 capsule (500 mg) by mouth in the morning and 1 capsule (500 mg) at noon and 1 capsule (500 mg) before bedtime. Do all this for 10 days. 30 capsule 0 09/26/2023 ferrous sulfate 325 (65 Fe) MG tablet Take 325 mg by mo (more content not included)... [facility] 09-26-2023 Consult note Associated Order (s): IP CONSULT TO CARDIOLOGY [facility] CARDIOLOGY CONSULTATION Patient Name: Jo Linda : 1995 Date of Service: 09/26/23 Reason for Consultation: chest pain, hx of gestational HTN History Jo Linda is a 28 y.o.year-old female at 31 weeks of was admitted to the outside hospital with multiple complaints-chest pain, headaches, pelvic pain where she was managed for preeclampsia with magnesium infusion and transferred to [facility]. At [facility] patient is being seen by maternal- medicine, Cardiology consult was placed for chest pain. Per patient she had an episode of sharp chest pain in her upper mid sternum with radiation to her neck yesterday lasting for 10-15min while she was resting in bed and this triggered her pelvic pain and admission to hospital. No other associated symptoms with chest pain. Denies difficult breathing, palpitations, presyncope/syncope. She has a similar episode last week while she was in hospital. This admission hemodynamically stable, labs shows low potassium and mild urinary protein. ECG x 2 NSR with no ischemic concern, troponin x 1 negative. Impression and Recommendations Chest pain. Appears to be noncardiac with sharp pain at rest along with negative trops and ECG without concern for ischemia. Currently asymptomatic. No further testing recommended. Cardiology will sign off. Data Collection Cardiac Testin09/26/23 ECG 12-LEAD (Preliminary) This result has not been signed. Information might be incomplete. Impression Sinus rhythm Borderline prolonged QT interval No results found for this or any previous visit. No results found for this or any previous visit. No results found for this or any previous visit. Past Medical History: has a past medical history of Abnormal Pap smear of cervix, ADHD, Anemia, Anxiety, Depression, Hemiplegia (CMS/HCC) ([facility]), Hypertension, Preeclampsia, severe, third trimester (09/16/2023), Seizures ([facility]), Stroke ([facility]) (1995), and Urinary tract infection. SurgicalHistory: has no past surgical history on file. Social History: reports that she has never smoked. She has never used smokeless tobacco. She reports that she does not currently use alcohol. She reports that she does not use drugs. Family History: family history is not on file. HomeMedications: Prior to Admission medications Medication Sig Start Date End Date Taking? Authorizing Provider amoxicillin (Amoxil) 500 MG capsule Take 1 capsule (500 mg) by mouth in the morning and 1 capsule (500 mg) at noon and 1 capsule (500 mg) before bedtime. Do all this for 10 days. 09/18/23 09/28/23 Yes Rosamaria Galvez DO ferrous sulfate 325 (65 Fe) MG tablet Take 325 mg by mouth in the morning and 325 mg in the evening. Take with meals. Yes Historical Provider, Vit-Fe Fumarate-FA ( VITAMINS PO) Take 1 tablet by mouth daily. Yes Historical Provider, acetaminophen (Tylenol) 325 MG tablet Take 2 tablets (650 mg) by mouth every 4 hours as needed for mild pain (1-3) (Fever GREATER than 100.5 F (38 C)) for up to 10 days. 09/18/23 09/28/23 Rosamaria Galvez DO Scheduled medications: ferrous sulfate, 325 mg, Oral, BID WC vitamin, 1 tablet, Oral, Daily sodium chloride 0.9%, 10 mL, IntraVENous, 2 times per day Allergies: Patient has no known allergies. Other relevant review of systems: Review of Systems Respiratory: Negative for chest tightness and shortness of breath. Cardiovascular: Negative for chest pain, palpitations and leg swelling. All other systems reviewed and are negative. Physical Exam: Vitals: 09/26/23 1401 09/26/23 1405 09/26/23 1435 09/26/23 1438 BP: 114/81 Pulse: 95 85 88 Resp: 16 Temp: 37.6 C (99.7 F) TempSrc: Temporal SpO2: 99% Weight: 201 lb (91.2 kg) Height: 5' 9 (1.753 m) No intake or output data in the 24 hours ending 09/26/23 1600 Wt Readings from Last 4 Encounters: 09/26/23 201 lb (91.2 kg) 09/16/23 204 lb (92.5 kg) Physical Exam Constitutional: Appearance: Normal appearance. HENT: Head: Normocephalic. Cardiovascular: Rate and Rhythm: Normal rate and regular rhythm. Pulses: Normal pulses. Heart sounds: Normal heart sounds. No murmur heard. No friction rub. Pulmonary: Effort: Pulmonary effort is normal. Breath sounds: Normal breath sounds. No rales. Chest: Chest wall: No tenderness. Abdominal: General: Abdomen is flat. Palpations: Abdomen is soft. Musculoskeletal: Right lower leg: No edema. Left lower leg: No edema. Skin: General: Skin is warm and dry. Capillary Refill: Capillary refill takes less than 2 seconds. Neurological: Mental Status: She is alert. Associated attestation - Alvin Cannon MD - 09/27/2023 9:03 AM EST I, Dr. Cannon, saw and evaluated the patient. I personally obtained the sidhu and critical portions of the history and physical exam. I reviewed the chart, the fellow's documentation, and discussed the patient with the fellow. I agree with the fellow's clinical findings, medical decision making and assessment and plan with the following changes or additions. Her chest pain is sharp and fleeting, seems to radiate from abd/pelvic area. Cardiac exam, biomarkers, ECG normal. No further workup is recommended. Monitor for elevated risk of recurrent gestational hypertension. [employer] Phone: 09-26-2023 History and physical note Images from the original note were not included. Department of Maternal Medicine History and Physical CHIEF COMPLAINT: Chest Pain, Headache HISTORY OF PRESENT ILLNESS: The patient is a 28 y.o. female at 31w5d. OB History 4 Para 2 Term 1 1 AB 1 Living 2 SAB 1 IAB 0 Ectopic 0 Multiple 0 Live Births 2 Patient presents with a chief complaint as above and is being admitted for ongoing chest pain and headache. Patient states she developed pelvic pain and cramping along with low back pain yesterday. Patient states she woke up in the middle of the night, approximately 0330, with excruciating abdominal pain. She states she fell to the floor secondary to pain but did not hit her abdomen. She also endorses intermittent headache and vision changes but improved since being in triage. She endorses ongoing chest pain that is worse today. States it does not feel like heartburn. Denies shortness of breath or RUQ pain. She presented to [facility] and was started on magnesium sulfate given patient's symptoms. Patient transferred to [facility] for further evaluation. She has a history of PreE in previous and recently admitted to [facility] due to concerns for PreEwSF vs. Complex migraine. She is feeling normal movement, denies any vaginal bleeding, leakage of fluid or contractions. Transport: Yes Prior Hospitalizations: Yes - Complex migraine on 09/16-09/18 Estimated Due Date: Estimated Date of Delivery: 11/23/23 CARE: Complications: See Below Past OB History: OB History 4 Para 2 Term 1 1 AB 1 Living 2 SAB 1 IAB 0 Ectopic 0 Multiple 0 Live Births 2 Detailed OB History at 36 weeks Term MAB Current Past Medical History: Past Medical History: Diagnosis Date Abnormal Pap smear of cervix ADHD Anemia Anxiety Depression Hemiplegia ([facility]) ([facility]) Hypertension Preeclampsia, severe, third trimester 09/16/2023 Seizures ([facility]) last seizure in 2019 Stroke ([facility]) 1996 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 Allergies: No Known Allergies Social History: Social History Socioeconomic History Marital status: Spouse name: Not on file Number of children: Not on file Years of education: Not on file Highest education level: Not on file Occupational History Not on file Tobacco Use Smoking status: Never Smokeless tobacco: Never Vaping Use Vaping Use: Never used Substance and Sexual Activity Alcohol use: Not Currently Drug use: Never Sexual activity: Not on file Other Topics Concern Not on file Social History Narrative Not on file Social Determinants of Health Financial Resource Strain: Not on file Food Insecurity: Not on file Transportation Needs: No Transportation Needs (09/16/2023) PRAPARE - Transportation Lack of Transportation (Medical): No Lack of Transportation (Non-Medical): No Physical Activity: Not on file Stress: Not on file Social Connections: Not on file Intimate Partner Violence: Not At Risk (09/26/2023) Humiliation, Afraid, Rape, and Kick questionnaire Fear of Current or Ex-Partner: No Emotionally Abused: No Physically Abused: No Sexually Abused: No Housing Stability: Unknown (09/16/2023) Housing Stability Vital Sign Unable to Pay for Housing in the Last Year: Not on file Number of Places Lived in the Last Year: 1 Unstable Housing in the Last Year: No Family History: No family history on file. Medications Prior to Admission: Medications Prior to Admission Medication Sig Dispense Refill Last Dose amoxicillin (Amoxil) 500 MG capsule Take 1 capsule (500 mg) by mouth in the morning and 1 capsule (500 mg) at noon and 1 capsule (500 mg) before bedtime. Do all this for 10 days. 30 capsule 0 09/26/2023 ferrous sulfate 325 (65 Fe) MG tablet Take 325 mg by mouth in the morning and 325 mg in the evening. Take with meals. 09/25/2023 Vit-Fe Fumarate-FA ( VITAMINS PO) Take 1 tablet by mouth daily. 09/25/2023 acetaminophen (Tylenol) 325 MG tablet Take 2 tablets (650 mg) by mouth every 4 hours as needed for mild pain (1-3) (Fever GREATER than 100.5 F (38 C)) for up to 10 days. 30 tablet 0 REVIEW OF SYSTEMS: Review of Systems Constitutional: Negative for chills and fever. HENT: Negative for congestion, hearing loss and voice change. Eyes: Negative for pain and visual disturbance. Respiratory: Negative for shortness of breath. Cardiovascular: Positive for chest pain. Negative for leg swelling. Gastrointestinal: Positive for diarrhea. Negative for abdominal pain, constipation, nausea and vomiting. Genitourinary: Positive for pelvic pain. Negative for difficulty urinating, dysuria and frequency. Musculoskeletal: Positive for back pain. Negative for arthralgias and myalgias. Skin: Negative for color change and wound. Allergic/Immunologic: Negative for immunocompromised state. Neurological: Positive for headaches. Negative for weakness and light-headedness. Psychiatric/Behavioral: Negative for agitation, behavioral problems and dysphoric mood. PHYSICAL EXAM: Vitals: 09/26/23 1310 09/26/23 1315 09/26/23 1320 09/26/23 1325 BP: Pulse: 92 94 97 98 Resp: Temp: SpO2: 100% 100% 100% 100% General appearance: awake, alert, cooperative, no apparent distress, and appears stated age Neurologic: Awake, alert, oriented to name, place and time. Lungs: No increased work of breathing, good air exchange Abdomen: Soft, non tender, gravid, consistent with her gestational age Sterile Speculum Exam: Membranes: Intact HSV Lesions: not applicable Cervix: Closed per Dr. Loo Contraction frequency: None Fetus: EFW: EFW 1666g, 50% on 09/20/23 Presentation: Vertex by U/S NST: N/A BPP: [...] Urine: ordered, but not yet obtained FFN: ordered, but not yet obtained Type & Screen: ordered, but not yet obtained Serum Labs: CBC, CMP, UPC Consults: Cardiology Imaging: Not indicated Diet: General Testing: TBD Timing and Route of Delivery: TBD Medications: Neuroprotection: Not indicated Tocolysis: Not indicated Antibiotics: Not indicated Steroids: Not indicated Chest Pain Headache Hx gHTN - Presented to OSH with multiple complaints including chest pain, headaches, pelvic pain/cramping - Cervix closed on admission and no contractions on toco, low concern for tPTL - VSS, BP normotensive in OB triage - Headache present but improving - Patient reporting stabbing chest pain that has been ongoing for several weeks, per patient not related to heartburn - PreE labs negative at OSH, will repeat on admission - Low concern for preeclampsia with severe features given BPs normotensive, PreE labs normal and symptoms are more chronic in nature - Started on magnesium sulfate at OSH, will discontinue - S/p BMZ x2 on 09/16-09/17 for lung maturity - Growth US (09/20): EFW 1666g, 50% - EKG ordered - Cardiology consulted for chest pain, appreciate recommendations 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 - Per patient, history of stroke as an - 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 - Last seizure in 2019 (during last ) - Previously followed with neurologist in [place], has not established care in [place] - Not currently on antiepileptic medications - MRI/MRV/MRA normal on 09/17/23 - Neurology consulted during previous admission who did not have further recommendations Rh Negative - S/p Rhogam at 09/02/23 Anemia - Hgb 9.6 and ferritin <5 on 09/17/23 - Repeat CBC ordered on admission - Continue PO iron supplementation Circumvallate Placenta - Growth US performed on 09/20/23 IUP @ 31w5d - Dating by: 7w2d US - Presentation: Cephalic on 09/26 - Monitoring: CEFM - Diet: General - Steroids: BMZ x2 on 09/16-09/[address] Ruiz, who agrees with plan. NOELLE ESCALANTE DO 09/26/2023, 2:17 PM Cc: Stephanie Ruiz DO Associated attestation - Stephanie Ruiz DO - 09/26/2023 4:25 PM EST Hospital Care (Present): I was present with the resident during the history and exam. I discussed the case with the resident and agree with the findings and plan as documented in the resident's note. PT admitted with above symptoms. Persistently c/o chest pain. Cardiology consulted for evaluation. Observation at this time. Normotensive and exam not consistent with preeclampsia, however her UPC is elevated at 0.88. Iron deficiency anemia - offer Venofer. Hypokalemia - replace. Chart review and preparation: 15 minutes. Face to face: 15 minutes. Documentation and care coordination: 10 minutes. Total time spent on patient care today: 40 minutes. [facility] 09-26-2023 History and physical note Images from the original note were not included. Department of Maternal Medicine History and Physical CHIEF COMPLAINT: Chest Pain, Headache HISTORY OF PRESENT ILLNESS: The patient is a 28 y.o. female at 31w5d. OB History 4 Para 2 Term 1 1 AB 1 Living 2 SAB 1 IAB 0 Ectopic 0 Multiple 0 Live Births 2 Patient presents with a chief complaint as above and is being admitted for ongoing chest pain and headache. Patient states she developed pelvic pain and cramping along with low back pain yesterday. Patient states she woke up in the middle of the night, approximately 0330, with excruciating abdominal pain. She states she fell to the floor secondary to pain but did not hit her abdomen. She also endorses intermittent headache and vision changes but improved since being in triage. She endorses ongoing chest pain that is worse today. States it does not feel like heartburn. Denies shortness of breath or RUQ pain. She presented to [facility] and was started on magnesium sulfate given patient's symptoms. Patient transferred to [facility] for further evaluation. She has a history of PreE in previous and recently admitted to [facility] due to concerns for PreEwSF vs. Complex migraine. She is feeling normal movement, denies any vaginal bleeding, leakage of fluid or contractions. Transport: Yes Prior Hospitalizations: Yes - Complex migraine on 09/16-09/18 Estimated Due Date: Estimated Date of Delivery: 11/23/23 CARE: Complications: See Below Past OB History: OB History 4 Para 2 Term 1 1 AB 1 Living 2 SAB 1 IAB 0 Ectopic 0 Multiple 0 Live Births 2 Detailed OB History at 36 weeks Term MAB Current Past Medical History: Past Medical History: Diagnosis Date Abnormal Pap smear of cervix ADHD Anemia Anxiety Depression Hemiplegia ([facility] ([facility]) Hypertension Preeclampsia, severe, third trimester 09/16/2023 Seizures ([facility]) last seizure in 2019 Stroke ([facility]) 1995 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 Allergies: No Known Allergies Social History: Social History Socioeconomic History Marital status: Spouse name: Not on file Number of children: Not on file Years of education: Not on file Highest education level: Not on file Occupational History Not on file Tobacco Use Smoking status: Never Smokeless tobacco: Never Vaping Use Vaping Use: Never used Substance and Sexual Activity Alcohol use: Not Currently Drug use: Never Sexual activity: Not on file Other Topics Concern Not on file Social History Narrative Not on file Social Determinants of Health Financial Resource Strain: Not on file Food Insecurity: Not on file Transportation Needs: No Transportation Needs (09/16/2023) PRAPARE - Transportation Lack of Transportation (Medical): No Lack of Transportation (Non-Medical): No Physical Activity: Not on file Stress: Not on file Social Connections: Not on file Intimate Partner Violence: Not At Risk (09/26/2023) Humiliation, Afraid, Rape, and Kick questionnaire Fear of Current or Ex-Partner: No Emotionally Abused: No Physically Abused: No Sexually Abused: No Housing Stability: Unknown (09/16/2023) Housing Stability Vital Sign Unable to Pay for Housing in the Last Year: Not on file Number of Places Lived in the Last Year: 1 Unstable Housing in the Last Year: No Family History: No family history on file. Medications Prior to Admission: Medications Prior to Admission Medication Sig Dispense Refill Last Dose amoxicillin (Amoxil) 500 MG capsule Take 1 capsule (500 mg) by mouth in the morning and 1 capsule (500 mg) at noon and 1 capsule (500 mg) before bedtime. Do all this for 10 days. 30 capsule 0 09/26/2023 ferrous sulfate 325 (65 Fe) MG tablet Take 325 mg by mouth in the morning and 325 mg in the evening. Take with meals. 09/25/2023 Vit-Fe Fumarate-FA ( VITAMINS PO) Take 1 tablet by mouth daily. 09/25/2023 acetaminophen (Tylenol) 325 MG tablet Take 2 tablets (650 mg) by mouth every 4 hours as needed for mild pain (1-3) (Fever GREATER than 100.5 F (38 C)) for up to 10 days. 30 tablet 0 REVIEW OF SYSTEMS: Review of Systems Constitutional: Negative for chills and fever. HENT: Negative for congestion, hearing loss and voice change. Eyes: Negative for pain and visual disturbance. Respiratory: Negative for shortness of breath. Cardiovascular: Positive for chest pain. Negative for leg swelling. Gastrointestinal: Positive for diarrhea. Negative for abdominal pain, constipation, nausea and vomiting. Genitourinary: Positive for pelvic pain. Negative for difficulty urinating, dysuria and frequency. Musculoskeletal: Positive for back pain. Negative for arthralgias and myalgias. Skin: Negative for color change and wound. Allergic/Immunologic: Negative for immunocompromised state. Neurological: Positive for headaches. Negative for weakness and light-headedness. Psychiatric/Behavioral: Negative for agitation, behavioral problems and dysphoric mood. PHYSICAL EXAM: Vitals: 09/26/23 1310 09/26/23 1315 09/26/23 1320 09/26/23 1325 BP: Pulse: 92 94 97 98 Resp: Temp: SpO2: 100% 100% 100% 100% General appearance: awake, alert, cooperative, no apparent distress, and appears stated age Neurologic: Awake, alert, oriented to name, place and time. Lungs: No increased work of breathing, good air exchange Abdomen: Soft, non tender, gravid, consistent with her gestational age Sterile Speculum Exam: Membranes: Intact HSV Lesions: not applicable Cervix: Closed per Dr. Panko Contraction frequency: None Fetus: EFW: EFW 1666g, 50% on 09/20/23 Presentation: Vertex by U/S NST: N/A BPP: [...] Urine: ordered, but not yet obtained FFN: ordered, but not yet obtained Type & Screen: ordered, but not yet obtained Serum Labs: CBC, CMP, UPC Consults: Cardiology Imaging: Not indicated Diet: General Testing: TBD Timing and Route of Delivery: TBD Medications: Neuroprotection: Not indicated Tocolysis: Not indicated Antibiotics: Not indicated Steroids: Not indicated Chest Pain Headache Hx gHTN - Presented to OSH with multiple complaints including chest pain, headaches, pelvic pain/cramping - Cervix closed on admission and no contractions on toco, low concern for tPTL - VSS, BP normotensive in OB triage - Headache present but improving - Patient reporting stabbing chest pain that has been ongoing for several weeks, per patient not related to heartburn - PreE labs negative at OSH, will repeat on admission - Low concern for preeclampsia with severe features given BPs normotensive, PreE labs normal and symptoms are more chronic in nature - Started on magnesium sulfate at OSH, will discontinue - S/p BMZ x2 on 09/16-09/17 for lung maturity - Growth US (09/20): EFW 1666g, 50% - EKG ordered - Cardiology consulted for chest pain, appreciate recommendations 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 - Per patient, history of stroke as an infant - 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 - Last seizure in 2019 (during last ) - Previously followed with neurologist in [place], has not established care in [place] - Not currently on antiepileptic medications - MRI/MRV/MRA normal on 09/17/23 - Neurology consulted during previous admission who did not have further recommendations Rh Negative - S/p Rhogam at 09/02/23 Anemia - Hgb 9.6 and ferritin <5 on 09/17/23 - Repeat CBC ordered on admission - Continue PO iron supplementation Circumvallate Placenta - Growth US performed on 09/20/23 IUP @ 31w5d - Dating by: 7w2d US - Presentation: Cephalic on 09/26 - Monitoring: CEFM - Diet: General - Steroids: BMZ x2 on 09/16-09/[address] Ruiz, who agrees with plan. NOELLE ESCALANTE DO 09/26/2023, 2:17 PM Cc: Stephanie Ruiz DO Associated attestation - Stephanie Ruiz DO - 09/26/2023 4:25 PM EST Hospital Care (Present): I was present with the resident during the history and exam. I discussed the case with the resident and agree with the findings and plan as documented in the resident's note. PT admitted with above symptoms. Persistently c/o chest pain. Cardiology consulted for evaluation. Observation at this time. Normotensive and exam not consistent with preeclampsia, however her UPC is elevated at 0.88. Iron deficiency anemia - offer Venofer. Hypokalemia - replace. Chart review and preparation: 15 minutes. Face to face: 15 minutes. Documentation and care coordination: 10 minutes. Total time spent on patient care today: 40 minutes. documented in this encounter [facility] 09-18-2023 History of Presen t illness Narrative Discharge instructions given to the patient at this time. Kick counts reviewed with the patient. Patient is to follow up with her OB within a week, has appointment scheduled for Tuesday09/23/23. Patient will cone picker her antibiotic from the pharmacy in [place] tomorrow morning when the pharmacy opens. IV removed. Patient verbalizes understanding of instructions. Neurology update: Patient's neuroimaging study results are pending. Please review neurology consultation note from yesterday for detailed recommendations. Thank you. .Nutrition rescreen completed. Chart reviewed. Patient to be monitored and followed by the diet in flight technician. .WILLY Hannah Images from the original [...] 101 112 95 90 Resp: 20 18 16 Temp: 36.7 C (98 F) [...] mg Oral 3 times per day Silvia Jackovic, DO 500 mg at 09/18/23 0512 calcium [...] day Noelle Moschella, DO 10 mL at 09/17/23 2128 sodium chloride 0.9% (NS) flush 10 mL 10 mL IntraVENous PRN Noelle Moschella, DO 10 mL at 09/16/232027 Assessment/Plan: Jo Linda is a 28 y.o. female 30w4d PreEwSF vs Complex Migraine Hx gHTN - Presented to [facility] on 09/16/23 with headache, vision changes, and mild range BPs; PreE labs negative at [place], [facility] WNL - Started on magnesium at OSH with improvement of BOURGEOIS - Transferred to [facility] for further management - History of [...] ) - Previously followed with neurologist in [place], has not established care in [place] - Not currently on antiepileptic medications - Neurology consulted, appreciate further recommendations - MRA, MRV, MRI Brain read pending this AM Dental Infection - Diagnosed with tooth infection at [facility] - Started on Augmentin on 09/11, adjusted [...] 09/17 Further plan pending d/w attending. Christina WarnerDO 09/18/2023, 6:11 AM Associated attestation - Stephanie [...] spent on patient care today: 30 minutes. [facility] update: Pt asymptomatic, would like to be dced to home. [facility] team discussed EKG with cardiology. Borderline prolonged QT was okay, cardiology consult not indicated, no medication restriction advised. Neuroimaging completed. IMPRESSION: 1. 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 2. No evidence of an acute intracranial process. [facility] team to review with neurologist for any additional recommendations. Outpt FU with opthalmology as an outpt for evaluation as recommended by neurology's initial consult. Outpt FU with dentist for dental infection. Outpt FU with [facility] [place] office for growth US this week. (Note sent to [facility] student counsellor). Please screen patient for MRI. Thank you [...] 650 mg 650 mg Oral q4h PRN Noellejeff [place], DO 650 mg at 09/16/23 1622 amoxicillin (Amoxil) capsule 500 mg 500 mg Oral 3 times per day Silvia Morelos DO betamethasone acetate-betamethasone sodium phosphate (Celestone) injection 12 mg 12 mg IntraMUSCular Once Noelle [place] DO calcium gluconate 10 % injection 1 g 1 g IntraVENous PRN Noelle [place] DO famotidine (Pepcid) 20 mg in sodium chloride (PF) 0.9 % 10 mL injection 20 mg IntraVENous q12h PRN Noelle Moschella, DO 20 mg at 09/16/232025 ferrous sulfate tablet 325 mg 325 mg Oral BID Noelle Moschella, DO 325 mg at 09/16/23 1741 lactated Ringer's infusion 25 mL/hr IntraVENous Continuous Paulina Schlieper, DO 25 mL/hr at 09/16/23 1620 25 mL/hr at 09/16/23 1620 magnesium sulfate 20 GM/500ML infusion 2,000 mg/hr IntraVENous Continuous Noelle Moschella, DO 50 mL/hr at 09/17/23 0231 2,000 mg/hr at 09/17/23 0231 metoclopramide (Reglan) injection 10 mg 10 mg IntraVENous q6h PRN Silvia Morelos, DO 10 mg at 09/16/232008 ondansetron ODT [...] Complex Migraine Hx gHTN - Presented to [facility] on 09/16/23 with headache, vision changes, and mild range BPs; PreE labs negative at [place], [facility] WNL - Started on magnesium at OSH with improvement of BOURGEOIS - Transferred to [facility] for further management - History of [...] ) - Previously followed with neurologist in [place], has not established care in [place] - Not currently on antiepileptic medications - Neurology consulted, appreciate further recommendations Dental Infection - Diagnosed with tooth infection at [facility] - Started on Augmentin on 09/11, [...] edema, patellar reflex normal 2/4 FHR reassuring [place] - irritability this AM, no ctxs or [...] other lab work. documented in this encounter [facility] 09-18-2023 Hospital Discharg e instructions Rosamaria Galvez DO - 09/18/2023 6:49 PM EST Follow up appointment with your doctor/client experience specialist - Call office for appointment in 7days Activity - Normal Activity Call your doctor/client experience specialist if you have: - leaking fluid - [...] visit on 09/18/23 . ROSAMARIA Galvez DO [facility] documented in this encounter [facility] 09-18-2023 Note Neurology update: Patient's neuroimaging study results are pending. Please review neurology consultation note from yesterday for detailed recommendations. Thank you. [facility] 09-17-2023 Consult note Associated Order (s): IP CONSULT TO NEUROLOGY Neurology Consult Note - Neurology Service Patient Name: Jo Linda Patient : 1995 Acct: [id number] Date of Admission: 09/16/2023 Room/Bed: -2205/H-2205 A PCP: No primary care provider on [...] concerned and came into the ER at [facility] where she was admitted for further [...] of cervix ADHD Anemia Anxiety Depression Hemiplegia ([facility]) ([facility]) Hypertension Preeclampsia, severe, third trimester 09/16/2023 Seizures ([facility]) last seizure in 2019 Stroke ([facility]) 1996 stroke as a baby which resulted [...] mg, Oral, 3 times per day, Silvia Jackovic, DO, 500 mg at 09/17/23 0603 betamethasone acetate-betamethasone sodium phosphate (Celestone) injection 12 mg, 12 mg, IntraMUSCular, Once, Noelle Moschella, DO calcium gluconate 10 % injection 1 [...] Noelle Moschella, DO, 325 mg at 09/17/23 0953 vitamin tablet, 1 tablet, Oral, Daily, Noelle Moschella, DO, 1 tablet at 09/17/23 0953 sodium [...] Temporal 111 -- 97 % -- -- 09/16/23 1835 -- -- -- 103 -- -- -- -- 09/16/23 1830 -- -- -- 100 -- -- -- -- 09/16/23 1825 -- -- -- 105 -- -- -- -- 09/16/23 1820 -- -- -- 102 -- -- -- -- 09/16/23 1810 -- -- -- 90 -- -- -- -- 09/16/23 1805 -- -- -- 95 -- -- -- -- 09/16/23 180 111/73 -- -- 92 -- -- -- -- 09/16/23 1800 -- -- -- 93 -- -- -- -- 09/16/23 175 -- -- -- 92 -- -- -- -- 09/16/23 175 -- -- -- 92 -- -- -- -- 09/16/23 174 -- -- -- 94 -- -- -- [...] -- 95 -- -- -- -- 09/16/23 1710 -- -- -- 88 -- -- -- -- 09/16/23 1705 -- -- -- 92 -- -- -- [...] 397 ms QTC Interval 489 ms P [place] 39 degrees QRS [place] 31 degrees T Wave [place] 31 degrees RI Interval 144 ms Chlamydia/Gonorrhea Collection Time: 09/16/23 [...] contrast studies were not ordered due to [facility] radiology protocol. Please continue with symptomatic treatment [...] her expressed understanding and satisfaction. Thank you. [facility] 09-17-2023 Consult note Associated Order (s): IP CONSULT TO NEUROLOGY Neurology Consult Note - Neurology Service Patient Name: Jo Linda Patient : 1995 Acct: [id number] Date of Admission: 09/16/2023 Room/Bed: 2205/H-2205 A PCP: No primary care provider on [...] concerned and came into the ER at [facility] where she was admitted for further [...] of cervix ADHD Anemia Anxiety Depression Hemiplegia ([facility]) ([facility]) Hypertension Preeclampsia, severe, third trimester 09/16/2023 Seizures ([facility]) last seizure in 2019 Stroke ([facility]) 1995 stroke as a baby which resulted [...] mg, Oral, 3 times per day, Silvia Morelos DO, 500 mg at 09/17/23 0603 [...] Noelle Moschella, DO, 325 mg at 09/17/23 0953 vitamin [...] -- 95 -- -- -- -- 09/16/23 1801 111/73 -- -- 92 -- -- -- [...] -- 94 -- -- -- -- 09/16/23 1720 -- -- -- 88 -- -- -- -- 09/16/23 1715 -- -- -- 95 -- -- -- -- 09/16/23 1710 -- -- -- 88 -- -- -- [...] 397 ms QTC Interval 489 ms P [place] 39 degrees QRS [place] 31 degrees T Wave [place] 31 degrees RI Interval 144 ms Chlamydia/Gonorrhea Collection Time: 09/16/23 [...] contrast studies were not ordered due to [facility] radiology protocol. Please continue with symptomatic treatment [...] satisfaction. Thank you. documented in this encounter [facility] 09-16-2023 Note Attestation signed by Stephanie Ruiz DO at 09/19/2023 9:06 AM Pt discharged to home 09/18/23 evening. She was asymptomatic at discharge. No headache, vision changes nor chest pain. EKG IMPRESSION: Sinus rhythm Borderline prolonged QT interval [facility] team discussed EKG results with cardiology. [...] patient's headaches. Jo elects for outpatient follow-up. [facility] growth ultrasound - note sent to office to schedule. OB follow-up with Dr. Spicer this week. Department of Obstetrics and Gynecology [facility] Discharge Summary Admission on 09/16/2023 2:47 PM Jo Linda is a 28 y.o. at 30 w 2 d who presented to Labor and Delivery for direct admission as transfer of care from [place] for concerns for PreEwSF vs complex migraine. [...] mg, 650 mg, Oral, q4h PRN, Noelle Moschella, DO, 650 mg at 09/17/23 0703 amoxicillin (Amoxil) capsule 500 mg, 500 mg, Oral, 3 times per day, Silvia Morelos, DO, 500 mg at 09/18/23 1405 calcium [...] Complex migraine Follow up appointment with your doctor/client experience specialist - Keep next scheduled appointment Activity - Normal Activity Call your doctor/client experience specialist if you have: - leaking fluid - vaginal bleeding - regular contractions: More than 6 contractions in one hour - decreased movement - worsening abdominal (belly) pain - headache, blurry vision, increased swelling, upper abdominal pain ROSAMARIA Galvez DO 09/18/2023 4:22 PM [facility] 09-16-2023 Note Attestation signed by Stephanie Ruiz DO at 09/16/2023 8:09 PM Hospital Care (Present): I was present with the resident during the history and exam. I discussed the case with the resident and agree with the findings and plan as documented in the resident's note. Transport from Dr. Spicer at [facility] due to concern for preeclampsia. Mild range [...] changes, and elevated BPs. Patient presented to [facility] due to two week history of headaches [...] wound. Allergic/Immunologic: Ne (more content not included)... [facility] 09-16-2023 History and physical note Department of Maternal Medicine History and Physical CHIEF COMPLAINT: PreEwSF vs. Complex Migraine HISTORY OF PRESENT ILLNESS: The patient is a 28 y.o. female at 30w2d. OB History No obstetric history on file. Patient presents with a chief complaint as above and is being admitted for headache, vision changes, and elevated BPs. Patient presented to [facility] due to two week history of headaches [...] Complex Migraine Hx gHTN - Presented to [facility] on 09/16/23 with headache, vision changes, and mild range BPs; PreE labs negative at [place], [facility] WNL - Started on magnesium at OSH with improvement of BOURGEOIS - Transferred to [facility] for further management - History of [...] ) - Previously followed with neurologist in [place], has not established care in [place] - Not currently on antiepileptic medications - Neurology consulted, appreciate further recommendations Dental Infection - Diagnosed with tooth infection at [facility] - Started on Augmentin on 09/11, [...] resident's note. Transport from Dr. Spicer at [facility] due to concern for preeclampsia. Mild range [...] spent on patient care today: 65 minutes. [facility] 09-16-2023 History and physical note Department of Maternal Medicine History and Physical CHIEF COMPLAINT: PreEwSF vs. Complex Migraine HISTORY OF PRESENT ILLNESS: The patient is a 28 y.o. female at 30w2d. OB History No obstetric history on file. Patient presents with a chief complaint as above and is being admitted for headache, vision changes, and elevated BPs. Patient presented to [facility] due to two week history of headaches [...] Complex Migraine Hx gHTN - Presented to [facility] on 09/16/23 with headache, vision changes, and mild range BPs; PreE labs negative at [place], [facility] WNL - Started on magnesium at OSH with improvement of BOURGEOIS - Transferred to [facility] for further management - History of [...] ) - Previously followed with neurologist in [place], has not established care in [place] - Not currently on antiepileptic medications - Neurology consulted, appreciate further recommendations Dental Infection - Diagnosed with tooth infection at [facility] - Started on Augmentin on 09/11, [...] resident's note. Transport from Dr. Spicer at [facility] due to concern for preeclampsia. Mild range [...] today: 65 minutes. documented in this encounter [facility] Diagnosis Chest pain during - Primary documented in this encounter [facility] Advance Directives No Advanced Directives Records FoundLatest Code Status on File Code Status Date Activated Date Inactivated Comments Full Code 09/16/2023 2:58 PM 09/18/2023 9:25 PM Latest Code Status on File Code Status Date Activated Date Inactivated Comments Full Code 09/26/2023 2:26 PM 09/28/2023 2:28 PM Code Status History Code Status Date Activated Date Inactivated Comments Full Code 09/16/2023 2:58 PM 09/18/2023 9:25 PM Summary Purpose Family History No Family History Records FoundNo Family History Records Found Additional Source Comments Reason for Visit (unrecogniz ed section and content) Specialty Diagnoses / Procedures Referred By Ginny t Referred To Contact Diagnoses Preeclampsia, severe, third trimester Procedures [id number] , severe, third trimester [place] [address] [address] [place] [address] Referral ID Status Reason Start Date Expiration Date Visits Re quested Visits Authorized [id number] 1 Reason Comments Hypertension Specialty Diagnoses / Procedures Referred By Contac t Referred To Contact Diagnoses Chest pain during Procedures O99.891,[id number] pain during Stephanie [place], [place] [address] [address] [place] [address] Referral ID Status Reason Start Date Expiration Date Visits Re quested Visits Authorized [id number] 1 Scheduled Active and Recently Administ [...] mg 1620 (New Bag - Provider: Sarahy Lu, RN) 0231 (New Bag - Provider: Sheron Meier, RN)0755 (Rate/Dose Verify - Provider: Herbert Mohan, SAL)0820 (Stopped - Provider: Leah Pearl RN) PRN [...] Lu RN) 0703 (Given - Provider: Sheron Meier, SAL) calcium gluconate 10 % injection 1 g [...] mL NS 2025 (Given - Provider: Sheron Meier, SAL - Comment: injected slow over 2 minutes) [...] Meier RN) 0745 (Given - Provider: Herbert Mohan RN) sodium chloride 0.9 % infusion 5-250 mL/hr, [...] Every 12 hours PRN, heartburn, Starting on Tue09/17/23 at 0948, IV or ORAL Scheduled Medication Order 09/26/2023 09/27/2023 09/28/2023 famotidine (Pepcid) 20 mg in sodium chloride (PF) 0.9 % 10 mL injection 20 mg, IntraVENous, Administer over 2 Minutes, Every 12 hours scheduled (2 times per day), First dose on Tue09/26/23 at 2100, IV Push over minimum of 2 minutes - Dilute with 10 mL NS 2004 (Given - Provider: Aaliyah Galvez RN) 08 (Given - Provider: Mary Burr RN)2043 (Given - Provider: Shreya Baeza RN) 0900 (Canceled Entry - Provider: Automatic Discharge Provider - Comment: Automatically canceled at discontinue of medication order) ferrous sulfate tablet 325 mg (CANCELED) 325 mg, Oral, 2 times daily with meals, First dose on Tue09/26/23 at 1700 1646 (Given - Provider: Sarahy Grewal RN) iron sucrose (Venofer) 200 mg in sodium chloride 0.9 % 100 mL IVPB 200 mg, IntraVENous, at 300 mL/hr, Administer over 20 Minutes, Every 24 hours, First dose on Tue09/26/23 at 1700, For 3 doses, Observe for signs and symptoms of hypersensitivity and/or anaphylactic-type reactions per institutional standard during and following administration. 1759 (New Bag - Provider: Sarahy Grewal RN)1853 (Stopped - Provider: Sarahy Grewal RN) 1825 (New Bag - Provider: Mary Burr RN)1845 (Due: Stopped - Provider: Mary Burr RN) potassium chloride (Klor-Con) packet 40 mEq (COMPLETED) 40 mEq, Oral, Once, On Tue09/26/23 at 1730, For 1 dose, Dissolve each packet in 4 ounces of water = 5 mEq per 1 oz fluid., Indications: Hypokalemia 1815 (Given - Provider: Sarahy Grewal RN) vitamin tablet 1 tablet, Oral, Daily, First dose on Tue09/26/23 at 1430 1646 (Given - Provider: Sarahy Grewal, RN) 0831 (Given - Provider: Mary Burr, SAL) 0941 (Given - Provider: Kody Milton RN) sodium chloride 0.9% (NS) flush 10 mL 10 mL, IntraVENous, Every 12 hours scheduled (2 times per day), First dose on Tue09/26/23 at 2100 2004 (Given - Provider: Aaliyah Galvez RN) 0831 (Given - Provider: Mary Burr RN)2045 (Given - Provider: Shreya Baeza, SAL) 0900 (Canceled Entry - Provider: Automatic Discharge Provider - Comment: Automatically canceled at discontinue of medication order) PRN Medication Order 09/26/2023 09/27/2023 09/28/2023 acetaminophen (Tylenol) tablet 650 mg 650 mg, Oral, Every 4 hours PRN, mild pain (1-3), Fever GREATER than 100.5 F (38 C), Starting on Tue09/26/23 at 1424, Maximum dose of acetaminophen is 4000 mg from all sources in 24 hours. 2004 (Given - Provider: Aaliyah Galvez RN) 0650 (Given - Provider: Aaliyah Galvez RN)1616 (Given - Provider: Mary Burr RN)2050 (Given - Provider: Shreya Baeza, SAL) ondansetron (Zofran) injection 4 mg(Linked Group 1) 4 mg, IntraVENous, Every 6 hours PRN, nausea, vomiting, Starting on Tue09/26/23 at 1424, 1st Line. Give IV if patient is unable to take orally. If inadequate response within 60 minutes, proceed to next-line agent or contact provider if no further options ordered. ondansetron ODT (Zofran-ODT) disintegrating tablet 4 mg(Linked Group 1) 4 mg, Oral, Every 8 hours PRN, nausea, vomiting, Starting on Tue09/26/23 at 1424, 1st Line. If inadequate response within 60 minutes, proceed to next-line agent or contact provider if no further options ordered. Patient should allow tablet to dissolve on tongue. Do not remove from blister pack until just before administering. Polyvinyl Alcohol-Povidone 5-6 MG/ML solution 1 drop 1 drop, Both Eyes, As needed, dry eyes, Starting on Tue09/27/23 at 1459 sodium chloride 0.9 % infusion 5-250 mL/hr, IntraVENous, PRN, if patient receiving piggyback infusions and maintenance fluids are not ordered OR KVO fluids to protect IV site / prevent frequent line interruptions/ long duration, Starting on Tue09/26/23 at 1424, For piggyback infusion, administer at same rate [...] mL, IntraVENous, PRN, line care, Starting on Tue09/26/23 at 1424, After every IV line use Linked Groups Order Group 1: ondansetron ODT (Zofran-ODT) disintegrating tablet 4 mgJump to med 4 mg, Oral, Every 8 hours PRN, nausea, vomiting, Starting on Tue09/26/23 at 1424, 1st Line. If inadequate response within 60 minutes, proceed to next-line agent or contact provider if no further options ordered. Patient should allow tablet to dissolve on tongue. Do not remove from blister pack until just before administering. Or ondansetron (Zofran) injection 4 mgJump to med 4 mg, IntraVENous, Every 6 hours PRN, nausea, vomiting, Starting on Tue09/26/23 at 1424, 1st Line. Give IV if patient is unable to take orally. If inadequate response within 60 minutes, proceed to next-line agent or contact provider if no further options ordered. INFORMATION SOURCE (unrecogn ized section and content) DATE CREATED AUTHOR AUTHOR'S ORGANIZ ATION 09/29/2023 [facility] FOR RECORDS PERTAINING TO PATIENTS WHO ARE [...] BE BASED ON THE PRIMARY CLINICAL RECORDS. [facility]. provides no warranty or guarantee of the accuracy or completeness of information in this document.
[2023-10-07 12:38] LABS: Absolute Lymphocyte Count 0.99 X10^3/uL (0.83-4.51); Absolute Neutrophil Count 3.7 X10^3/uL (2.0-7.7); Basophil# 0.02 X10^3/uL; Basophil% 0.4 % (0-1); Eosinophil# 0.04 X10^3/uL; Eosinophils% 0.7 % (0-5); Hematocrit 29.7 % (37-47); Hemoglobin 9.4 g/dL (12.0-15.0); Lymphocyte # 0.99 X10^3/ul (0.83-4.51); Lymphocyte % 18.3 % (19-41); Mean Corp Hgb Conc 31.6 g/dL (32-36); Mean Corpuscular Hgb 28.1 pg (27.0-32.0); Mean Corpuscular Volume 88.9 fL (81-99); Mean Platelet Vol. 11.5 fl (6.2-12.0); Monocyte% 11.1 % (0-10); NRBC Flagged by Analyzer 0 % (0-5); Neutrophil # 3.69 X10^3/uL (2.7-7.7); Neutrophil % 68.4 % (47-70); Platelet Count 187 K/mm3 (150-450); RBC Distribution Width CV 15.6 % (11.6-14.6); RBC Distribution Width SD 49.3 fl (35.1-43.9); Red Blood Count 3.34 M/mm3 (4.2-5.4); White Blood Count 5.4 K/mm3 (4.4-11.0)
[2023-10-07 13:02] LABS: ALB/GLOB Ratio 0.6 RATIO (0.9-2.4); AST(SGOT) 12 U/L (15-37); Alanine Aminotransfer ALT/SGPT 12 U/L (13-56); Albumin, Serum 2.7 g/dL (3.2-5.0); Alkaline Phosphatase 107 U/L (45-117); Anion Gap 9 (5-15); BUN 3 mg/dL (7-18); BUN/Creat Ratio 6.6 RATIO (10-20); Calcium,Total 9.1 mg/dL (8.5-10.1); Chloride 109 mmol/L (98-107); Creatinine, Serum 0.46 mg/dL (0.55-1.02); EST Glomerular Filtration Rate 174 mL/min (>60); Est Glom Filt Rate - Afr Amer 210 mL/min (>60); Globulin 4.4 g/dL (2.2-4.2); Glucose 89 mg/dL (74-106); Potassium 3.2 mmol/L (3.5-5.1); Protein, Total 7.1 g/dL (6.4-8.2); Sodium Level 140 mmol/L (136-145)
[2023-10-07 17:16] LABS: Protein, Urine (Random) 21.4 mg/dL (<11.9); Protein:Creat Ratio 132 mg/g CRE (0-200)
== END | disposition home or self-care (01) ==
PROVIDERS: Advanced Practice Midwife; Referring Provider Registered Nurse; Visit Provider Registered Nurse
DX: O12.10 Gestational proteinuria, unspecified trimester (principal); Z3A.00 Weeks of gestation of pregnancy not specified
CPT/HCPCS: 36415; 80053; 82570; 84156; 85025

== ENCOUNTER → 2023-10-11 | Outpatient (CLI) | payer OTHER, SELFPAY ==
--- OUTSIDE RECORDS SUMMARY | 2023-10-11 06:29 | XMS RPT_ITS | CCD ---
Author Name Unknown Address [address] [place] [address] Organization [facility] Care Team Providers Care Scheduling Specialist Name Role Phone Unavailable Primary Care Provider [...] 99.9 [degF] Stephanie Ruiz DO Work Phone: [employer] 09-28-2023 07:53-0500 Diastolic blood pressure 79 mm[Hg] Stephanie Ruiz DO Work Phone: [facility] 09-28-2023 07:53-0500 Heart rate 100 /min Stephanie Ruiz DO Work Phone: [facility] 09-28-2023 07:53-0500 Respiratory rate 18 /min Stephanie Ruiz DO Work Phone: [facility] 09-28-2023 07:53-0500 SaO2% (BldA) [Mass fraction] 97 % Stephanie Ruiz DO Work Phone: [employer] [facility] 09-28-2023 07:53-0500 Systolic blood pressure 119 mm[Hg] Stephanie Ruiz DO Work Phone: [facility] 09-26-2023 14:35-0500 Body height 175.3 cm Stephanie Ruiz DO Work Phone: [facility] 09-26-2023 14:35-0500 Body mass index (BMI) [Ratio] 29.68 kg/m2 Stephanie Ruiz DO Work Phone: [employer] 09-26-2023 14:35-0500 Body weight 91.17 kg Stephanie Ruiz DO Work Phone: [employer] [facility] 09-18-2023 16:55-0500 Body temperature 97.9 [degF] Stephanie Ruiz DO Work Phone: [employer] [facility] 09-18-2023 16:55-0500 Diastolic blood pressure 75 mm[Hg] Stephanie Ruiz DO Work Phone: [employer] 09-18-2023 16:55-0500 Heart rate 92 /min Stephanie Ruiz DO Work Phone: [employer] [facility] 09-18-2023 16:55-0500 Respiratory rate 18 /min Stephanie Ruiz DO Work Phone: [employer] [facility] 09-18-2023 16:55-0500 SaO2% (BldA) [Mass fraction] 98 % Stephanie Ruiz DO Work Phone: [employer] 09-18-2023 16:55-0500 Systolic blood pressure 113 mm[Hg] Stephanie Ruiz DO Work Phone: [facility] [facility] 09-16-2023 15:10-0500 Body height 165.1 cm Stephanie Ruiz DO Work Phone: [employer] [facility] 09-16-2023 15:10-0500 Body mass index (BMI) [Ratio] 33.95 kg/m2 Stephanie Ruiz DO Work Phone: [employer] 09-16-2023 15:10-0500 Body weight 92.53 kg Stephanie Ruiz DO Work Phone: [employer] Encounters Encounter Date Encounter Type Care Provider Facility Start: 09-26-2023 End: 09-28-2023 Evaluation and management of inpatient STEPHANIE RUIZ [facility] Start: 09-26-2023 End: 09-28-2023 Evaluation and management of inpatient Stephanie Ruiz DO Work Phone: [facility] Start: 09-20-2023 End: 09-20-2023 ambulatory JULIANA R TED [facility] Start: 09-16-2023 End: 09-18-2023 Evaluation and management of inpatient STEPHANIE RUIZ [facility] Start: 09-16-2023 End: 09-18-2023 Evaluation and management of inpatient Stephanie Ruiz DO Work Phone: [facility] Start: 06-27-2023 End: 06-27-2023 ambulatory MECCA Nav GILLESPIE [facility] Procedures Date Procedure Procedure Detail Performing Clinician [...] 2) Zoster Vacc daisy (1 of 2) [facility] Start: 04-15-2023 Influenza vaccination Influenza Vacc ine (#1) [facility] Start: 2017 Screening for malign ant neoplasm of cervix Pap Smear [facility] Start: 2015 DTaP/Tdap/Td Vaccine s (1 - Tdap) DTaP/Tdap/Td Vaccines (1 - Tdap) [facility] Start: 2014 Hepatitis C screening Hepatitis C Sc reening [facility] Start: 2008 Depression Screening Depression Scre ening [facility] Start: 1997 MMR Vaccines (1 of 1 - Standard series) MMR Vaccines (1 of 1 - Standard series) [facility] Start: 1997 Varicella vaccination Varicell a Vaccines (1 of 2 - 2-dose childhood series) [facility] Start: 1996 COVID-19 Vaccine (#1) COVID-19 Vacci ne (#1) [facility] Start: 1996 Hepatitis B Vaccines (1 of 3 - 3-dose series) Hepatitis B Vaccines (1 of 3 - 3-dose series) [facility] Start: 1996 HIV screening HIV Screening [facility] Start: 1996 Lipid panel Lipid Panel [facility] Payers Date Payer Category Payer Unknown [employer] [id number] 2023-Present [address] [place] [address] Commercial [id number] 2023 Unknown [id number] 1995 Unknown [id number] 1995 Unknown [id number] Social History Date Type Detail Facility Start: 09-16-2023 Tobacco smoking status ARIS Never sm oked tobacco [facility] Start: 09-16-2023 Tobacco use and exposure Smoke less tobacco non-user [facility] Start: 09-16-2023 End: 09-26-2023 Alcohol intake Ex-drinker (finding) [facility] Start: 09-16-2023 End: 09-26-2023 History of [address] function [facility] Start: 09-16-2023 End: 09-26-2023 Humiliation, Afraid, Rape, and Kick questionnaire [HARK] [facility] Within the last year , have you been afraid of your partner or ex-partner? No [facility] In the past 12 month s, has lack of transportation kept you from medical appointments or from getting medications? No [facility] Start: 03-02-2023 [facility] Start: 1995 Sex Assigned At Not on file S [facility] Clinical Notes 09-16-2023 to 09-28-2023 Kody Milton RN - 09/28/2023 12:24 PM Jessica Milton, RN - 09/28/2023 12:24 PM Kendell Escalante, DO - 09/28/2023 11:46 AM Kevin Jesse [...] See note today Disposition good Follow up [place] with Dr. Jean for weekly BP check and labs with testing. Has BP cuff and was instructed to call if any BP > 140/90 or any concerns for worsening BOURGEOIS or stroke symptoms The total patient time of the visit was 25 minutes, of which was greater than 50% of the time was spent counseling and coordinating care. Department of Obstetrics and Gynecology [facility] Discharge Summary Admission on 09/26/2023 11:30 AM Jo Linda is a 28 y.o. at 31w5d who presented to Labor and Delivery as a trasnport from [place] due to concern for PreE. Pt was previously admitted for similar sx of CP and severe BOURGEOIS. She was normotensive throughout her admission and had a normal neuro workup as well as EKG. She received BMZx2 on 09/16-. Her sx improved and not consistent with PreE, so she was discharged home. She again presented to [facility] after having severe cramping, diarrhea, CP and [...] instructed to follow up weekly with primary DEPARTMENT HELPER. All questions answered and discharge instructions reviewed. [...] Pain, Headache Follow up appointment with your doctor/clinical trial leader - Call office for appointment in 7days Activity - Normal Activity Call your doctor/clinical trial leader if you have: - leaking fluid - vaginal bleeding - regular contractions: More than 6 contractions in one hour - decreased movement - worsening abdominal (belly) pain - headache, blurry vision, increased swelling, upper abdominal pain NOELLE ESCALANTE DO 09/28/2023 2:49 PM [facility] 09-28-2023 Nurse Note Follow up appointment with your doctor/clinical trial leader - Keep next scheduled appointment Activity - Normal Activity Call your doctor/clinical trial leader if you have: - leaking fluid - [...] visit on 09/28/23 . Kody Milton RN [facility] 09-28-2023 Nurse Note Follow up appointment with your doctor/clinical trial leader - Keep next scheduled appointment Activity - Normal Activity Call your doctor/clinical trial leader if you have: - leaking fluid - [...] visit on 09/28/23 . Kody Milton RN [facility] documented in this encounter [facility] 09-28-2023 Hospital course Narrative Images from the original note were not included. Department of Obstetrics and Gynecology [facility] Discharge Summary Admission on 09/26/2023 11:30 AM Jo Linda is a 28 y.o. at 31w5d who presented to Labor and Delivery as a trasnport from [place] due to concern for PreE. Pt was previously admitted for similar sx of CP and severe BOURGEOIS. She was normotensive throughout her admission and had a normal neuro workup as well as EKG. She received BMZx2 on 09/16-. Her sx improved and not consistent with PreE, so she was discharged home. She again presented to [facility] after having severe cramping, diarrhea, CP and [...] instructed to follow up weekly with primary DEPARTMENT HELPER. All questions answered and discharge instructions reviewed. [...] Pain, Headache Follow up appointment with your doctor/clinical trial leader - Call office for appointment in 7days Activity - Normal Activity Call your doctor/clinical trial leader if you have: - leaking fluid - [...] See note today Disposition good Follow up [place] with Dr. Jean for weekly BP check and labs with testing. Has BP cuff and was instructed to call if any BP > 140/90 or any concerns for worsening BOURGEOIS or stroke symptoms The total patient time of the visit was 25 minutes, of which was greater than 50% of the time was spent counseling and coordinating care. documented in this encounter [facility] 09-28-2023 Hospital Discharg e instructions Noelle Escalante DO - 09/28/2023 11:39 AM EST Follow up appointment with your doctor/clinical trial leader - Call office for appointment in 7days Activity - Normal Activity Call your doctor/clinical trial leader if you have: - leaking fluid - [...] visit on 09/28/23 . NOELLE ESCALANTE DO [facility] documented in this encounter [facility] 09-28-2023 History of Presen t illness Narrative [...] ) - Previously followed with neurologist in [place], has not established care in [place] - Not currently on antiepileptic medications - [...] today with close follow up weekly in [place] with weekly labs and surveillance for pre-eclampsia. [...] ) - Previously followed with neurologist in [place], has not established care in [place] - Not currently on antiepileptic medications - [...] and history of gestational hypertension transported to [facility] from [place] stable overnight without concerns other than some [...] a prior and was recently admitted to [facility] due to concerns for PreEwSF vs. Complex [...] cervix ADHD Anemia Anxiety Depression Hemiplegia (CMS/HCC) ([facility]) Hypertension Preeclampsia, severe, third trimester 09/16/2023 Seizures ([facility]) last seizure in 2019 Stroke ([facility]) 1995 stroke as a baby which resulted [...] 24 hour(s)). TRIAGE COURSE: Patient arrived to [facility] Ob triage with magnesium sulfate running at [...] to Antepartum (PNU) documented in this encounter [facility] 09-27-2023 Plan of care note The patient is Moderately Stable - Low risk of patient condition declining or worsening The patient's goals for the shift include goal not met The clinical goals for the shift include goal met [facility] 09-27-2023 Miscellaneous Notes The patient is Moderately Stable - Low risk of patient condition declining or worsening The patient's goals for the shift include goal not met The clinical goals for the shift include goal met Date: 09/27/2023 Name: Jo Linda : 1995 County Information: [place] Patient Information Primary Caregiver: Self Accompanied by/Relationship: S/O;Family Marital Status: Support System: SO/Family Jain/Cultural Factors: None Activities of Daily Living Communication: [...] place to sleep or slept in a jail (including now)? No Transportation Needs Has the [...] Children's Services: N/A documented in this encounter [facility] 09-27-2023 Note Formatting of this n ote might be different from the original. Date: 09/27/2023 Name: Jo Linda : 1995 [facility] Information: [place] Patient Information Primary Caregiver: Self Accompanied by/Relationship: S/O;Family Marital Status: Support System: SO/Family Jain/Cultural Factors: None Activities of Daily Living Communication: [...] place to sleep or slept in a jail (including now)? No Transportation Needs Has the [...] N/A Developmental Delay: N/A Children's Services: N/A [facility] 09-27-2023 Note Formatting of this n ote might be different from the original. Date: 09/27/2023 Name: Jo Linda : 1995 County Information: [place] Patient Information Primary Caregiver: Self Accompanied by/Relationship: S/O;Family Marital Status: Support System: SO/Family Jain/Cultural Factors: None Activities of Daily Living Communication: [...] place to sleep or slept in a jail (including now)? No Transportation Needs Has the [...] N/A Developmental Delay: N/A Children's Services: N/A [facility] 09-27-2023 Consult note Associated Order (s): [...] of cervix ADHD Anemia Anxiety Depression Hemiplegia ([facility]/HCC) ([facility]) Hypertension Preeclampsia, severe, third trimester 09/16/2023 Seizures ([facility]) last seizure in 2019 Stroke ([facility]) 1995 stroke as a baby which resulted [...] MD Ophthalmology 09/27/2023 2:42 PM [facility] Work Phone: 09-27-2023 Consult note Associated Order [...] of cervix ADHD Anemia Anxiety Depression Hemiplegia ([facility]) ([facility]) Hypertension Preeclampsia, severe, third trimester 09/16/2023 Seizures ([facility]) last seizure in 2019 Stroke ([facility]) 1996 stroke as a baby which resulted [...] PM Associated Order(s): IP CONSULT TO CARDIOLOGY [facility] C[facility] CON[facility] Patient Name: Jo Linda : 1995 Date of Service: 09/26/23 Reason for Consultation: chest pain, hx of gestational HTN History Jo Linda is a 28 y.o.year-old female at 31 weeks of was admitted to the outside hospital with multiple complaints-chest pain, headaches, pelvic pain where she was managed for preeclampsia with magnesium infusion and transferred to [facility]. At [facility] patient is being seen by maternal- medicine, [...] cervix, ADHD, Anemia, Anxiety, Depression, Hemiplegia (CMS/HCC) ([facility]), Hypertension, Preeclampsia, severe, third trimester (09/16/2023), Seizures ([facility]), Stroke ([facility]) (1995), and Urinary tract infection. SurgicalHistory: has [...] is alert. Associated attestation - Kassandra, Alvin Chopra MD - 09/27/2023 9:03 AM EST I, [...] recurrent gestational hypertension. documented in this encounter [facility] 09-26-2023 Note Attestation signed by Stephanie Ruiz [...] breath or RUQ pain. She presented to [facility] and was started on magnesium sulfate given patient's symptoms. Patient transferred to [facility] for further evaluation. She has a history of PreE in previous and recently admitted to [facility] due to concerns for PreEwSF vs. Complex [...] of cervix ADHD Anemia Anxiety Depression Hemiplegia ([facility]) ([facility]) Hypertension Preeclampsia, severe, third trimester 09/16/2023 Seizures ([facility]) last seizure in 2019 Stroke ([facility]) 1995 stroke as a baby which resulted [...] mg by mo (more content not included)... [facility] 09-26-2023 Consult note Associated Order (s): IP CONSULT TO CARDIOLOGY [facility] Patient Name: Jo Linda : 1995 Date of Service: 09/26/23 Reason for Consultation: chest pain, hx of gestational HTN History Jo Linda is a 28 y.o.year-old female at 31 weeks of was admitted to the outside hospital with multiple complaints-chest pain, headaches, pelvic pain where she was managed for preeclampsia with magnesium infusion and transferred to [facility]. At [facility] patient is being seen by maternal- medicine, [...] cervix, ADHD, Anemia, Anxiety, Depression, Hemiplegia (CMS/HCC) ([facility]), Hypertension, Preeclampsia, severe, third trimester (09/16/2023), Seizures ([facility]), Stroke ([facility]) (1995), and Urinary tract infection. SurgicalHistory: has [...] for elevated risk of recurrent gestational hypertension. [employer] Phone: 09-26-2023 History and physical note Images [...] breath or RUQ pain. She presented to [facility] and was started on magnesium sulfate given patient's symptoms. Patient transferred to [facility] for further evaluation. She has a history of PreE in previous and recently admitted to [facility] due to concerns for PreEwSF vs. Complex [...] of cervix ADHD Anemia Anxiety Depression Hemiplegia ([facility]) ([facility]) Hypertension Preeclampsia, severe, third trimester 09/16/2023 Seizures ([facility]) last seizure in 2019 Stroke ([facility]) 1995 stroke as a baby which resulted [...] ) - Previously followed with neurologist in [place], has not established care in [place] - Not currently on antiepileptic medications - [...] spent on patient care today: [address] [facility] 09-26-2023 History and physical note Images from [...] breath or RUQ pain. She presented to [facility] and was started on magnesium sulfate given patient's symptoms. Patient transferred to [facility] for further evaluation. She has a history of PreE in previous and recently admitted to [facility] due to concerns for PreEwSF vs. Complex [...] of cervix ADHD Anemia Anxiety Depression Hemiplegia ([facility]) ([facility]) Hypertension Preeclampsia, severe, third trimester 09/16/2023 Seizures ([facility]) last seizure in 2019 Stroke ([facility]) 1996 stroke as a baby which resulted [...] ) - Previously followed with neurologist in [place], has not established care in [place] - Not currently on antiepileptic medications - [...] today: 40 minutes. documented in this encounter [facility] 09-18-2023 History of Presen t illness Narrative Discharge instructions given to the patient at this time. Kick counts reviewed with the patient. Patient is to follow up with her OB within a week, has appointment scheduled for Tuesday09/23/23. Patient will black pickler her antibiotic from the pharmacy in [place] tomorrow morning when the pharmacy opens. IV removed. Patient verbalizes understanding of instructions. Neurology update: Patient's neuroimaging study results are pending. Please review neurology consultation note from yesterday for detailed recommendations. Thank you. .Nutrition rescreen completed. Chart reviewed. Patient to be monitored and followed by the diet ballistic technician. .WILLY Hannah Images from the original [...] Complex Migraine Hx gHTN - Presented to [facility] on 09/16/23 with headache, vision changes, and mild range BPs; PreE labs negative at [place], [facility] WNL - Started on magnesium at [facility] with improvement of BOURGEOIS - Transferred to [facility] for further management - History of gHTN [...] ) - Previously followed with neurologist in [place], has not established care in [place] - Not currently on antiepileptic medications - Neurology consulted, appreciate further recommendations - MRA, MRV, MRI Brain read pending this AM Dental Infection - Diagnosed with tooth infection at [facility] - Started on Augmentin on 09/11, [...] spent on patient care today: 30 minutes. [facility] update: Pt asymptomatic, would like to be dced to home. [facility] team discussed EKG with cardiology. Borderline prolonged QT was okay, cardiology consult not indicated, no medication restriction advised. Neuroimaging completed. IMPRESSION: 1. 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 2. No evidence of an acute intracranial process. [facility] team to review with neurologist for any additional recommendations. Outpt FU with opthalmology as an outpt for evaluation as recommended by neurology's initial consult. Outpt FU with dentist for dental infection. Outpt FU with [facility] [place] office for growth US this week. (Note sent to [facility] accounts administrator). Please screen patient for MRI. Thank you [...] Complex Migraine Hx gHTN - Presented to [facility] on 09/16/23 with headache, vision changes, and mild range BPs; PreE labs negative at [place], [facility] WNL - Started on magnesium at [facility] with improvement of BOURGEOIS - Transferred to [facility] for further management - History of gHTN [...] ) - Previously followed with neurologist in [place], has not established care in [place] - Not currently on antiepileptic medications - Neurology consulted, appreciate further recommendations Dental Infection - Diagnosed with tooth infection at [facility] - Started on Augmentin on 09/11, [...] edema, patellar reflex normal 2/4 FHR reassuring [place] - irritability this AM, no ctxs or [...] other lab work. documented in this encounter [facility] 09-18-2023 Hospital Discharg e instructions Rosamaria Galvez DO - 09/18/2023 6:49 PM EST Follow up appointment with your doctor/clinical trial leader - Call office for appointment in 7days Activity - Normal Activity Call your doctor/clinical trial leader if you have: - leaking fluid - [...] visit on 09/18/23 . ROSAMARIA Galvez DO [facility] documented in this encounter [facility] 09-18-2023 Note Neurology update: Patient's neuroimaging study results are pending. Please review neurology consultation note from yesterday for detailed recommendations. Thank you. [facility] 09-17-2023 Consult note Associated Order (s): IP CONSULT TO NEUROLOGY Neurology Consult Note - Neurology Service Patient Name: Jo Linda Patient : 1995 Acct: [id number] Date of Admission: 09/16/2023 Room/Bed: -2205/H-2205 A [...] concerned and came into the ER at [facility] where she was admitted for further evaluation [...] of cervix ADHD Anemia Anxiety Depression Hemiplegia ([facility]) ([facility]) Hypertension Preeclampsia, severe, third trimester 09/16/2023 Seizures ([facility]) last seizure in 2019 Stroke ([facility]) 1995 stroke as a baby which resulted [...] 397 ms QTC Interval 489 ms P [place] 39 degrees QRS [place] 31 degrees T Wave [place] [address] Interval 144 ms Chlamydia/Gonorrhea Collection Time: 09/16/23 [...] contrast studies were not ordered due to [facility] radiology protocol. Please continue with symptomatic treatment [...] her expressed understanding and satisfaction. Thank you. [facility] 09-17-2023 Consult note Associated Order (s): IP CONSULT TO NEUROLOGY Neurology Consult Note - Neurology Service Patient Name: Jo Linda Patient : 1995 Acct: [id number] Date of Admission: 09/16/2023 Room/Bed: 2205/H-2205 A [...] concerned and came into the ER at [facility] where she was admitted for further evaluation [...] of cervix ADHD Anemia Anxiety Depression Hemiplegia ([facility] ([facility]) Hypertension Preeclampsia, severe, third trimester 09/16/2023 Seizures ([facility]) last seizure in 2019 Stroke ([facility]) 1995 stroke as a baby which resulted [...] 397 ms QTC Interval 489 ms P [place] 39 degrees QRS [place] 31 degrees T Wave [place] [address] Interval 144 ms Chlamydia/Gonorrhea Collection Time: 09/16/23 [...] contrast studies were not ordered due to [facility] radiology protocol. Please continue with symptomatic treatment [...] satisfaction. Thank you. documented in this encounter [facility] 09-16-2023 Note Attestation signed by Stephanie Ruiz DO at 09/19/2023 9:06 AM Pt discharged to home 09/18/23 evening. She was asymptomatic at discharge. No headache, vision changes nor chest pain. EKG IMPRESSION: Sinus rhythm Borderline prolonged QT interval [facility] team discussed EKG results with cardiology. [...] patient's headaches. Jo elects for outpatient follow-up. [facility] growth ultrasound - note sent to office to schedule. OB follow-up with Dr. Spicer this week. Department of Obstetrics and Gynecology [facility] Discharge Summary Admission on 09/16/2023 2:47 PM Jo Linda is a 28 y.o. at 30 w 2 d who presented to Labor and Delivery for direct admission as transfer of care from [place] for concerns for PreEwSF vs complex migraine. [...] Complex migraine Follow up appointment with your doctor/clinical trial leader - Keep next scheduled appointment Activity - Normal Activity Call your doctor/clinical trial leader if you have: - leaking fluid - vaginal bleeding - regular contractions: More than 6 contractions in one hour - decreased movement - worsening abdominal (belly) pain - headache, blurry vision, increased swelling, upper abdominal pain ROSAMARIA Galvez DO 09/18/2023 4:22 PM [facility] 09-16-2023 Note Attestation signed by Stephanie Ruiz DO at 09/16/2023 8:09 PM Hospital Care (Present): I was present with the resident during the history and exam. I discussed the case with the resident and agree with the findings and plan as documented in the resident's note. Transport from Dr. Spicer at [facility] due to concern for preeclampsia. Mild [...] changes, and elevated BPs. Patient presented to [facility] due to two week history of [...] not included)... [facility] 09-16-2023 History and physical note Department of Maternal Medicine History and Physical CHIEF COMPLAINT: PreEwSF vs. Complex Migraine HISTORY OF PRESENT ILLNESS: The patient is a 28 y.o. female at 30w2d. OB History No obstetric history on file. Patient presents with a chief complaint as above and is being admitted for headache, vision changes, and elevated BPs. Patient presented to [facility] due to two week history of [...] Complex Migraine Hx gHTN - Presented to [facility] on 09/16/23 with headache, vision changes, and mild range BPs; PreE labs negative at [place], [facility] WNL - Started on magnesium at [facility]SH with improvement of BOURGEOIS - Transferred to [facility] for further management - History of gHTN [...] ) - Previously followed with neurologist in [place], has not established care in [place] - Not currently on antiepileptic medications - Neurology consulted, appreciate further recommendations Dental Infection - Diagnosed with tooth infection at [facility] - Started on Augmentin on 09/11, [...] resident's note. Transport from Dr. Spicer at [facility] due to concern for preeclampsia. Mild [...] spent on patient care today: [address] [facility] 09-16-2023 History and physical note Department of Maternal Medicine History and Physical CHIEF COMPLAINT: PreEwSF vs. Complex Migraine HISTORY OF PRESENT ILLNESS: The patient is a 28 y.o. female at 30w2d. OB History No obstetric history on file. Patient presents with a chief complaint as above and is being admitted for headache, vision changes, and elevated BPs. Patient presented to [facility] due to two week history of [...] Complex Migraine Hx gHTN - Presented to [facility] on 09/16/23 with headache, vision changes, and mild range BPs; PreE labs negative at [place], [facility] WNL - Started on magnesium at [facility] with improvement of BOURGEOIS - Transferred to [facility] for further management - History of gHTN [...] ) - Previously followed with neurologist in [place], has not established care in [place] - Not currently on antiepileptic medications - Neurology consulted, appreciate further recommendations Dental Infection - Diagnosed with tooth infection at [facility] - Started on Augmentin on 09/11, [...] resident's note. Transport from Dr. Spicer at [facility] due to concern for preeclampsia. Mild [...] today: 65 minutes. documented in this encounter [facility] Diagnosis Chest pain during - Primary documented in this encounter [facility] Advance Directives No Advanced Directives Records [...] Contact Diagnoses Preeclampsia, severe, third trimester Procedures [id number] , severe, third trimester Stephanie [place] [address] [address] [place] [address] Referral ID Status Reason Start Date Expiration Date Visits Re quested Visits Authorized [id number] 1 1 Reason Comments Hypertension Specialty Diagnoses / Procedures Referred By Contac t Referred To Contact Diagnoses Chest pain during Procedures [id number] pain during Stephanie Ruiz, [place] [address] [address] [place] [address] Referral ID Status Reason Start Date Expiration Date Visits Re quested Visits Authorized [id number] 1 1 Scheduled Active and Recently Administ [...] DATE CREATED AUTHOR AUTHOR'S ORGANIZ ATION 09/29/2023 [facility] FOR RECORDS PERTAINING TO PATIENTS WHO ARE [...] BE BASED ON THE PRIMARY CLINICAL RECORDS. [employer] [facility]. provides no warranty or guarantee of the accuracy or completeness of information in this document.
[2023-10-11 08:46] LABS: Glucose GTT-Gestational 1 Hr 185 mg/dL (<190)
[2023-10-11 08:50] LABS: Glucose GTT-Gestation. Fasting 94 mg/dL (<105)
[2023-10-11 08:58] LABS: Potassium 2.6 mmol/L (3.5-5.1)
[2023-10-11 10:41] LABS: Glucose GTT-Gestational 2 Hr 132 mg/dL (<165)
[2023-10-11 10:57] LABS: Glucose GTT-Gestational 3 Hr 135 L (<145)
== END | disposition home or self-care (01) ==
LOC: LAB 06:25
PROVIDERS: Obstetrics & Gynecology; Referring Provider Registered Nurse; Visit Provider Registered Nurse
DX: O99.810 Abnormal glucose complicating pregnancy (principal); Z3A.00 Weeks of gestation of pregnancy not specified
CPT/HCPCS: 36415; 82951; 82952; 84132

== ENCOUNTER → 2023-10-13 | Outpatient (CLI) | payer OTHER, SELFPAY ==
--- NOTE | 2023-10-13 08:33 | US_ITS ---
STUDY: OBSTETRICAL ULTRASOUND - BIOPHYSICAL PROFILE REASON FOR EXAM: Female, 28 years old Preeclampsia, proteinuria -- weekly BPPS until delivery between 34-37 w LMP: February 16, 2023 PRIOR ULTRASOUND: Comparison is made with prior study October 06, 2023. TECHNIQUE: Transabdominal TECHNICAL QUALITY: Adequate. FINDINGS: There is a single intrauterine fetus. The fetus is in a cephalic presentation. There is demonstrated cardiac activity with a heart rate of 152 bpm. There is a normal amniotic fluid volume. The largest amniotic fluid pocket measures 5.3 cm. The amniotic fluid index (TAINA) is 18.3 cm. The placenta is anterior in location and is not low lying. There are Grade 1 placental changes. Age by LMP: 34 weeks, 1 days. SIVA by LMP: November 23, 2023. age by prior US: 34 weeks, 5 days. SIVA by prior US: November 19, 2023. BIOPHYSICAL PROFILE: Breathing Movements (FBM): 2 Gross Body Movements (GBM): 2 Tone (FT): 2 Amniotic Fluid Volume (AFV): 2 TOTAL SCORE: 8 / 8 US/Biophysical Prof W/O Non Stres IMPRESSION: Normal biophysical profile of 03/22. Electronically Signed: Brian Hernandez MD at 14:53 EST ,
[2023-10-13 12:32] LABS: Absolute Lymphocyte Count 1.17 X10^3/uL (0.83-4.51); Basophil# 0.01 X10^3/uL; Basophil% 0.2 % (0-1); Eosinophil# 0.03 X10^3/uL; Eosinophils% 0.6 % (0-5); Hematocrit 29.1 % (37-47); Hemoglobin 9.5 g/dL (12.0-15.0); Lymphocyte # 1.17 X10^3/ul (0.83-4.51); Mean Corp Hgb Conc 32.6 g/dL (32-36); Mean Corpuscular Hgb 29.1 pg (27.0-32.0); Mean Corpuscular Volume 89.3 fL (81-99); Mean Platelet Vol. 11.6 fl (6.2-12.0); Monocyte# 0.62 X10^3/uL; Monocyte% 12.7 % (0-10); NRBC Flagged by Analyzer 0 % (0-5); Neutrophil # 3.01 X10^3/uL (2.7-7.7); Neutrophil % 61.7 % (47-70); Platelet Count 178 K/mm3 (150-450); RBC Distribution Width CV 15.8 % (11.6-14.6); RBC Distribution Width SD 51.2 fl (35.1-43.9); Red Blood Count 3.26 M/mm3 (4.2-5.4); White Blood Count 4.9 K/mm3 (4.4-11.0)
[2023-10-13 13:06] LABS: ALB/GLOB Ratio 0.6 RATIO (0.9-2.4); AST(SGOT) 19 U/L (15-37); Alanine Aminotransfer ALT/SGPT 13 U/L (13-56); Albumin, Serum 2.7 g/dL (3.2-5.0); Alkaline Phosphatase 112 U/L (45-117); Anion Gap 6 (5-15); BUN 5 mg/dL (7-18); BUN/Creat Ratio 10.6 RATIO (10-20); Calcium,Total 8.9 mg/dL (8.5-10.1); Chloride 112 mmol/L (98-107); Creatinine, Serum 0.47 mg/dL (0.55-1.02); EST Glomerular Filtration Rate 168 mL/min (>60); Est Glom Filt Rate - Afr Amer 203 mL/min (>60); Globulin 4.2 g/dL (2.2-4.2); Glucose 81 mg/dL (74-106); Potassium 3.3 mmol/L (3.5-5.1); Protein, Total 6.9 g/dL (6.4-8.2); Sodium Level 139 mmol/L (136-145)
[2023-10-13 14:13] LABS: Protein, Urine (Random) 14.5 mg/dL (<11.9); Protein:Creat Ratio 157 mg/g CRE (0-200)
== END | disposition home or self-care (01) ==
PROVIDERS: Obstetrics & Gynecology; Referring Provider Advanced Practice Midwife; Visit Provider Advanced Practice Midwife
DX: O12.10 Gestational proteinuria, unspecified trimester (principal); O14.10 Severe pre-eclampsia, unspecified trimester; Z3A.00 Weeks of gestation of pregnancy not specified
CPT/HCPCS: 36415; 76819; 80053; 82570; 84156; 85025

== ENCOUNTER 2023-10-16 15:15 | Outpatient (CLI) | payer OTHER, SELFPAY ==
--- OUTSIDE RECORDS SUMMARY | 2023-10-16 15:23 | XMS RPT_ITS | CCD ---
Author Name Unknown Address [address] [place] [id number] Organization [facility] Care Team Providers Care Poultry Dresser Name Role Phone Unavailable Primary Care Provider [...] 99.9 [degF] Stephanie Ruiz DO Work Phone: [employer] 09-28-2023 07:53-0500 Diastolic blood pressure 79 mm[Hg] Stephanie Ruiz DO Work Phone: [facility] [employer] 09-28-2023 07:53-0500 Heart rate 100 /min Stephanie Ruiz DO Work Phone: [facility] [employer] 09-28-2023 07:53-0500 Respiratory rate 18 /min Stephanie Ruiz DO Work Phone: [facility] [employer] 09-28-2023 07:53-0500 SaO2% (BldA) [Mass fraction] 97 % Stephanie Ruiz DO Work Phone: [employer] 09-28-2023 07:53-0500 Systolic blood pressure 119 mm[Hg] Stephanie Ruiz DO Work Phone: [facility] [employer] 09-26-2023 14:35-0500 Body height 175.3 cm Stephanie Ruiz DO Work Phone: [facility] [employer] 09-26-2023 14:35-0500 Body mass index (BMI) [Ratio] 29.68 kg/m2 Stephanie Ruiz DO Work Phone: [employer] 09-26-2023 14:35-0500 Body weight 91.17 kg Stephanie Ruiz DO Work Phone: [employer] 09-18-2023 16:55-0500 Body temperature 97.9 [degF] Stephanie Ruiz DO Work Phone: [employer] 09-18-2023 16:55-0500 Diastolic blood pressure 75 mm[Hg] Stephanie Ruiz DO Work Phone: [employer] 09-18-2023 16:55-0500 Heart rate 92 /min Stephanie Ruiz DO Work Phone: [employer] 09-18-2023 16:55-0500 Respiratory rate 18 /min Stephanie Ruiz DO Work Phone: [employer] 09-18-2023 16:55-0500 SaO2% (BldA) [Mass fraction] 98 % Stephanie Ruiz DO Work Phone: [employer] 09-18-2023 16:55-0500 Systolic blood pressure 113 mm[Hg] Stephanie Ruiz DO Work Phone: [employer] 09-16-2023 15:10-0500 Body height 165.1 cm Stephanie Ruiz DO Work Phone: [employer] 09-16-2023 15:10-0500 Body mass index (BMI) [Ratio] 33.95 kg/m2 Stephanie Ruiz DO Work Phone: [employer] 09-16-2023 15:10-0500 Body weight 92.53 kg Stephanie Ruiz DO Work Phone: [employer] Encounters Encounter Date Encounter Type Care Provider Facility Start: 09-26-2023 End: 09-28-2023 Evaluation and management of inpatient STEPHANIE RUIZ [facility] Start: 09-26-2023 End: 09-28-2023 Evaluation and management of inpatient Stephanie Ruiz DO Work Phone: [facility] [address] Start: 09-20-2023 End: 09-20-2023 ambulatory JULIANA R TED [facility] Start: 09-16-2023 End: 09-18-2023 Evaluation and management of inpatient STEPHANIE RUIZ [facility] Start: 09-16-2023 End: 09-18-2023 Evaluation and management of inpatient Stephanie Ruiz DO Work Phone: [facility] [address] Start: 06-27-2023 End: 06-27-2023 ambulatory MECCA Nav GILLESPIE [facility] Procedures Date Procedure Procedure Detail Performing [...] Health Start: 1996 HIV screening HIV Screening [facility] Start: 1996 Lipid panel Lipid Panel [facility] Payers Date Payer Category Payer Unknown [employer] [id number] 2023-Present [address] [place] [address] Commercial [id number] 2023 Unknown [id number] 1995 Unknown [id number] 1995 Unknown [id number] Social History Date Type Detail Facility Start: 09-16-2023 Tobacco smoking status MIIS Never sm oked tobacco [facility] Start: 09-16-2023 Tobacco use and exposure Smoke less tobacco non-user [facility] Start: 09-16-2023 End: 09-26-2023 Alcohol intake Ex-drinker (finding) [facility] Start: 09-16-2023 End: 09-26-2023 History of Social function [facility] Start: 09-16-2023 End: 09-26-2023 Humiliation, Afraid, Rape, and Kick questionnaire [HARK] [facility] Within the last year , have you been afraid of your partner or ex-partner? No [facility] In the past 12 month s, has lack of transportation kept you from medical appointments or from getting medications? No [facility] Start: 03-02-2023 [facility] Start: 1995 Sex Assigned At Not on file S [facility] Clinical Notes 09-16-2023 to 09-28-2023 Kody [...] See note today Disposition good Follow up [place] with Dr. Jean for weekly BP check and labs with testing. Has BP cuff and was instructed to call if any BP > 140/90 or any concerns for worsening BOURGEOIS or stroke symptoms The total patient time of the visit was 25 minutes, of which was greater than 50% of the time was spent counseling and coordinating care. Department of Obstetrics and Gynecology [facility] Discharge Summary Admission on 09/26/2023 11:30 AM Jo Linda is a 28 y.o. at 31w5d who presented to Labor and Delivery as a trasnport from [place] due to concern for PreE. Pt was previously admitted for similar sx of CP and severe BOURGEOIS. She was normotensive throughout her admission and had a normal neuro workup as well as EKG. She received BMZx2 on 09/16-. Her sx improved and not consistent with PreE, so she was discharged home. She again presented to [facility] after having severe cramping, diarrhea, CP [...] instructed to follow up weekly with primary CONTOUR PATH TAPE MILL OPERATOR. All questions answered and discharge instructions reviewed. [...] Pain, Headache Follow up appointment with your doctor/homebirth midwife - Call office for appointment in 7days Activity - Normal Activity Call your doctor/homebirth midwife if you have: - leaking fluid - vaginal bleeding - regular contractions: More than 6 contractions in one hour - decreased movement - worsening abdominal (belly) pain - headache, blurry vision, increased swelling, upper abdominal pain NOELLE ESCALANTE DO 09/28/2023 2:49 PM [facility] 09-28-2023 Nurse Note Follow up appointment with your doctor/homebirth midwife - Keep next scheduled appointment Activity - Normal Activity Call your doctor/homebirth midwife if you have: - leaking fluid - [...] visit on 09/28/23 . Kody Milton RN [facility] 09-28-2023 Nurse Note Follow up appointment with your doctor/homebirth midwife - Keep next scheduled appointment Activity - Normal Activity Call your doctor/homebirth midwife if you have: - leaking fluid - [...] visit on 09/28/23 . Kody Milton RN [facility] documented in this encounter [facility] 09-28-2023 Hospital course Narrative Images from the original note were not included. Department of Obstetrics and Gynecology [facility] Discharge Summary Admission on 09/26/2023 11:30 AM Jo Linda is a 28 y.o. at 31w5d who presented to Labor and Delivery as a trasnport from [place] due to concern for PreE. Pt was previously admitted for similar sx of CP and severe BOURGEOIS. She was normotensive throughout her admission and had a normal neuro workup as well as EKG. She received BMZx2 on 09/16-. Her sx improved and not consistent with PreE, so she was discharged home. She again presented to [facility] after having severe cramping, diarrhea, CP [...] instructed to follow up weekly with primary CONTOUR PATH TAPE MILL OPERATOR. All questions answered and discharge instructions reviewed. [...] Pain, Headache Follow up appointment with your doctor/homebirth midwife - Call office for appointment in 7days Activity - Normal Activity Call your doctor/homebirth midwife if you have: - leaking fluid - [...] See note today Disposition good Follow up [place] with Dr. Jean for weekly BP check and labs with testing. Has BP cuff and was instructed to call if any BP > 140/90 or any concerns for worsening BOURGEOIS or stroke symptoms The total patient time of the visit was 25 minutes, of which was greater than 50% of the time was spent counseling and coordinating care. documented in this encounter [facility] 09-28-2023 Hospital Discharg e instructions Noelle Escalante DO - 09/28/2023 11:39 AM EST Follow up appointment with your doctor/homebirth midwife - Call office for appointment in 7days Activity - Normal Activity Call your doctor/homebirth midwife if you have: - leaking fluid - [...] visit on 09/28/23 . NOELLE ESCALANTE DO [facility] documented in this encounter [facility] 09-28-2023 History of Presen t illness Narrative [...] ) - Previously followed with neurologist in [place], has not established care in [place] - Not currently on antiepileptic medications - [...] today with close follow up weekly in [place] with weekly labs and surveillance for pre-eclampsia. [...] mg 4 mg IntraVENous q6h PRN Stephanie Atkinsno, DO vitamin tablet 1 tablet Oral Daily [...] ) - Previously followed with neurologist in [place], has not established care in [place] - Not currently on antiepileptic medications - [...] and history of gestational hypertension transported to [facility] from [place] stable overnight without concerns other than some [...] a prior and was recently admitted to [facility] due to concerns for PreEwSF vs. [...] cervix ADHD Anemia Anxiety Depression Hemiplegia (CMS/HCC) ([facility]) Hypertension Preeclampsia, severe, third trimester 09/16/2023 Seizures ([facility]) last seizure in 2019 Stroke ([facility]) 1995 stroke as a baby which resulted [...] 24 hour(s)). TRIAGE COURSE: Patient arrived to [facility] Ob triage with magnesium sulfate running [...] to Antepartum (PNU) documented in this encounter [facility] 09-27-2023 Plan of care note The patient is Moderately Stable - Low risk of patient condition declining or worsening The patient's goals for the shift include goal not met The clinical goals for the shift include goal met [facility] 09-27-2023 Miscellaneous Notes The patient is Moderately Stable - Low risk of patient condition declining or worsening The patient's goals for the shift include goal not met The clinical goals for the shift include goal met Date: 09/27/2023 Name: Jo Linda : 1995 County Information: [place] Patient Information Primary Caregiver: Self Accompanied by/Relationship: [...] place to sleep or slept in a mcfp (including now)? No Transportation Needs Has the [...] Children's Services: N/A documented in this encounter [facility] 09-27-2023 Note Formatting of this n ote might be different from the original. Date: 09/27/2023 Name: Jo Linda : 1995 [facility] Information: [place] Patient Information Primary Caregiver: Self Accompanied by/Relationship: [...] place to sleep or slept in a mcfp (including now)? No Transportation Needs Has the [...] N/A Developmental Delay: N/A Children's Services: N/A [facility] 09-27-2023 Note Formatting of this n ote might be different from the original. Date: 09/27/2023 Name: Jo Linda : 1995 County Information: [place] Patient Information Primary Caregiver: Self Accompanied by/Relationship: [...] place to sleep or slept in a mcfp (including now)? No Transportation Needs Has the [...] N/A Developmental Delay: N/A Children's Services: N/A [facility] 09-27-2023 Consult note Associated Order (s): [...] of cervix ADHD Anemia Anxiety Depression Hemiplegia ([facility]/HCC) ([facility]) Hypertension Preeclampsia, severe, third trimester 09/16/2023 Seizures ([facility]) last seizure in 2019 Stroke ([facility]) 1995 stroke as a baby which resulted [...] MD Ophthalmology 09/27/2023 2:42 PM [facility] [employer] Work Phone: 09-27-2023 Consult note Associated Order [...] of cervix ADHD Anemia Anxiety Depression Hemiplegia ([facility]) ([facility]) Hypertension Preeclampsia, severe, third trimester 09/16/2023 Seizures ([facility]) last seizure in 2019 Stroke ([facility]) 1996 stroke as a baby which resulted [...] PM Associated Order(s): IP CONSULT TO CARDIOLOGY [facility] CARDIOLOGY CONSULTATION Patient Name: Jo Linda : 1995 Date of Service: 09/26/23 Reason for Consultation: chest pain, hx of gestational HTN History Jo Linda is a 28 y.o.year-old female at 31 weeks of was admitted to the outside hospital with multiple complaints-chest pain, headaches, pelvic pain where she was managed for preeclampsia with magnesium infusion and transferred to [facility]. At [facility] patient is being seen by maternal- medicine, [...] cervix, ADHD, Anemia, Anxiety, Depression, Hemiplegia (CMS/HCC) ([facility]), Hypertension, Preeclampsia, severe, third trimester (09/16/2023), Seizures ([facility]), Stroke ([facility]) (1995), and Urinary tract infection. SurgicalHistory: has [...] recurrent gestational hypertension. documented in this encounter [facility] 09-26-2023 Note Attestation signed by Stephanie Riuz DO at 09/26/2023 4:25 PM Hospital Care [...] breath or RUQ pain. She presented to [facility] and was started on magnesium sulfate given patient's symptoms. Patient transferred to [facility] for further evaluation. She has a history of PreE in previous and recently admitted to [facility] due to concerns for PreEwSF vs. [...] of cervix ADHD Anemia Anxiety Depression Hemiplegia ([facility]) ([facility]) Hypertension Preeclampsia, severe, third trimester 09/16/2023 Seizures ([facility]) last seizure in 2019 Stroke ([facility]) 1996 stroke as a baby which resulted [...] mg by mo (more content not included)... [facility] 09-26-2023 Consult note Associated Order (s): IP CONSULT TO CARDIOLOGY [facility] CARDIOLOGY CONSULTATION Patient Name: Jo Linda : 1995 Date of Service: 09/26/23 Reason for Consultation: chest pain, hx of gestational HTN History Jo Linda is a 28 y.o.year-old female at 31 weeks of was admitted to the outside hospital with multiple complaints-chest pain, headaches, pelvic pain where she was managed for preeclampsia with magnesium infusion and transferred to [facility]. At [facility] patient is being seen by maternal- medicine, [...] cervix, ADHD, Anemia, Anxiety, Depression, Hemiplegia (CMS/HCC) ([facility]), Hypertension, Preeclampsia, severe, third trimester (09/16/2023), Seizures ([facility]), Stroke ([facility]) (1995), and Urinary tract infection. SurgicalHistory: has [...] for elevated risk of recurrent gestational hypertension. Anda Phone: 09-26-2023 History and physical note Images [...] breath or RUQ pain. She presented to [facility] and was started on magnesium sulfate given patient's symptoms. Patient transferred to [facility] for further evaluation. She has a history of PreE in previous and recently admitted to [facility] due to concerns for PreEwSF vs. [...] of cervix ADHD Anemia Anxiety Depression Hemiplegia ([facility]) ([facility]) Hypertension Preeclampsia, severe, third trimester 09/16/2023 Seizures ([facility]) last seizure in 2019 Stroke ([facility]) 1995 stroke as a baby which resulted [...] ) - Previously followed with neurologist in [place], has not established care in [place] - Not currently on antiepileptic medications - [...] spent on patient care today: 40 minutes. [facility] 09-26-2023 History and physical note Images from [...] breath or RUQ pain. She presented to [facility] and was started on magnesium sulfate given patient's symptoms. Patient transferred to [facility] for further evaluation. She has a history of PreE in previous and recently admitted to [facility] due to concerns for PreEwSF vs. [...] of cervix ADHD Anemia Anxiety Depression Hemiplegia ([facility]) ([facility]) Hypertension Preeclampsia, severe, third trimester 09/16/2023 Seizures ([facility]) last seizure in 2019 Stroke ([facility]) 1995 stroke as a baby which resulted [...] ) - Previously followed with neurologist in [place], has not established care in [place] - Not currently on antiepileptic medications - [...] today: 40 minutes. documented in this encounter [facility] 09-18-2023 History of Presen t illness Narrative Discharge instructions given to the patient at this time. Kick counts reviewed with the patient. Patient is to follow up with her OB within a week, has appointment scheduled for Tuesday09/23/23. Patient will corn picker her antibiotic from the pharmacy in [place] tomorrow morning when the pharmacy opens. IV removed. Patient verbalizes understanding of instructions. Neurology update: Patient's neuroimaging study results are pending. Please review neurology consultation note from yesterday for detailed recommendations. Thank you. .Nutrition rescreen completed. Chart reviewed. Patient to be monitored and followed by the diet control room technician. .WILLY Hannah Images from the original [...] Complex Migraine Hx gHTN - Presented to [facility] on 09/16/23 with headache, vision changes, and mild range BPs; PreE labs negative at [place], [facility] WNL - Started on magnesium at [facility] with improvement of BOURGEOIS - Transferred to [facility] for further management - History [...] ) - Previously followed with neurologist in [place], has not established care in [place] - Not currently on antiepileptic medications - Neurology consulted, appreciate further recommendations - MRA, MRV, MRI Brain read pending this AM Dental Infection - Diagnosed with tooth infection at [facility] - Started on Augmentin on 09/11, [...] spent on patient care today: 30 minutes. [facility] update: Pt asymptomatic, would like to be dced to home. [facility] team discussed EKG with cardiology. Borderline prolonged QT was okay, cardiology consult not indicated, no medication restriction advised. Neuroimaging completed. IMPRESSION: 1. 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 2. No evidence of an acute intracranial process. [facility] team to review with neurologist for any additional recommendations. Outpt FU with opthalmology as an outpt for evaluation as recommended by neurology's initial consult. Outpt FU with dentist for dental infection. Outpt FU with [facility] [place] office for growth US this week. (Note sent to [facility] nursing scheduler). Please screen patient for MRI. Thank [...] Complex Migraine Hx gHTN - Presented to [facility] on 09/16/23 with headache, vision changes, and mild range BPs; PreE labs negative at [place], [facility] WNL - Started on magnesium at [facility] with improvement of BOURGEOIS - Transferred to [facility] for further management - History [...] ) - Previously followed with neurologist in [place], has not established care in [place] - Not currently on antiepileptic medications - Neurology consulted, appreciate further recommendations Dental Infection - Diagnosed with tooth infection at [facility] - Started on Augmentin on 09/11, adjusted [...] edema, patellar reflex normal 2/4 FHR reassuring [place] - irritability this AM, no ctxs or [...] other lab work. documented in this encounter [facility] 09-18-2023 Hospital Discharg e instructions Rosamaria Galvez DO - 09/18/2023 6:49 PM EST Follow up appointment with your doctor/homebirth midwife - Call office for appointment in 7days Activity - Normal Activity Call your doctor/homebirth midwife if you have: - leaking fluid - [...] visit on 09/18/23 . ROSAMARIA Galvez DO [facility] documented in this encounter [facility] 09-18-2023 Note Neurology update: Patient's neuroimaging study results are pending. Please review neurology consultation note from yesterday for detailed recommendations. Thank you. [facility] 09-17-2023 Consult note Associated Order (s): IP CONSULT TO NEUROLOGY Neurology Consult Note - Neurology Service Patient Name: Jo Linda Patient : 1995 Acct: [id number] Date of Admission: 09/16/2023 Room/Bed: -2205/H-2205 A [...] concerned and came into the ER at [facility] where she was admitted for [...] of cervix ADHD Anemia Anxiety Depression Hemiplegia ([facility]) ([facility]) Hypertension Preeclampsia, severe, third trimester 09/16/2023 Seizures ([facility]) last seizure in 2019 Stroke ([facility]) 1995 stroke as a baby which resulted [...] 397 ms QTC Interval 489 ms P [place] 39 degrees QRS [place] 31 degrees T Wave [place] 31 degrees [place] Interval 144 ms Chlamydia/Gonorrhea Collection Time: 09/16/23 [...] contrast studies were not ordered due to [email or web address]] radiology protocol. Please continue with symptomatic treatment [...] understanding and satisfaction. Thank you. [facility] 09-17-2023 Consult note Associated Order (s): IP CONSULT TO NEUROLOGY Neurology Consult Note - Neurology Service Patient Name: Jo Linda Patient : 1995 Acct: [id number] Date of Admission: 09/16/2023 Room/Bed: 2205/H-2205 A [...] concerned and came into the ER at [facility] where she was admitted for [...] of cervix ADHD Anemia Anxiety Depression Hemiplegia ([facility]) ([facility]) Hypertension Preeclampsia, severe, third trimester 09/16/2023 Seizures ([facility]) last seizure in 2019 Stroke ([facility]) 1995 stroke as a baby which resulted [...] 397 ms QTC Interval 489 ms P [place] 39 degrees QRS [place] 31 degrees T Wave [place] 31 degrees [place] Interval 144 ms Chlamydia/Gonorrhea Collection Time: 09/16/23 [...] contrast studies were not ordered due to [facility] [[email or web address]] radiology protocol. Please continue with symptomatic treatment [...] you. documented in this encounter [facility] 09-16-2023 Note Attestation signed by Stephanie Ruiz DO at 09/19/2023 9:06 AM Pt discharged to home 09/18/23 evening. She was asymptomatic at discharge. No headache, vision changes nor chest pain. EKG IMPRESSION: Sinus rhythm Borderline prolonged QT interval [facility] team discussed EKG results with cardiology. [...] patient's headaches. Jo elects for outpatient follow-up. [facility] growth ultrasound - note sent to office to schedule. OB follow-up with Dr. Spicer this week. Department of Obstetrics and Gynecology [facility] Discharge Summary Admission on 09/16/2023 2:47 PM Jo Linda is a 28 y.o. at 30 w 2 d who presented to Labor and Delivery for direct admission as transfer of care from [place] for concerns for PreEwSF vs complex migraine. [...] Complex migraine Follow up appointment with your doctor/homebirth midwife - Keep next scheduled appointment Activity - Normal Activity Call your doctor/homebirth midwife if you have: - leaking fluid - vaginal bleeding - regular contractions: More than 6 contractions in one hour - decreased movement - worsening abdominal (belly) pain - headache, blurry vision, increased swelling, upper abdominal pain ROSAMARIA Galvez DO 09/18/2023 4:22 PM [facility] 09-16-2023 Note Attestation signed by Stephanie Ruiz DO at 09/16/2023 8:09 PM Hospital Care (Present): I was present with the resident during the history and exam. I discussed the case with the resident and agree with the findings and plan as documented in the resident's note. Transport from Dr. Spicer at [facility] due to concern for preeclampsia. Mild [...] changes, and elevated BPs. Patient presented to [facility] due to two week history of [...] wound. Allergic/Immunologic: Ne (more content not included)... [facility] 09-16-2023 History and physical note Department of Maternal Medicine History and Physical CHIEF COMPLAINT: PreEwSF vs. Complex Migraine HISTORY OF PRESENT ILLNESS: The patient is a 28 y.o. female at 30w2d. OB History No obstetric history on file. Patient presents with a chief complaint as above and is being admitted for headache, vision changes, and elevated BPs. Patient presented to [facility] due to two week history of [...] Complex Migraine Hx gHTN - Presented to [facility] on 09/16/23 with headache, vision changes, and mild range BPs; PreE labs negative at [place], [facility] WNL - Started on magnesium at [facility] with improvement of BOURGEOIS - Transferred to [facility] for further management - History [...] ) - Previously followed with neurologist in [place], has not established care in [place] - Not currently on antiepileptic medications - Neurology consulted, appreciate further recommendations Dental Infection - Diagnosed with tooth infection at [facility] - Started on Augmentin on 09/11, plan [...] resident's note. Transport from Dr. Spicer at [facility] due to concern for preeclampsia. Mild [...] spent on patient care today: 65 minutes. [facility] 09-16-2023 History and physical note Department of Maternal Medicine History and Physical CHIEF COMPLAINT: PreEwSF vs. Complex Migraine HISTORY OF PRESENT ILLNESS: The patient is a 28 y.o. female at 30w2d. OB History No obstetric history on file. Patient presents with a chief complaint as above and is being admitted for headache, vision changes, and elevated BPs. Patient presented to [facility] due to two week history of [...] Complex Migraine Hx gHTN - Presented to [facility] on 09/16/23 with headache, vision changes, and mild range BPs; PreE labs negative at [place], [facility] WNL - Started on magnesium at [facility] with improvement of BOURGEOIS - Transferred to [facility] for further management - History [...] ) - Previously followed with neurologist in [place], has not established care in [place] - Not currently on antiepileptic medications - Neurology consulted, appreciate further recommendations Dental Infection - Diagnosed with tooth infection at [facility] - Started on Augmentin on 09/11, plan [...] resident's note. Transport from Dr. Spicer at [facility] due to concern for preeclampsia. Mild [...] today: 65 minutes. documented in this encounter [facility] documented [facility] Diagnosis Chest pain during - Primary documented in this encounter [facility] Advance Directives No Advanced Directives Records [...] Contact Diagnoses Preeclampsia, severe, third trimester Procedures [id number] , severe, third trimester [place] [address] [address] [place] [address] Referral ID Status Reason Start Date Expiration Date Visits Re quested Visits Authorized [id number] 1 1 Reason Comments Hypertension Specialty Diagnoses / Procedures Referred By Contac t Referred To Contact Diagnoses Chest pain during Procedures O99.891,[id number] pain during Stephanie Ruiz, [place] [address] [address] [place] [address] Referral ID Status Reason Start Date Expiration Date Visits Re quested Visits Authorized [id number] 1 1 Scheduled Active and Recently Administ [...] DATE CREATED AUTHOR AUTHOR'S ORGANIZ ATION 09/29/2023 [facility] FOR RECORDS PERTAINING TO PATIENTS WHO [...] BE BASED ON THE PRIMARY CLINICAL RECORDS. [employer] [facility]. provides no warranty or guarantee of the accuracy or completeness of information in this document.
[2023-10-16 15:30] VITALS: BP 128/74; PULSE 102
[2023-10-16 15:31] VITALS: PULSE 101; TEMP 36.8; O2SAT 100; O2SAT 99
[2023-10-16 15:51] LABS: Color, Urine Yellow (Yellow); Glucose, Dipstick Normal (Normal); Ketone-Dipstick Negative (Negative); Leukocyte Esterase-Dipstick 25 /ul (Negative); Nitrite-Dipstick Negative (Negative); Occult Blood-Urine 25 /ul (Negative); Protein-Dipstick 30 mg/dl (Negative); Specific Gravity, Urine 1.015 (1.002-1.030); Urine Bilirubin Dipstick Negative (Negative); Urine Clarity Clear (Clear); Urine Urobilinogen 1 mg/dl (Normal)
[2023-10-16 16:12] VITALS: BMI 32.0
[2023-10-16] MEDS: Nitrofurantoin Macrocrystals 100 MG Capsule PO (16:48)
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
== END 2023-10-16 17:12 | disposition home or self-care (01) ==
LOC: WPOUT 15:19 → WP 15:20
PROVIDERS: Visit Provider Registered Nurse
DX: O23.43 Unspecified infection of urinary tract in pregnancy, third trimester (principal); Z3A.34 34 weeks gestation of pregnancy
CPT/HCPCS: 59025; 59050; 81002; 99221; G0378

== ENCOUNTER → 2023-10-20 | Outpatient (CLI) | payer OTHER, SELFPAY ==
--- NOTE | 2023-10-20 07:50 | US_ITS ---
INDICATION: proteinuria, preeclampsia -- weekly BPP until delivery EXAMINATION: Ultrasound US Biophysical Profile W/O Nonst TECHNIQUE: Transabdominal pelvic ultrasound was performed. COMPARISON: Prior study dated: 10/13/2023. LMP: Unknown. Beta-hCG: Unknown. Provided EGA: None. FINDINGS: INTRAUTERINE GESTATION(s): Single. HEART MOTION is 137 bpm. AMNIOTIC FLUID INDEX (TAINA): 17.2 cm BIOPHYSICAL PROFILE (BPP): 03/22 -- Breathin/2. -- Movement: 2/2. -- Tone: 2/2. --TAINA: 2/2. PRESENTATION: Cephalic PLACENTA: Anterior. There is no placenta previa or abruption. CERVIX: The cervix is not visualized. MATERNAL OVARIES: No adnexal masses. FREE FLUID: None. US/Biophysical Prof W/O Non Stres IMPRESSION: Normal biophysical profile with score of 8 out of 8. Electronically Signed: Wiflrido Purvis MD at 14:32 EST ,
--- OUTSIDE RECORDS SUMMARY | 2023-10-20 08:08 | XMS RPT_ITS | CCD ---
Author Name Unknown Address [address] [place] [id number] Organization [facility] Care Team Providers Care Assistant Football Coach Name Role Phone Unavailable Primary Care Provider [...] 99.9 [degF] Stephanie Ruiz DO Work Phone: [facility] 09-28-2023 07:53-0500 Diastolic blood pressure 79 mm[Hg] Stephanie Ruiz DO Work Phone: [facility] 09-28-2023 07:53-0500 Heart rate 100 /min Stephanie Ruiz DO Work Phone: [facility] 09-28-2023 07:53-0500 Respiratory rate 18 /min Stephanie Ruiz DO Work Phone: [facility] 09-28-2023 07:53-0500 SaO2% (BldA) [Mass fraction] 97 % Stephanie Ruiz DO Work Phone: [facility] 09-28-2023 07:53-0500 Systolic blood pressure 119 mm[Hg] Stephanie Ruiz DO Work Phone: [facility] 09-26-2023 14:35-0500 Body height 175.3 cm Stephanie Ruiz DO Work Phone: [facility] 09-26-2023 14:35-0500 Body mass index (BMI) [Ratio] 29.68 kg/m2 Stephanie Ruiz DO Work Phone: [facility] 09-26-2023 14:35-0500 Body weight 91.17 kg Stephanie Ruiz DO Work Phone: [facility] 09-18-2023 16:55-0500 Body temperature 97.9 [degF] Stephanie Ruiz DO Work Phone: [facility] 09-18-2023 16:55-0500 Diastolic blood pressure 75 mm[Hg] Stephanie Ruiz DO Work Phone: [facility] 09-18-2023 16:55-0500 Heart rate 92 /min Stephanie Ruiz DO Work Phone: [facility] 09-18-2023 16:55-0500 Respiratory rate 18 /min Stephanie Ruiz DO Work Phone: [facility] 09-18-2023 16:55-0500 SaO2% (BldA) [Mass fraction] 98 % Stephanie Ruiz DO Work Phone: [facility] 09-18-2023 16:55-0500 Systolic blood pressure 113 mm[Hg] Stephanie Ruiz DO Work Phone: [facility] 09-16-2023 15:10-0500 Body height 165.1 cm Stephanie Ruiz DO Work Phone: [facility] 09-16-2023 15:10-0500 Body mass index (BMI) [Ratio] 33.95 kg/m2 Stephanie Ruiz DO Work Phone: [facility] 09-16-2023 15:10-0500 Body weight 92.53 kg Stephanie Ruiz DO Work Phone: [facility] Encounters Encounter Date Encounter Type Care Provider Facility Start: 09-26-2023 End: 09-28-2023 Evaluation and management of inpatient STEPHANIE RUIZ [facility] Start: 09-26-2023 End: 09-28-2023 Evaluation and management of inpatient Stephanie Ruiz DO Work Phone: [facility] Start: 09-20-2023 End: 09-20-2023 ambulatory JULIANA R TED [facility] Start: 09-16-2023 End: 09-18-2023 Evaluation and management of inpatient STEPHANIE RUIZ [facility] Start: 09-16-2023 End: 09-18-2023 Evaluation and management of inpatient Stephanie Ruiz DO Work Phone: [facility] Start: 06-27-2023 End: 06-27-2023 ambulatory MECCA Nav GILLESPIE [facility] Procedures Date Procedure Procedure Detail Performing Clinician [...] 2) Zoster Vacc daisy (1 of 2) [facility] Start: 04-15-2023 Influenza vaccination Influenza Vacc ine (#1) [facility] Start: 2017 Screening for malign ant neoplasm of cervix Pap Smear [facility] Start: 2015 DTaP/Tdap/Td Vaccine s (1 - Tdap) DTaP/Tdap/Td Vaccines (1 - Tdap) [facility] Start: 2014 Hepatitis C screening Hepatitis C Sc reening [facility] Start: 2008 Depression Screening Depression Scre ening [facility] Start: 1997 MMR Vaccines (1 of 1 - Standard series) MMR Vaccines (1 of 1 - Standard series) [facility] Start: 1997 Varicella vaccination Varicell a Vaccines (1 of 2 - 2-dose childhood series) [facility] Start: 1996 COVID-19 Vaccine (#1) COVID-19 Vacci ne (#1) [facility] Start: 1996 Hepatitis B Vaccines (1 of 3 - 3-dose series) Hepatitis B Vaccines (1 of 3 - 3-dose series) [facility] Start: 1996 HIV screening HIV Screening [facility] Start: 1996 Lipid panel Lipid Panel [facility] Payers Date Payer Category Payer Unknown [employer] [id number] 2023-Present [address] [place] [address] Commercial [id number] 2023 Unknown [id number] 1995 Unknown [id number] 1995 Unknown [id number] Social History Date Type Detail Facility Start: 09-16-2023 Tobacco smoking status NYIS Never sm oked tobacco [facility] Start: 09-16-2023 Tobacco use and exposure Smoke less tobacco non-user [facility] Start: 09-16-2023 End: 09-26-2023 Alcohol intake Ex-drinker (finding) [facility] Start: 09-16-2023 End: 09-26-2023 History of Social function [facility] Start: 09-16-2023 End: 09-26-2023 Humiliation, Afraid, Rape, and Kick questionnaire [HARK] [facility] Within the last year , have you been afraid of your partner or ex-partner? No [facility] In the past 12 month s, has lack of transportation kept you from medical appointments or from getting medications? No [facility] Start: 03-02-2023 [facility] Start: 1995 Sex Assigned At Not on file S [facility] Clinical Notes 09-16-2023 to 09-28-2023 Kody Milton [...] See note today Disposition good Follow up [place] with Dr. Jean for weekly BP check and labs with testing. Has BP cuff and was instructed to call if any BP > 140/90 or any concerns for worsening BOURGEOIS or stroke symptoms The total patient time of the visit was 25 minutes, of which was greater than 50% of the time was spent counseling and coordinating care. Department of Obstetrics and Gynecology [facility] Discharge Summary Admission on 09/26/2023 11:30 AM Jo Linda is a 28 y.o. at 31w5d who presented to Labor and Delivery as a trasnport from [place] due to concern for PreE. Pt was previously admitted for similar sx of CP and severe BOURGEOIS. She was normotensive throughout her admission and had a normal neuro workup as well as EKG. She received BMZx2 on 09/16-. Her sx improved and not consistent with PreE, so she was discharged home. She again presented to [facility] after having severe cramping, diarrhea, CP [...] instructed to follow up weekly with primary PRE BILLING SPECIALIST. All questions answered and discharge instructions reviewed. [...] Pain, Headache Follow up appointment with your doctor/lease buyer - Call office for appointment in 7days Activity - Normal Activity Call your doctor/lease buyer if you have: - leaking fluid - vaginal bleeding - regular contractions: More than 6 contractions in one hour - decreased movement - worsening abdominal (belly) pain - headache, blurry vision, increased swelling, upper abdominal pain NOELLE ESCALANTE DO 09/28/2023 2:49 PM [facility] 09-28-2023 Nurse Note Follow up appointment with your doctor/lease buyer - Keep next scheduled appointment Activity - Normal Activity Call your doctor/lease buyer if you have: - leaking fluid - [...] visit on 09/28/23 . Kody Milton RN [facility] 09-28-2023 Nurse Note Follow up appointment with your doctor/lease buyer - Keep next scheduled appointment Activity - Normal Activity Call your doctor/lease buyer if you have: - leaking fluid - [...] visit on 09/28/23 . Kody Milton RN [facility] documented in this encounter [facility] 09-28-2023 Hospital course Narrative Images from the original note were not included. Department of Obstetrics and Gynecology [facility] Discharge Summary Admission on 09/26/2023 11:30 AM Jo Linda is a 28 y.o. at 31w5d who presented to Labor and Delivery as a trasnport from [place] due to concern for PreE. Pt was previously admitted for similar sx of CP and severe BOURGEOIS. She was normotensive throughout her admission and had a normal neuro workup as well as EKG. She received BMZx2 on 09/16-. Her sx improved and not consistent with PreE, so she was discharged home. She again presented to [facility] after having severe cramping, diarrhea, CP [...] instructed to follow up weekly with primary PRE BILLING SPECIALIST. All questions answered and discharge instructions reviewed. [...] Pain, Headache Follow up appointment with your doctor/lease buyer - Call office for appointment in 7days Activity - Normal Activity Call your doctor/lease buyer if you have: - leaking fluid - [...] See note today Disposition good Follow up [place] with Dr. Jean for weekly BP check and labs with testing. Has BP cuff and was instructed to call if any BP > 140/90 or any concerns for worsening BOURGEOIS or stroke symptoms The total patient time of the visit was 25 minutes, of which was greater than 50% of the time was spent counseling and coordinating care. documented in this encounter [facility] 09-28-2023 Hospital Discharg e instructions Noelle Escalante DO - 09/28/2023 11:39 AM EST Follow up appointment with your doctor/lease buyer - Call office for appointment in 7days Activity - Normal Activity Call your doctor/lease buyer if you have: - leaking fluid - [...] visit on 09/28/23 . NOELLE ESCALANTE DO [facility] documented in this encounter [facility] 09-28-2023 History of Presen t illness Narrative [...] ) - Previously followed with neurologist in [place], has not established care in [place] - Not currently on antiepileptic medications - [...] today with close follow up weekly in [place] with weekly labs and surveillance for pre-eclampsia. [...] ) - Previously followed with neurologist in [place], has not established care in [place] - Not currently on antiepileptic medications - [...] hypertension transported to [facility] from [place] stable overnight without concerns other than some [...] a prior and was recently admitted to [facility] due to concerns for PreEwSF vs. Complex [...] cervix ADHD Anemia Anxiety Depression Hemiplegia (CMS/HCC) ([facility]) Hypertension Preeclampsia, severe, third trimester 09/16/2023 Seizures ([facility]) last seizure in 2019 Stroke ([facility]) 1995 stroke as a baby which [...] 24 hour(s)). TRIAGE COURSE: Patient arrived to [facility] Ob triage with magnesium sulfate running at [...] to Antepartum (PNU) documented in this encounter [facility] 09-27-2023 Plan of care note The patient is Moderately Stable - Low risk of patient condition declining or worsening The patient's goals for the shift include goal not met The clinical goals for the shift include goal met [facility] 09-27-2023 Miscellaneous Notes The patient is Moderately Stable - Low risk of patient condition declining or worsening The patient's goals for the shift include goal not met The clinical goals for the shift include goal met Date: 09/27/2023 Name: Jo Linda : 1995 County Information: [place] Patient Information Primary Caregiver: Self Accompanied by/Relationship: S/O;Family Marital Status: Support System: SO/Family Episcopalian/Cultural Factors: None Activities of Daily Living Communication: [...] place to sleep or slept in a correction (including now)? No Transportation Needs Has the [...] Children's Services: N/A documented in this encounter [facility] 09-27-2023 Note Formatting of this n ote might be different from the original. Date: 09/27/2023 Name: Jo Linda : 1995 [facility] Information: [place] Patient Information Primary Caregiver: Self Accompanied by/Relationship: S/O;Family Marital Status: Support System: SO/Family Episcopalian/Cultural Factors: None Activities of Daily Living Communication: [...] place to sleep or slept in a correction (including now)? No Transportation Needs Has the [...] N/A Developmental Delay: N/A Children's Services: N/A [facility] 09-27-2023 Note Formatting of this n ote might be different from the original. Date: 09/27/2023 Name: Jo Linda : 1995 County Information: [place] Patient Information Primary Caregiver: Self Accompanied by/Relationship: S/O;Family Marital Status: Support System: SO/Family Episcopalian/Cultural Factors: None Activities of Daily Living Communication: [...] place to sleep or slept in a correction (including now)? No Transportation Needs Has the [...] N/A Developmental Delay: N/A Children's Services: N/A [facility] 09-27-2023 Consult note Associated Order (s): IP [...] of cervix ADHD Anemia Anxiety Depression Hemiplegia ([facility]/HCC) ([facility]) Hypertension Preeclampsia, severe, third trimester 09/16/2023 Seizures ([facility]) last seizure in 2019 Stroke ([facility]) 1995 stroke as a baby which [...] MD Ophthalmology 09/27/2023 2:42 PM [facility] Work Phone: 09-27-2023 Consult note Associated Order [...] of cervix ADHD Anemia Anxiety Depression Hemiplegia ([facility]) ([facility]) Hypertension Preeclampsia, severe, third trimester 09/16/2023 Seizures ([facility]) last seizure in 2019 Stroke ([facility]) 1995 stroke as a baby which [...] PM Associated Order(s): IP CONSULT TO CARDIOLOGY [facility] CONS[facility] Patient Name: Jo Linda : 1995 Date of Service: 09/26/23 Reason for Consultation: chest pain, hx of gestational HTN History Jo Linda is a 28 y.o.year-old female at 31 weeks of was admitted to the outside hospital with multiple complaints-chest pain, headaches, pelvic pain where she was managed for preeclampsia with magnesium infusion and transferred to [facility]. At [facility] patient is being seen by maternal- [...] cervix, ADHD, Anemia, Anxiety, Depression, Hemiplegia (CMS/HCC) ([facility]), Hypertension, Preeclampsia, severe, third trimester (09/16/2023), Seizures ([facility]), Stroke ([facility]) (1995), and Urinary tract infection. SurgicalHistory: has [...] recurrent gestational hypertension. documented in this encounter [facility] 09-26-2023 Note Attestation signed by Stephanie Ruiz [...] sulfate given patient's symptoms. Patient transferred to [facility] for further evaluation. She has a history of PreE in previous and recently admitted to [facility] due to concerns for PreEwSF vs. Complex [...] of cervix ADHD Anemia Anxiety Depression Hemiplegia ([facility]) ([facility]) Hypertension Preeclampsia, severe, third trimester 09/16/2023 Seizures ([facility]) last seizure in 2019 Stroke ([facility]) 1995 stroke as a baby which [...] mg by mo (more content not included)... [facility] 09-26-2023 Consult note Associated Order (s): IP CONSULT TO CARDIOLOGY [facility] CONSULT[facility] Patient Name: Jo Linda : 1995 Date of Service: 09/26/23 Reason for Consultation: chest pain, hx of gestational HTN History Jo Linda is a 28 y.o.year-old female at 31 weeks of was admitted to the outside hospital with multiple complaints-chest pain, headaches, pelvic pain where she was managed for preeclampsia with magnesium infusion and transferred to [facility]. At [facility] patient is being seen by maternal- [...] cervix, ADHD, Anemia, Anxiety, Depression, Hemiplegia (CMS/HCC) ([facility]), Hypertension, Preeclampsia, severe, third trimester (09/16/2023), Seizures ([facility]), Stroke ([facility]) (1995), and Urinary tract infection. SurgicalHistory: has [...] for elevated risk of recurrent gestational hypertension. [facility] Phone: 09-26-2023 History and physical note Images [...] sulfate given patient's symptoms. Patient transferred to [facility] for further evaluation. She has a history of PreE in previous and recently admitted to [facility] due to concerns for PreEwSF vs. Complex [...] of cervix ADHD Anemia Anxiety Depression Hemiplegia ([facility]) ([facility]) Hypertension Preeclampsia, severe, third trimester 09/16/2023 Seizures ([facility]) last seizure in 2019 Stroke ([facility]) 1995 stroke as a baby which [...] ) - Previously followed with neurologist in [place], has not established care in [place] - Not currently on antiepileptic medications - [...] spent on patient care today: 40 minutes. [facility] 09-26-2023 History and physical note Images from [...] sulfate given patient's symptoms. Patient transferred to [facility] for further evaluation. She has a history of PreE in previous and recently admitted to [facility] due to concerns for PreEwSF vs. Complex [...] of cervix ADHD Anemia Anxiety Depression Hemiplegia ([facility]) ([facility]) Hypertension Preeclampsia, severe, third trimester 09/16/2023 Seizures ([facility]) last seizure in 2019 Stroke ([facility]) 1995 stroke as a baby which [...] ) - Previously followed with neurologist in [place], has not established care in [place] - Not currently on antiepileptic medications - [...] today: 40 minutes. documented in this encounter [facility] 09-18-2023 History of Presen t illness Narrative Discharge instructions given to the patient at this time. Kick counts reviewed with the patient. Patient is to follow up with her OB within a week, has appointment scheduled for Tuesday09/23/23. Patient will pick pack worker her antibiotic from the pharmacy in [place] tomorrow morning when the pharmacy opens. IV removed. Patient verbalizes understanding of instructions. Neurology update: Patient's neuroimaging study results are pending. Please review neurology consultation note from yesterday for detailed recommendations. Thank you. .Nutrition rescreen completed. Chart reviewed. Patient to be monitored and followed by the diet auto brake technician. .WILLY Hannah Images from the original [...] mild range BPs; PreE labs negative at [place], [facility] WNL - Started on magnesium at OSH with improvement of BOURGEOIS - Transferred to [facility] for further management - History of gHTN [...] ) - Previously followed with neurologist in [place], has not established care in [place] - Not currently on antiepileptic medications - Neurology consulted, appreciate further recommendations - MRA, MRV, MRI Brain read pending this AM Dental Infection - Diagnosed with tooth infection at [facility] - Started on Augmentin on [...] spent on patient care today: 30 minutes. [facility] update: Pt asymptomatic, would like to be dced to home. [facility] team discussed EKG with cardiology. Borderline prolonged QT was okay, cardiology consult not indicated, no medication restriction advised. Neuroimaging completed. IMPRESSION: 1. 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 2. No evidence of an acute intracranial process. [facility] team to review with neurologist for any additional recommendations. Outpt FU with opthalmology as an outpt for evaluation as recommended by neurology's initial consult. Outpt FU with dentist for dental infection. Outpt FU with [facility] [place] office for growth US this week. (Note sent to [facility] flight crew scheduler). Please screen patient for MRI. Thank [...] mild range BPs; PreE labs negative at [place], [facility] WNL - Started on magnesium at OSH with improvement of BOURGEOIS - Transferred to [facility] for further management - History of gHTN [...] ) - Previously followed with neurologist in [place], has not established care in [place] - Not currently on antiepileptic medications - Neurology consulted, appreciate further recommendations Dental Infection - Diagnosed with tooth infection at [facility] - Started on Augmentin on 09/11, adjusted [...] edema, patellar reflex normal 2/4 FHR reassuring [place] - irritability this AM, no ctxs or [...] other lab work. documented in this encounter [facility] 09-18-2023 Hospital Discharg e instructions Rosamaria Galvez DO - 09/18/2023 6:49 PM EST Follow up appointment with your doctor/lease buyer - Call office for appointment in 7days Activity - Normal Activity Call your doctor/lease buyer if you have: - leaking fluid - [...] visit on 09/18/23 . ROSAMARIA Galvez DO [facility] documented in this encounter [facility] 09-18-2023 Note Neurology update: Patient's neuroimaging study results are pending. Please review neurology consultation note from yesterday for detailed recommendations. Thank you. [facility] 09-17-2023 Consult note Associated Order (s): IP CONSULT TO NEUROLOGY Neurology Consult Note - Neurology Service Patient Name: Jo Linda Patient : 1995 Acct: [id number] Date of Admission: 09/16/2023 Room/Bed: -2205/H-2205 A [...] concerned and came into the ER at [facility] where she was admitted for further evaluation [...] of cervix ADHD Anemia Anxiety Depression Hemiplegia ([facility]) ([facility]) Hypertension Preeclampsia, severe, third trimester 09/16/2023 Seizures ([facility]) last seizure in 2019 Stroke ([facility]) 1995 stroke as a baby which [...] 397 ms QTC Interval 489 ms P [place] 39 degrees QRS [place] 31 degrees T Wave [place] 31 degrees AR Interval 144 ms Chlamydia/Gonorrhea Collection Time: 09/16/23 [...] contrast studies were not ordered due to [facility] radiology protocol. Please continue with symptomatic [...] her expressed understanding and satisfaction. Thank you. [facility] 09-17-2023 Consult note Associated Order (s): IP CONSULT TO NEUROLOGY Neurology Consult Note - Neurology Service Patient Name: Jo Linda Patient : 1995 Acct: [id number] Date of Admission: 09/16/2023 Room/Bed: 2205/H-2205 A [...] concerned and came into the ER at [facility] where she was admitted for further evaluation [...] of cervix ADHD Anemia Anxiety Depression Hemiplegia ([facility]) ([facility]) Hypertension Preeclampsia, severe, third trimester 09/16/2023 Seizures ([facility]) last seizure in 2019 Stroke ([facility]) 1995 stroke as a baby which [...] 397 ms QTC Interval 489 ms P [place] 39 degrees QRS [place] 31 degrees T Wave [place] 31 degrees AR Interval 144 ms Chlamydia/Gonorrhea Collection Time: 09/16/23 [...] contrast studies were not ordered due to [facility] radiology protocol. Please continue with symptomatic [...] satisfaction. Thank you. documented in this encounter [facility] 09-16-2023 Note Attestation signed by Stephanie Ruiz DO at 09/19/2023 9:06 AM Pt discharged to home 09/18/23 evening. She was asymptomatic at discharge. No headache, vision changes nor chest pain. EKG IMPRESSION: Sinus rhythm Borderline prolonged QT interval [facility] team discussed EKG results with cardiology. Borderline [...] patient's headaches. Jo elects for outpatient follow-up. [facility] growth ultrasound - note sent to office to schedule. OB follow-up with Dr. Spicer this week. Department of Obstetrics and Gynecology [facility] Discharge Summary Admission on 09/16/2023 2:47 PM Jo Linda is a 28 y.o. at 30 w 2 d who presented to Labor and Delivery for direct admission as transfer of care from [place] for concerns for PreEwSF vs complex migraine. [...] Complex migraine Follow up appointment with your doctor/lease buyer - Keep next scheduled appointment Activity - Normal Activity Call your doctor/lease buyer if you have: - leaking fluid - vaginal bleeding - regular contractions: More than 6 contractions in one hour - decreased movement - worsening abdominal (belly) pain - headache, blurry vision, increased swelling, upper abdominal pain ROSAMARIA Galvez DO 09/18/2023 4:22 PM [facility] 09-16-2023 Note Attestation signed by Stephanie [...] wound. Allergic/Immunologic: Ne (more content not included)... [facility] 09-16-2023 History and physical note Department [...] mild range BPs; PreE labs negative at [place], [facility] WNL - Started on magnesium at OSH with improvement of BOURGEOIS - Transferred to [facility] for further management - History of gHTN [...] ) - Previously followed with neurologist in [place], has not established care in [place] - Not currently on antiepileptic medications - Neurology consulted, appreciate further recommendations Dental Infection - Diagnosed with tooth infection at [facility] - Started on Augmentin on 09/11, plan [...] spent on patient care today: 65 minutes. [facility] 09-16-2023 History and physical note Department [...] mild range BPs; PreE labs negative at [place], [facility] WNL - Started on magnesium at OSH with improvement of BOURGEOIS - Transferred to [facility] for further management - History of gHTN [...] ) - Previously followed with neurologist in [place], has not established care in [place] - Not currently on antiepileptic medications - Neurology consulted, appreciate further recommendations Dental Infection - Diagnosed with tooth infection at [facility] - Started on Augmentin on 09/11, plan [...] [facility] Health documented in this encounter [facility]* Diagnosis Chest pain during - Primary documented in this encounter [facility] Advance Directives No Advanced Directives Records [...] Contact Diagnoses Preeclampsia, severe, third trimester Procedures [id number] , severe, third trimester [place] [address] [address] [place] [address] Referral ID Status Reason Start Date Expiration Date Visits Re quested Visits Authorized [id number] 1 1 Reason Comments Hypertension Specialty Diagnoses / Procedures Referred By Contac t Referred To Contact Diagnoses Chest pain during Procedures [id number] pain during Stephanie Ruiz, [place] [address] [address] [place] [address] Referral ID Status Reason Start Date Expiration Date Visits Re quested Visits Authorized [id number] 1 1 Scheduled Active and Recently Administ [...] DATE CREATED AUTHOR AUTHOR'S ORGANIZ ATION 09/29/2023 [facility] FOR RECORDS PERTAINING TO PATIENTS WHO [...] BE BASED ON THE PRIMARY CLINICAL RECORDS. [facility]. provides no warranty or guarantee of the accuracy or completeness of information in this document.
== END | disposition home or self-care (01) ==
LOC: OPUS 07:47
PROVIDERS: Referring Provider Advanced Practice Midwife; Visit Provider Advanced Practice Midwife
DX: O12.10 Gestational proteinuria, unspecified trimester (principal); O14.10 Severe pre-eclampsia, unspecified trimester; Z3A.00 Weeks of gestation of pregnancy not specified
CPT/HCPCS: 76819

== ENCOUNTER → 2023-10-21 | Outpatient (CLI) | payer OTHER, SELFPAY ==
--- OUTSIDE RECORDS SUMMARY | 2023-10-21 11:54 | XMS RPT_ITS | CCD ---
Author Name Unknown Address [address] [place] [address] Organization [facility] Care Team Providers Care Rug Setter Velvet Name Role Phone Unavailable Primary Care Provider JULIANA Dolan Referring Unavailab JULIANA Vivar Primary Care Unavailab ZEYAD Gutierrez Attending Unavailable MECCA GILLESPIE Attending JULIANA Mitchell Referring Unavailab JULIANA Vivar Primary Care UnavailSTEPHANIE Hayden Admitting Unavailable STEPHANIE RUIZ Attending Unavailable SETPHANIE RUIZ Admitting Unavailable STEPHANIE RUIZ Attending ALVIN [...] 99.9 [degF] Stephanie Ruiz DO Work Phone: [facility] 09-28-2023 07:53-0500 Diastolic blood pressure 79 mm[Hg] Stephanie Ruiz DO Work Phone: [facility] 09-28-2023 07:53-0500 Heart rate 100 /min Stephanie Ruiz DO Work Phone: [facility] 09-28-2023 07:53-0500 Respiratory rate 18 /min Stephanie Ruiz DO Work Phone: [facility] 09-28-2023 07:53-0500 SaO2% (BldA) [Mass fraction] 97 % Stephanie Ruiz DO Work Phone: [email or web address] 09-28-2023 07:53-0500 Systolic blood pressure 119 mm[Hg] Stephanie Ruiz DO Work Phone: [facility] 09-26-2023 14:35-0500 Body height 175.3 cm Stephanie Ruiz DO Work Phone: [facility] 09-26-2023 14:35-0500 Body mass index (BMI) [Ratio] 29.68 kg/m2 Stephanie Ruiz DO Work Phone: [facility] 09-26-2023 14:35-0500 Body weight 91.17 kg Stephanie Ruiz DO Work Phone: [email or web address] 09-18-2023 16:55-0500 Body temperature 97.9 [degF] Stephanie Ruiz DO Work Phone: [email or web address] 09-18-2023 16:55-0500 Diastolic blood pressure 75 mm[Hg] Stephanie Ruiz DO Work Phone: [facility] 09-18-2023 16:55-0500 Heart rate 92 /min Stephanie Ruiz DO Work Phone: [email or web address] 09-18-2023 16:55-0500 Respiratory rate 18 /min Stephanie Ruiz DO Work Phone: [email or web address] 09-18-2023 16:55-0500 SaO2% (BldA) [Mass fraction] 98 % Stephanie Ruiz DO Work Phone: [facility] 09-18-2023 16:55-0500 Systolic blood pressure 113 mm[Hg] Stephanie Ruiz DO Work Phone: [email or web address] 09-16-2023 15:10-0500 Body height 165.1 cm Stephanie Ruiz DO Work Phone: [email or web address] 09-16-2023 15:10-0500 Body mass index (BMI) [Ratio] 33.95 kg/m2 Stephanie Ruiz DO Work Phone: [facility] 09-16-2023 15:10-0500 Body weight 92.53 kg Stephanie Ruiz DO Work Phone: [facility] Encounters Encounter Date Encounter Type Care Provider Facility Start: 09-26-2023 End: 09-28-2023 Evaluation and management of inpatient STEPHANIE RUIZ [facility] Start: 09-26-2023 End: 09-28-2023 Evaluation and management of inpatient Stephanie Ruiz DO Work Phone: [facility] Start: 09-20-2023 End: 09-20-2023 ambulatory JULIANA R TED [facility] Start: 09-16-2023 End: 09-18-2023 Evaluation and management of inpatient STEPHANIE RUIZ [facility] Start: 09-16-2023 End: 09-18-2023 Evaluation and management of inpatient Stephanie Ruiz DO Work Phone: [facility] Start: 06-27-2023 End: 06-27-2023 ambulatory MECCA Nav GILLESPIE [facility] Procedures Date Procedure Procedure Detail [...] 2) Zoster Vacc daisy (1 of 2) [facility] Start: 04-15-2023 Influenza vaccination Influenza Vacc ine (#1) [facility] Start: 2017 Screening for malign ant neoplasm of cervix Pap Smear [facility] Start: 2015 DTaP/Tdap/Td Vaccine s (1 - Tdap) DTaP/Tdap/Td Vaccines (1 - Tdap) [facility] Start: 2014 Hepatitis C screening Hepatitis C Sc reening [facility] Start: 2008 Depression Screening Depression Scre ening [facility] Start: 1997 MMR Vaccines (1 of 1 - Standard series) MMR Vaccines (1 of 1 - Standard series) [facility] Start: 1997 Varicella vaccination Varicell a Vaccines (1 of 2 - 2-dose childhood series) [facility] Start: 1996 COVID-19 Vaccine (#1) COVID-19 Vacci ne (#1) [facility] Start: 1996 Hepatitis B Vaccines (1 of 3 - 3-dose series) Hepatitis B Vaccines (1 of 3 - 3-dose series) [facility] Start: 1996 HIV screening HIV Screening [facility] Start: 1996 Lipid panel Lipid Panel [facility] Payers Date Payer Category Payer Unknown [employer] [id number] 2023-Present [address] [place] [address] Commercial [id number] 2023 Unknown [id number] 1995 Unknown [id number] 1995 Unknown [id number] Social History Date Type Detail Facility Start: 09-16-2023 Tobacco smoking status MDIS Never sm oked tobacco [facility] Start: 09-16-2023 Tobacco use and exposure Smoke less tobacco non-user [facility] Start: 09-16-2023 End: 09-26-2023 Alcohol intake Ex-drinker (finding) [facility] Start: 09-16-2023 End: 09-26-2023 History of Social function [facility] Start: 09-16-2023 End: 09-26-2023 Humiliation, Afraid, Rape, and Kick questionnaire [HARK] [facility] Within the last year , have you been afraid of your partner or ex-partner? No [facility] In the past 12 month s, has lack of transportation kept you from medical appointments or from getting medications? No [facility] Start: 03-02-2023 [facility] Start: 1995 Sex Assigned At Not on file S [facility] Clinical Notes 09-16-2023 to 09-28-2023 Kody [...] See note today Disposition good Follow up [place] with Dr. Jean for weekly BP check and labs with testing. Has BP cuff and was instructed to call if any BP > 140/90 or any concerns for worsening BOURGEOIS or stroke symptoms The total patient time of the visit was 25 minutes, of which was greater than 50% of the time was spent counseling and coordinating care. Department of Obstetrics and Gynecology [facility] Discharge Summary Admission on 09/26/2023 11:30 AM Jo Linda is a 28 y.o. at 31w5d who presented to Labor and Delivery as a trasnport from [place] due to concern for PreE. Pt was previously admitted for similar sx of CP and severe BOURGEOIS. She was normotensive throughout her admission and had a normal neuro workup as well as EKG. She received BMZx2 on 09/16-. Her sx improved and not consistent with PreE, so she was discharged home. She again presented to [facility] after having severe cramping, diarrhea, CP [...] instructed to follow up weekly with primary [employer]CH[employer]IC. All questions answered and discharge instructions reviewed. [...] Pain, Headache Follow up appointment with your doctor/purse seiner - Call office for appointment in 7days Activity - Normal Activity Call your doctor/purse seiner if you have: - leaking fluid - vaginal bleeding - regular contractions: More than 6 contractions in one hour - decreased movement - worsening abdominal (belly) pain - headache, blurry vision, increased swelling, upper abdominal pain NOELLE ESCALANTE DO 09/28/2023 2:[address] [facility] 09-28-2023 Nurse Note Follow up appointment with your doctor/purse seiner - Keep next scheduled appointment Activity - Normal Activity Call your doctor/purse seiner if you have: - leaking fluid - [...] visit on 09/28/23 . Kody Milton RN [facility] 09-28-2023 Nurse Note Follow up appointment with your doctor/purse seiner - Keep next scheduled appointment Activity - Normal Activity Call your doctor/purse seiner if you have: - leaking fluid - [...] visit on 09/28/23 . Kody Milton RN [facility] documented in this encounter [facility] 09-28-2023 Hospital course Narrative Images from the original note were not included. Department of Obstetrics and Gynecology [facility] Discharge Summary Admission on 09/26/2023 11:30 AM Jo Linda is a 28 y.o. at 31w5d who presented to Labor and Delivery as a trasnport from [place] due to concern for PreE. Pt was previously admitted for similar sx of CP and severe BOURGEOIS. She was normotensive throughout her admission and had a normal neuro workup as well as EKG. She received BMZx2 on 09/16-. Her sx improved and not consistent with PreE, so she was discharged home. She again presented to [facility] after having severe cramping, diarrhea, CP [...] instructed to follow up weekly with primary [employer]. All questions answered and discharge instructions reviewed. [...] Pain, Headache Follow up appointment with your doctor/purse seiner - Call office for appointment in 7days Activity - Normal Activity Call your doctor/purse seiner if you have: - leaking fluid - [...] See note today Disposition good Follow up [place] with Dr. Jean for weekly BP check and labs with testing. Has BP cuff and was instructed to call if any BP > 140/90 or any concerns for worsening BOURGEOIS or stroke symptoms The total patient time of the visit was 25 minutes, of which was greater than 50% of the time was spent counseling and coordinating care. documented in this encounter [facility] 09-28-2023 Hospital Discharg e instructions Noelle Escalante DO - 09/28/2023 11:39 AM EST Follow up appointment with your doctor/purse seiner - Call office for appointment in 7days Activity - Normal Activity Call your doctor/purse seiner if you have: - leaking fluid - [...] visit on 09/28/23 . NOELLE ESCALANTE DO [facility] documented in this encounter [facility] 09-28-2023 History of Presen t illness [...] ) - Previously followed with neurologist in [place], has not established care in [place] - Not currently on antiepileptic medications - [...] today with close follow up weekly in [place] with weekly labs and surveillance for pre-eclampsia. [...] ) - Previously followed with neurologist in [place], has not established care in [place] - Not currently on antiepileptic medications - [...] and history of gestational hypertension transported to [facility] from [place] stable overnight without concerns other than some [...] a prior and was recently admitted to [facility] due to concerns for PreEwSF vs. Complex [...] cervix ADHD Anemia Anxiety Depression Hemiplegia (CMS/HCC) ([facility]) Hypertension Preeclampsia, severe, third trimester 09/16/2023 Seizures ([facility]) last seizure in 2019 Stroke ([facility]) 1995 stroke as a baby [...] 24 hour(s)). TRIAGE COURSE: Patient arrived to [facility] Ob triage with magnesium sulfate running at [...] to Antepartum (PNU) documented in this encounter [facility] 09-27-2023 Plan of care note The patient is Moderately Stable - Low risk of patient condition declining or worsening The patient's goals for the shift include goal not met The clinical goals for the shift include goal met [facility] 09-27-2023 Miscellaneous Notes The patient is Moderately Stable - Low risk of patient condition declining or worsening The patient's goals for the shift include goal not met The clinical goals for the shift include goal met Date: 09/27/2023 Name: Jo Linda : 1995 County Information: [place] Patient Information Primary Caregiver: Self Accompanied by/Relationship: S/O;Family Marital Status: Support System: SO/Family Yazidi/Cultural Factors: None Activities of Daily Living Communication: [...] place to sleep or slept in a assisted (including now)? No Transportation Needs Has the [...] Children's Services: N/A documented in this encounter [facility] 09-27-2023 Note Formatting of this n ote might be different from the original. Date: 09/27/2023 Name: Jo Linda : 1995 [facility] Information: [place] Patient Information Primary Caregiver: Self Accompanied by/Relationship: S/O;Family Marital Status: Support System: SO/Family Yazidi/Cultural Factors: None Activities of Daily Living Communication: [...] place to sleep or slept in a assisted (including now)? No Transportation Needs Has the [...] N/A Developmental Delay: N/A Children's Services: N/A [facility] 09-27-2023 Note Formatting of this n ote might be different from the original. Date: 09/27/2023 Name: Jo Linda : 1995 County Information: [place] Patient Information Primary Caregiver: Self Accompanied by/Relationship: S/O;Family Marital Status: Support System: SO/Family Yazidi/Cultural Factors: None Activities of Daily Living Communication: [...] place to sleep or slept in a assisted (including now)? No Transportation Needs Has the [...] N/A Developmental Delay: N/A Children's Services: N/A [facility] 09-27-2023 Consult note Associated Order [...] of cervix ADHD Anemia Anxiety Depression Hemiplegia ([facility]/HCC) ([facility]) Hypertension Preeclampsia, severe, third trimester 09/16/2023 Seizures ([facility]) last seizure in 2019 Stroke ([facility]) 1995 stroke as a baby [...] MD Ophthalmology 09/27/2023 2:42 PM [facility] Work Phone: 09-27-2023 Consult note Associated Order (s): IP CONSULT TO OPHTHALMOLOGY OPHTHALMOLOGY CONSULT Date of Service: 09/27/2023 Attending Provider: Stehpanie Ruiz DO Primary Care Provider: No primary [...] of cervix ADHD Anemia Anxiety Depression Hemiplegia ([facility]) ([facility]) Hypertension Preeclampsia, severe, third trimester 09/16/2023 Seizures ([facility]) last seizure in 2019 Stroke ([facility]) 1995 stroke as a baby [...] PM Associated Order(s): IP CONSULT TO CARDIOLOGY [facility] CARDIOLOGY CONSULTATION Patient Name: Jo Linda : 1995 Date of Service: 09/26/23 Reason for Consultation: chest pain, hx of gestational HTN History Jo Linda is a 28 y.o.year-old female at 31 weeks of was admitted to the outside hospital with multiple complaints-chest pain, headaches, pelvic pain where she was managed for preeclampsia with magnesium infusion and transferred [facility]. [facility] patient is being seen by maternal- [...] cervix, ADHD, Anemia, Anxiety, Depression, Hemiplegia (CMS/HCC) ([facility]), Hypertension, Preeclampsia, severe, third trimester (09/16/2023), Seizures ([facility]), Stroke ([facility]) (1995), and Urinary tract infection. [...] recurrent gestational hypertension. documented in this encounter [facility] 09-26-2023 Note Attestation signed by Stephanie [...] breath or RUQ pain. She presented to [facility] and was started on magnesium sulfate given patient's symptoms. Patient transferred to [facility] for further evaluation. She has a history of PreE in previous and recently admitted to [facility] due to concerns for PreEwSF vs. Complex [...] of cervix ADHD Anemia Anxiety Depression Hemiplegia ([facility]) ([facility]) Hypertension Preeclampsia, severe, third trimester 09/16/2023 Seizures ([facility]) last seizure in 2019 Stroke ([facility]) 1995 stroke as a baby [...] mg by mo (more content not included)... [facility] 09-26-2023 Consult note Associated Order (s): IP CONSULT TO CARDIOLOGY [facility] CARDIOLOGY CONSULTATION Patient Name: Jo Linda : 1995 Date of Service: 09/26/23 Reason for Consultation: chest pain, hx of gestational HTN History Jo Linda is a 28 y.o.year-old female at 31 weeks of was admitted to the outside hospital with multiple complaints-chest pain, headaches, pelvic pain where she was managed for preeclampsia with magnesium infusion and transferred to [facility]. At [facility] patient is being seen by maternal- [...] cervix, ADHD, Anemia, Anxiety, Depression, Hemiplegia (CMS/HCC) ([facility]), Hypertension, Preeclampsia, severe, third trimester (09/16/2023), Seizures ([facility]), Stroke ([facility]) (1995), and Urinary tract infection. [...] for elevated risk of recurrent gestational hypertension. [facility]_ Phone: 09-26-2023 History and physical note Images [...] breath or RUQ pain. She presented to [facility] and was started on magnesium sulfate given patient's symptoms. Patient transferred to [facility] for further evaluation. She has a history of PreE in previous and recently admitted to [facility] due to concerns for PreEwSF vs. Complex [...] of cervix ADHD Anemia Anxiety Depression Hemiplegia ([facility]) ([facility]) Hypertension Preeclampsia, severe, third trimester 09/16/2023 Seizures ([facility]) last seizure in 2019 Stroke ([facility]) 1995 stroke as a baby [...] ) - Previously followed with neurologist in [place], has not established care in [place] - Not currently on antiepileptic medications - [...] spent on patient care today: 40 minutes. [facility] 09-26-2023 History and physical note Images [...] breath or RUQ pain. She presented to [facility] and was started on magnesium sulfate given patient's symptoms. Patient transferred to [facility] for further evaluation. She has a history of PreE in previous and recently admitted to [facility] due to concerns for PreEwSF vs. Complex [...] of cervix ADHD Anemia Anxiety Depression Hemiplegia ([facility]) ([facility]) Hypertension Preeclampsia, severe, third trimester 09/16/2023 Seizures ([facility]) last seizure in 2019 Stroke ([facility]) 1995 stroke as a baby [...] ) - Previously followed with neurologist in [place], has not established care in [place] - Not currently on antiepileptic medications - [...] today: 40 minutes. documented in this encounter [facility] 09-18-2023 History of Presen t illness Narrative Discharge instructions given to the patient at this time. Kick counts reviewed with the patient. Patient is to follow up with her OB within a week, has appointment scheduled for Tuesday09/23/23. 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 IV removed. Patient verbalizes understanding of instructions. Neurology update: Patient's neuroimaging study results are pending. Please review neurology consultation note from yesterday for detailed recommendations. Thank you. .Nutrition rescreen completed. Chart reviewed. Patient to be monitored and followed by the diet computer technician. .WILLY Hannah Images from the original [...] Complex Migraine Hx gHTN - Presented to [facility] on 09/16/23 with headache, vision changes, and mild range BPs; PreE labs negative at [place], [facility] WNL - Started on magnesium at OSH with improvement of BOURGEOIS - Transferred to [facility] for further management - History of gHTN [...] ) - Previously followed with neurologist in [place], has not established care in [place] - Not currently on antiepileptic medications - Neurology consulted, appreciate further recommendations - MRA, MRV, MRI Brain read pending this AM Dental Infection - Diagnosed with tooth infection at [facility] - Started on Augmentin on [...] spent on patient care today: 30 minutes. [facility] update: Pt asymptomatic, would like to be dced to home. [facility] team discussed EKG with cardiology. Borderline prolonged QT was okay, cardiology consult not indicated, no medication restriction advised. Neuroimaging completed. IMPRESSION: 1. 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 2. No evidence of an acute intracranial process. [facility] team to review with neurologist for any additional recommendations. Outpt FU with opthalmology as an outpt for evaluation as recommended by neurology's initial consult. Outpt FU with dentist for dental infection. Outpt FU with [facility] [place] office for growth US this week. (Note sent to [facility] flight crew scheduler). Please screen patient for [...] Complex Migraine Hx gHTN - Presented to [facility] on 09/16/23 with headache, vision changes, and mild range BPs; PreE labs negative at [place], [facility] WNL - Started on magnesium at OSH with improvement of BOURGEOIS - Transferred to [facility] for further management - History of gHTN [...] ) - Previously followed with neurologist in [place], has not established care in [place] - Not currently on antiepileptic medications - Neurology consulted, appreciate further recommendations Dental Infection - Diagnosed with tooth infection at [facility] - Started on Augmentin on 09/11, [...] edema, patellar reflex normal 2/4 FHR reassuring [place] - irritability this AM, no ctxs or [...] other lab work. documented in this encounter [facility] 09-18-2023 Hospital Discharg e instructions Rosamaria Galvez DO - 09/18/2023 6:49 PM EST Follow up appointment with your doctor/purse seiner - Call office for appointment in 7days Activity - Normal Activity Call your doctor/purse seiner if you have: - leaking fluid - [...] visit on 09/18/23 . ROSAMARIA Galvez DO [facility] documented in this encounter [facility] 09-18-2023 Note Neurology update: Patient's neuroimaging study results are pending. Please review neurology consultation note from yesterday for detailed recommendations. Thank you. [facility] 09-17-2023 Consult note Associated Order (s): IP CONSULT TO NEUROLOGY Neurology Consult Note - Neurology Service Patient Name: Jo Linda Patient : 1995 Acct: [id number] Date of Admission: 09/16/2023 Room/Bed: -2205/H-2205 A [...] concerned and came into the ER at [facility] where she was admitted for further evaluation [...] of cervix ADHD Anemia Anxiety Depression Hemiplegia ([facility]) ([facility]) Hypertension Preeclampsia, severe, third trimester 09/16/2023 Seizures ([facility]) last seizure in 2019 Stroke ([facility]) 1995 stroke as a baby [...] 397 ms QTC Interval 489 ms P Dequincy 39 degrees QRS Dequincy 31 degrees T Wave Dequincy 31 degrees MS Interval 144 ms Chlamydia/Gonorrhea Collection Time: 09/16/23 [...] contrast studies were not ordered due to [facility] radiology protocol. Please continue with [...] her expressed understanding and satisfaction. Thank you. [facility] 09-17-2023 Consult note Associated Order (s): IP CONSULT TO NEUROLOGY Neurology Consult Note - Neurology Service Patient Name: Jo Linda Patient : 1995 Acct: [id number] Date of Admission: 09/16/2023 Room/Bed: 2205/H-2205 A [...] concerned and came into the ER at [facility] where she was admitted for further evaluation [...] of cervix ADHD Anemia Anxiety Depression Hemiplegia ([facility]) ([facility]) Hypertension Preeclampsia, severe, third trimester 09/16/2023 Seizures ([facility]) last seizure in 2019 Stroke ([facility]) 1995 stroke as a baby [...] 397 ms QTC Interval 489 ms P Dequincy 39 degrees QRS Dequincy 31 degrees T Wave Dequincy 31 degrees MS Interval 144 ms Chlamydia/Gonorrhea Collection Time: 09/16/23 [...] contrast studies were not ordered due to [facility] radiology protocol. Please continue with [...] satisfaction. Thank you. documented in this encounter [facility] 09-16-2023 Note Attestation signed by Stephanie Ruiz DO at 09/19/2023 9:06 AM Pt discharged to home 09/18/23 evening. She was asymptomatic at discharge. No headache, vision changes nor chest pain. EKG IMPRESSION: Sinus rhythm Borderline prolonged QT interval [facility] team discussed EKG results with cardiology. Borderline [...] patient's headaches. Jo elects for outpatient follow-up. [facility] growth ultrasound - note sent to office to schedule. OB follow-up with Dr. Spicer this week. Department of Obstetrics and Gynecology [facility] Discharge Summary Admission on 09/16/2023 2:47 PM Jo Linda is a 28 y.o. at 30 w 2 d who presented to Labor and Delivery for direct admission as transfer of care from [place] for concerns for PreEwSF vs complex migraine. [...] Complex migraine Follow up appointment with your doctor/purse seiner - Keep next scheduled appointment Activity - Normal Activity Call your doctor/purse seiner if you have: - leaking fluid - vaginal bleeding - regular contractions: More than 6 contractions in one hour - decreased movement - worsening abdominal (belly) pain - headache, blurry vision, increased swelling, upper abdominal pain ROSAMARIA Galvez DO 09/18/2023 4:[address] [facility] 09-16-2023 Note Attestation signed by Stephanie Ruiz DO at 09/16/2023 8:09 PM Hospital Care (Present): I was present with the resident during the history and exam. I discussed the case with the resident and agree with the findings and plan as documented in the resident's note. Transport from Dr. Spicer at [facility] due to concern for preeclampsia. Mild range [...] changes, and elevated BPs. Patient presented to [facility] due to two week history of headaches [...] wound. Allergic/Immunologic: Ne (more content not included)... [facility] 09-16-2023 History and physical note Department of Maternal Medicine History and Physical CHIEF COMPLAINT: PreEwSF vs. Complex Migraine HISTORY OF PRESENT ILLNESS: The patient is a 28 y.o. female at 30w2d. OB History No obstetric history on file. Patient presents with a chief complaint as above and is being admitted for headache, vision changes, and elevated BPs. Patient presented to [facility] due to two week history of headaches [...] Complex Migraine Hx gHTN - Presented to [facility] on 09/16/23 with headache, vision changes, and mild range BPs; PreE labs negative at [place], [facility] WNL - Started on magnesium at OSH with improvement of BOURGEOIS - Transferred to [facility] for further management - History of gHTN [...] ) - Previously followed with neurologist in [place], has not established care in [place] - Not currently on antiepileptic medications - Neurology consulted, appreciate further recommendations Dental Infection - Diagnosed with tooth infection at [facility] - Started on Augmentin on 09/11, [...] resident's note. Transport from Dr. Spicer at [facility] due to concern for preeclampsia. Mild range [...] spent on patient care today: 65 minutes. [facility] 09-16-2023 History and physical note Department of Maternal Medicine History and Physical CHIEF COMPLAINT: PreEwSF vs. Complex Migraine HISTORY OF PRESENT ILLNESS: The patient is a 28 y.o. female at 30w2d. OB History No obstetric history on file. Patient presents with a chief complaint as above and is being admitted for headache, vision changes, and elevated BPs. Patient presented to [facility] due to two week history of headaches [...] Complex Migraine Hx gHTN - Presented to [facility] on 09/16/23 with headache, vision changes, and mild range BPs; PreE labs negative at [place], [facility] WNL - Started on magnesium at [facility]SH with improvement of BOURGEOIS - Transferred to [facility] for further management - History of gHTN [...] ) - Previously followed with neurologist in [place], has not established care in [place] - Not currently on antiepileptic medications - Neurology consulted, appreciate further recommendations Dental Infection - Diagnosed with tooth infection at [facility] - Started on Augmentin on 09/11, [...] resident's note. Transport from Dr. Spicer at [facility] due to concern for preeclampsia. Mild range [...] today: 65 minutes. documented in this encounter [facility]* Diagnosis Chest pain during - Primary documented in this encounter [facility] Advance Directives No Advanced Directives [...] Contact Diagnoses Preeclampsia, severe, third trimester Procedures [id number] , severe, third trimester [place] [address] [address] [place] [address] Referral ID Status Reason Start Date Expiration Date Visits Re quested Visits Authorized [id number] 1 1 Reason Comments Hypertension Specialty Diagnoses / Procedures Referred By Contac t Referred To Contact Diagnoses Chest pain during Procedures [id number] pain during Stephanie Ruiz, [place] [address] [address] [place] [address] Referral ID Status Reason Start Date Expiration Date Visits Re quested Visits Authorized [id number] 1 1 Scheduled Active and Recently Administ [...] DATE CREATED AUTHOR AUTHOR'S ORGANIZ ATION 09/29/2023 [facility] FOR RECORDS PERTAINING TO PATIENTS WHO [...] BE BASED ON THE PRIMARY CLINICAL RECORDS. [facility]. provides no warranty or guarantee of the accuracy or completeness of information in this document.
[2023-10-21 12:10] LABS: Absolute Neutrophil Count 3.9 X10^3/uL (2.0-7.7); Basophil# 0.01 X10^3/uL; Basophil% 0.2 % (0-1); Eosinophil# 0.03 X10^3/uL; Eosinophils% 0.5 % (0-5); Hematocrit 29.7 % (37-47); Hemoglobin 9.4 g/dL (12.0-15.0); Lymphocyte % 17.7 % (19-41); Mean Corp Hgb Conc 31.6 g/dL (32-36); Mean Corpuscular Hgb 28.1 pg (27.0-32.0); Mean Corpuscular Volume 88.9 fL (81-99); Mean Platelet Vol. 10.9 fl (6.2-12.0); Monocyte# 0.69 X10^3/uL; Monocyte% 12.2 % (0-10); NRBC Flagged by Analyzer 0 % (0-5); Neutrophil # 3.86 X10^3/uL (2.7-7.7); Neutrophil % 68.5 % (47-70); Platelet Count 168 K/mm3 (150-450); RBC Distribution Width CV 15.6 % (11.6-14.6); RBC Distribution Width SD 50.5 fl (35.1-43.9); Red Blood Count 3.34 M/mm3 (4.2-5.4); White Blood Count 5.6 K/mm3 (4.4-11.0)
[2023-10-21 12:55] LABS: ALB/GLOB Ratio 0.6 RATIO (0.9-2.4); AST(SGOT) 16 U/L (15-37); Alanine Aminotransfer ALT/SGPT 14 U/L (13-56); Albumin, Serum 2.6 g/dL (3.2-5.0); Alkaline Phosphatase 112 U/L (45-117); Anion Gap 7 (5-15); BUN 4 mg/dL (7-18); BUN/Creat Ratio 8.8 RATIO (10-20); Calcium,Total 9.6 mg/dL (8.5-10.1); Chloride 111 mmol/L (98-107); Creatinine, Serum 0.46 mg/dL (0.55-1.02); EST Glomerular Filtration Rate 175 mL/min (>60); Est Glom Filt Rate - Afr Amer 211 mL/min (>60); Globulin 4.2 g/dL (2.2-4.2); Glucose 94 mg/dL (74-106); Potassium 3.3 mmol/L (3.5-5.1); Protein, Total 6.8 g/dL (6.4-8.2); Sodium Level 139 mmol/L (136-145)
== END | disposition home or self-care (01) ==
LOC: LAB 11:45
PROVIDERS: Referring Provider Obstetrics & Gynecology; Visit Provider Obstetrics & Gynecology
DX: O12.10 Gestational proteinuria, unspecified trimester (principal); Z3A.00 Weeks of gestation of pregnancy not specified
CPT/HCPCS: 36415; 80053; 85025

== ENCOUNTER → 2023-10-27 | Outpatient (CLI) | payer OTHER, SELFPAY ==
--- NOTE | 2023-10-27 08:51 | US_ITS ---
STUDY: OBSTETRICAL ULTRASOUND - BIOPHYSICAL PROFILE REASON FOR EXAM: Female, 28 years old Preeclampsia, proteinuria -- Weekly BPPS until delivery LMP: February 16, 2023. PRIOR ULTRASOUND: Comparison is made with prior study October 20, 2023. TECHNIQUE: Transabdominal TECHNICAL QUALITY: Adequate. FINDINGS: There is a single intrauterine fetus. The fetus is in a cephalic presentation. There is demonstrated cardiac activity with a heart rate of 147 bpm. There is a normal amniotic fluid volume. The largest amniotic fluid pocket measures 5.8 cm. The amniotic fluid index (TAINA) is 16.1 cm. The placenta is anterior in location and is not low lying. There are Grade 2 placental changes. Age by LMP: 36 weeks, 1 days. SIVA by LMP: November 23, 2023. BIOPHYSICAL PROFILE: Breathing Movements (FBM): 2 Gross Body Movements (GBM): 2 Tone (FT): 2 Amniotic Fluid Volume (AFV): 2 TOTAL SCORE: 8 / 8 US/Biophysical Prof W/O Non Stres IMPRESSION: Normal biophysical profile of 8/8. Electronically Signed: Brian Hernandez MD at 12:20 EDT ,
--- OUTSIDE RECORDS SUMMARY | 2023-10-27 09:32 | XMS RPT_ITS | CCD ---
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 AUTHOR AUTHOR'S ORGANIZ ATION 09/29/2023 [facility] FOR RECORDS PERTAINING TO PATIENTS WHO ARE [...] BE BASED ON THE PRIMARY CLINICAL RECORDS. [employer] [facility]. provides no warranty or guarantee of the accuracy or completeness of information in this document.
== END | disposition home or self-care (01) ==
LOC: US 08:50
PROVIDERS: Referring Provider Advanced Practice Midwife; Visit Provider Advanced Practice Midwife
DX: O12.10 Gestational proteinuria, unspecified trimester (principal); O14.10 Severe pre-eclampsia, unspecified trimester; Z3A.00 Weeks of gestation of pregnancy not specified
CPT/HCPCS: 76819

== ENCOUNTER → 2023-10-28 | Outpatient (CLI) | payer OTHER, SELFPAY ==
[2023-10-28 10:04] LABS: Protein, Urine (Random) 15.4 mg/dL (<11.9); Protein:Creat Ratio 187 mg/g CRE (0-200)
--- OUTSIDE RECORDS SUMMARY | 2023-10-28 10:11 | XMS RPT_ITS | CCD ---
Author Name Unknown Address [address] [place] [address] Organization [facility] Care Team Providers Care Laminator Preforms Name Role Phone Unavailable Primary Care Provider [...] 99.9 [degF] Stephanie Ruiz DO Work Phone: [facility] 09-28-2023 07:53-0500 Diastolic blood pressure 79 mm[Hg] Stephanie Ruiz DO Work Phone: [facility] [employer] 09-28-2023 07:53-0500 Heart rate 100 /min Stephanie Ruiz DO Work Phone: [facility] [employer] 09-28-2023 07:53-0500 Respiratory rate 18 /min Stephanie Ruiz DO Work Phone: [facility] [employer] 09-28-2023 07:53-0500 SaO2% (BldA) [Mass fraction] 97 % Stephanie Ruiz DO Work Phone: [employer] 09-28-2023 07:53-0500 Systolic blood pressure 119 mm[Hg] Stephanie Ruiz DO Work Phone: [facility] [employer] 09-26-2023 14:35-0500 Body height 175.3 cm Stephanie Ruiz DO Work Phone: [facility] [employer] 09-26-2023 14:35-0500 Body mass index (BMI) [Ratio] 29.68 kg/m2 Stephanie Ruiz DO Work Phone: [facility] 09-26-2023 14:35-0500 Body weight 91.17 kg Stephanie Ruiz DO Work Phone: [employer] 09-18-2023 16:55-0500 Body temperature 97.9 [degF] Stephanie Ruiz DO Work Phone: [employer] 09-18-2023 16:55-0500 Diastolic blood pressure 75 mm[Hg] Stephanie Ruiz DO Work Phone: [facility] 09-18-2023 16:55-0500 Heart rate 92 /min Stephanie Ruiz DO Work Phone: [employer] 09-18-2023 16:55-0500 Respiratory rate 18 /min Stephanie Ruiz DO Work Phone: [employer] 09-18-2023 16:55-0500 SaO2% (BldA) [Mass fraction] 98 % Stephanie Ruiz DO Work Phone: [facility] 09-18-2023 16:55-0500 Systolic blood pressure 113 mm[Hg] Stephanie Ruiz DO Work Phone: [employer] 09-16-2023 15:10-0500 Body height 165.1 cm Stephanie Ruiz DO Work Phone: [employer] 09-16-2023 15:10-0500 Body mass index (BMI) [Ratio] 33.95 kg/m2 Stephanie Ruiz DO Work Phone: [facility] 09-16-2023 15:10-0500 Body weight 92.53 kg Stephanie Ruiz DO Work Phone: [facility] Encounters Encounter Date Encounter Type Care Provider Facility Start: 09-26-2023 End: 09-28-2023 Evaluation and management of inpatient STEPHANIE RUIZ [facility] [employer] [facility] Start: 09-26-2023 End: 09-28-2023 Evaluation and management of inpatient Stephanie Ruiz DO Work Phone: [facility] Start: 09-20-2023 End: 09-20-2023 ambulatory JULIANA R TED [facility] Start: 09-16-2023 End: 09-18-2023 Evaluation and management of inpatient STEPHANIE RUIZ [facility] Start: 09-16-2023 End: 09-18-2023 Evaluation and management of inpatient Stephanie Ruiz DO Work Phone: [facility] Start: 06-27-2023 End: 06-27-2023 ambulatory MECCA Nav GILLESPIE [facility] Procedures Date Procedure Procedure Detail [...] 2) Zoster Vacc daisy (1 of 2) [facility] Start: 04-15-2023 Influenza vaccination Influenza Vacc ine (#1) [facility] Start: 2017 Screening for malign ant neoplasm of cervix Pap Smear [facility] Start: 2015 DTaP/Tdap/Td Vaccine s (1 - Tdap) DTaP/Tdap/Td Vaccines (1 - Tdap) [facility] Start: 2014 Hepatitis C screening Hepatitis C Sc reening [facility] Start: 2008 Depression Screening Depression Scre ening [facility] Start: 1997 MMR Vaccines (1 of 1 - Standard series) MMR Vaccines (1 of 1 - Standard series) [facility] Start: 1997 Varicella vaccination Varicell a Vaccines (1 of 2 - 2-dose childhood series) [facility] Start: 1996 COVID-19 Vaccine (#1) COVID-19 Vacci ne (#1) [facility] Start: 1996 Hepatitis B Vaccines (1 of 3 - 3-dose series) Hepatitis B Vaccines (1 of 3 - 3-dose series) [facility] Start: 1996 HIV screening HIV Screening [facility] Start: 1996 Lipid panel Lipid Panel [facility] Payers Date Payer Category Payer Unknown [employer] [place] [employer] [id number] 2023-Present [address] [place] [address] Commercial [id number] 2023 Unknown [id number] 1995 Unknown [id number] 1995 Unknown [id number] Social History Date Type Detail Facility Start: 09-16-2023 Tobacco smoking status VAIS Never sm oked tobacco [facility] Start: 09-16-2023 Tobacco use and exposure Smoke less tobacco non-user [facility] Start: 09-16-2023 End: 09-26-2023 Alcohol intake Ex-drinker (finding) [facility] Start: 09-16-2023 End: 09-26-2023 History of Social function [facility] Start: 09-16-2023 End: 09-26-2023 Humiliation, Afraid, Rape, and Kick questionnaire [HARK] [facility] Within the last year , have you been afraid of your partner or ex-partner? No [facility] In the past 12 month s, has lack of transportation kept you from medical appointments or from getting medications? No [facility] Start: 03-02-2023 [facility] Start: 1995 Sex Assigned At Not on file [facility] Clinical Notes 09-16-2023 to 09-28-2023 Kody [...] See note today Disposition good Follow up [place] with Dr. Jean for weekly BP check and labs with testing. Has BP cuff and was instructed to call if any BP > 140/90 or any concerns for worsening BOURGEOIS or stroke symptoms The total patient time of the visit was 25 minutes, of which was greater than 50% of the time was spent counseling and coordinating care. Department of Obstetrics and Gynecology [facility] Discharge Summary Admission on 09/26/2023 11:30 AM Jo Linda is a 28 y.o. at 31w5d who presented to Labor and Delivery as a trasnport from [place] due to concern for PreE. Pt was previously admitted for similar sx of CP and severe BOURGEOIS. She was normotensive throughout her admission and had a normal neuro workup as well as EKG. She received BMZx2 on 09/16-. Her sx improved and not consistent with PreE, so she was discharged home. She again presented to [facility] after having severe cramping, diarrhea, CP [...] instructed to follow up weekly with primary FRATERNITY ADVISER. All questions answered and discharge instructions reviewed. [...] Pain, Headache Follow up appointment with your doctor/complaint manager - Call office for appointment in 7days Activity - Normal Activity Call your doctor/complaint manager if you have: - leaking fluid - vaginal bleeding - regular contractions: More than 6 contractions in one hour - decreased movement - worsening abdominal (belly) pain - headache, blurry vision, increased swelling, upper abdominal pain NOELLE ESCALANTE DO 09/28/2023 2:49 PM [facility] 09-28-2023 Nurse Note Follow up appointment with your doctor/complaint manager - Keep next scheduled appointment Activity - Normal Activity Call your doctor/complaint manager if you have: - leaking fluid - [...] Kody Milton RN [facility] 09-28-2023 Nurse Note Follow up appointment with your doctor/complaint manager - Keep next scheduled appointment Activity - Normal Activity Call your doctor/complaint manager if you have: - leaking fluid - [...] [facility] documented [facility] this encounter [facility] 09-28-2023 Hospital course Narrative Images from the original note were not included. Department of Obstetrics and Gynecology [facility] Discharge Summary Admission on 09/26/2023 11:30 AM Jo Linda is a 28 y.o. at 31w5d who presented to Labor and Delivery as a trasnport from [place] due to concern for PreE. Pt was previously admitted for similar sx of CP and severe BOURGEOIS. She was normotensive throughout her admission and had a normal neuro workup as well as EKG. She received BMZx2 on 09/16-. Her sx improved and not consistent with PreE, so she was discharged home. She again presented to [facility] after having severe cramping, diarrhea, CP [...] instructed to follow up weekly with primary FRATERNITY ADVISER. All questions answered and discharge instructions reviewed. [...] Pain, Headache Follow up appointment with your doctor/complaint manager - Call office for appointment in 7days Activity - Normal Activity Call your doctor/complaint manager if you have: - leaking fluid - [...] and coordinating care. documented in this encounter [facility] 09-28-2023 Hospital Discharg e instructions Noelle Escalante DO - 09/28/2023 11:39 AM EST Follow up appointment with your doctor/complaint manager - Call office for appointment in 7days Activity - Normal Activity Call your doctor/complaint manager if you have: - leaking fluid - [...] [facility] documented [facility] encounter [facility] 09-28-2023 History of Presen t illness [...] ) - Previously followed with neurologist in [place], has not established care in [place] - [...] today with close follow up weekly in [place] with weekly labs and surveillance for pre-eclampsia. [...] ) - Previously followed with neurologist in [place], has not established care in [place] - [...] and history of gestational hypertension transported to [facility] from [place] stable overnight without concerns other than some [...] a prior and was recently admitted to [facility] due to concerns for PreEwSF vs. [...] cervix ADHD Anemia Anxiety Depression Hemiplegia (CMS/HCC) ([facility]) Hypertension Preeclampsia, severe, third trimester 09/16/2023 Seizures ([facility]) last seizure in 2019 Stroke ([facility]) 1995 stroke as a baby which resulted [...] 24 hour(s)). TRIAGE COURSE: Patient arrived to [facility] Ob triage with magnesium sulfate running [...] to Antepartum (PNU) documented in this encounter [facility] 09-27-2023 Plan of care note The patient is Moderately Stable - Low risk of patient condition declining or worsening The patient's goals for the shift include goal not met The clinical goals for the shift include goal met [facility] 09-27-2023 Miscellaneous Notes The patient is Moderately Stable - Low risk of patient condition declining or worsening The patient's goals for the shift include goal not met The clinical goals for the shift include goal met Date: 09/27/2023 Name: Jo Linda : 1995 County Information: [place] Patient Information Primary Caregiver: Self Accompanied by/Relationship: S/O;Family Marital Status: Support System: SO/Family Methodist/Cultural Factors: None Activities of Daily Living Communication: [...] place to sleep or slept in a custodial (including now)? No Transportation Needs Has the [...] Children's Services: N/A documented in this encounter [facility] 09-27-2023 Note Formatting of this n ote might be different from the original. Date: 09/27/2023 Name: Jo Linda : 1995 [facility] Information: [place] Patient Information Primary Caregiver: Self Accompanied by/Relationship: S/O;Family Marital Status: Support System: SO/Family Methodist/Cultural Factors: None Activities of Daily Living Communication: [...] place to sleep or slept in a custodial (including now)? No Transportation Needs Has the [...] N/A Developmental Delay: N/A Children's Services: N/A [facility] 09-27-2023 Note Formatting of this n ote might be different from the original. Date: 09/27/2023 Name: Jo Linda : 1995 County Information: [place] Patient Information Primary Caregiver: Self Accompanied by/Relationship: S/O;Family Marital Status: Support System: SO/Family Methodist/Cultural Factors: None Activities of Daily Living Communication: [...] place to sleep or slept in a custodial (including now)? No Transportation Needs Has the [...] N/A Developmental Delay: N/A Children's Services: N/A [facility] 09-27-2023 Consult note Associated Order (s): [...] of cervix ADHD Anemia Anxiety Depression Hemiplegia ([facility]/HCC) ([facility]) Hypertension Preeclampsia, severe, third trimester 09/16/2023 Seizures ([facility]) last seizure in 2019 Stroke ([facility]) 1995 stroke as a baby which resulted [...] MD Ophthalmology 09/27/2023 2:42 PM AR Larson [employer] Work Phone: 09-27-2023 Consult note Associated Order [...] of cervix ADHD Anemia Anxiety Depression Hemiplegia ([facility]) ([facility]) Hypertension Preeclampsia, severe, third trimester 09/16/2023 Seizures ([facility]) last seizure in 2019 Stroke ([facility]) 1995 stroke as a baby which resulted [...] PM Associated Order(s): IP CONSULT TO CARDIOLOGY [facility] CARDIOLOGY CONSULTATION Patient Name: Jo Linda : 1995 Date of Service: 09/26/23 Reason for Consultation: chest pain, hx of gestational HTN History Jo Linda is a 28 y.o.year-old female at 31 weeks of was admitted to the outside hospital with multiple complaints-chest pain, headaches, pelvic pain where she was managed for preeclampsia with magnesium infusion and transferred to [facility]. At [facility] patient is being seen by maternal- [...] cervix, ADHD, Anemia, Anxiety, Depression, Hemiplegia (CMS/HCC) ([facility]), Hypertension, Preeclampsia, severe, third trimester (09/16/2023), Seizures ([facility]), Stroke ([facility]) (1995), and Urinary tract infection. SurgicalHistory: has [...] recurrent gestational hypertension. documented in this encounter [facility] 09-26-2023 Note Attestation signed by Stephanie [...] breath or RUQ pain. She presented to [facility] and was started on magnesium sulfate given patient's symptoms. Patient transferred to [facility] for further evaluation. She has a history of PreE in previous and recently admitted to [facility] due to concerns for PreEwSF vs. [...] of cervix ADHD Anemia Anxiety Depression Hemiplegia ([facility]) ([facility]) Hypertension Preeclampsia, severe, third trimester 09/16/2023 Seizures ([facility]) last seizure in 2019 Stroke ([facility]) 1995 stroke as a baby which resulted [...] by mo (more content not included)... [facility] 09-26-2023 Consult note Associated Order (s): IP CONSULT TO CARDIOLOGY [facility] CARDIOLOGY CONSULTATION Patient Name: Jo Linda : 1995 Date of Service: 09/26/23 Reason for Consultation: chest pain, hx of gestational HTN History Jo Linda is a 28 y.o.year-old female at 31 weeks of was admitted to the outside hospital with multiple complaints-chest pain, headaches, pelvic pain where she was managed for preeclampsia with magnesium infusion and transferred to [facility]. At [facility] patient is being seen by maternal- [...] cervix, ADHD, Anemia, Anxiety, Depression, Hemiplegia (CMS/HCC) ([facility]), Hypertension, Preeclampsia, severe, third trimester (09/16/2023), Seizures ([facility]), Stroke ([facility]) (1995), and Urinary tract infection. SurgicalHistory: has [...] for elevated risk of recurrent gestational hypertension. [employer] Phone: 09-26-2023 History and physical note Images [...] breath or RUQ pain. She presented to [facility] and was started on magnesium sulfate given patient's symptoms. Patient transferred to [facility] for further evaluation. She has a history of PreE in previous and recently admitted to [facility] due to concerns for PreEwSF vs. [...] of cervix ADHD Anemia Anxiety Depression Hemiplegia ([facility]) ([facility]) Hypertension Preeclampsia, severe, third trimester 09/16/2023 Seizures ([facility]) last seizure in 2019 Stroke ([facility]) 1995 stroke as a baby which resulted [...] ) - Previously followed with neurologist in [place], has not established care in [place] - [...] spent on patient care today: 40 minutes. [facility] 09-26-2023 History and physical note Images [...] breath or RUQ pain. She presented to [facility] and was started on magnesium sulfate given patient's symptoms. Patient transferred to [facility] for further evaluation. She has a history of PreE in previous and recently admitted to [facility] due to concerns for PreEwSF vs. [...] of cervix ADHD Anemia Anxiety Depression Hemiplegia ([facility]) ([facility]) Hypertension Preeclampsia, severe, third trimester 09/16/2023 Seizures ([facility]) last seizure in 2019 Stroke ([facility]) 1996 stroke as a baby which resulted [...] ) - Previously followed with neurologist in [place], has not established care in [place] - [...] today: 40 minutes. documented in this encounter [facility] 09-18-2023 History of Presen t illness Narrative Discharge instructions given to the patient at this time. Kick counts reviewed with the patient. Patient is to follow up with her OB within a week, has appointment scheduled for Tuesday09/23/23. Patient will sweet pickled fruit maker her antibiotic from the pharmacy in [place] tomorrow morning when the pharmacy opens. IV removed. Patient verbalizes understanding of instructions. Neurology update: Patient's neuroimaging study results are pending. Please review neurology consultation note from yesterday for detailed recommendations. Thank you. .Nutrition rescreen completed. Chart reviewed. Patient to be monitored and followed by the diet poultry service technician. .WILLY Hannah Images from the original [...] Complex Migraine Hx gHTN - Presented to [facility] on 09/16/23 with headache, vision changes, and mild range BPs; PreE labs negative at [place], [facility] [place] - Started on magnesium at [facility] with improvement of BOURGEOIS - Transferred to [facility] for further management - History of [...] ) - Previously followed with neurologist in [place], has not established care in [place] - Not currently on antiepileptic medications - Neurology consulted, appreciate further recommendations - MRA, MRV, MRI Brain read pending this AM Dental Infection - Diagnosed with tooth infection at [facility] - Started on Augmentin on 09/11, [...] spent on patient care today: 30 minutes. [facility] update: Pt asymptomatic, would like to be dced to home. [facility] team discussed EKG with cardiology. Borderline prolonged QT was okay, cardiology consult not indicated, no medication restriction advised. Neuroimaging completed. IMPRESSION: 1. 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 2. No evidence of an acute intracranial process. [facility] team to review with neurologist for any additional recommendations. Outpt FU with opthalmology as an outpt for evaluation as recommended by neurology's initial consult. Outpt FU with dentist for dental infection. Outpt FU with [facility] [place] office for growth US this week. (Note sent to [facility] application architect manager). Please screen patient for MRI. Thank you [...] Complex Migraine Hx gHTN - Presented to [facility] on 09/16/23 with headache, vision changes, and mild range BPs; PreE labs negative at [place], [facility] WNL - Started on magnesium at [facility]SH with improvement of BOURGEOIS - Transferred to [facility] for further management - History of [...] ) - Previously followed with neurologist in [place], has not established care in [place] - Not currently on antiepileptic medications - Neurology consulted, appreciate further recommendations Dental Infection - Diagnosed with tooth infection at [facility] - Started on Augmentin on 09/11, adjusted [...] edema, patellar reflex normal 2/4 FHR reassuring Railroad - irritability this AM, no ctxs or [...] other lab work. documented in this encounter [facility] 09-18-2023 Hospital Discharg e instructions Rosamaria Galvez DO - 09/18/2023 6:49 PM EST Follow up appointment with your doctor/complaint manager - Call office for appointment in 7days Activity - Normal Activity Call your doctor/complaint manager if you have: - leaking fluid - [...] [facility] documented in this encounter [facility] 09-18-2023 Note Neurology update: Patient's neuroimaging study results are pending. Please review neurology consultation note from yesterday for detailed recommendations. Thank you. [facility] 09-17-2023 Consult note Associated Order (s): IP CONSULT TO NEUROLOGY Neurology Consult Note - Neurology Service Patient Name: Jo Linda Patient : 1995 Acct: [id number] Date of Admission: 09/16/2023 Room/Bed: -2205/H-2205 A [...] concerned and came into the ER at [facility] where she was admitted for further [...] of cervix ADHD Anemia Anxiety Depression Hemiplegia ([facility]) ([facility]) Hypertension Preeclampsia, severe, third trimester 09/16/2023 Seizures ([facility]) last seizure in 2019 Stroke ([facility]) 1995 stroke as a baby which resulted [...] 397 ms QTC Interval 489 ms P Brandon 39 degrees QRS Brandon 31 degrees T Wave Brandon 31 degrees SD Interval 144 ms Chlamydia/Gonorrhea Collection Time: 09/16/23 [...] her expressed understanding and satisfaction. Thank you. [facility] 09-17-2023 Consult note Associated Order (s): IP CONSULT TO NEUROLOGY Neurology Consult Note - Neurology Service Patient Name: Jo Linda Patient : 1995 Acct: [id number] Date of Admission: 09/16/2023 Room/Bed: 2205/H-2205 A [...] concerned and came into the ER at [facility] where she was admitted for further [...] of cervix ADHD Anemia Anxiety Depression Hemiplegia ([facility]) ([facility]) Hypertension Preeclampsia, severe, third trimester 09/16/2023 Seizures ([facility]) last seizure in 2019 Stroke ([facility]) 1996 stroke as a baby which resulted [...] 397 ms QTC Interval 489 ms P Brandon 39 degrees QRS Brandon 31 degrees T Wave Brandon 31 degrees SD Interval 144 ms Chlamydia/Gonorrhea Collection Time: 09/16/23 [...] satisfaction. Thank you. documented in this encounter [facility] 09-16-2023 Note Attestation signed by Stephanie Ruiz DO at 09/19/2023 9:06 AM Pt discharged to home 09/18/23 evening. She was asymptomatic at discharge. No headache, vision changes nor chest pain. EKG IMPRESSION: Sinus rhythm Borderline prolonged QT interval [facility] team discussed EKG results with cardiology. [...] patient's headaches. Jo elects for outpatient follow-up. [facility] growth ultrasound - note sent to office to schedule. OB follow-up with Dr. Spicer this week. Department of Obstetrics and Gynecology [facility] Discharge Summary Admission on 09/16/2023 2:47 PM Jo Linda is a 28 y.o. at 30 w 2 d who presented to Labor and Delivery for direct admission as transfer of care from [place] for concerns for PreEwSF vs complex migraine. [...] Complex migraine Follow up appointment with your doctor/complaint manager - Keep next scheduled appointment Activity - Normal Activity Call your doctor/complaint manager if you have: - leaking fluid - vaginal bleeding - regular contractions: More than 6 contractions in one hour - decreased movement - worsening abdominal (belly) pain - headache, blurry vision, increased swelling, upper abdominal pain ROSAMARIA Galvez DO 09/18/2023 4:22 PM [facility] 09-16-2023 Note Attestation signed by Stephanie Ruiz DO at 09/16/2023 8:09 PM Hospital Care (Present): I was present with the resident during the history and exam. I discussed the case with the resident and agree with the findings and plan as documented in the resident's note. Transport from Dr. Spicer at [facility] due to concern for preeclampsia. Mild [...] changes, and elevated BPs. Patient presented to [facility] due to two week history of [...] Allergic/Immunologic: Ne (more content not included)... [facility] 09-16-2023 History and physical note Department of Maternal Medicine History and Physical CHIEF COMPLAINT: PreEwSF vs. Complex Migraine HISTORY OF PRESENT ILLNESS: The patient is a 28 y.o. female at 30w2d. OB History No obstetric history on file. Patient presents with a chief complaint as above and is being admitted for headache, vision changes, and elevated BPs. Patient presented to [facility] due to two week history of [...] Complex Migraine Hx gHTN - Presented to [facility] on 09/16/23 with headache, vision changes, and mild range BPs; Pre[place] labs [place] [facility] [place] - Started on magnesium at [facility] with improvement of BOURGEOIS - Transferred to [facility] for further management - History of [...] ) - Previously followed with neurologist in [place], has not established care in [place] - Not currently on antiepileptic medications - Neurology consulted, appreciate further recommendations Dental Infection - Diagnosed with tooth infection at [facility] - Started on Augmentin on 09/11, plan [...] resident's note. Transport from Dr. Spicer at [facility] due to concern for preeclampsia. Mild [...] spent on patient care today: 65 minutes. [facility] 09-16-2023 History and physical note Department of Maternal Medicine History and Physical CHIEF COMPLAINT: PreEwSF vs. Complex Migraine HISTORY OF PRESENT ILLNESS: The patient is a 28 y.o. female at 30w2d. OB History No obstetric history on file. Patient presents with a chief complaint as above and is being admitted for headache, vision changes, and elevated BPs. Patient presented to [facility] due to two week history of [...] Complex Migraine Hx gHTN - Presented to [facility] on 09/16/23 with headache, vision changes, and mild range BPs; PreE labs negative at [place] [facility] [place] - Started on magnesium at [facility] with improvement of BOURGEOIS - Transferred to [facility] for further management - History of [...] ) - Previously followed with neurologist in [place], has not established care in [place] - Not currently on antiepileptic medications - Neurology consulted, appreciate further recommendations Dental Infection - Diagnosed with tooth infection at [facility] - Started on Augmentin on 09/11, plan [...] resident's note. Transport from Dr. Spicer at [facility] due to concern for preeclampsia. Mild [...] today: 65 minutes. documented in this encounter [facility] documented in [facility]* Diagnosis Chest pain during - Primary documented in this encounter [facility] Advance Directives No Advanced Directives [...] Contact Diagnoses Preeclampsia, severe, third trimester Procedures [id number] , severe, third trimester [place] [address] [address] [place] [address] Referral ID Status Reason Start Date Expiration Date Visits Re quested Visits Authorized [id number] 1 1 Reason Comments Hypertension Specialty Diagnoses / Procedures Referred By Contac t Referred To Contact Diagnoses Chest pain during Procedures O99.891,[id number] pain during Stephanie Ruiz, [place] [address] [address] [place] [address] Referral ID Status Reason Start Date Expiration Date Visits Re quested Visits Authorized [id number] 1 1 Scheduled Active and Recently Administ [...] at 1746 2008 (Given - Provider: Sheron Meeir RN) 0745 (Given - Provider: Herbert Mohan [...] DATE CREATED AUTHOR AUTHOR'S ORGANIZ ATION 09/29/2023 [facility] FOR RECORDS PERTAINING TO PATIENTS WHO ARE [...] BE BASED ON THE PRIMARY CLINICAL RECORDS. [facility]. provides no warranty or guarantee of the accuracy or completeness of information in this document.
[2023-10-28 11:19] LABS: Absolute Lymphocyte Count 1.11 X10^3/uL (0.83-4.51); Absolute Neutrophil Count 2.7 X10^3/uL (2.0-7.7); Basophil# 0.02 X10^3/uL; Basophil% 0.5 % (0-1); Eosinophil# 0.03 X10^3/uL; Eosinophils% 0.7 % (0-5); Hematocrit 29.4 % (37-47); Hemoglobin 9.6 g/dL (12.0-15.0); Lymphocyte # 1.11 X10^3/ul (0.83-4.51); Lymphocyte % 25.2 % (19-41); Mean Corp Hgb Conc 32.7 g/dL (32-36); Mean Corpuscular Hgb 28.4 pg (27.0-32.0); Mean Platelet Vol. 11.5 fl (6.2-12.0); Monocyte# 0.53 X10^3/uL; NRBC Flagged by Analyzer 0 % (0-5); Neutrophil # 2.69 X10^3/uL (2.7-7.7); Neutrophil % 61.1 % (47-70); Platelet Count 153 K/mm3 (150-450); RBC Distribution Width CV 15.6 % (11.6-14.6); RBC Distribution Width SD 49.8 fl (35.1-43.9); Red Blood Count 3.38 M/mm3 (4.2-5.4); White Blood Count 4.4 K/mm3 (4.4-11.0)
[2023-10-28 11:56] LABS: ALB/GLOB Ratio 0.7 RATIO (0.9-2.4); AST(SGOT) 14 U/L (15-37); Alanine Aminotransfer ALT/SGPT 11 U/L (13-56); Albumin, Serum 2.7 g/dL (3.2-5.0); Alkaline Phosphatase 123 U/L (45-117); Anion Gap 7 (5-15); BUN 3 mg/dL (7-18); BUN/Creat Ratio 6.6 RATIO (10-20); Calcium,Total 8.8 mg/dL (8.5-10.1); Chloride 112 mmol/L (98-107); Creatinine, Serum 0.45 mg/dL (0.55-1.02); EST Glomerular Filtration Rate 176 mL/min (>60); Est Glom Filt Rate - Afr Amer 213 mL/min (>60); Glucose 89 mg/dL (74-106); Potassium 3.2 mmol/L (3.5-5.1); Protein, Total 6.7 g/dL (6.4-8.2); Sodium Level 140 mmol/L (136-145)
== END | disposition home or self-care (01) ==
LOC: LABSPEC 10:12 → LAB 10:20
PROVIDERS: Referring Provider Obstetrics & Gynecology; Visit Provider Obstetrics & Gynecology
DX: O12.10 Gestational proteinuria, unspecified trimester (principal); Z3A.00 Weeks of gestation of pregnancy not specified
CPT/HCPCS: 36415; 80053; 82570; 84156; 85025; 87081

== ENCOUNTER 2023-11-01 14:45 | Outpatient (CLI) | payer OTHER, SELFPAY ==
[2023-10-16 15:31] VITALS: RESP 16
[2023-11-01 15:12] VITALS: BP 126/75; PULSE 94; RESP 16; TEMP 37.1; O2SAT 94
[2023-11-01 15:22] VITALS: BMI 32.5
[2023-11-01 15:44] LABS: Hematocrit 30.8 % (37-47); Mean Corp Hgb Conc 32.5 g/dL (32-36); Mean Corpuscular Hgb 28.6 pg (27.0-32.0); Platelet Count 165 K/mm3 (150-450); RBC Distribution Width CV 15.5 % (11.6-14.6); White Blood Count 4.9 K/mm3 (4.4-11.0)
[2023-11-01 15:58] LABS: Protein, Urine (Random) 15.2 mg/dL (<11.9); Protein:Creat Ratio 164 mg/g CRE (0-200)
[2023-11-01 16:08] LABS: AST(SGOT) 14 U/L (15-37); Alanine Aminotransfer ALT/SGPT 10 U/L (13-56); Creatinine, Serum 0.46 mg/dL (0.55-1.02); EST Glomerular Filtration Rate 171 mL/min (>60); Est Glom Filt Rate - Afr Amer 206 mL/min (>60); Estimated Creatinine Clearance 231.19 ml/min; Uric Acid 3.4 mg/dL (2.6-6.0)
--- NOTE | 2023-11-01 19:45 | OB.TRI.PN ---
Progress Notes Date of Service: 11/01/23 Progress Note: Patient presents for triage evaluation secondary to false labor FHT: 130 Moderate variability reactive no decelerations category I tracing [place]: irregular Contractions Assessment and plan: false labor no cervical change, labs checked due to hisotry of headaches Reactive NST, reassuring maternal and status patient discharged to home to follow-up for IOL tomorrow. See problem list details for additional plan information. Laboratory Studies: Laboratory Tests 11/01/23 Range/Units 15:35 WBC 4.9 (4.4-11.0) K/mm3 RBC 3.50 L (4.2-5.4) M/mm3 Hgb 10.0 L (12.0-15.0) g/dL Hct 30.8 L (37-47) % MCV 88.0 (81-99) fL MCH 28.6 (27.0-32.0) pg MCHC 32.5 (32-36) g/dL RDW Std Deviation 50.0 H (35.1-43.9) fl RDW Coeff of Danii 15.5 H (11.6-14.6) % Plt Count 165 (150-450) K/mm3 MPV 11.0 (6.2-12.0) fl Creatinine 0.46 L (0.55-1.02) mg/dL Estim Creat Clear Calc 231.19 ml/min Est GFR (MDRD) Af Amer 206 (>60) mL/min Est GFR (MDRD) Non-Af 171 (>60) mL/min Uric Acid 3.4 (2.6-6.0) mg/dL AST 14 L (15-37) U/L ALT 10 L (13-56) U/L U Random Total Protein 15.2 H (<11.9) mg/dL Urine Creatinine 92.70 (NO RANGE EST.) mg/dL Protein/Creatinin Ratio 164 (0-200) mg/g CRE Charges/Coding Procedures Urinary/Genital 52xxx-59xxx: [id number] non-stress test Interp
== END 2023-11-01 16:17 | disposition home or self-care (01) ==
LOC: WPOUT 14:47 → WP 14:47
PROVIDERS: Obstetrics & Gynecology; Referring Provider Advanced Practice Midwife; Visit Provider Advanced Practice Midwife
DX: O47.9 False labor, unspecified (principal); Z3A.00 Weeks of gestation of pregnancy not specified
CPT/HCPCS: 36415; 59025; 59050; 82565; 82570; 84156; 84450; 84460; 84550; 85027; 99221; G0378

== ENCOUNTER 2023-11-02 06:55 | Inpatient (IN) | payer OTHER, SELFPAY ==
[2023-11-02] VITALS (29 sets, daily range): BP systolic 119–170; BP diastolic 66–89; PULSE 84–126; RESP 14–16; TEMP 36.4–37.2; O2SAT 98–100; BMI 32.4
[2023-11-02] MEDS: Lactated Ringers 1,000 ML 50 ML IV (07:45)
[2023-11-02] MEDS: Oxytocin 15 Units/NS 250ml 15 UNITS/250 ML IV.SOLN 2 UNITS IV (07:57)
[2023-11-02 08:12] LABS: Absolute Lymphocyte Count 1.08 X10^3/uL (0.83-4.51); Absolute Neutrophil Count 2.9 X10^3/uL (2.0-7.7); Basophil# 0.02 X10^3/uL; Basophil% 0.4 % (0-1); Eosinophil# 0.04 X10^3/uL; Eosinophils% 0.9 % (0-5); Hematocrit 29.4 % (37-47); Hemoglobin 9.6 g/dL (12.0-15.0); Lymphocyte # 1.08 X10^3/ul (0.83-4.51); Lymphocyte % 23.6 % (19-41); Mean Corp Hgb Conc 32.7 g/dL (32-36); Mean Corpuscular Hgb 28.6 pg (27.0-32.0); Mean Corpuscular Volume 87.5 fL (81-99); Mean Platelet Vol. 11.3 fl (6.2-12.0); Monocyte# 0.53 X10^3/uL; Monocyte% 11.6 % (0-10); NRBC Flagged by Analyzer 0 % (0-5); Neutrophil # 2.87 X10^3/uL (2.7-7.7); Neutrophil % 62.6 % (47-70); Platelet Count 166 K/mm3 (150-450); RBC Distribution Width CV 15.5 % (11.6-14.6); RBC Distribution Width SD 49.7 fl (35.1-43.9); Red Blood Count 3.36 M/mm3 (4.2-5.4); White Blood Count 4.6 K/mm3 (4.4-11.0)
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
[2023-11-02 08:59] LABS: Syphilis Antibodies Non-reactive
--- NOTE | 2023-11-02 13:42 | PN_ITS ---
Progress Note pt consents to AROM. She is sleeping through contractions. She states that during her last her water broke at 2 cm and she delivered a few hours later without an epidural because it went so quickly. current tracing: FHT: Moderate variability reactive no decelerations category I tracing [place]: q3 min Contractions cs: /-2 reviewed tracing abnormalities since last note: no changes A/P: continue pitocin epidural or nitrous as needed.
[2023-11-02] MEDS: LACTATED RINGERS 500 ML 999 ML IV (13:50)
[2023-11-02] MEDS: fentaNYL-bupivacaine (epidural) 100 ML BAG EPIDURAL (14:51)
[2023-11-02] MEDS: Methylergonovine 0.2 MG/ML Ampul IM (15:13)
--- NOTE | 2023-11-02 15:24 | DCINST_ITS ---
Discharge Instructions Diet Discharge Diet: No restrictions Activity Discharge Activity: May Not Drive and May Shower May resume sexual activity in: 6 weeks Weight Bearing Status: Full weight bearing Dressing / Incision Call your doctor if your incision/area has: Sudden Increased Bleeding, Increased Pain/ Swelling and Foul Smelling Discharge Call your doctor if you observe: Fever of 101 or Higher, Numbness or Tingling, Change in Color, Inability to urinate, Inability to have a bowel movement, Using more than 1 pad per hour, Shortness of breath, Dizziness, Fainting spells, Chest pain, Calf discomfort and Uncontrolled pain Follow Up Care Please Follow Up With: Juliana Mike DO When: 6 weeks , please call office to make an appointment. Congratulations on the of your baby! Test Results: Test results from this visit will be discussed in further detail at your follow- up appointment, if applicable. Discharge Plan Admission Admit Date/Time: 11/02/23 06:55 Attending Provider: Juliana Mike Primary Care Provider: Care Physician,Inessa Primary Discharge Orders/Prescriptions Prescriptions: No Action PNV-[place] 28-1-300 mg capsule 1 cap PO DAILY ondansetron 4 mg tablet,disintegrating 4 mg PO Q6H PRN (Reason: nausea and vomiting) Qty: 60 3RF ferrous gluconate 324 mg (37.5 mg iron) tablet 324 mg PO BID Qty: 60 4RF potassium chloride 20 mEq tablet,ER particles/crystals 20 meq PO BID Qty: 30 0RF Rx Instructions: take twice a day for 3 days then one daily Referrals / Follow Up: Care Physician,No Primary [Primary Care Provider] - Disposition Disposition (needs filled in before D/C Order can be placed): Home, Self Care
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
[2023-11-02] MEDS: Oxytocin 15 Units/NS 250ml 15 UNITS/250 ML IV.SOLN 83 UNITS IV (15:38)
[2023-11-02] MEDS: Naproxen 500 MG Tablet PO (16:32)
[2023-11-02] MEDS: Acetaminophen 500 MG Tablet 1000 MG PO (21:40)
[2023-11-02] MEDS: Rho(D) Immune Globulin 300 MCG (1500 Unit) Syringe IV (23:15)
[2023-11-03 03:10] VITALS: BP 118/77; PULSE 88; RESP 16; TEMP 36.6; O2SAT 100
[2023-11-03] MEDS: Naproxen 500 MG Tablet PO ×3 (03:40→22:07)
--- NOTE | 2023-11-03 07:30 | PN.OBGYN_ITS ---
Subjective Subjective Patient doing well without complaints. Tolerating PO. Ambulating and voiding without difficulty. feeding well. Denies chest pain, shortness of breath, calf pain/swelling, fevers, chills, lightheadedness. Objective Data Objective Data Vital Signs: Vital Signs Temp Pulse Resp BP Pulse Ox O2 Del Method 97.9 F 88 16 118/77 100 Room Air 11/03/23 03:10 11/03/23 03:10 11/03/23 03:10 11/03/23 03:10 11/03/23 03:10 11/03/23 03:10 Oxygen Delivery Method Room Air Weight: 219 lb 12.8 oz Body Mass Index (BMI) 32.4 Intake & Output: Intake and Output for Last 24 Hours 11/01/23 11/02/23 11/03/23 23:59 23:59 23:59 Intake Total 1455.67 / 1455.67 Output Total 1200 / 1200 Balance 255.67 / 255.67 Lab / Micro Data 11/02/23 07:45 Labs: Laboratory Results - last 24 hr 11/02/23 07:45: WBC 4.6, RBC 3.36 L, Hgb 9.6 L, Hct 29.4 L, MCV 87.5, MCH 28.6, MCHC 32.7, RDW Std Deviation 49.7 H, RDW Coeff of Danii 15.5 H, Plt Count 166, MPV 11.3, Immature Gran % (Auto) 0.900, Neut % (Auto) 62.6, Lymph % (Auto) 23.6, [place] % (Auto) 11.6 H, Eos % (Auto) 0.9, Baso % (Auto) 0.4, Absolute Neuts (auto) 2.9, Absolute Lymphs (auto) 1.08, Nucleated RBC % 0, Syphilis Total Ab Non- reactive, Blood Type B NEGATIVE, Antibody Screen POSITIVE, Antibody Identification ANTI-D 11/02/23 17:50: Screen NEGATIVE, Baby's Blood Type B POSITIVE, Baby's LUCIAN NEGATIVE ROS Constitutional Constitutional: Reports systems reviewed and no addt'l complaints, except as documented Cardiovascular Cardiovascular: Reports systems reviewed and no addt'l complaints, except as documented Respiratory/Chest Respiratory/Chest: Reports systems reviewed and no addt'l complaints, except as documented Gastrointestinal Gastrointestinal: Reports systems reviewed and no addt'l complaints, except as documented Physical Exam Const alert, oriented x3 and no apparent distress HEENT Head and Scalp: atraumatic Resp normal respiratory effort GI soft to palpation and non-tender Bimanual Exam - Vag & Uterus: uterus non-tender Uterus Palpation: uterus fundus firm (below Umbilicus) Assessment & Plan (1) Vaginal delivery: PLAN: Plan s/p PPD # 1 1. routine post delivery care 2. breast feeding- support given 3. rh neg rhogam PRN 4. rubella immune
[2023-11-03] MEDS: Acetaminophen 500 MG Tablet 1000 MG PO ×2 (07:35→15:13)
[2023-11-03 07:40] VITALS: BP 115/75; PULSE 89; RESP 16; TEMP 36.3; O2SAT 98
[2023-11-03 12:00] VITALS: BP 118/74; PULSE 100; RESP 16; TEMP 36.3; O2SAT 100
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
[2023-11-03 16:00] VITALS: BP 118/72; PULSE 92; RESP 20; TEMP 36.5; O2SAT 100
[2023-11-03 19:45] VITALS: BP 127/76; PULSE 99; RESP 16; TEMP 36.8; O2SAT 100
[2023-11-04 01:05] VITALS: BP 120/81; RESP 16; TEMP 36.7; O2SAT 100
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
[2023-11-04 08:45] VITALS: BP 107/87; PULSE 96; RESP 16; TEMP 36.4; O2SAT 99
--- NOTE | 2023-11-08 14:18 | NURSING ---
Follow up phone call made. Patient states that she is doing pretty good. States that she passed an egg sized clot a few days ago, and her bleeding pretty much stopped after that. Only having mild pain and taking Tylenol for it. States the pain is mostly when she is pumping and it feels like cramping. Explained uterine involution and that cramping is normal. States she is bottlefeeding Dave every 2-3 hours and he is taking 2-3 oz. 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 States she did have to take medication for post depression in the past. Discussed with patient about calling her SURFACE LAY OUT TECHNICIAN and talking with them about medication. Explained to patient that this IBCLC will also call and speak to [facility], so that they can follow up with patient. Patient is agreeable to this IBCLC calling and states she will also call. [facility] nurse notified of patient's concerns regarding post depression at 1420.
== END 2023-11-04 10:50 | disposition home or self-care (01) | DRG 807 ==
PROVIDERS: Admitting Provider Obstetrics & Gynecology; Visit Provider Obstetrics & Gynecology
DX: O41.1230 Chorioamnionitis, third trimester, not applicable or unspecified (principal); Z37.0 Single live birth; O12.14 Gestational proteinuria, complicating childbirth; O43.113 Circumvallate placenta, third trimester; O36.8130 Decreased fetal movements, third trimester, not applicable or unspecified; O99.02 Anemia complicating childbirth; O26.893 Other specified pregnancy related conditions, third trimester; Z67.21 Type B blood, Rh negative; Z3A.37 37 weeks gestation of pregnancy; Z91.410 Personal history of adult physical and sexual abuse; Z87.59 Personal history of other complications of pregnancy, childbirth and the puerperium
CPT/HCPCS: 59025; 59050; 85025; 85461; 86780; 86850; 86870; 86900; 86901; 90384; 99221; J7120; G0378; J2790; J2791

== ENCOUNTER → 2023-12-16 | Outpatient (CLI) | payer OTHER, SELFPAY ==
[2023-12-21 16:55] LABS: HPV Reflexed? NOT INDICATED
== END | disposition home or self-care (01) ==
LOC: LABSPEC 16:52
PROVIDERS: Referring Provider Obstetrics & Gynecology; Visit Provider Obstetrics & Gynecology
DX: Z12.4 Encounter for screening for malignant neoplasm of cervix (principal)
CPT/HCPCS: 88175; G0145

== ENCOUNTER → 2025-03-22 | Outpatient (CLI) | payer OTHER, SELFPAY ==
[2025-03-22 13:23] LABS: Creatinine, Urine (random) 133.00 mg/dL (28.00-217.00); Protein, Urine (Random) 8.9 mg/dL (0.0-12.0); Protein:Creat Ratio 67 mg/g CRE (0-200)
[2025-03-25 20:08] LABS: Chlamydia By Nucleic Acid AMP Negative (Negative); Gonococcus By Nucleic Acid AMP Negative (Negative)
== END | disposition home or self-care (01) ==
LOC: LABSPEC 11:50
PROVIDERS: Referring Provider Registered Nurse; Visit Provider Registered Nurse
DX: O09.299 Supervision of pregnancy with other poor reproductive or obstetric history, unspecified trimester (principal); Z3A.00 Weeks of gestation of pregnancy not specified
CPT/HCPCS: 82570; 84156; 87086; 87088; 87491; 87591

== ENCOUNTER → 2025-04-25 | Outpatient (CLI) | payer OTHER, SELFPAY ==
[2025-04-25 10:52] LABS: Hematocrit 29.3 % (37-47); Hemoglobin 10.2 g/dL (12.0-15.0); Immature Granulocytes Count 0.020 X10^3/uL (0.0-0.0); Mean Corp Hgb Conc 34.8 g/dL (32-36); Mean Corpuscular Volume 84.2 fL (81-99); Mean Platelet Vol. 10.9 fl (6.2-12.0); NRBC Flagged by Analyzer 0 % (0-5); Platelet Count 206 K/mm3 (150-450); RBC Distribution Width CV 15.4 % (11.6-14.6); RBC Distribution Width SD 46.7 fl (35.1-43.9); Red Blood Count 3.48 M/mm3 (4.2-5.4); White Blood Count 5.4 K/mm3 (4.4-11.0)
[2025-04-25 11:50] LABS: AST(SGOT) 14 U/L (<=31); Alanine Aminotransfer ALT/SGPT 8 U/L (<=34); Albumin, Serum 3.8 g/dL (3.5-5.0); Alkaline Phosphatase 101 U/L (35-104); Anion Gap 13 (5-15); BUN 7 mg/dL (4-19); BUN/Creat Ratio 13.6 RATIO (10-20); Calcium,Total 9.1 mg/dL (7.6-11.0); Carbon Dioxide 18.3 mmol/L (21.0-32.0); Chloride 104 mmol/L (98-108); Globulin 3.6 g/dL (2.2-4.2); Glucose 101 mg/dL (70-99); HIV Nonreactive (Nonreactive); Hepatitis B Surface Antigen Nonreactive (Nonreactive); Hepatitis C Antibody Nonreactive (Nonreactive); Potassium 3.2 mmol/L (3.3-5.1); Syphilis Antibodies Nonreactive (Nonreactive)
== END | disposition home or self-care (01) ==
LOC: BWCLAB 10:12
PROVIDERS: Registered Nurse; Referring Provider Obstetrics & Gynecology; Visit Provider Obstetrics & Gynecology
DX: O09.299 Supervision of pregnancy with other poor reproductive or obstetric history, unspecified trimester (principal); Z3A.00 Weeks of gestation of pregnancy not specified
CPT/HCPCS: 36415; 80053; 85025; 86703; 86762; 86780; 86803; 86850; 86900; 86901; 87340

== ENCOUNTER → 2025-06-07 | Outpatient (CLI) | payer OTHER, SELFPAY ==
[2025-06-07 12:34] LABS: Hematocrit 27.8 % (37-47); Hemoglobin 9.3 g/dL (12.0-15.0); Immature Granulocytes Count 0.020 X10^3/uL (0.0-0.0); Mean Corp Hgb Conc 33.5 g/dL (32-36); Mean Corpuscular Volume 86.3 fL (81-99); Mean Platelet Vol. 11.5 fl (6.2-12.0); NRBC Flagged by Analyzer 0 % (0-5); Platelet Count 216 K/mm3 (150-450); RBC Distribution Width CV 14.3 % (11.6-14.6); RBC Distribution Width SD 45.3 fl (35.1-43.9); Red Blood Count 3.22 M/mm3 (4.2-5.4); White Blood Count 5.2 K/mm3 (4.4-11.0)
[2025-06-07 13:01] LABS: AST(SGOT) 15 U/L (<=31); Alanine Aminotransfer ALT/SGPT 9 U/L (<=34); Albumin, Serum 3.7 g/dL (3.5-5.0); Alkaline Phosphatase 113 U/L (35-104); Anion Gap 9 (5-15); BUN 9 mg/dL (4-19); BUN/Creat Ratio 15.2 RATIO (10-20); Calcium,Total 9.2 mg/dL (7.6-11.0); Carbon Dioxide 19.5 mmol/L (21.0-32.0); Chloride 107 mmol/L (98-108); Globulin 3.5 g/dL (2.2-4.2); Glucose 92 mg/dL (70-99); Potassium 3.5 mmol/L (3.3-5.1)
[2025-06-07 13:05] LABS: Creatinine, Urine (random) 187.00 mg/dL (28.00-217.00); Protein, Urine (Random) 13.0 mg/dL (0.0-12.0); Protein:Creat Ratio 70 mg/g CRE (0-200)
[2025-06-07 13:37] LABS: Iron 40 ug/dL (50-170); Iron Binding Capacity,Total 427 ug/dL (250-450); Iron Binding Capacity,Unsat 387 ug/dL (228-428)
== END | disposition home or self-care (01) ==
LOC: BWCLAB 08:50
PROVIDERS: Obstetrics & Gynecology; Visit Provider Obstetrics & Gynecology
DX: O09.299 Supervision of pregnancy with other poor reproductive or obstetric history, unspecified trimester (principal); O99.019 Anemia complicating pregnancy, unspecified trimester; D64.9 Anemia, unspecified; Z3A.00 Weeks of gestation of pregnancy not specified
CPT/HCPCS: 36415; 80053; 82570; 83021; 83540; 83550; 84156; 85025; 85660

== ENCOUNTER 2025-07-15 10:45 | Outpatient (CLI) | payer OTHER, SELFPAY ==
[2025-07-15 10:59] VITALS: BMI 33.2
[2025-07-15 11:06] VITALS: PULSE 115; O2SAT 99
[2025-07-15 11:07] VITALS: BP 122/79; PULSE 115; RESP 18; TEMP 36.9
[2025-07-15 11:40] LABS: Mucous, Urine 0 SEEN /hpf (<or=2+); Red Blood Cells-Urine 0 SEEN /hpf (0-5)
[2025-07-15 11:43] LABS: Color, Urine Yellow (Yellow); Glucose, Dipstick Normal (Normal); Ketone-Dipstick Negative (Negative); Leukocyte Esterase-Dipstick 500 /ul (Negative); Nitrite-Dipstick Negative (Negative); Occult Blood-Urine Negative /ul (Negative); Protein-Dipstick 15 mg/dl (Negative); Specific Gravity, Urine 1.010 (1.002-1.030); Urine Bilirubin Dipstick Negative (Negative)
[2025-07-15 11:50] LABS: Squamous Epithelial Cells - UA 10-25 SEEN /hpf (5-10)
--- NOTE | 2025-07-15 12:50 | OB.TRI.PN ---
Progress Notes Date of Service: 07/15/25 Progress Note: Patient presents for triage evaluation secondary to back pain FHT: 140 [address]: ocassional Contractions Assessment and plan: back pain uti in Reactive NST, reassuring maternal and status patient discharged to home to follow-up as scheduled. See problem list details for additional plan information. Laboratory Studies: Laboratory Tests 07/15/25 Range/Units 11:15 Urine Color Yellow (Yellow) Urine Clarity Sl. Cloudy (Clear) Urine pH 7.0 (5.0 - 8.0) Ur Specific [place] 1.010 (1.002-1.030) Urine Protein 15 H (Negative) mg/dl Urine Glucose (UA) Normal (Normal) mg/dl Urine Ketones Negative (Negative) mg/dl Urine Occult Blood Negative (Negative) /ul Urine Nitrite Negative (Negative) Urine Bilirubin Negative (Negative) mg/dL Urine Urobilinogen Normal (Normal) mg/dl Ur Leukocyte Esterase 500 H (Negative) /ul Urine RBC 0 SEEN (0-5) /hpf Urine WBC 0-5 SEEN (0-5) /hpf Ur Squamous Epith Cells 10-25 SEEN (5-10) /hpf Urine Bacteria 2+ (None Seen) /hpf Urine Mucus 0 SEEN (<or=2+) /hpf
== END 2025-07-15 12:58 | disposition home or self-care (01) ==
LOC: WPOUT 10:51 → WP 10:52
PROVIDERS: Referring Provider Obstetrics & Gynecology; Visit Provider Obstetrics & Gynecology
DX: O23.40 Unspecified infection of urinary tract in pregnancy, unspecified trimester (principal); O99.891 Other specified diseases and conditions complicating pregnancy; M54.9 Dorsalgia, unspecified; Z3A.00 Weeks of gestation of pregnancy not specified
CPT/HCPCS: 59050; 81001; 87086; 87088; 99221; G0378

== ENCOUNTER → 2025-08-06 | Outpatient (CLI) | payer OTHER, SELFPAY | END | disposition home or self-care (01) | PROVIDERS: Visit Provider Nurse Practitioner Women's Health | DX: R30.0 Dysuria (principal) | CPT/HCPCS: 87086; 87088 ==

== ENCOUNTER → 2025-08-09 | Outpatient (CLI) | payer OTHER, SELFPAY ==
--- NOTE | 2025-08-09 11:44 | US_ITS ---
PROCEDURE: OB LIMITED WITH BIOMETRICS 08/09/2025 REASON FOR EXAM: Q4W GROWTH SCAN STARTING AT 28W TECHNIQUE: Procedure Code: [id number] Modality: US Procedure: OB LIMITED WITH BIOMETRICS COMPARISON: None. FINDINGS FETUS: There is a single living intrauterine gestation. POSITION: position is cephalic. HEART RATE: The heart rate is 153 BPM and regular. BIOMETRICS: Based on composite biometry, the composite estimated gestational age by ultrasound is 28 weeks 5 days. LMP gestational age: 28 weeks 3 days LMP SIVA: October 29, 2025 Sonographic gestational age: 28 weeks 5 days Sonographic SIVA: October 27, 2025 ANATOMIC SURVEY: Detailed anatomy survey not performed. The visualized anatomy is unremarkable, including nose/lips and profile. PLACENTA: The placenta is posterior. Grade 0. No demonstrated evidence of previa. Hypoechoic 3.3 x 1.2 x 3.4 cm fluid collection along the placental edge. AMNIOTIC FLUID: Within normal limits. Maximum vertical pocket (MVP) measuring 5.5cm. CERVIX: Long and closed measuring 3.2cm in length. Unremarkable as visualized. SONOGRAPHIC MEASUREMENTS: Bi-Parietal Diameter (BPD): 7.0 cm; 28 weeks 2 days Head Circumference (HC): 26.7 cm; 29 weeks 1 day Abdominal Circumference (AC): 25.1 cm; 29 weeks 2 days Femur Length (FL): 5.6 cm; 29 weeks 2 days Estimated weight: 1361 grams +/-204 grams (3 lb, 0 oz) EFW percentile: 67.8 % US/OB Limited With Biometrics IMPRESSION: 1. Single living intrauterine gestation estimated at 28 weeks 5 days by today' s ultrasound criteria. Size equals dates. 2. Small marginal placental abruption. Reading Location: [id number]
--- OUTSIDE RECORDS SUMMARY | 2025-08-09 11:48 | XMS RPT_ITS | CCD ---
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 type: does not use well-balanced diet: daily or most days caffeine: Yes Type: carbonated beverages Number of servings: 1 eating out: 1-3 times/week during the past year weight has: remained stable what type of physical activity do you participate in: walking frequency: 1-2 times per week duration: 15-30 minutes/day nguyen/jainism: None seatbelt use: always do you feel safe at home: Yes additional social history: [place] Female Reproductive History Menstrual Ab spontaneous: 1 HPI HPI Chief Complaint: left eyelid swelling and pain Details: NANDA LINDA, is a 29 F who presents to the office today for concerns regarding left eyelid swelling and pain for last 2 to 3 days. She denies any injury or change in vision. This is not worsening, but also no improving. She denies drainage. She denies fever or chills. She states her children have been treated with ear infections and seasonal allergies. She denies previous eye related history or surgeries. She denies such complaints previously. ROS Eyes Eyes: No blurry vision, change in vision, double vision, irritation, discharge (morning crusting), vision loss, visual disturbances or eye pain Neuro Neurology: No visual disturbances Exam Eyes General: appearance normal, both eyes and all related structures Visual Sotelo: normal visual sotelo by confrontation Alignment and Position: alignment normal Periorbital: periorbital findings normal Eyelids: eyelid abnormality left upper eyelid other (stye) Conjunctivae: conjunctivae normal Sclera: sclerae normal Cornea: corneas normal Pupils: PERRL EOM: EOM intact bilaterally Direct ophthalmoscopy: normal light reflex Coding Level of Care Code Off vis,new,level 3 Diagnoses Hordeolum externum of left upper eyelid H00.014 Laterality: left Eyelid: upper Assessment and Plan Assessment and Plan (1) Hordeolum externum (stye): Status: Acute Qualifiers: Laterality: left Eyelid: upper Qualified Code(s): H00.014 - Hordeolum externum left upper eyelid Plan: On physical exam, she appears to have a left upper eyelid stye. This may be contributing to her swelling. Warm compress to the 15 minutes 4 times a day was recommended. She was given a prescription for erythromycin ointment if such conservative measures do not improve symptoms. Encouraged to get plenty of rest, drink lots of clear liquids, and use Tylenol or Ibuprofen (unless contraindicated) for fever and comfort. Patient also educated on other symptomatic management techniques. To be seen in 7-10 days if no improvement; sooner if worsening of symptoms.??? Patient advised of potential red flags and when appropriate to report to the ED.??? Patient verbalized understanding and agreement with all the above. Medications: New erythromycin 1 applic ophthalmic (eye) BID 3.5 grams 0RF Clinical Quality Measures Falls Risk Screening/Assistive Devices Have yo (more content not included)... Normal [facility] Cervical or vagninal specime n microscopic examination by cytology stain (reported asOrdered By: Juliana Hernandez on 12-16-2023 Cytology report Cyto stain Doc (Cvx/Vag) Comment . [facility] Comment on above: The Pap smear is a s creening test designed to aid in thedetection of premalignant and malignant conditions of theuterine cervix. It is not a diagnostic procedure andshould not be used as the sole means of detecting cervicalcancer. Both false-positive and false-negative reports dooccur. Laboratory - CytologyOrdered By: Juliana Hernandez on 12-16-2023 Wood Experimental Mechanic Cyto stain Nom (Cvx/Vag) [ID] Comment . [facility] Comment on above: Zachary Pitts Cyto technologist (ASCP) Laboratory - Miscellaneous t estsOrdered By: Juliana Hernandez on 12-16-2023 Service comment (Unsp spec) [Interp] . . [facility] No Panel InformationOrdered By: Juliana Hernandez on 12-16-2023 Human Papillomavirus Screen Comment . [facility] Comment on above: The HPV DNA reflex c ibis were not met with this specimenresult therefore, no HPV testing was performed.Performed at: [address] [id number] Director: Bernadine Brandt MD, Phone: [phone] Pap Smear QC Review Comment . [facility] Comment on above: Olivia Plata Cytot echnologist (ASCP) Thin prep Papanicolaou smear with manual screeningOrdered By: Juliana Hernandez on 12-16-2023 Thin prep Papanicolaou smear with manual screening Comment . [facility] Comment on above: NEGATIVE FOR INTRAEP ITHELIAL LESION OR MALIGNANCY.THIS SPECIMEN WAS RESCREENED PART OF OUR POULTRY INSEMINATOR PROGRAM. Thin prep Papanicolaou smear with manual screening [facility] Comment on above: Test not performedTh e Thin Prep(R) Pharmaceutical Representative was unable to read this specimen.Therefore a manual review was performed. Absolute lymphocyte countOrd ered By: Juliana Hernandez on 11-02-2023 Lymphocytes Auto (Unsp spec) [#/Vol] 1.08 10*3/uL 0.83-4.51 [facility] Automated lymphocyte count a s percentage of total leukocytesOrdered By: Juliana Hernandez on 11-02-2023 Lymphocytes/100 WBC Auto (Unsp spec) 23.6 % 19-41 [facility] Basophil percentageOrdered B y: Juliana Hernandez on 11-02-2023 Basophils/100 WBC (Bld) 0.4 % 0-1 [facility] Eosinophils/100 WBC (Bld) 0.9 % 0-5 [facility] Hemoglobin (Bld) [Mass/Vol] 9.6 g/dL 12.0-15.0 [facility] Monocytes/100 WBC (Bld) 11.6 % 0-10 [facility] Neutrophils (Bld) [#/Vol] 2.9 10*3/uL 2.0-7.7 [facility] Neutrophils/100 WBC (Bld) 62.6 % 47-70 [facility] WBC (Bld) [#/Vol] 4.6 10*3/uL 4.4-11.0 [facility] Determination of erythrocyte mean corpuscular volume (MCV)Ordered By: Juliana Hernandez on 11-02-2023 MCV (RBC) [Entitic vol] 87.5 fL 81-99 [facility] Erythrocyte distribution wid th ratioOrdered By: Julianairene Hernandez on 11-02-2023 Erythrocyte distribution width (RBC) [Ratio] 15.5 % 11.6-14.6 [facility] Erythrocyte distribution wid th standard deviationOrdered By: Juliana Hernandez on 11-02-2023 Erythrocyte distribution width (RBC) [Entitic vol] 49.7 fL 35.1-43.9 [facility] Hematocrit Auto (Bld) [Volum e fraction]Ordered By: Juliana Hernandez on 03-20-2024 Hematocrit (Bld) [Volume fraction] 29.4 % 37-47 [facility] Immature granulocytes/100 WB C Auto (Bld)Ordered By: Juliana Hernandez on 11-02-2023 Immature granulocytes/100 WBC (Bld) 0.900 % 0.0-0.9 [facility] Comment on above: IG% - Immature Granu locytes (promyelocytes, myelocytes and metamyelocytes) > 1% indicates that a LEFT SHIFT is Present. Laboratory - Hematology and Cell countsOrdered By: Juliana Hernandez on 11-02-2023 MCH (RBC) [Entitic mass] 28.6 pg 27.0-32.0 [facility] MCHC (RBC) [Mass/Vol] 32.7 g/dL 32-36 [facility] Nucleated RBC/100 WBC (Bld) [Ratio] 0 % 0-5 [facility] Platelet mean volume (Bld) [Entitic vol] 11.3 fL 6.2-12.0 [facility] Platelets (Bld) [#/Vol] 166 10*3/uL 150-450 [facility] RBC Auto (Bld) [#/Vol]Ordere d By: Juliana Hernandez on 11-02-2023 RBC (Bld) [#/Vol] 3.36 10*6/uL 4.2-5.4 [facility] Serum Treponema species anti body detectionOrdered By: Juliana Hernandez on 11-02-2023 Treponema sp Ab Ql (S) Non-Reactive [facility] Basophil percentageOrdered B y: Sheron Ernst on 11-01-2023 Hemoglobin (Bld) [Mass/Vol] 10.0 g/dL 12.0-15.0 [facility] WBC (Bld) [#/Vol] 4.9 10*3/uL 4.4-11.0 [facility] Determination of erythrocyte mean corpuscular volume (MCV)Ordered By: Sheron Ernst on 11-01-2023 MCV (RBC) [Entitic vol] 88.0 fL 81-99 [facility] Erythrocyte distribution wid th ratioOrdered By: Sheron Ernst on 11-01-2023 Erythrocyte distribution width (RBC) [Ratio] 15.5 % 11.6-14.6 [facility] Erythrocyte distribution wid th standard deviationOrdered By: Sheron Ernst on 11-01-2023 Erythrocyte distribution width (RBC) [Entitic vol] 50.0 fL 35.1-43.9 [facility] Hematocrit Auto (Bld) [Volum e fraction]Ordered By: Sheron Ernst on 11-01-2023 Hematocrit (Bld) [Volume fraction] 30.8 % 37-47 [facility] Laboratory - Chemistry and C hemistry - challengeOrdered By: Sheron Ernst on 11-01-2023 ALT [Catalytic activity/Vol] 10 U/L 13-56 [facility] - Hematology and Cell countsOrdered By: Sheron Ernst on 11-01-2023 MCH (RBC) [Entitic mass] 28.6 pg 27.0-32.0 [facility] MCHC (RBC) [Mass/Vol] 32.5 g/dL 32-36 [facility] Platelet mean volume (Bld) [Entitic vol] 11.0 fL 6.2-12.0 [facility] Platelets (Bld) [#/Vol] 165 10*3/uL 150-450 [facility] No Panel InformationOrdered By: Sheron Ernst on 11-01-2023 Estimated Creatinine Clearance Calc 231.19 ml/min [facility] Estimated GFR (MDRD) Amer 206 mL/min >60 [facility] Comment on above: GFR Calc Estimated GFR (MDRD) Non-Af Amer 171 mL/min >60 [facility] Comment on above: Non- GFR Calc RBC Auto (Bld) [#/Vol]Ordere d By: Sheron Ernst on 11-01-2023 RBC (Bld) [#/Vol] 3.50 10*6/uL 4.2-5.4 [facility] Serum or plasma creatinine m easurement (mass/volume)Ordered By: Sheron Ernst on 11-01-2023 Creatinine [Mass/Vol] 0.46 mg/dL 0.55-1.02 [facility] Comment on above: The validity of the calculated GFR & GFRAA in patients over 70 years has not been determined. Clinical correlation is essential. Serum or plasma uric acid me asurement (mass/volume)Ordered By: Sheron Ernst on 11-01-2023 Urate [Mass/Vol] 3.4 mg/dL 2.6-6.0 [facility] Comment on above: The drugs N-Acetylcy steine and Metamizole may falsely depress this assay. Thin prep Papanicolaou smear with manual screeningOrdered By: Sheron Ernst on 11-01-2023 Protein (U) [Mass/Vol] 15.2 mg/dL 0.0-11.8 [facility] Thin prep Papanicolaou smear with manual screening 14 U/L 15-37 [facility] Urine creatinine measurement (mass/volume)Ordered By: Sheron Ernst on 11-01-2023 Creatinine (U) [Mass/Vol] 92.70 mg/dL NO RANGE EST. [facility] Urine protein/creatinine mas s ratioOrdered By: Sheron Ernst on 11-01-2023 Protein/Creatinine (U) [Mass ratio] 164 mg/g CRE 0-200 [facility] Absolute lymphocyte countOrd ered By: Juliana Hernandez on 10-28-2023 Lymphocytes Auto (Unsp spec) [#/Vol] 1.11 10*3/uL 0.83-4.51 [facility] Automated lymphocyte count a s percentage of total leukocytesOrdered By: Juliana Hernandez on 10-28-2023 Lymphocytes/100 WBC Auto (Unsp spec) 25.2 % 19-41 [facility] Basophil percentageOrdered B y: Juliana Hernandez on 10-28-2023 Basophils/100 WBC (Bld) 0.5 % 0-1 [facility] Bilirubin [Mass/Vol] 0.30 mg/dL 0.20-1.00 [facility] Comment on above: For patients on eltr ombopag therapy, use of Dimension [place] TBIL is not recommended. Chloride [Moles/Vol] 112 mmol/L 98-107 [facility] Eosinophils/100 WBC (Bld) 0.7 % 0-5 [facility] Glucose [Mass/Vol] 89 mg/dL 74-106 [facility] Hemoglobin (Bld) [Mass/Vol] 9.6 g/dL 12.0-15.0 [facility] Monocytes/100 WBC (Bld) 12.0 % 0-10 [facility] Neutrophils (Bld) [#/Vol] 2.7 10*3/uL 2.0-7.7 [facility] Neutrophils/100 WBC (Bld) 61.1 % 47-70 [facility] Potassium [Moles/Vol] 3.2 mmol/L 3.5-5.1 [facility] Protein [Mass/Vol] 6.7 g/dL 6.4-8.2 [facility] Sodium [Moles/Vol] 140 mmol/L 136-145 [facility] WBC (Bld) [#/Vol] 4.4 10*3/uL 4.4-11.0 [facility] Determination of erythrocyte mean corpuscular volume (MCV)Ordered By: Juliana Hernandez on 10-28-2023 MCV (RBC) [Entitic vol] 87.0 fL 81-99 [facility] Erythrocyte distribution wid th ratioOrdered By: Juliana Hernandez on 10-28-2023 Erythrocyte distribution width (RBC) [Ratio] 15.6 % 11.6-14.6 [facility] Erythrocyte distribution wid th standard deviationOrdered By: Juliana Hernandez on 10-28-2023 Erythrocyte distribution width (RBC) [Entitic vol] 49.8 fL 35.1-43.9 [facility] Hematocrit Auto (Bld) [Volum e fraction]Ordered By: Juliana Hernandez on 10-28-2023 Hematocrit (Bld) [Volume fraction] 29.4 % 37-47 [facility] Immature granulocytes/100 WB C Auto (Bld)Ordered By: Juliana Hernandez on 10-28-2023 Immature granulocytes/100 WBC (Bld) 0.500 % 0.0-0.9 [facility] Comment on above: IG% - Immature Granu locytes (promyelocytes, myelocytes and metamyelocytes) > 1% indicates that a LEFT SHIFT is Present. Laboratory - Chemistry and C hemistry - challengeOrdered By: Juliana Hernandez on 10-28-2023 Albumin/Globulin [Mass ratio] 0.7 {ratio} 0.9-2.4 [facility] ALP [Catalytic activity/Vol] 123 U/L 45-117 [facility] ALT [Catalytic activity/Vol] 11 U/L 13-56 [facility] CO2 [Moles/Vol] 21.0 mmol/L 21.0-32.0 [facility] Globulin (S) [Mass/Vol] 4.0 g/dL 2.2-4.2 [facility] Urea nitrogen/Creatinine [Mass ratio] 6.6 mg/mg 10-20 [facility] Laboratory - Chemistry and C hemistry - challengeon 10-28-2023 Glucose Ql (U) Negative [facility] Laboratory - Hematology and Cell countsOrdered By: Juliana Hernandez on 10-28-2023 MCH (RBC) [Entitic mass] 28.4 pg 27.0-32.0 [facility] MCHC (RBC) [Mass/Vol] 32.7 g/dL 32-36 [facility] Nucleated RBC/100 WBC (Bld) [Ratio] 0 % 0-5 [facility] Platelet mean volume (Bld) [Entitic vol] 11.5 fL 6.2-12.0 [facility] Platelets (Bld) [#/Vol] 153 10*3/uL 150-450 [facility] Laboratory - Urinalysison Protein Ql (U) Negative [facility] No Panel InformationOrdered By: Juliana Hernandez on 10-28-2023 Estimated GFR (MDRD) Amer 213 mL/min >60 [facility] Comment on above: GFR Calc Estimated GFR (MDRD) Non-Af Amer 176 mL/min >60 [facility] Comment on above: Non- GFR Calc Group B Streptococcus Culture Group B Beta Streptococcus is not isolated. [facility] RBC Auto (Bld) [#/Vol]Ordere d By: Juliana Hernandez on 10-28-2023 RBC (Bld) [#/Vol] 3.38 10*6/uL 4.2-5.4 [facility] Serum or plasma calcium valerie urement (mass/volume)Ordered By: Juliana Hernandez on 10-28-2023 Calcium [Mass/Vol] 8.8 mg/dL 8.5-10.1 [facility] Serum or plasma creatinine m easurement (mass/volume)Ordered By: Juliana Hernandez on 10-28-2023 Creatinine [Mass/Vol] 0.45 mg/dL 0.55-1.02 [facility] Comment on above: The validity of the calculated GFR & GFRAA in patients over 70 years has not been determined. Clinical correlation is essential. Serum or plasma urea nitroge n measurement (mass/volume)Ordered By: Juliana Hernandez on 10-28-2023 Urea nitrogen [Mass/Vol] 3 mg/dL 7-18 [facility] Thin prep Papanicolaou smear with manual screeningOrdered By: Juliana Hernandez on 10-28-2023 Thin prep Papanicolaou smear with manual screening 2.7 g/dL 3.2-5.0 [facility] Thin prep Papanicolaou smear with manual screening 14 U/L 15-37 [facility] Thin prep Papanicolaou smear with manual screening 7 5-15 [facility] Protein (U) [Mass/Vol] 15.4 mg/dL 0.0-11.8 [facility] Urine creatinine measurement (mass/volume)Ordered By: Juliana Hernandez on 10-28-2023 Creatinine (U) [Mass/Vol] 82.50 mg/dL NO RANGE EST. [facility] Urine protein/creatinine mas s ratioOrdered By: Juliana Hernandez on 10-28-2023 Protein/Creatinine (U) [Mass ratio] 187 mg/g CRE 0-200 [facility] Absolute lymphocyte countOrd ered By: Juliana Hernandez on 10-21-2023 Lymphocytes Auto (Unsp spec) [#/Vol] 1.00 10*3/uL 0.83-4.51 [facility] Automated lymphocyte count a s percentage of total leukocytesOrdered By: Juliana Hernandez on 10-21-2023 Lymphocytes/100 WBC Auto (Unsp spec) 17.7 % 19-41 [facility] Basophil percentageOrdered B y: Juliana Hernandez on 10-21-2023 Basophils/100 WBC (Bld) 0.2 % 0-1 [facility] Bilirubin [Mass/Vol] 0.20 mg/dL 0.20-1.00 [facility] Comment on above: For patients on eltr ombopag therapy, use of Dimension [place] TBIL is not recommended. Chloride [Moles/Vol] 111 mmol/L 98-107 [facility] Eosinophils/100 WBC (Bld) 0.5 % 0-5 [facility] Glucose [Mass/Vol] 94 mg/dL 74-106 [facility] Hemoglobin (Bld) [Mass/Vol] 9.4 g/dL 12.0-15.0 [facility] Monocytes/100 WBC (Bld) 12.2 % 0-10 [facility] Neutrophils (Bld) [#/Vol] 3.9 10*3/uL 2.0-7.7 [facility] Neutrophils/100 WBC (Bld) 68.5 % 47-70 [facility] Potassium [Moles/Vol] 3.3 mmol/L 3.5-5.1 [facility] Protein [Mass/Vol] 6.8 g/dL 6.4-8.2 [facility] Sodium [Moles/Vol] 139 mmol/L 136-145 [facility] WBC (Bld) [#/Vol] 5.6 10*3/uL 4.4-11.0 [facility] Determination of erythrocyte mean corpuscular volume (MCV)Ordered By: Juliana Hernandez on 10-21-2023 MCV (RBC) [Entitic vol] 88.9 fL 81-99 [facility] Erythrocyte distribution wid th ratioOrdered By: Juliana Hernandez on 10-21-2023 Erythrocyte distribution width (RBC) [Ratio] 15.6 % 11.6-14.6 [facility] Erythrocyte distribution wid th standard deviationOrdered By: Juliana Hernandez on 10-21-2023 Erythrocyte distribution width (RBC) [Entitic vol] 50.5 fL 35.1-43.9 [facility] Hematocrit Auto (Bld) [Volum e fraction]Ordered By: Juliana Hernandez on 10-21-2023 Hematocrit (Bld) [Volume fraction] 29.7 % 37-47 [facility] Immature granulocytes/100 WB C Auto (Bld)Ordered By: Juliana Hernandez on 10-21-2023 Immature granulocytes/100 WBC (Bld) 0.900 % 0.0-0.9 [facility] Comment on above: IG% - Immature Granu locytes (promyelocytes, myelocytes and metamyelocytes) > 1% indicates that a LEFT SHIFT is Present. Laboratory - Chemistry and C hemistry - challengeOrdered By: Juliana Hernandez on 10-21-2023 Albumin/Globulin [Mass ratio] 0.6 {ratio} 0.9-2.4 [facility] ALP [Catalytic activity/Vol] 112 U/L 45-117 [facility] ALT [Catalytic activity/Vol] 14 U/L 13-56 [facility] CO2 [Moles/Vol] 21.0 mmol/L 21.0-32.0 [facility] Globulin (S) [Mass/Vol] 4.2 g/dL 2.2-4.2 [facility] Urea nitrogen/Creatinine [Mass ratio] 8.8 mg/mg 10-20 [facility] Laboratory - Chemistry and C hemistry - challengeon 10-21-2023 Glucose Ql (U) Negative [facility] Laboratory - Hematology and Cell countsOrdered By: Juliana Hernandez on 10-21-2023 MCH (RBC) [Entitic mass] 28.1 pg 27.0-32.0 [facility] MCHC (RBC) [Mass/Vol] 31.6 g/dL 32-36 [facility] Nucleated RBC/100 WBC (Bld) [Ratio] 0 % 0-5 [facility] Platelet mean volume (Bld) [Entitic vol] 10.9 fL 6.2-12.0 [facility] Platelets (Bld) [#/Vol] 168 10*3/uL 150-450 [facility] Laboratory - Urinalysison Protein Ql (U) 1+ [facility] No Panel InformationOrdered By: Juliana Hernandez on 10-21-2023 Estimated GFR (MDRD) Amer 211 mL/min >60 [facility] Comment on above: GFR Calc Estimated GFR (MDRD) Non-Af Amer 175 mL/min >60 [facility] Comment on above: Non- GFR Calc RBC Auto (Bld) [#/Vol]Ordere d By: Juliana Hernandez on 10-21-2023 RBC (Bld) [#/Vol] 3.34 10*6/uL 4.2-5.4 [facility] Serum or plasma calcium valerie urement (mass/volume)Ordered By: Juliana Hernandez on 10-21-2023 Calcium [Mass/Vol] 9.6 mg/dL 8.5-10.1 [facility] Serum or plasma creatinine m easurement (mass/volume)Ordered By: Juliana Hernandez on 10-21-2023 Creatinine [Mass/Vol] 0.46 mg/dL 0.55-1.02 [facility] Comment on above: The validity of the calculated GFR & GFRAA in patients over 70 years has not been determined. Clinical correlation is essential. Serum or plasma urea nitroge n measurement (mass/volume)Ordered By: Juliana Hernandez on 10-21-2023 Urea nitrogen [Mass/Vol] 4 mg/dL 7-18 [facility] Thin prep Papanicolaou smear with manual screeningOrdered By: Juliana Hernandez on 10-21-2023 Thin prep Papanicolaou smear with manual screening 2.6 g/dL 3.2-5.0 [facility] Thin prep Papanicolaou smear with manual screening 16 U/L 15-37 [facility] Thin prep Papanicolaou smear with manual screening 7 5-15 [facility] Bilirubin Test strip Ql (U)O rdered By: Lurdes Barrera on 10-16-2023 Bilirubin Ql (U) Negative Negative [facility] Ketones Test strip Ql (U)Ord ered By: Lurdes Barrera on 10-16-2023 Ketones Ql (U) Negative Negative [facility] Nitrite Test strip Ql (U)Ord ered By: Lurdes Barrera on 10-16-2023 Nitrite Ql (U) Negative Negative [facility] Protein Test strip Ql (U)Ord ered By: Lurdes Barrera on 10-16-2023 Protein Ql (U) 30 mg/dl Negative [facility] Urine blood detectionOrdered By: Lurdes Barrera on 10-16-2023 RBC Ql (U) 25 /ul Negative [facility] Urine clarityOrdered By: Unique Barrera on 10-16-2023 Clarity (U) Clear Clear [facility] Urine color determinationOrd ered By: Lurdes Barrera on 10-16-2023 Color (U) Yellow Yellow [facility] Urine glucose detectionOrder ed By: Lurdes Barrera on 10-16-2023 Glucose Ql (U) Normal mg/dl Normal [facility] Urine leukocyte esterase det ection by dipstickOrdered By: Lurdes Barrera on 10-16-2023 Leukocyte esterase Test strip Ql (U) 25 /ul Negative [facility] Urine pHOrdered By: Lurdes Barrera on 10-16-2023 pH (U) 7.0 [pH] 5.0 - 8.0 [facility] Urine specific gravity measu rementOrdered By: Lurdesghulam Barrera on 10-16-2023 Specific gravity (U) [Rel density] 1.015 1.002-1.030 [facility] Urine urobilinogen measureme ntOrdered By: Lurdes Barrera on 10-16-2023 Urobilinogen Ql (U) 1 mg/dl Normal [facility] Absolute lymphocyte countOrd ered By: Sheron Ernst on 10-13-2023 Lymphocytes Auto (Unsp spec) [#/Vol] 1.17 10*3/uL 0.83-4.51 [facility] Automated lymphocyte count a s percentage of total leukocytesOrdered By: Sheron Ernst on 10-13-2023 Lymphocytes/100 WBC Auto (Unsp spec) 24.0 % 19-41 [facility] Basophil percentageOrdered B y: Sheron Ernst on 10-13-2023 Basophils/100 WBC (Bld) 0.2 % 0-1 [facility] Bilirubin [Mass/Vol] 0.20 mg/dL 0.20-1.00 [facility] Comment on above: For patients on eltr ombopag therapy, use of Dimension [place] TBIL is not recommended. Chloride [Moles/Vol] 112 mmol/L 98-107 [facility] Eosinophils/100 WBC (Bld) 0.6 % 0-5 [facility] Glucose [Mass/Vol] 81 mg/dL 74-106 [facility] Hemoglobin (Bld) [Mass/Vol] 9.5 g/dL 12.0-15.0 [facility] Monocytes/100 WBC (Bld) 12.7 % 0-10 [facility] Neutrophils (Bld) [#/Vol] 3.0 10*3/uL 2.0-7.7 [facility] Neutrophils/100 WBC (Bld) 61.7 % 47-70 [facility] Potassium [Moles/Vol] 3.3 mmol/L 3.5-5.1 [facility] Protein [Mass/Vol] 6.9 g/dL 6.4-8.2 [facility] Sodium [Moles/Vol] 139 mmol/L 136-145 [facility] WBC (Bld) [#/Vol] 4.9 10*3/uL 4.4-11.0 [facility] Determination of erythrocyte mean corpuscular volume (MCV)Ordered By: Sheron Ernst on 10-13-2023 MCV (RBC) [Entitic vol] 89.3 fL 81-99 [facility] Erythrocyte distribution wid th ratioOrdered By: Sheron Ernst on 10-13-2023 Erythrocyte distribution width (RBC) [Ratio] 15.8 % 11.6-14.6 [facility] Erythrocyte distribution wid th standard deviationOrdered By: Sheron Ernst on 10-13-2023 Erythrocyte distribution width (RBC) [Entitic vol] 51.2 fL 35.1-43.9 [facility] Hematocrit Auto (Bld) [Volum e fraction]Ordered By: Sheron Ernst on 10-13-2023 Hematocrit (Bld) [Volume fraction] 29.1 % 37-47 [facility] Immature granulocytes/100 WB C Auto (Bld)Ordered By: Sheron Ernst on 10-13-2023 Immature granulocytes/100 WBC (Bld) 0.800 % 0.0-0.9 [facility] Comment on above: IG% - Immature Granu locytes (promyelocytes, myelocytes and metamyelocytes) > 1% indicates that a LEFT SHIFT is Present. Laboratory - Chemistry and C hemistry - challengeOrdered By: Sheron Ernst on 10-13-2023 Albumin/Globulin [Mass ratio] 0.6 {ratio} 0.9-2.4 [facility] ALP [Catalytic activity/Vol] 112 U/L 45-117 [facility] ALT [Catalytic activity/Vol] 13 U/L 13-56 [facility] CO2 [Moles/Vol] 21.0 mmol/L 21.0-32.0 [facility] Globulin (S) [Mass/Vol] 4.2 g/dL 2.2-4.2 [facility] Urea nitrogen/Creatinine [Mass ratio] 10.6 mg/mg 10-20 [facility] Laboratory - Hematology and Cell countsOrdered By: Sheron Ernst on 10-13-2023 MCH (RBC) [Entitic mass] 29.1 pg 27.0-32.0 [facility] MCHC (RBC) [Mass/Vol] 32.6 g/dL 32-36 [facility] Nucleated RBC/100 WBC (Bld) [Ratio] 0 % 0-5 [facility] Platelet mean volume (Bld) [Entitic vol] 11.6 fL 6.2-12.0 [facility] Platelets (Bld) [#/Vol] 178 10*3/uL 150-450 [facility] No Panel InformationOrdered By: Sheron Ernst on 10-13-2023 Estimated GFR (MDRD) Amer 203 mL/min >60 [facility] Comment on above: GFR Calc Estimated GFR (MDRD) Non-Af Amer 168 mL/min >60 [facility] Comment on above: Non- GFR Calc RBC Auto (Bld) [#/Vol]Ordere d By: Sheron Ernst on 10-13-2023 RBC (Bld) [#/Vol] 3.26 10*6/uL 4.2-5.4 [facility] Serum or plasma calcium valerie urement (mass/volume)Ordered By: Sheron Ernst on 10-13-2023 Calcium [Mass/Vol] 8.9 mg/dL 8.5-10.1 [facility] Serum or plasma creatinine m easurement (mass/volume)Ordered By: Sheron Ernst on 10-13-2023 Creatinine [Mass/Vol] 0.47 mg/dL 0.55-1.02 [facility] Comment on above: The validity of the calculated GFR & GFRAA in patients over 70 years has not been determined. Clinical correlation is essential. Serum or plasma urea nitroge n measurement (mass/volume)Ordered By: Sheron Ernst on 10-13-2023 Urea nitrogen [Mass/Vol] 5 mg/dL 7-18 [facility] Thin prep Papanicolaou smear with manual screeningOrdered By: Sheron Ernst on 10-13-2023 Protein (U) [Mass/Vol] 14.5 mg/dL 0.0-11.8 [facility] Thin prep Papanicolaou smear with manual screening 2.7 g/dL 3.2-5.0 [facility] Thin prep Papanicolaou smear with manual screening 19 U/L 15-37 [facility] Thin prep Papanicolaou smear with manual screening 6 5-15 [facility] Urine creatinine measurement (mass/volume)Ordered By: Sheron Ernst on 10-13-2023 Creatinine (U) [Mass/Vol] 92.10 mg/dL NO RANGE EST. [facility] Urine protein/creatinine mas s ratioOrdered By: Sheron Ernst on 10-13-2023 Protein/Creatinine (U) [Mass ratio] 157 mg/g CRE 0-200 [facility] Basophil percentageOrdered B y: Juliana Hernandez on 10-11-2023 Potassium [Moles/Vol] 2.6 mmol/L 3.5-5.1 [facility] Comment on above: Critical Result(s) C alled at: 08:56:44 10/11/2023 by: Laury Chandler. Results read back by same. Quantitative serum or plasma 3 hour gestational glucose tolerance panelOrdered By: Lurdes Barrera on 10-11-2023 Glucose tolerance 3 hours gestational panel See comment [facility] Comment on above: FASTING 94 Col: 09/16 03/07 0630GLUCOSE TOLERANCE TEST FOR Reference Interval GESTATIONAL DIABETES Fasting <105 mg/dL 1 hour <190 mg/dl 2 hour <165 mg/dl 3 hour <145 mg/dl 1 HR GLU 185 Col: 10/11/23 0731 2 HR GLU 132 Col: 10/11/23 0832 3 HR GLU 135 Col: 10/11/23 0934 Absolute lymphocyte countOrd ered By: Maribel Lackey on 10-07-2023 Lymphocytes Auto (Unsp spec) [#/Vol] 0.99 10*3/uL 0.83-4.51 [facility] Automated lymphocyte count a s percentage of total leukocytesOrdered By: Maribel Lackey on 10-07-2023 Lymphocytes/100 WBC Auto (Unsp spec) 18.3 % 19-41 [facility] Basophil percentageOrdered B y: Maribel Lackey on 10-07-2023 Basophils/100 WBC (Bld) 0.4 % 0-1 [facility] Bilirubin [Mass/Vol] 0.20 mg/dL 0.20-1.00 [facility] Comment on above: For patients on eltr ombopag therapy, use of Dimension [place] TBIL is not recommended. Chloride [Moles/Vol] 109 mmol/L 98-107 [facility] Eosinophils/100 WBC (Bld) 0.7 % 0-5 [facility] Glucose [Mass/Vol] 89 mg/dL 74-106 [facility] Hemoglobin (Bld) [Mass/Vol] 9.4 g/dL 12.0-15.0 [facility] Monocytes/100 WBC (Bld) 11.1 % 0-10 [facility] Neutrophils (Bld) [#/Vol] 3.7 10*3/uL 2.0-7.7 [facility] Neutrophils/100 WBC (Bld) 68.4 % 47-70 [facility] Potassium [Moles/Vol] 3.2 mmol/L 3.5-5.1 [facility] Protein [Mass/Vol] 7.1 g/dL 6.4-8.2 [facility] Sodium [Moles/Vol] 140 mmol/L 136-145 [facility] WBC (Bld) [#/Vol] 5.4 10*3/uL 4.4-11.0 [facility] Determination of erythrocyte mean corpuscular volume (MCV)Ordered By: Maribel Lackey on 10-07-2023 MCV (RBC) [Entitic vol] 88.9 fL 81-99 [facility] Erythrocyte distribution wid th ratioOrdered By: Maribel Lackey on 10-07-2023 Erythrocyte distribution width (RBC) [Ratio] 15.6 % 11.6-14.6 [facility] Erythrocyte distribution wid th standard deviationOrdered By: Maribel Lackey on 10-07-2023 Erythrocyte distribution width (RBC) [Entitic vol] 49.3 fL 35.1-43.9 [facility] Hematocrit Auto (Bld) [Volum e fraction]Ordered By: Maribel Lackey on 10-07-2023 Hematocrit (Bld) [Volume fraction] 29.7 % 37-47 [facility] Immature granulocytes/100 WB C Auto (Bld)Ordered By: Maribel Lackey on 10-07-2023 Immature granulocytes/100 WBC (Bld) 1.100 % 0.0-0.9 [facility] Comment on above: IG% - Immature Granu locytes (promyelocytes, myelocytes and metamyelocytes) > 1% indicates that a LEFT SHIFT is Present. Laboratory - Chemistry and C hemistry - challengeOrdered By: Maribel Lackey on 10-07-2023 Albumin/Globulin [Mass ratio] 0.6 {ratio} 0.9-2.4 [facility] ALP [Catalytic activity/Vol] 107 U/L 45-117 [facility] ALT [Catalytic activity/Vol] 12 U/L 13-56 [facility] CO2 [Moles/Vol] 22.0 mmol/L 21.0-32.0 [facility] Globulin (S) [Mass/Vol] 4.4 g/dL 2.2-4.2 [facility] Urea nitrogen/Creatinine [Mass ratio] 6.6 mg/mg 10-20 [facility] Laboratory - Chemistry and C hemistry - challengeon 10-07-2023 Glucose Ql (U) Negative [facility] Laboratory - Hematology and Cell countsOrdered By: Maribel Lackey on 10-07-2023 MCH (RBC) [Entitic mass] 28.1 pg 27.0-32.0 [facility] MCHC (RBC) [Mass/Vol] 31.6 g/dL 32-36 [facility] Nucleated RBC/100 WBC (Bld) [Ratio] 0 % 0-5 [facility] Platelet mean volume (Bld) [Entitic vol] 11.5 fL 6.2-12.0 [facility] Platelets (Bld) [#/Vol] 187 10*3/uL 150-450 [facility] Laboratory - Urinalysison Protein Ql (U) Trace [facility] Comment on above: Office Urine Protein previously reported as Negative No Panel InformationOrdered By: Maribel Lackey on 10-07-2023 Estimated GFR (MDRD) Amer 210 mL/min >60 [facility] Comment on above: GFR Calc Estimated GFR (MDRD) Non-Af Amer 174 mL/min >60 [facility] Comment on above: Non- GFR Calc RBC Auto (Bld) [#/Vol]Ordere d By: Maribel Lackey on 10-07-2023 RBC (Bld) [#/Vol] 3.34 10*6/uL 4.2-5.4 [facility] Serum or plasma calcium valerie urement (mass/volume)Ordered By: Maribel Lackey on 10-07-2023 Calcium [Mass/Vol] 9.1 mg/dL 8.5-10.1 [facility] Serum or plasma creatinine m easurement (mass/volume)Ordered By: Maribel Lackey on 10-07-2023 Creatinine [Mass/Vol] 0.46 mg/dL 0.55-1.02 [facility] Comment on above: The validity of the calculated GFR & GFRAA in patients over 70 years has not been determined. Clinical correlation is essential. Serum or plasma urea nitroge n measurement (mass/volume)Ordered By: Maribel Lackey on 10-07-2023 Urea nitrogen [Mass/Vol] 3 mg/dL 7-18 [facility] Thin prep Papanicolaou smear with manual screeningOrdered By: Maribel Lackey on 10-07-2023 Protein (U) [Mass/Vol] 21.4 mg/dL 0.0-11.8 [facility] Thin prep Papanicolaou smear with manual screening 2.7 g/dL 3.2-5.0 [facility] Thin prep Papanicolaou smear with manual screening 12 U/L 15-37 [facility] Thin prep Papanicolaou smear with manual screening 9 5-15 [facility] Urine creatinine measurement (mass/volume)Ordered By: Maribel Lackey on 10-07-2023 Creatinine (U) [Mass/Vol] 162.00 mg/dL NO RANGE EST. [facility] Urine protein/creatinine mas s ratioOrdered By: Maribel Lackey on 10-07-2023 Protein/Creatinine (U) [Mass ratio] 132 mg/g CRE 0-200 [facility] Bacteria identified Cx Nom ( U)Ordered By: Tawnya Alvarez on 09-28-2023 Interpretation and review of laboratory results Normal [facility] Laboratory - Chemistry and C hemistry - challengeon 09-28-2023 Protein (24H U) [Mass/Time] 689 High [facility] Laboratory - Microbiology an d Antimicrobial susceptibilityOrdered By: Tawnya Alvarez on 09-28-2023 Bacteria identified Cx Nom (U) Normal urogenital moises present [facility] No Panel Informationon 09-28 Interpretation and review of laboratory results Abnormal [facility] Nursing Noteon 09-28-2023 Nursing Note Follow up appointmen t with your doctor/bereavement coordinator - Keep next scheduled appointment Activity - Normal Activity Call your doctor/bereavement coordinator if you have: - leaking fluid - [...] visit on 09/28/23 . Kody Milton RN [facility] Progress Noteon 09-28-2023 Progress Note --- Attestation signed by Viktoriya Sellers MD at 09/28/2023 4:24 PM Maternal Medicine attending attestation: I reviewed [...] today with close follow up weekly in [place] with weekly labs and surveillance for pre-eclampsia. [...] any concerns to return. Cat 1 tracing Maternal Medicine Service Resident Progress Note 09/28/2023 [...] 98 Resp: 18 18 16 Temp: 37.4 ?C (99.3 ?F) 36.7 ?C (98 ?F) 36.7 ?C (98 ?F) TempSrc: Temporal Temporal Temporal SpO2: 98% 99% [...] PRN Stephanie Atkinson, DO 650 mg at 09/27/232050 famotidine (Pepcid) 20 mg in sodium chloride (PF) 0.9 % 10 mL injection 20 mg IntraVENous 2 times per day Pauline Bonifacioa, DO 20 mg at 09/27/232043 iron sucrose (Venofer) 200 mg in sodium chloride 0.9 % 100 mL IVPB 200 mg IntraVENous q24h Paulinejeff Valdovinosa, DO 300 mL/hr at 09/27/23 182 200 mg at 09/27/23 182 ondansetron ODT (Zofran-ODT) disintegrating tablet 4 mg 4 mg Oral q8h PRN Stephanie Atkinson DO Or ondansetron (Zofran) injection 4 mg 4 mg IntraVENous q6h PRN Stephanie Atkinson, DO Polyvinyl Alcohol-Povidone 5-6 MG/ML solution 1 drop 1 drop Both Eyes PRN Robb López MD vitamin tablet 1 tablet Oral Daily Stephanie Atkinson, DO 1 tablet at 09/27/23 0831 sodium chloride 0.9 % infusion 5-250 mL/hr IntraVENous PRN Stephanie Atkinson, DO sodium chloride 0.9% (NS) flush 10 mL 10 mL IntraVENous 2 times per day Stephanie Atkinson, DO 10 mL at 09/27/232044 sodium chloride 0.9% (NS) flush 10 mL [...] proteinuria - Bps have remained normotensive this admissio (more content not included)... Normal [facility] BASIC METABOLIC PANELon 09-15 Anion gap [Moles/Vol] 3 mmol/L Normal 3-13 [facility] Comment on above: Performed By: #### L [id number] ####Electronic Components Assembler: JEFFERSON GARVIN ([id number])[address] Calcium [Mass/Vol] 8.7 mg/dL Normal 8.4-10.4 [facility] Comment on above: Performed By: #### L AB15 ####Electronic Components Assembler: JEFFERSON GARVIN ([id number])[facility])[address] [place] [address] Chloride [Moles/Vol] 109 mmol/L High 98-107 [facility] Comment on above: Performed By: #### L AB15 ####Electronic Components Assembler: JEFFERSON GARVIN ([id number])[facility])[address] [place] [address] CO2 [Moles/Vol] 22 mmol/L Normal 22-30 [facility] Comment on above: Performed By: #### L AB15 ####Electronic Components Assembler: JEFFERSON [id number])[facility])[address] [place] [address] Creatinine [Mass/Vol] 0.45 mg/dL Low 0.52-1.04 [facility] Comment on above: Performed By: #### L AB15 ####Electronic Components Assembler: JEFFERSON [id number])[facility] ([facility])[address] [place] [address] GLOMERULAR FILTRATION RATE ML/MIN/1.73 SQ M.PREDICTED >90.0 Normal >60.0 [facility] Comment on above: Result Comment: Calc ulation based on the Chronic Kidney Disease Epidemiology Collaboration (CKD-EPI) equation refit without adjustment for race Performed By: #### L AB15 ####Electronic Components Assembler: JEFFERSON GARVIN ([id number])[facility] ([facility])[address] [place] [address] Glucose [Mass/Vol] 96 mg/dL Normal 70-100 [facility] Comment on above: Performed By: #### L AB15 ####Electronic Components Assembler: JEFFERSON GARVIN ([id number])[facility] ([facility])[address] [place] [address] Potassium [Moles/Vol] 3.7 mmol/L Normal 3.5-5.1 [facility] Comment on above: Performed By: #### L AB15 ####Electronic Components Assembler: JEFFERSON GARVIN ([id number])[facility] ([facility])[address] [place] [address] Sodium [Moles/Vol] 135 mmol/L Normal 135-145 [facility] Comment on above: Performed By: #### L AB15 ####Electronic Components Assembler: JEFFERSON GARVIN ([id number])[facility])[address] [place] [address] Urea nitrogen [Mass/Vol] 6 mg/dL Low 7-17 [facility] Comment on above: Performed By: #### L AB15 ####Electronic Components Assembler: JEFFERSON GARVIN ([id number])[facility] ([facility])[address] [place] [address] Basic metabolic 1998 panelon 09-27-2023 Anion gap [Moles/Vol] 3 mmol/L 3 - 13 mmol/L [facility] Calcium [Mass/Vol] 8.7 mg/dL 8.4 - 10. 4 mg/dL [facility] Chloride [Moles/Vol] 109 mmol/L High 98 - 10 7 mmol/L [facility] CO2 [Moles/Vol] 22 mmol/L 22 - 30 mmol/L [facility] Creatinine [Mass/Vol] 0.45 mg/dL Low 0.52 - 1.04 mg/dL [facility] GFR/1.73 sq M.predicted MDRD (S/P/Bld) [Vol rate/Area] - PINF [facility] Comment on above: Calculation based on the Chronic Kidney Disease Epidemiology Collaboration (CKD-EPI) equation refit without adjustment for race Glucose [Mass/Vol] 96 mg/dL 70 - 100 mg/dL [facility] Interpretation and review of laboratory results Abnormal [facility] Potassium [Moles/Vol] 3.7 mmol/L 3.5 - 5.1 mmol/L [facility] Sodium [Moles/Vol] 135 mmol/L 135 - 145 mmol/L [facility] Urea nitrogen [Mass/Vol] 6 mg/dL Low 7 - 17 mg/dL [facility] CARECOORDon 09-27-2023 CARECOORD Date: 09/27/2023 Name: Jo Linda : 1995 [facility] Information: [place] Patient Information Primary Caregiver: Self Accompanied by/Relationship: S/O;Family Marital Status: Support System: SO/Family Buddhism/Cultural Factors: None Activities of Daily Living Communication: [...] place to sleep or slept in a senior care (including now)? No Transportation Needs Has the [...] N/A Developmental Delay: N/A Children's Services: N/A [facility] Consulton 09-27-2023 Consult OPHTHALMOLOGY CONSUL T Date of Service: 09/27/2023 Attending Provider: Stephanie [...] Anxiety Depression Hemiplegia (CMS/HCC) ([facility]) Hypertension Preeclampsia, severe, third trimester 09/16/2023 Seizures ([facility]) last seizure in 2019 Stroke ([facility]) 1995 stroke as a baby which resulted [...] 121/77 Pulse: 103 Resp: 18 Temp: 37.4 ?C (99.3 ?F) SpO2: 98% Physical Exam: VISUAL ACUITY near [...] chart, data, labs radiology reports. Follow up: ORBB López MD Ophthalmology 09/27/2023 2:42 PM [facility] ECG 12-LEADon 09-27-2023 ECG 12-LEAD IMPRESSION: Sinus rhythm Normal EKG Electronically Signed On 09-27-2023 12:57:31 EST by Morgan Flores [facility] IDNon 09-27-2023 IDN The patient is Moderately Stable - Low risk of patient condition declining or worsening The patient's goals for the shift include goal not met The clinical goals for the shift include goal met Normal [facility] No Panel InformationOrdered By: Morgan Flores on 09-27-2023 P [place] 37 degrees [employer] Phone: MD Interval 149 ms [employer] Phone: QRS [place] 39 degrees [employer] Phone: QRSD Interval 101 ms [employer] Phone: QT Interval 402 ms [employer] Phone: QTC Interval 478 ms [facility] [employer] Work Phone: [employer] [place] 26 degrees [employer] Phone: [employer] Phone: No Panel Informationon 09-27 Sinus rhythm Normal EKG Electronically Signed On 09-27-2023 12:57:31 EST by Morgan Flores Morgan Houston MD - 09/27/2023 IMPRESSION: Sinus rhythm Normal EKG Electronically Signed On 09-27-2023 12:57:31 EST by Morgan Flores [facility] PROTEIN, URINE, 24 HOURon TOTAL PROTEIN, UR 24HR 689 mg/24 H High 42-225 S [facility] Comment on above: Performed By: #### L [id number] #### Electronic Components Assembler: JEFFERSON GARVIN ([id number]) [facility] ([address] Progress Noteon 09-27-2023 Progress Note --- Attestation signed by Viktoriya Sellers MD at 09/27/2023 1:06 PM I independently saw and evaluated the patient. I agree with the findings and plan of care as documented in the resident's note. No complaints this am, no headache or visual change 28 yr old at 31 6/7 GA with the following: Chest pain, headache and history of gestational hypertension transported to [facility] from [facility] stable overnight without concerns other than some [...] call gestational proteinuria only. Talked with Dr. Quijano as well about the plan and will observe today to ensure no repeat concerns I spent 30 minutes in the visit today on the floor reviewing the chart, discussing the case with the residency staff and nursing Viktoriya Sellers MD Maternal Medicine Service Resident Progress Note 09/27/2023 [...] mg 650 mg Oral q4h PRN Stephanie Rosenthalon, DO 650 mg at 09/26/232004 famotidine (Pepcid) 20 mg in sodium chloride (PF) 0.9 % 10 mL injection 20 mg IntraVENous 2 times per day Paulinejeff Valdovinosa, DO 20 mg at 09/26/232004 iron sucrose (Venofer) 200 mg in sodium chloride 0.9 % 100 mL IVPB 200 mg IntraVENous q24h Paulinejeff Valdovinosa, DO Stopped at 09/26/23 1853 ondansetron ODT (Zofran-ODT) disintegrating tablet 4 mg 4 mg Oral q8h PRN Stephanie Atkinson, DO Or ondansetron (Zofran) injection 4 mg 4 mg IntraVENous q6h PRN Stephanie Atkinson, DO vitamin tablet 1 tablet Oral Daily Stephanie Atkinson, DO 1 tablet at 09/26/23 1646 sodium chloride 0.9 % infusion 5-250 mL/hr IntraVENous PRN Stephanie Rosenthalon, DO sodium chloride 0.9% (NS) flush 10 mL 10 mL IntraVENous 2 times per day Stephanie Atkinson, DO 10 mL at 09/26/232004 sodium chloride 0.9% (NS) flush 10 mL 10 mL IntraVENous PRN Stephanie Atkinson, DO Assessment/Plan: Jo Linda is a 28 [...] Deficits - History of seizures related to maye (more content not included)... Normal [facility] Vital signsOrdered By: Lexi Flores on 09-27-2023 Heart rate 85 /min bpm [facility] Work Phone: A variant subtype Ab Qlon [facility] ANTIBODY IDENTIFICATIONon ANTIBODY IDENTIFICATION DPASSIVE Normal S [facility] Comment on above: Order Comment: HOLD. Specimen is valid for 3 days - nurse to verify valid specimen Performed By: #### L [id number] #### Electronic Components Assembler: JEFFERSON GARVIN ([id number]) [facility] ([facility]) [address] [place] [address] BLOOD TYPE AND SCREEN GELon 09-26-2023 ABO GROUPING B Normal [facility] Comment on above: Order Comment: HOLD. Specimen is valid for 3 days - nurse to verify valid specimen Performed By: #### L [id number] #### Electronic Components Assembler: JEFFERSON GARVIN ([id number]) [facility]) [address] [place] [address] RH TYPE IN BLOOD Negative Normal [facility] Comment on above: Order Comment: HOLD. Specimen is valid for 3 days - nurse to verify valid specimen Performed By: #### L [id number] #### Electronic Components Assembler: JEFFERSON GARVIN ([id number]) [facility] ([facility]) [address] [place] [address] Basophil percentageOrdered B y: Juliana Hernandez on 09-26-2023 Bilirubin [Mass/Vol] 0.10 mg/dL 0.20-1.00 [facility] Comment on above: For patients on eltr ombopag therapy, use of Dimension [place] TBIL is not recommended. Chloride [Moles/Vol] 110 mmol/L 98-107 [facility] Glucose [Mass/Vol] 111 mg/dL 74-106 [facility] Comment on above: Fasting Glucose resu lt from 100 to 125 mg/dL suggests IMPAIRED HOMEOSTASIS per A.D.A. criteria. Potassium [Moles/Vol] 2.8 mmol/L 3.5-5.1 [facility] Protein [Mass/Vol] 6.4 g/dL 6.4-8.2 [facility] Sodium [Moles/Vol] 141 mmol/L 136-145 [facility] Hemoglobin (Bld) [Mass/Vol] 8.1 g/dL 12.0-15.0 [facility] WBC (Bld) [#/Vol] 6.6 10*3/uL 4.4-11.0 [facility] Basophil percentage 5-10 SEEN /hpf 0-5 [facility] Bilirubin Test strip Ql (U)O rdered By: Juliana Hernandez on 09-26-2023 Bilirubin Ql (U) Negative Negative [facility] Blood type and Crossmatch pa valeriano (Bld)on 09-26-2023 ABO group Nom (Bld) B [facility] Blood group antibody screen GEL Ql Positive [facility] myinfoQ D Ag Ql (RBC) Negative [facility] CBC (HEMOGRAM)on 09-26-2023 Erythrocyte distribution width (RBC) [Ratio] 15.4 % High 11.5-14.5 [facility] Comment on above: Performed By: #### L [id number] #### Electronic Components Assembler: JEFFERSON GARVIN ([id number]) [facility]) [address] [place] [address] ERYTHROCYTE MEAN CORPUSCULAR HEMOGLOBIN CONCENTRATION (G/DL) BY AUTOMATED 32.0 % Normal 32.0-36.0 [facility] Comment on above: Performed By: #### L [id number] #### Electronic Components Assembler: JEFFERSON GARVIN ([id number]) [facility]) [address] [place] [address] Hematocrit (Bld) [Volume fraction] 28.4 % Low 35.0-47.0 [facility] Comment on above: Performed By: #### L [id number] #### Electronic Components Assembler: JEFFERSON [id number]) [facility] ([facility]) [address] [place] [address] Hemoglobin (Bld) [Mass/Vol] 9.1 g/dL Low 11.7-16.0 [facility] Comment on above: Performed By: #### L [id number] #### Electronic Components Assembler: JEFFERSON GARVIN ([id number]) [facility] ([facility]) [address] [place] [address] MCH (RBC) [Entitic mass] 27.9 pg Normal 26.0-34.0 [facility] Comment on above: Performed By: #### L [id number] #### Electronic Components Assembler: JEFFERSON GARVIN ([id number]) [facility] ([facility]) [address] [place] [address] MCV (RBC) [Entitic vol] 87.4 fL Normal 80.0-98.0 [facility] Comment on above: Performed By: #### L [id number] #### Electronic Components Assembler: JEFFERSON GARVIN ([id number]) [facility] ([facility]) [address] [place] [address] Platelet mean volume (Bld) [Entitic vol] 8.1 fL Normal 7.4-12.4 [facility] Comment on above: Performed By: #### L [id number] #### Electronic Components Assembler: JEFFERSON GARVIN ([id number]) [facility] ([facility]) [address] [place] [address] [place] Platelets (Bld) [#/Vol] 167 10*3/uL Normal 140-440 [facility] Comment on above: Performed By: #### L [id number] #### Electronic Components Assembler: JEFFERSON GARVIN ([id number]) [facility] ([facility]) [address] [place] [address] RBC (Bld) [#/Vol] 3.25 10*6/uL Low 3.8-5.20 [facility] Comment on above: Performed By: #### L [id number] #### Electronic Components Assembler: JEFFERSON GARVIN ([id number]) [facility]) [address] [place] [address] WBC (Bld) [#/Vol] 5.8 10*3/uL Normal 3.6-10.7 [facility] Comment on above: Performed By: #### L [id number] #### Electronic Components Assembler: JEFFERSON GARVIN ([id number]) [facility] ([facility]) [address] [place] [address] CBC panel Auto (Bld)Ordered By: Zulay Nolen on 09-26-2023 Erythrocyte distribution width (RBC) [Ratio] 15.4 % High 11.5 - 14.5 % [facility] Hematocrit (Bld) [Volume fraction] 28.4 % Low 35.0 - 47.0 % [facility] Hemoglobin (Bld) [Mass/Vol] 9.1 g/dL Low 11.7 - 16.0 g/dL [facility] Interpretation and review of laboratory results Abnormal [facility] MCH (RBC) [Entitic mass] 27.9 pg 26.0 - 34.0 pg [facility] MCHC (RBC) [Mass/Vol] 32.0 % 32.0 - 36.0 % [facility] MCV (RBC) [Entitic vol] 87.4 fL 80.0 - 98.0 fL [facility] Platelet mean volume (Bld) [Entitic vol] 8.1 fL 7.4 - 12.4 fL [facility] Platelets (Bld) [#/Vol] 167 10*3/uL 140 - 440 10*3/uL [facility] RBC (Bld) [#/Vol] 3.25 10*6/uL Low 3.8 - 5.20 10*6/uL [facility] WBC (Bld) [#/Vol] 5.8 10*3/uL 3.6 - 10.7 10*3/uL [facility] COMPREHENSIVE METABOLIC PANE Rhys 09-26-2023 Albumin [Mass/Vol] 3.4 g/dL Low 3.5-5.0 [facility] Comment on above: Performed By: #### L AB17, [id number] ####Electronic Components Assembler: JEFFERSON GARVIN ([id number])[facility] ([facility])[address] [place] [address] ALP [Catalytic activity/Vol] 102 U/L Normal 38-126 [facility] Comment on above: Performed By: #### Stephanie QUINTERO, [id number] ####Electronic Components Assembler: JEFFERSON GARVIN ([id number])[facility] ([facility])[address] [place] [address] ALT [Catalytic activity/Vol] 11 U/L Normal 0-34 [facility] Comment on above: Performed By: #### Stephanie QUINTERO, [id number] ####Electronic Components Assembler: JEFFERSON GARVIN ([id number])[facility] ([facility])[address] [place] [address] Anion gap [Moles/Vol] 9 mmol/L Normal 3-13 [facility] Comment on above: Performed By: #### Stephanie QUINTERO, [id number] ####Electronic Components Assembler: JEFFERSON GARVIN ([id number])[facility] ([facility])[address] [place] [address] AST [Catalytic activity/Vol] 20 U/L Normal 15-46 [facility] Comment on above: Performed By: #### Stephanie QUINTERO, [id number] ####Electronic Components Assembler: JEFFERSON GARVIN ([id number])[facility] ([facility])[address] [place] [address] Bilirubin [Mass/Vol] 0.2 mg/dL Normal 0.2-1.3 [facility] Comment on above: Performed By: #### Stephanie QUINTERO, [id number] ####Electronic Components Assembler: JEFFERSON GARVIN ([id number])[facility] ([facility])[address] [place] [address] Calcium [Mass/Vol] 7.8 mg/dL Low 8.4-10.4 [facility] Comment on above: Performed By: #### Stephanie QUINTERO, [id number] ####Electronic Components Assembler: JEFFERSON GARVIN ([id number])[facility] ([facility])[address] [place] [address] [place] Chloride [Moles/Vol] 108 mmol/L High 98-107 [facility] Comment on above: Performed By: #### Stephanie QUINTERO, [id number] ####Electronic Components Assembler: JEFFERSON GARVIN ([id number])[facility] ([facility])[address] [place] [address] CO2 [Moles/Vol] 19 mmol/L Low 22-30 [facility] Comment on above: Performed By: #### Stephanie QUINTERO, [id number] ####Electronic Components Assembler: JEFFERSON GARVIN ([id number])[facility] ([facility])[address] [place] [address] Creatinine [Mass/Vol] 0.35 mg/dL Low 0.52-1.04 [facility] Comment on above: Performed By: #### Stephanie QUINTERO, [id number] ####Electronic Components Assembler: JEFFERSON GARVIN ([id number])[facility] ([facility])[address] [place] [address] GLOMERULAR FILTRATION RATE ML/MIN/1.73 SQ M.PREDICTED >90.0 Normal >60.0 [facility] Comment on above: Result Comment: Calc ulation based on the Chronic Kidney Disease Epidemiology Collaboration (CKD-EPI) equation refit without adjustment for race Performed By: #### Stephanie QUINTERO, [id number] ####Electronic Components Assembler: JEFFERSON GARVIN ([id number])[facility] ([facility])[address] [place] [address] [place] Glucose [Mass/Vol] 83 mg/dL Normal 70-100 [facility] Comment on above: Performed By: #### Stephanie QUINTERO, [id number] ####Electronic Components Assembler: JEFFERSON GARVIN ([id number])[facility] ([facility])[address] [place] [address] [place] Potassium [Moles/Vol] 3.2 mmol/L Low 3.5-5.1 [facility] Comment on above: Performed By: #### Stephanie [id number], [id number] ####Electronic Components Assembler: JEFFERSON GARVIN ([id number])[facility] ([facility])[address] [place] [address] [place] Protein [Mass/Vol] 6.7 g/dL Normal 6.3-8.2 [facility] Comment on above: Performed By: #### L AB17, [id number] ####Electronic Components Assembler: JEFFERSON GARVIN ([id number])[facility] ([facility])[address] [place] [address] Sodium [Moles/Vol] 137 mmol/L Normal 135-145 [facility] Comment on above: Performed By: #### L AB17, [id number] ####Electronic Components Assembler: JEFFERSON GARVIN ([id number])[facility] ([facility])[address] [place] [address] Urea nitrogen [Mass/Vol] 3 mg/dL Low 7-17 [facility] Comment on above: Performed By: #### Stephanie AB17, [id number] ####Electronic Components Assembler: JEFFERSON GARVIN ([id number])[facility] ([facility])[address] [place] [address] CREATININE, URINE, RANDOMon 09-26-2023 CREATININE, URINE 17.0 mg/dL Normal No Range [facility] Comment on above: Performed By: #### L [id number] #### Electronic Components Assembler: JEFFERSON GARVIN ([id number]) [facility] ([facility]) [address] [place] [address] Comprehensive metabolic 1998 panelon 09-26-2023 Albumin [Mass/Vol] 3.4 g/dL Low 3.5 - 5.0 g/dL [facility] ALP [Catalytic activity/Vol] 102 U/L 38 - 126 U/L [facility] ALT [Catalytic activity/Vol] 11 U/L 0 - 34 U/L [facility] Anion gap [Moles/Vol] 9 mmol/L 3 - 13 mmol/L [facility] AST [Catalytic activity/Vol] 20 U/L 15 - 46 U/L [facility] Bilirubin [Mass/Vol] 0.2 mg/dL 0.2 - 1 .3 mg/dL [facility] Calcium [Mass/Vol] 7.8 mg/dL Low 8.4 - 10. 4 mg/dL [facility] Chloride [Moles/Vol] 108 mmol/L High 98 - 10 7 mmol/L [facility] CO2 [Moles/Vol] 19 mmol/L Low 22 - 30 mmol/L [facility] Creatinine [Mass/Vol] 0.35 mg/dL Low 0.52 - 1.04 mg/dL [facility] GFR/1.73 sq M.predicted MDRD (S/P/Bld) [Vol rate/Area] - PINF [facility] Comment on above: Calculation based on the Chronic Kidney Disease Epidemiology Collaboration (CKD-EPI) equation refit without adjustment for race Glucose [Mass/Vol] 83 mg/dL 70 - 100 mg/dL [facility] Interpretation and review of laboratory results Abnormal [facility] Potassium [Moles/Vol] 3.2 mmol/L Low 3.5 - 5.1 mmol/L [facility] Protein [Mass/Vol] 6.7 g/dL 6.3 - 8.2 g/dL [facility] Sodium [Moles/Vol] 137 mmol/L 135 - 145 mmol/L [facility] Urea nitrogen [Mass/Vol] 3 mg/dL Low 7 - 17 mg/dL [facility] Consulton 09-26-2023 Consult --- Attestation signed by Alvin Cannon MD at 09/27/2023 9:03 AM I, Dr. Cannon, saw and evaluated the [...] for elevated risk of recurrent gestational hypertension. [facility] CARDIOLOGY CONSULTATION Patient Name: Jo Linda : 1995 Date of Service: 09/26/23 Reason for Consultation: chest pain, hx of gestational HTN History Jo Linda is a 28 y.o.year-old female at 31 weeks of was admitted to the outside hospital with multiple complaints-chest pain, headaches, pelvic pain where she was managed for preeclampsia with magnesium infusion and transferred to [facility]. At [facility] patient is being seen by maternal- [...] of cervix, ADHD, Anemia, Anxiety, Depression, Hemiplegia ([facility]/HCC) ([facility]), Hypertension, Preeclampsia, severe, third trimester (09/16/2023), Seizures ([facility]), Stroke ([facility]) (1995), and Urinary tract infection. SurgicalHistory: has [...] this for 10 days. 09/18/23 09/28/23 Yes Nicole Galvez, ferrous sulfate 325 (65 Fe) MG [...] for up to 10 days. 09/18/23 09/28/23 Nicole Galvez DO Scheduled medications: ferrous sulfate, 325 [...] 95 85 88 Resp: 16 Temp: 37.6 ?C (99.7 ?F) TempSrc: Temporal SpO2: 99% Weight: 201 lb (91.2 kg) Height: 5' 9 (1.753 m) No intake or output data in the 24 hours ending 09/26/23 1600 Wt Readings from Last 4 Encounters: 09/26/23 201 lb (91.2 kg) 09/16/23 204 lb (92.5 kg) Physical Exam Constitutional: Appearance: Normal appearance. HENT: Head: Normocephalic. Cardiovascular: Rate and Rhythm: Normal rate and regular rhythm. Pulses: Normal pulse (more content not included)... Normal [facility] Creatinine (U) [Mass/Vol]on 09-26-2023 CREATININE, URINE 17.0 mg/dL No Range [facility] Determination of erythrocyte mean corpuscular volume (MCV)Ordered By: Juliana Hernandez on 09-26-2023 MCV (RBC) [Entitic vol] 87.6 fL 81-99 [facility] Erythrocyte distribution wid th ratioOrdered By: Juliana Hernandez on 09-26-2023 Erythrocyte distribution width (RBC) [Ratio] 13.9 % 11.6-14.6 [facility] Erythrocyte distribution wid th standard deviationOrdered By: Julinaa Hernandez on 09-26-2023 Erythrocyte distribution width (RBC) [Entitic vol] 43.9 fL 35.1-43.9 [facility] Hematocrit Auto (Bld) [Volum e fraction]Ordered By: Juliana Hernandez on 09-26-2023 Hematocrit (Bld) [Volume fraction] 25.4 % 37-47 [facility] Ketones Test strip Ql (U)Ord ered By: Juliana Hernandez on 09-26-2023 Ketones Ql (U) Negative Negative [facility] Laboratory - Blood bankon A variant subtype Ab Ql DPASSIVE S [facility] Laboratory - Chemistry and C hemistry - challengeon 09-26-2023 Troponin I.cardiac [Mass/Vol] ng/mL [facility] - 0.034 ng/mL [facility] Troponin I.cardiac [Mass/Vol] ng/mL [facility] - 0.034 ng/mL [facility] Troponin I.cardiac [Mass/Vol] ng/mL [facility] - 0.034 ng/mL [facility] Laboratory - Chemistry and C hemistry - challengeOrdered By: Juliana Hernandez on 09-26-2023 Albumin/Globulin [Mass ratio] 0.7 {ratio} 0.9-2.4 [facility] ALP [Catalytic activity/Vol] 94 U/L 45-117 [facility] ALT [Catalytic activity/Vol] 14 U/L 13-56 [facility] CO2 [Moles/Vol] 22.0 mmol/L 21.0-32.0 [facility] Globulin (S) [Mass/Vol] 3.8 g/dL 2.2-4.2 [facility] Urea nitrogen/Creatinine [Mass ratio] 11.4 mg/mg 10-20 [facility] Laboratory - Drug toxicology Ordered By: Juliana Hernandez on 09-26-2023 Amphetamines Ql (U) Negative <1000 ng/mL [facility] Benzodiazepines Ql (U) Negative < 200 ng/mL [facility] Cannabinoids Screen Ql (U) Negative < 50 ng/mL [facility] Cocaine Ql (U) Negative < 300 ng/mL [facility] Opiates Ql (U) Negative < 300 ng/mL [facility] Laboratory - Hematology and Cell countsOrdered By: Juliana Hernandez on 09-26-2023 MCH (RBC) [Entitic mass] 27.9 pg 27.0-32.0 [facility] MCHC (RBC) [Mass/Vol] 31.9 g/dL 32-36 [facility] Platelet mean volume (Bld) [Entitic vol] 10.8 fL 6.2-12.0 [facility] Platelets (Bld) [#/Vol] 181 10*3/uL 150-450 [facility] Laboratory - Urinalysison Protein (U) [Mass/Vol] 15 mg/dL High 0 - 12 mg/dL [facility] Mucus LM Ql (Urine sed)Order ed By: Juliana Hernandez on 09-26-2023 Mucus Ql (Urine sed) 0 SEEN /hpf [facility] Nitrite Test strip Ql (U)Ord ered By: Juliana Hernandez on 09-26-2023 Nitrite Ql (U) Negative Negative [facility] No Panel Informationon 09-26 Interpretation and review of laboratory results Abnormal [facility] No Panel InformationOrdered By: Juliana Hernandez on 09-26-2023 Estimated Creatinine Clearance Calc 237.70 ml/min [facility] Estimated GFR (MDRD) Amer 220 mL/min >60 [facility] Comment on above: GFR Calc Estimated GFR (MDRD) Non-Af Amer 182 mL/min >60 [facility] Comment on above: Non- GFR Calc MDMA (Ecstasy) Screen Negative < 500 ng/mL [facility] Urine Barbiturates Screen Negative < 200 ng/mL [facility] Urine Drug Screen Comment [facility] Comment on above: CONFIRMATORY TESTING FOR ALL POSITIVE URINE DRUG SCREENRESULTS WILL ONLY BE SENT OUT UPON PHYSICIAN ORDER. VISTA Urine Drug Screen methods provide only preliminaryanalytical test results. A more specific alternate chemicalmethod must be used in order to obtain a confirmedanalytical result. Gas chromatography/mass spectrometery(GC/MS) is the preferred confirmatory method. Clinicalconsideration and professional judgement should be appliedto any drug of abuse test result, particularly whenpreliminary positive results are used. URINE TCA TESTING MUST BE ORDERED SEPARATELY. USE TESTMNEMONIC: [facility] Urine Methadone Screen Negative < 300 ng/mL [facility] Urine RBC 10-25 SEEN /hpf 0-5 [facility] Vaginal Amniotic Fluid Detection Negative Negative [facility] Comment on above: Amniotic fluid not p resent indicates No Rupture of FetalMembranes at time of specimen collection. PROTEIN, URINE, RANDOMon Protein (U) [Mass/Vol] 15 mg/dL High 0-12 [facility] Comment on above: Performed By: #### L [id number] #### Electronic Components Assembler: JEFFERSON GARVIN ([id number]) [facility] ([facility]) [address] [place] [address] Progress Noteon 09-26-2023 Progress Note Department of Obstetrics and Gynecology Labor and [...] prior and was recently admitted to [facility] due to concerns for PreEwSF vs. Complex [...] Anxiety Depression Hemiplegia (CMS/HCC) ([facility]) Hypertension Preeclampsia, severe, third trimester 09/16/2023 Seizures ([facility]) last seizure in 2019 Stroke ([facility]) 1995 stroke as a baby which resulted [...] this for 10 days. 09/18/23 09/28/23 Yes Nicole Galvez DO ferrous sulfate 325 (65 Fe) [...] for up to 10 days. 09/18/23 09/28/23 Nicole Galvez DO CARE: Complicated by: Circumvallate placenta, anemia, Rh negative, abnormal 1 hr GCT, epilepsy, hemiplegia (right sided deficits), migraines REVIEW OF SYSTEMS: Pertinent items are noted in HPI. APPEARANCE: Pain: No PHYSICAL EXAM: Vital Signs: VS wnl-reviewed/Respiratio ns normal effort Vitals: 09/26/23 1155 09/26/23 1200 [...] hour(s)). TRIAGE COURSE: Patient arrived to [facility] Ob triage with magnesium sulfate running at [...] Dr. Ruiz DISPOSITION: Admit to Antepartum (PNU) Normal [facility] Protein Test strip Ql (U)Ord ered By: Juliana Hernandez on 09-26-2023 Protein Ql (U) 100 mg/dl Negative [facility] RBC Auto (Bld) [#/Vol]Ordere d By: Juliana Hernandez on 09-26-2023 RBC (Bld) [#/Vol] 2.90 10*6/uL 4.2-5.4 [facility] Serum or plasma calcium valerie urement (mass/volume)Ordered By: Juliana Hernandez on 09-26-2023 Calcium [Mass/Vol] 8.7 mg/dL 8.5-10.1 [facility] Serum or plasma creatinine m easurement (mass/volume)Ordered By: Juliana Hernandez on 09-26-2023 Creatinine [Mass/Vol] 0.44 mg/dL 0.55-1.02 [facility] Comment on above: The validity of the calculated GFR & GFRAA in patients over 70 years has not been determined. Clinical correlation is essential. Serum or plasma urea nitroge n measurement (mass/volume)Ordered By: Juliana Hernandez on 09-26-2023 Urea nitrogen [Mass/Vol] 5 mg/dL 7-18 [facility] Serum or plasma uric acid me asurement (mass/volume)Ordered By: Juliana Hernandez on 09-26-2023 Urate [Mass/Vol] 2.7 mg/dL 2.6-6.0 [facility] Comment on above: The drugs N-Acetylcy steine and Metamizole may falsely depress this assay. Squamous epithelial cells de tection in urine sediment by light microscopyOrdered By: Juliana Hernandez on 09-26-2023 Epithelial cells.squamous LM Ql (Urine sed) 25-50 SEEN /hpf 5-10 [facility] TROPONIN Ion 09-26-2023 Troponin I.cardiac [Mass/Vol] ng/mL Normal <0.034 [facility] Comment on above: Result Comment: ISABEL Valladares COMMENTS: Patients with high levels of Biotin oral intake (ie >5 mg/day) may have falsely decreased Troponin levels. Performed By: #### L [id number] ####Electronic Components Assembler: JEFFERSON GARVIN ([id number])[address] Troponin I.cardiac [Mass/Vol] ng/mL Normal <0.034 [facility] Comment on above: Result Comment: ISABEL Valladares COMMENTS: Patients with high levels of Biotin oral intake (ie >5 mg/day) may have falsely decreased Troponin levels. Performed By: #### L [id number] ####Electronic Components Assembler: JEFFERSON GARVIN ([id number])[facility])[address] [place] [address] TROPONIN, WITH SERIAL REFLEX on 09-26-2023 Troponin I.cardiac [Mass/Vol] ng/mL Normal <0.034 [facility] Comment on above: Result Comment: ISABEL Valladares COMMENTS: Patients with high levels of Biotin oral intake (ie >5 mg/day) may have falsely decreased Troponin levels. Performed By: #### L [id number], [id number] ####Electronic Components Assembler: JEFFERSON GARVIN ([id number])[facility])[address] [place] [address] [place] Thin prep Papanicolaou smear with manual screeningOrdered By: Juliana Hernandez on 09-26-2023 Thin prep Papanicolaou smear with manual screening 2.6 g/dL 3.2-5.0 [facility] Thin prep Papanicolaou smear with manual screening 10 U/L 15-37 [facility] Thin prep Papanicolaou smear with manual screening 9 5-15 [facility] Protein (U) [Mass/Vol] 81.6 mg/dL 0.0-11.8 [facility] Transitional cells detection in urine sediment by light microscopyOrdered By: Juliana Hernandez on 09-26-2023 Transitional cells LM Ql (Urine sed) 0-5 SEEN /hpf 0-5 [facility] Troponin I.cardiac [Mass/Vol ]on 09-26-2023 Interpretation and review of laboratory results Normal [facility] Patients with high levels of Biotin oral intake (ie >5 mg/day) may have falsely decreased Troponin levels. [facility] Interpretation and review of laboratory results Normal [facility] Patients with high levels of Biotin oral intake (ie >5 mg/day) may have falsely decreased Troponin levels. [facility] Interpretation and review of laboratory results Normal [facility] Patients with high levels of Biotin oral intake (ie >5 mg/day) may have falsely decreased Troponin levels. [facility] URINE CULTUREon 09-26-2023 Bacteria identified Cx Nom (U) URINE CULTURE Reference Normal urogenital moises present [ S = SUSCEPTIBLE R = RESISTANT I = INTERMEDIATE S-DD = Susceptible-dose dependent NS = Non-susceptible NO = No Interpretation ] Normal [facility] Comment on above: Performed By: #### L [id number] ####Electronic Components Assembler: JEFFERSON GARVIN ([id number])[facility] ([id number] Urine blood detectionOrdered By: Juliana Hernandez on 09-26-2023 RBC Ql (U) Negative Negative [facility] Urine clarityOrdered By: Ana Cristina Hernandez on 09-26-2023 Clarity (U) Clear Clear [facility] Urine coarse granular cast d etectionOrdered By: Juliana Hernandez on 09-26-2023 Coarse Granular Casts LM Ql (Urine sed) 10-25 SEEN /lpf 0-5 /lpf [facility] Urine color determinationOrd ered By: Juliana Hernandez on 09-26-2023 Color (U) Yellow Yellow [facility] Urine creatinine measurement (mass/volume)Ordered By: Juliana Hernandez on 09-26-2023 Creatinine (U) [Mass/Vol] 138.00 mg/dL NO RANGE EST. [facility] Urine glucose detectionOrder ed By: Juliana Hernandez on 09-26-2023 Glucose Ql (U) Normal mg/dl Normal [facility] Urine leukocyte esterase det ection by dipstickOrdered By: Juliana Hernandez on 09-26-2023 Leukocyte esterase Test strip Ql (U) Negative Negative [facility] Urine pHOrdered By: Juliana Hernandez on 09-26-2023 pH (U) 6.5 [pH] 5.0 - 8.0 [facility] Urine phencyclidine (PCP) de tectionOrdered By: Juliana Hernandez on 09-26-2023 Phencyclidine Ql (U) Negative < 25 ng/mL [facility] Urine protein/creatinine mas s ratioOrdered By: Juliana Hernandez on 09-26-2023 Protein/Creatinine (U) [Mass ratio] 591 mg/g CRE 0-200 [facility] Urine sediment bacteria coun t by microscopy (number/high power field)Ordered By: Juliana Hernandez on 09-26-2023 Bacteria LM.HPF (Urine sed) [#/Area] 0 /[HPF] None Seen [facility] Urine specific gravity measu rementOrdered By: Juliana Hernandez on 09-26-2023 Specific gravity (U) [Rel density] 1.020 1.002-1.030 [facility] Urine urobilinogen measureme ntOrdered By: Juliana Hernandez on 09-26-2023 Urobilinogen Ql (U) 1 mg/dl Normal [facility] Bacteria identified Cx Nom ( U)Ordered By: Elvia Pickard on 09-18-2023 Interpretation and review of laboratory results Abnormal [facility] ECG 12-LEADon 09-18-2023 ECG 12-LEAD IMPRESSION: Sinus rhythm Borderline prolonged QT interval Electronically Signed On 09-18-2023 20:02:05 EST by Satya Marinelli Normal [facility] ECG 12-LEAD IMPRESSION: Sinus rhythm Borderline prolonged QT interval Electronically Signed On 09-18-2023 20:02:29 EST by Satya Marinelli [facility] - Chemistry and C hemistry - challengeon 09-18-2023 Glucose [Mass/Vol] 116 mg/dL High 70 - 100 mg/dL [facility] Glucose [Mass/Vol] 121 mg/dL High 70 - 100 mg/dL [facility] Glucose [Mass/Vol] 105 mg/dL High 70 - 100 mg/dL [facility] - Microbiology an d Antimicrobial susceptibilityOrdered By: Elvia Pickard on 09-18-2023 Bacteria identified Cx Nom (U) 50,000-90,000 CFU/mL Escherichia coli Abnormal [facility] MR Brain WO contraston 09-18 [facility]: [facility] 1995 [id number] Exam Date/Time: 09/17/2023 20:07 Procedure: MR BRAIN WO CONTRAST Ordering Provider: LEONE HASAN Reason For Exam: Headache, new or worsening, neuro deficit (Age 18-49y) CLINICAL INFORMATION: Headaches. Blurred vision. Patient is approximately 31 weeks . MRI BRAIN: FLAIR, T2, and diffusion-weighted axial images, T1 and T2 coronal images, and T1 sagittal images of the brain are obtained without IV contrast. There are no comparison studies at this institution. FINDINGS: There is evidence of an old vascular insults/infarcts. These are most apparent in the bilateral occipital lobes where there is cortical atrophy. There is compensatory dilatation of the posterior horns of the bilateral ventricles consistent with this chronic volume loss. In addition, atrophy and gliosis are noted in the vascular territory of the left anterior cerebral artery in the medial left frontal and parietal lobes. The diffusion-weighted images are normal without evidence of an acute event. There is no evidence of mass or mass-effect. There are no abnormal intra- or extra-axial fluid collections. No hemorrhage is identified. The paranasal sinuses and mastoid air cells are clear. [facility] Omar Coronado MD - 09/18/2023 Patient Name: JO LINDA : 1995 Exam Date/Time: 09/17/2023 20:07 Procedure: MR BRAIN WO CONTRAST Ordering Provider: LEONE HASAN Reason For Exam: Headache, new or worsening, neuro deficit (Age 18-49y) CLINICAL INFORMATION: Headaches. Blurred vision. Patient is approximately 31 weeks . MRI BRAIN: FLAIR, T2, and diffusion-weighted axial images, T1 and T2 coronal images, and T1 sagittal images of the brain are obtained without IV contrast. There are no comparison studies at this institution. FINDINGS: There is evidence of an old vascular insults/infarcts. These are most apparent in the bilateral occipital lobes where there is cortical atrophy. There is compensatory dilatation of the posterior horns of the bilateral ventricles consistent with this chronic volume loss. In addition, atrophy and gliosis are noted in the vascular territory of the left anterior cerebral artery in the medial left frontal and parietal lobes. The diffusion-weighted images are normal without evidence of an acute event. There is no evidence of mass or mass-effect. There are no abnormal intra- or extra-axial fluid collections. No hemorrhage is identified. The paranasal sinuses and mastoid air cells are clear. IMPRESSION: 1. 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 2. No evidence of an acute intracranial process. MRA: 3-D [id number] images of the [place] are provided. There are no comparison studies. FINDINGS: Forward flow is identified in both vertebral arteries and within the basilar artery. The right vertebral artery is seen to be mildly dominant. The terminal branches of the middle cerebral arteries are symmetric bilaterally without focal abnormality. There is no evidence of aneurysm or abnormal cutoff. IMPRESSION: 1. No evidence of aneurysm or acute cutoff. Report Dictated on Electronically Signed By: Omar Coronado MD Electronically Signed Date/Time: 09/18/2023 5:50 PM EST [employer] MRA Head vessels WO contrast on 09-18-2023 Patient Name: JO MARIN : 1995 Exam Date/Time: 09/17/2023 20:07 Procedure: MR HEAD ANGIO WO IV CONTRAST Ordering Provider: LEONE HASAN Reason For Exam: Headache, new or worsening () CLINICAL INFORMATION: Headaches. Blurred vision. Patient is approximately 31 weeks . MRI BRAIN: FLAIR, T2, and diffusion-weighted axial images, T1 and T2 coronal images, and T1 sagittal images of the brain are obtained without IV contrast. There are no comparison studies at this institution. FINDINGS: There is evidence of an old vascular insults/infarcts. These are most apparent in the bilateral occipital lobes where there is cortical atrophy. There is compensatory dilatation of the posterior horns of the bilateral ventricles consistent with this chronic volume loss. In addition, atrophy and gliosis are noted in the vascular territory of the left anterior cerebral artery in the medial left frontal and parietal lobes. The diffusion-weighted images are normal without evidence of an acute event. There is no evidence of mass or mass-effect. There are no abnormal intra- or extra-axial fluid collections. No hemorrhage is identified. The paranasal sinuses and mastoid air cells are clear. [facility] Omar Coronado MD - 09/18/2023 Patient Name: JO LINDA : 1995 Exam Date/Time: 09/17/2023 20:07 Procedure: MR HEAD ANGIO WO IV CONTRAST Ordering Provider: LEONE HASAN Reason For Exam: Headache, new or worsening () CLINICAL INFORMATION: Headaches. Blurred vision. Patient is approximately 31 weeks . MRI BRAIN: FLAIR, T2, and diffusion-weighted axial images, T1 and T2 coronal images, and T1 sagittal images of the brain are obtained without IV contrast. There are no comparison studies at this institution. FINDINGS: There is evidence of an old vascular insults/infarcts. These are most apparent in the bilateral occipital lobes where there is cortical atrophy. There is compensatory dilatation of the posterior horns of the bilateral ventricles consistent with this chronic volume loss. In addition, atrophy and gliosis are noted in the vascular territory of the left anterior cerebral artery in the medial left frontal and parietal lobes. The diffusion-weighted images are normal without evidence of an acute event. There is no evidence of mass or mass-effect. There are no abnormal intra- or extra-axial fluid collections. No hemorrhage is identified. The paranasal sinuses and mastoid air cells are clear. IMPRESSION: 1. 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 2. No evidence of an acute intracranial process. MRA: 3-D [id number] images of the [place] are provided. There are no comparison studies. FINDINGS: Forward flow is identified in both vertebral arteries and within the basilar artery. The right vertebral artery is seen to be mildly dominant. The terminal branches of the middle cerebral arteries are symmetric bilaterally without focal abnormality. There is no evidence of aneurysm or abnormal cutoff. IMPRESSION: 1. No evidence of aneurysm or acute cutoff. Report Dictated on Electronically Signed By: Omar Coronado MD Electronically Signed Date/Time: 09/18/2023 5:50 PM EST [employer] 1. Normal study with out evidence of superior sagittal sinus thrombosis. Report Dictated on Electronically Signed By: Omar Coronado MD Electronically Signed Date/Time: 09/18/2023 5:40 PM EST [facility] [employer] Patient Name: JO MARIN : 1995 Exam Date/Time: 09/17/2023 20:26 Procedure: MRV HEAD WO CONTRAST Ordering Provider: LEONE HASAN Reason For Exam: Dural venous sinus thrombosis suspected CLINICAL INFORMATION: Persistent headaches. Blurred vision. Patient is approximately 31 weeks . Evaluate for sagittal sinus thrombosis. 3D time of flight MRV images of the brain are provided. There are no comparison studies. FINDINGS: Normal flow is identified within the superior sagittal sinus, bilateral transverse sinuses, bilateral sigmoid sinuses, and bilateral proximal internal jugular veins. No filling defects are identified to suggest sinus thrombosis. The deep cerebral and straight veins are normal in their appearance. [facility] Omar Coronado MD - 09/18/2023 Patient Name: JO LINDA : 1995 Exam Date/Time: 09/17/2023 20:26 Procedure: MRV HEAD WO CONTRAST Ordering Provider: LEONE HASAN Reason For Exam: Dural venous sinus thrombosis suspected CLINICAL INFORMATION: Persistent headaches. Blurred vision. Patient is approximately 31 weeks . Evaluate for sagittal sinus thrombosis. 3D time of flight MRV images of the brain are provided. There are no comparison studies. FINDINGS: Normal flow is identified within the superior sagittal sinus, bilateral transverse sinuses, bilateral sigmoid sinuses, and bilateral proximal internal jugular veins. No filling defects are identified to suggest sinus thrombosis. The deep cerebral and straight veins are normal in their appearance. IMPRESSION: 1. Normal study without evidence of superior sagittal sinus thrombosis. Report Dictated on Electronically Signed By: Omar Coronado MD Electronically Signed Date/Time: 09/18/2023 5:40 PM EST [facility] [employer] No Panel InformationOrdered By: Satya Marinelli on 09-18-2023 P [place] 39 degrees [facility] [employer] Work Phone: MD Interval 144 ms [facility] [employer] Work Phone: QRS [place] 31 degrees [facility] [employer] Work Phone: QRSD Interval 100 ms [facility] [employer] Work Phone: QT Interval 397 ms [employer] Work Phone: QTC Interval 489 ms [facility] [employer] Work Phone: T Wave [place] 31 degrees [facility] [employer] Work Phone: [phone] [employer] Work Phone: No Panel Informationon 09-18 Sinus rhythm Borderline prolonged QT interval Electronically Signed On 09-18-2023 20:02:29 EST by Satya Marinelli CV Satya Manning MD - 09/18/2023 IMPRESSION: Sinus rhythm Borderline prolonged QT interval Electronically Signed On 09-18-2023 20:02:29 EST by Satya Marinelli [facility] [employer] P [place] 48 degrees [facility] MD Interval 157 ms [facility] QRS [place] 48 degrees [facility] QRSD Interval 105 ms [facility] QT Interval 387 ms [facility] QTC Interval 488 ms [facility] T Wave [place] 33 degrees [facility] Sinus rhythm Borderline prolonged QT interval Electronically Signed On 02-04-2024 20:02:05 EST by Satya Marinelli CV Satya Manning MD - 09/18/2023 IMPRESSION: Sinus rhythm Borderline prolonged QT interval Electronically Signed On 09-18-2023 20:02:05 EST by Satya Marinelli [facility] 1. 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 2. No evidence of an acute intracranial process. MRA: 3-D [id number] images of the [place] are provided. There are no comparison studies. FINDINGS: Forward flow is identified in both vertebral arteries and within the basilar artery. The right vertebral artery is seen to be mildly dominant. The terminal branches of the middle cerebral arteries are symmetric bilaterally without focal abnormality. There is no evidence of aneurysm or abnormal cutoff. IMPRESSION: 1. No evidence of aneurysm or acute cutoff. Report Dictated on Electronically Signed By: Omar Coronado MD Electronically Signed Date/Time: 09/18/2023 5:50 PM EST [facility] [employer] Interpretation and review of laboratory results Abnormal [facility] Performed by: [facility], [address] [place] [address] CLIA ID: [id number] [facility] Interpretation and review of laboratory results Abnormal [facility] Performed by: [facility], [address] [place] [address] CLIA ID: [id number] [facility] Interpretation and review of laboratory results Abnormal [facility] Performed by: [facility], [address] [place] [address] CLIA ID: [id number] [facility] Radiology Study observation (narrative) [facility] Radiology Study observation (narrative) [facility] Radiology Study observation (narrative) [facility] No Panel InformationOrdered By: Omar oCronado on 09-18-2023 [facility] [employer] Work Phone: Progress Noteon 09-18-2023 Progress Note Discharge instructio ns given to the patient at this time. Kick counts reviewed with the patient. Patient is to follow up with her OB within a week, has appointment scheduled for Tuesday09/23/23. Patient will crop picker her antibiotic from the pharmacy in [place] tomorrow morning when the pharmacy opens. IV removed. Patient verbalizes understanding of instructions. Normal [facility] Progress Note .Nutrition rescreen completed. Chart reviewed. Patient to be monitored and followed by the diet camera technician. .WILLY Hannah [facility] Progress Note --- Attestation signed by Stephanie Ruiz DO at 09/18/2023 7:11 PM (Updated) Hospital Care (Independent): I independently saw and evaluated the patient. I agree with the findings and plan of care as documented in the resident's note. Pt doing well today. No BOURGEOIS, visual changes, abdominal pain. No CTXS, VB, LOF. +FM. BP 111/71 (BP Location: Right arm, Patient Position: Lying) Pulse 90 Temp 36.8 ?C (98.3 ?F) (Temporal) Resp 16 Ht 1.651 m (5' 5) Wt 92.5 kg (204 lb) SpO2 98% BMI 33.95 kg/m? AAOx3, NAD Resp effort normal Neuro evaluation [...] spent on patient care today: 30 minutes. [facility] update: Pt asymptomatic, would like to be dced to home. [facility] team discussed EKG with cardiology. Borderline prolonged QT was okay, cardiology consult not indicated, no medication restriction advised. Neuroimaging completed. IMPRESSION: 1. 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 2. No evidence of an acute intracranial process. MFM team to review with neurologist for any additional recommendations. Outpt FU with opthalmology as an outpt for evaluation as recommended by neurology's initial consult. Outpt FU with dentist for dental infection. Outpt FU with [facility] [place] office for growth US this week. (Note sent to [facility] pretzel twisting machine operator). Maternal Medicine Service Resident Progress Note 09/18/2023 [...] Resp: 20 18 18 16 Temp: 36.7 ?C (98 ?F) 36.6 ?C (97.8 ?F) 36.4 ?C (97.6 ?F) 36.8 ?C (98.3 ?F) TempSrc: Temporal Temporal Temporal Temporal SpO2: 97% [...] 650 mg 650 mg Oral q4h PRN Pauline Escalante DO 650 mg at 09/17/23 0703 amoxicillin (Amoxil) capsule 500 mg 500 mg Oral 3 times per day Silvia Jethro, DO 500 mg at 09/18/23 0512 calcium gluconate 10 % injection 1 g 1 g IntraVENous PRN Pauline Moschella, DO famotidine (Pepcid) tablet 20 mg 20 mg Oral q12h PRN Kassi Ivone, DO Or famotidine (Pepcid) 20 mg in sodium chloride (PF) 0.9 % 10 mL injection 20 mg IntraVENous q12h PRN Kassi Ivone, DO ferrous sulfate tablet 325 mg 325 mg Oral BID WC Pauline Moschella, DO 325 mg at 09/17/23 1719 vitamin tablet 1 tablet Oral Daily Pauline Moschella, DO 1 tablet at 09/17/23 0953 sodium chloride 0.9 % infusion 5-250 mL/hr IntraVENous PRN Pauline Moschella, DO sodium chloride 0.9% (NS) flush 10 mL 10 mL IntraVENous 2 times per day Pauline Moschella, DO 10 mL at 09/17/232127 sodium chloride 0.9% (NS) flush 10 mL 10 mL IntraVENous PRN Pauline Moschella, DO 10 mL at 09/16/232027 Assessment/Plan: Jo Linda is a 28 y.o. 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 Normal [facility] Vital signsOrdered By: Satya Marinelli on 09-18-2023 Heart rate 91 /min bpm [employer] Work Phone: Vital signson 09-18-2023 Heart rate 95 /min bpm [facility] A variant subtype Ab Qlon [facility] ABO and Rh group Confirm Nom (Bld)on 09-17-2023 ABO group Nom (Bld) B [facility] D Ag Ql (RBC) Negative [facility] ANTIBODY IDENTIFICATIONon ANTIBODY IDENTIFICATION DPASSIVE Normal S [facility] Comment on above: Order Comment: HOLD. Specimen is valid for 3 days - nurse to verify valid specimen Performed By: #### L [id number], [id number] ####Electronic Components Assembler: JEFFERSON GARVIN ([id number])[facility] ([facility])[address] [place] [address] BLOOD TYPE AND SCREEN GELon 09-17-2023 ABO GROUPING B Normal [facility] Comment on above: Order Comment: HOLD. Specimen is valid for 3 days - nurse to verify valid specimen Performed By: #### L [id number], [id number] ####Electronic Components Assembler: JEFFERSON GARVIN ([id number])[facility] ([facility])[address] [place] [address] RH TYPE IN BLOOD Negative Normal [facility] Comment on above: Order Comment: HOLD. Specimen is valid for 3 days - nurse to verify valid specimen Performed By: #### L [id number], [id number] ####Electronic Components Assembler: JEFFERSON GARVIN ([id number])[facility] BLOOD [facility] ([facility] [facility] [place] [address] Blood type and Crossmatch pa valeriano (Bld)on 09-17-2023 ABO group Nom (Bld) B [facility] Blood group antibody screen GEL Ql Positive [facility] D Ag Ql (RBC) Negative [facility] CBC (HEMOGRAM)on 09-17-2023 Erythrocyte distribution width (RBC) [Ratio] 14.8 % High 11.5-14.5 [facility] Comment on above: Performed By: #### L [id number] #### Electronic Components Assembler: JEFFERSON GARVIN ([id number]) [facility] ([facility]) [address] [place] [address] ERYTHROCYTE MEAN CORPUSCULAR HEMOGLOBIN CONCENTRATION (G/DL) BY AUTOMATED 33.4 % Normal 32.0-36.0 [facility] Comment on above: Performed By: #### L [id number] #### Electronic Components Assembler: JEFFERSON GARVIN ([id number]) [facility]) [address] [place] [address] Hematocrit (Bld) [Volume fraction] 28.8 % Low 35.0-47.0 [facility] Comment on above: Performed By: #### L [id number] #### Electronic Components Assembler: JEFFERSON GARVIN ([id number]) [facility] ([facility]) [address] [place] [address] Hemoglobin (Bld) [Mass/Vol] 9.6 g/dL Low 11.7-16.0 [facility] Comment on above: Performed By: #### L [id number] #### Electronic Components Assembler: JEFFERSON GARVIN ([id number]) [facility]) [address] [place] [address] MCH (RBC) [Entitic mass] 28.7 pg Normal 26.0-34.0 [facility] Comment on above: Performed By: #### L [id number] #### Electronic Components Assembler: JEFFERSON GARVIN ([id number]) [facility]) [address] [place] [address] MCV (RBC) [Entitic vol] 86.0 fL Normal 80.0-98.0 [facility] Comment on above: Performed By: #### L [id number] #### Electronic Components Assembler: JEFFERSON GARVIN ([id number]) [facility]) [address] [place] [address] Platelet mean volume (Bld) [Entitic vol] 9.4 fL Normal 7.4-12.4 [facility] Comment on above: Performed By: #### L [id number] #### Electronic Components Assembler: JEFFERSON GARVIN ([id number]) [facility]) [address] [place] [address] Platelets (Bld) [#/Vol] 204 10*3/uL Normal 140-440 [facility] Comment on above: Performed By: #### L [id number] #### Electronic Components Assembler: JEFFERSON GARVIN ([id number]) [facility] ([facility]) [address] [place] [address] RBC (Bld) [#/Vol] 3.34 10*6/uL Low 3.8-5.20 [facility] Comment on above: Performed By: #### L [id number] #### Electronic Components Assembler: JEFFERSON GARVIN ([id number]) [facility] ([facility]) [address] [place] [address] WBC (Bld) [#/Vol] 8.3 10*3/uL Normal 3.6-10.7 [facility] Comment on above: Performed By: #### L [id number] #### Electronic Components Assembler: JEFFERSON GARVIN ([id number]) [facility] ([facility]) [address] [place] [address] CBC panel Auto (Bld)Ordered By: Caden Aviles on 09-17-2023 Erythrocyte distribution width (RBC) [Ratio] 14.8 % High 11.5 - 14.5 % [facility] Hematocrit (Bld) [Volume fraction] 28.8 % Low 35.0 - 47.0 % [facility] Hemoglobin (Bld) [Mass/Vol] 9.6 g/dL Low 11.7 - 16.0 g/dL [facility] Interpretation and review of laboratory results Abnormal [facility] MCH (RBC) [Entitic mass] 28.7 pg 26.0 - 34.0 pg [facility] MCHC (RBC) [Mass/Vol] 33.4 % 32.0 - 36.0 % [facility] MCV (RBC) [Entitic vol] 86.0 fL 80.0 - 98.0 fL [facility] Platelet mean volume (Bld) [Entitic vol] 9.4 fL 7.4 - 12.4 fL [facility] Platelets (Bld) [#/Vol] 204 10*3/uL 140 - 440 10*3/uL [facility] RBC (Bld) [#/Vol] 3.34 10*6/uL Low 3.8 - 5.20 10*6/uL [facility] WBC (Bld) [#/Vol] 8.3 10*3/uL 3.6 - 10.7 10*3/uL [facility] COMPREHENSIVE METABOLIC PANE Rhys 09-17-2023 Albumin [Mass/Vol] 3.5 g/dL Normal 3.5-5.0 [facility] Comment on above: Performed By: #### L [id number] #### Electronic Components Assembler: JEFFERSON GARVIN ([id number]) [facility] ([facility]) [address] [place] [address] ALP [Catalytic activity/Vol] 114 U/L Normal 38-126 [facility] Comment on above: Performed By: #### L [id number] #### Electronic Components Assembler: JEFFERSON GARVIN ([id number]) [facility] ([facility]) [address] [place] [address] ALT [Catalytic activity/Vol] 12 U/L Normal 0-34 [facility] Comment on above: Performed By: #### L [id number] #### Electronic Components Assembler: JEFFERSON GARVIN ([id number]) [facility] ([facility]) [address] [place] [address] Anion gap [Moles/Vol] 9 mmol/L Normal 3-13 [facility] Comment on above: Performed By: #### L [id number] #### Electronic Components Assembler: JEFFERSON GARVIN ([id number]) [facility] ([facility]) [address] [place] [address] [place] AST [Catalytic activity/Vol] 22 U/L Normal 15-46 [facility] Comment on above: Performed By: #### L [id number] #### Electronic Components Assembler: JEFFERSON GARVIN ([id number]) [facility] ([facility]) [address] [place] [address] [place] Bilirubin [Mass/Vol] 0.3 mg/dL Normal 0.2-1.3 [facility] Comment on above: Performed By: #### L [id number] #### Electronic Components Assembler: JEFFERSON GARVIN ([id number]) [facility] ([facility]) [address] [place] [address] [place] Calcium [Mass/Vol] 7.3 mg/dL Low 8.4-10.4 [facility] Comment on above: Performed By: #### L [id number] #### Electronic Components Assembler: JEFFERSON GARVIN ([id number]) [facility]) [address] [place] [address] Chloride [Moles/Vol] 106 mmol/L Normal 98-107 [facility] Comment on above: Performed By: #### L [id number] #### Electronic Components Assembler: JEFFERSON GARVIN ([id number]) [facility] ([facility]) [address] [place] [address] CO2 [Moles/Vol] 20 mmol/L Low 22-30 [facility] Comment on above: Performed By: #### L [id number] #### Electronic Components Assembler: JEFFERSON GARVIN ([id number]) [facility]) [address] [place] [address] Creatinine [Mass/Vol] 0.44 mg/dL Low 0.52-1.04 [facility] Comment on above: Performed By: #### L [id number] #### Electronic Components Assembler: JEFFERSON GARVIN ([id number]) [facility]) [address] [place] [address] GLOMERULAR FILTRATION RATE ML/MIN/1.73 SQ M.PREDICTED >90.0 Normal >60.0 [facility] Comment on above: Result Comment: Calc ulation based on the Chronic Kidney Disease Epidemiology Collaboration (CKD-EPI) equation refit without adjustment for race Performed By: #### L [id number] #### Electronic Components Assembler: JEFFERSON GARVIN ([id number]) [facility] ([facility]) [address] [place] [address] [place] Glucose [Mass/Vol] 124 mg/dL High 70-100 [facility] Comment on above: Performed By: #### L [id number] #### Electronic Components Assembler: JEFFERSON GARVIN ([id number]) [facility]) [address] [place] [address] Potassium [Moles/Vol] 3.5 mmol/L Normal 3.5-5.1 [facility] Comment on above: Performed By: #### L [id number] #### Electronic Components Assembler: JEFFERSON GARVIN ([id number]) [facility] ([facility]) [address] [place] [address] Protein [Mass/Vol] 7.2 g/dL Normal 6.3-8.2 [facility] Comment on above: Performed By: #### L [id number] #### Electronic Components Assembler: JEFFERSON GARVIN ([id number]) [facility] ([facility]) [address] [place] [address] Sodium [Moles/Vol] 135 mmol/L Normal 135-145 [facility] Comment on above: Performed By: #### L [id number] #### Electronic Components Assembler: JEFFERSON GARVIN ([id number]) [facility] ([facility]) [address] [place] [address] Urea nitrogen [Mass/Vol] 3 mg/dL Low 7-17 [facility] Comment on above: Performed By: #### L [id number] #### Electronic Components Assembler: JEFFERSON GARVIN ([id number]) [facility] ([facility]) [address] [place] [address] Comprehensive metabolic 1998 panelon 09-17-2023 Albumin [Mass/Vol] 3.5 g/dL 3.5 - 5.0 g/dL [facility] ALP [Catalytic activity/Vol] 114 U/L 38 - 126 U/L [facility] ALT [Catalytic activity/Vol] 12 U/L 0 - 34 U/L [facility] Anion gap [Moles/Vol] 9 mmol/L 3 - 13 mmol/L [facility] AST [Catalytic activity/Vol] 22 U/L 15 - 46 U/L [facility] Bilirubin [Mass/Vol] 0.3 mg/dL 0.2 - 1 .3 mg/dL [facility] Calcium [Mass/Vol] 7.3 mg/dL Low 8.4 - 10. 4 mg/dL [facility] Chloride [Moles/Vol] 106 mmol/L 98 - 10 7 mmol/L [facility] CO2 [Moles/Vol] 20 mmol/L Low 22 - 30 mmol/L [facility] Creatinine [Mass/Vol] 0.44 mg/dL Low 0.52 - 1.04 mg/dL [facility] GFR/1.73 sq M.predicted MDRD (S/P/Bld) [Vol rate/Area] - PINF [facility] Comment on above: Calculation based on the Chronic Kidney Disease Epidemiology Collaboration (CKD-EPI) equation refit without adjustment for race Glucose [Mass/Vol] 124 mg/dL High 70 - 100 mg/dL [facility] Interpretation and review of laboratory results Abnormal [facility] Potassium [Moles/Vol] 3.5 mmol/L 3.5 - 5.1 mmol/L [facility] Protein [Mass/Vol] 7.2 g/dL 6.3 - 8.2 g/dL [facility] Sodium [Moles/Vol] 135 mmol/L 135 - 145 mmol/L [facility] Urea nitrogen [Mass/Vol] 3 mg/dL Low 7 - 17 mg/dL [facility] Consulton 09-17-2023 Consult Neurology Consult No te - Neurology Service Patient Name: Jo Linda Patient : 1995 Acct: [id number] Date of Admission: 09/16/2023 Room/Bed: 2205/2205 A PCP: No primary care provider on [...] and came into the ER at [facility] where she was admitted for further evaluation [...] Anxiety Depression Hemiplegia (CMS/HCC) ([facility]) Hypertension Preeclampsia, severe, third trimester 09/16/2023 Seizures ([facility]) last seizure in 2019 Stroke ([facility]) 1995 stroke as a baby which resulted [...] Historical Provider, Current Hospital Medications: Current Facility-Administered Medicatio (more content not included)... Normal [facility] FERRITINon 09-17-2023 Ferritin [Mass/Vol] 5 ng/mL Low 6-137 [facility] Comment on above: Performed By: #### L [id number] #### Electronic Components Assembler: JEFFERSON GARVIN ([id number]) [facility] ([facility]) [address] [place] [address] Ferritin [Mass/Vol]on 2023 Interpretation and review of laboratory results Abnormal [facility] Laboratory - Blood bankon A variant subtype Ab Ql DPASSIVE S [facility] Laboratory - Chemistry and C hemistry - challengeon 09-17-2023 Glucose [Mass/Vol] 150 mg/dL High 70 - 100 mg/dL [facility] Glucose [Mass/Vol] 125 mg/dL High 70 - 100 mg/dL [facility] Glucose [Mass/Vol] 131 mg/dL High 70 - 100 mg/dL [facility] Ferritin [Mass/Vol] 5 ng/mL Low 6 - 137 ng/mL [facility] Glucose [Mass/Vol] 119 mg/dL High 70 - 100 mg/dL [facility] MR Brain WO contraston 09-17 Radiology Study observation (narrative) [facility] MRA Head vessels WO contrast on 09-17-2023 Radiology Study observation (narrative) [facility] Radiology Study observation (narrative) [facility] No Panel Informationon 09-17 Interpretation and review of laboratory results Abnormal [facility] Performed by: [facility], [address] [place] [address] CLIA ID: [id number] [facility] Interpretation and review of laboratory results Abnormal [facility] Performed by: [facility], [address] [place] [address], [facility] [address] CLIA ID: [id number] [facility] Interpretation and review of laboratory results Abnormal [facility] Performed by: [facility], [address] [place] [id number] CLIA ID: [id number] [facility] Interpretation and review of laboratory results Abnormal [facility] Performed by: [facility], [address] [place] [address], [facility] [address] CLIA ID: [id number] [facility] Radiology Study observation (narrative) [facility] Radiology Study observation (narrative) [facility] Radiology Study observation (narrative) [facility] Radiology Study observation (narrative) [facility] Progress Noteon 09-17-2023 Progress Note Please screen oleksandr kay for MRI. Thank you Normal [facility] Progress Note --- Attestation signed by Stephanie Ruiz DO at 09/17/2023 8:20 AM Hospital Care (Independent): I independently saw and evaluated the patient. I agree with the findings and plan of care as documented in the resident's note. Ashamonique denies nausea, vomiting, swelling, RUQ pain. Headache waxes and wanes. Mild BOURGEOIS now. BP 115/83 (BP Location: Right arm, Patient Position: Sitting) Pulse 102 Temp 36.6 ?C (97.8 ?F) (Temporal) Resp 20 Ht 1.651 m (5' 5) Wt 92.5 kg (204 lb) SpO2 99% BMI 33.95 kg/m? AAOx3 NAD Resp effort normal Abd gravid, NTTP Ext no edema, patellar reflex normal 2/4 FHR reassuring [place] - irritability this AM, no ctxs or [...] spent on patient care today: 35 minutes. Maternal Medicine Service Resident Progress Note 09/17/2023 [...] 109 Resp: 17 17 17 Temp: 36.7 ?C (98 ?F) 36.7 ?C (98 ?F) 36.8 ?C (98.2 ?F) TempSrc: Temporal Temporal Temporal SpO2: 97% 98% [...] 650 mg 650 mg Oral q4h PRN Pauline Aurorachella, DO 650 mg at 09/16/23 1622 amoxicillin (Amoxil) capsule 500 mg 500 mg Oral 3 times per day Silvia Morelos DO betamethasone acetate-betamethasone sodium phosphate (Celestone) injection 12 mg 12 mg IntraMUSCular Once Paulinejeff Calderonlla, DO calcium gluconate 10 % injection 1 g 1 g IntraVENous PRN Paulinejeff Calderonlla, DO famotidine (Pepcid) 20 mg in sodium chloride (PF) 0.9 % 10 mL injection 20 mg IntraVENous q12h PRN Pauline Moschella, DO 20 mg at 09/16/232025 ferrous sulfate tablet 325 mg 325 mg Oral BID WC Pauline Yumikolla, DO 325 mg at 09/16/23 1741 lactated Ringer's infusion 25 mL/hr IntraVENous Continuous Paulina Schlieper, DO 25 mL/hr at 09/16/23 1620 25 mL/hr at 09/16/23 1620 magnesium sulfate 20 GM/500ML infusion 2,000 mg/hr IntraVENous Continuous Pauline Aurorachella, DO 50 mL/hr at 09/17/23 0231 2,000 mg/hr at 09/17/23 023 metoclopramide (Reglan) injection 10 mg 10 mg IntraVENous q6h PRN Silvia Morelos, DO 10 mg at 09/16/232008 ondansetron ODT (Zofran-ODT) disintegrating tablet 4 mg 4 mg Oral q8h PRN Pauline Moschella, DO Or ondansetron (Zofran) injection 4 mg 4 mg IntraVENous q6h PRN Pauline Moschella, DO vitamin tablet 1 tablet Oral Daily Pauline Moschella, DO sodium chloride 0.9 % infusion 5-250 mL/hr IntraVENous PRN Pauline Moschella, DO sodium chloride 0.9% (NS) flush 10 mL 10 mL IntraVENous 2 times per day Pauline Moschella, DO 10 mL at 09/16/232007 sodium chloride 0.9% (NS) flush 10 mL 10 mL IntraVENous PRN Pauline Moschella, DO 10 mL at 09/16/232027 Assessment/Plan: Ashamonique Alexei is a 28 y.o. female 30w3d PreEwSF vs. Complex Migraine Hx gHTN - Presented to [facility] with headache, vision changes, and mild range BPs; PreE labs negative at [facility], [facility] WNL - Started on magnesium at [facility] with improvement of BOURGEOIS - Transferred to [facility] for further management - History of gHTN in G2 , had seizure mid but suspect related to epilepsy - Endorsed mild BOURGEOIS short episodes of blurred vision, and chest pain or arrival - EKG ordered on admission and NSR - BSUS performed with grossly normal TAINA and measuring appropriate for GA - Magne (more content not included)... Normal [facility] Progress Note Per day shift RN in report, resident on day shift told her that we can wait to obtain Type and screen tomorrow am with patient's other lab work. Normal [facility] S. agalactiae DNA SARAH+probe Ql (Unsp spec)on 09-17-2023 Group B Strep Screen Not detected Not Detected [facility] Interpretation and review of laboratory results Normal [facility] Methodology: real-ti me PCR [facility] Basophil percentageOrdered B y: Sheron Ernst on 09-16-2023 Hemoglobin (Bld) [Mass/Vol] 9.0 g/dL 12.0-15.0 [facility] WBC (Bld) [#/Vol] 5.3 10*3/uL 4.4-11.0 [facility] CHLAMYDIA/GONORRHEAon 2023 CHLAMYDIA/GONORRHEA NEISSERIA GONORRHOEA E DNA PROBE Reference Not Detected Not Detected CHLAMYDIA TRACHOMATIS DNA PROBE Reference Not Detected Not Detected ORDER COMMENTS: Methodology: real-time PCR This test is intended for medical purposes only and is not intended for the evaluation of suspected sexual abuse or for other forensic purposes. In certain contexts, culture may be required to meet applicable laws and regulations for diagnosis of C. trachomatis and N. gonorrhoeae infections. Per 2014 CDC recommmendations, this test does not include confirmation of positive results by an alternative nucleic acid target. A negative result does not exclude the possibility of infection. A result of invalid indicates that a new specimen should be collected if clinically indicated. Normal [facility] Comment on above: Performed By: #### L [id number], [id number], [id number] #### Electronic Components Assembler: JEFFERSON GARVIN ([id number]) [facility] ([facility]) [address] [place] [address] Determination of erythrocyte mean corpuscular volume (MCV)Ordered By: Sheron Ernst on 09-16-2023 MCV (RBC) [Entitic vol] 88.0 fL 81-99 [facility] Erythrocyte distribution wid th ratioOrdered By: Sheron Ernst on 09-16-2023 Erythrocyte distribution width (RBC) [Ratio] 13.7 % 11.6-14.6 [facility] Erythrocyte distribution wid th standard deviationOrdered By: Sheron Ernst on 09-16-2023 Erythrocyte distribution width (RBC) [Entitic vol] 43.6 fL 35.1-43.9 [facility] GROUP B STREP SCREEN BY PCRo n 09-16-2023 GROUP B STREP SCREEN BY PCR GROUP B STREP SCREEN BY PCR Reference Not Detected Not Detected ORDER COMMENTS: Methodology: real-time PCR Normal [facility] Comment on above: Performed By: #### L [id number] ####Electronic Components Assembler: JEFFERSON GARIVN ([id number])[facility] ([facility])[address] [place] [address] Hematocrit Auto (Bld) [Volum e fraction]Ordered By: Sheron Ernst on 09-16-2023 Hematocrit (Bld) [Volume fraction] 27.9 % 37-47 [facility] Laboratory - Chemistry and C hemistry - challengeon 09-16-2023 Glucose [Mass/Vol] 149 mg/dL High 70 - 100 mg/dL [facility] Glucose Ql (U) Negative [facility] Laboratory - Chemistry and C hemistry - challengeOrdered By: Sheron Ernst on 09-16-2023 ALT [Catalytic activity/Vol] 13 U/L 13-56 [facility] - Hematology and Cell countsOrdered By: Sheron Ernst on 09-16-2023 MCH (RBC) [Entitic mass] 28.4 pg 27.0-32.0 [facility] MCHC (RBC) [Mass/Vol] 32.3 g/dL 32-36 [facility] Platelets (Bld) [#/Vol] 183 10*3/uL 150-450 [facility] Laboratory - Microbiology an d Antimicrobial susceptibilityon 09-16-2023 Reagin Ab RPR Ql (S) Non-Reactive Nonreactive S [facility] Laboratory - Urinalysison Protein Ql (U) Negative [facility] N. gonorrhoeae DNA SARAH+probe Ql (Cervical mucus)on 09-16-2023 C. trachomatis DNA SARAH+probe Ql (Unsp spec) Not detected Not Detected [facility] Interpretation and review of laboratory results Normal [facility] N gonorrhoeae, DNA Probe Not detected Not Detected [facility] Methodology: real-ti me PCR This test is intended for medical purposes only and is not intended for the evaluation of suspected sexual abuse or for other forensic purposes. In certain contexts, culture may be required to meet applicable laws and regulations for diagnosis of C. trachomatis and N. gonorrhoeae infections. Per 2014 CDC recommmendations, this test does not include confirmation of positive results by an alternative nucleic acid target. A negative result does not exclude the possibility of infection. A result of invalid indicates that a new specimen should be collected if clinically indicated. [facility] No Panel Informationon 09-16 Interpretation and review of laboratory results Abnormal [facility] Performed by: [facility], [address] [place] [address] CLIA ID: [id number] [facility] Radiology Study observation (narrative) [facility] No Panel InformationOrdered By: Sheron Ernst on 09-16-2023 Estimated Creatinine Clearance Calc 189.38 ml/min [facility] Estimated GFR (MDRD) Amer 170 mL/min >60 [facility] Comment on above: GFR Calc Estimated GFR (MDRD) Non-Af Amer 140 mL/min >60 [facility] Comment on above: Non- GFR Calc Platelet mean volume Benjy-Ec ker (Bld) [Entitic vol]Ordered By: Sheron Ernst on 09-16-2023 Platelet mean volume (Bld) [Entitic vol] 11.1 fL 6.2-12.0 [facility] RBC Auto (Bld) [#/Vol]Ordere d By: Sheron Ernst on 09-16-2023 RBC (Bld) [#/Vol] 3.17 10*6/uL 4.2-5.4 [facility] Reagin Ab RPR Ql (S)on 09-16 [facility] Serum Treponema species anti body detectionOrdered By: Sheron Ersnt on 09-16-2023 Treponema sp Ab Ql (S) Non-Reactive [facility] Serum or plasma creatinine m easurement (mass/volume)Ordered By: Sheron Ernst on 09-16-2023 Creatinine [Mass/Vol] 0.55 mg/dL 0.55-1.02 [facility] Comment on above: The validity of the calculated GFR & GFRAA in patients over 70 years has not been determined. Clinical correlation is essential. Serum or plasma uric acid me asurement (mass/volume)Ordered By: Sheron Ernst on 09-16-2023 Urate [Mass/Vol] 2.9 mg/dL 2.6-6.0 [facility] Comment on above: The drugs N-Acetylcy steine and Metamizole may falsely depress this assay. T. vaginalis DNA SARAH+probe Q l (Genital specimen)on 09-16-2023 Interpretation and review of laboratory results Normal [facility] Trichomonas vaginalis Not detected Not Detected [facility] Methodology: real-ti me PCR A negative result does not completely rule out infection with T. vaginalis. Results should be interpreted in conjunction with other clinical data. This test has not been validated for use with self-collected vaginal swab specimens from patients. This test is intended for medical purposes only and is not intended for the evaluation of suspected sexual abuse or for other forensic purposes. [facility] TRICHOMONAS VAGINALIS PCRon 09-16-2023 TRICHOMONAS VAGINALIS PCR TRICHOMONAS VAGINALIS PCR Reference Not Detected Not Detected ORDER COMMENTS: Methodology: real-time PCR A negative result does not completely rule out infection with T. vaginalis. Results should be interpreted in conjunction with other clinical data. This test has not been validated for use with self-collected vaginal swab specimens from patients. This test is intended for medical purposes only and is not intended for the evaluation of suspected sexual abuse or for other forensic purposes. Normal [facility] Comment on above: Performed By: #### L [id number], [id number], [id number] #### Electronic Components Assembler: JEFFERSON GARVIN ([id number]) [facility] ([facility]) [address] [place] [address] Thin prep Papanicolaou smear with manual screeningOrdered By: Lurdes Barrera on 09-16-2023 Protein (U) [Mass/Vol] 19.9 mg/dL 0.0-11.8 [facility] Thin prep Papanicolaou smear with manual screeningOrdered By: Sheron Ernst on 09-16-2023 Thin prep Papanicolaou smear with manual screening 18 U/L 15-37 [facility] URINE CULTUREon 09-16-2023 Bacteria identified Cx Nom (U) URINE CULTURE (A) Reference ESCHERICHIA COLI 50,000-90,000 CFU/mL Escherichia coli (A) Organism: ESCHERICHIA COLI Antibiotic GRADY Interpretation Status Amoxicillin / Clavulanate >=32 ug/ml R F Ampicillin >=32 ug/ml R F Ampicillin / Sulbactam >=32 ug/ml R F Aztreonam <=1 ug/ml S F Cefazolin >=64 ug/ml R F Cefepime <=1 ug/ml S F Ceftriaxone <=1 ug/ml S F Ciprofloxacin <=0.25 ug/ml S F Gentamicin <=1 ug/ml S F Meropenem <=0.25 ug/ml S F Nitrofurantoin <=16 ug/ml S F Piperacillin / Tazobactam >=128 ug/ml R F Trimethoprim / Sulfamethoxazole >=320 ug/ml R F [ S = SUSCEPTIBLE R = RESISTANT I = INTERMEDIATE S-DD = Susceptible-dose dependent NS = Non-susceptible NO = No Interpretation ] Normal [facility] Comment on above: Performed By: #### L [id number] #### Electronic Components Assembler: JEFFERSON GARVIN ([id number]) [facility] ([facility]) [address] [place] [address] Urine creatinine measurement (mass/volume)Ordered By: Lurdes Barrera on 09-16-2023 Creatinine (U) [Mass/Vol] 107.00 mg/dL NO RANGE EST. [facility] Urine protein/creatinine mas s ratioOrdered By: Lurdes Barrera on 09-16-2023 Protein/Creatinine (U) [Mass ratio] 186 mg/g CRE 0-200 [facility] Absolute lymphocyte countOrd ered By: Lurdes Barrera on 09-02-2023 Lymphocytes Auto (Unsp spec) [#/Vol] 1.10 10*3/uL 0.83-4.51 [facility] Automated lymphocyte count a s percentage of total leukocytesOrdered By: Lurdes Barrera on 09-02-2023 Lymphocytes/100 WBC Auto (Unsp spec) 20.8 % 19-41 [facility] Basophil percentageOrdered B y: Lurdes Barrera on 09-02-2023 Basophils/100 WBC (Bld) 0.2 % 0-1 [facility] Eosinophils/100 WBC (Bld) 0.8 % 0-5 [facility] Hemoglobin (Bld) [Mass/Vol] 9.3 g/dL 12.0-15.0 [facility] Monocytes/100 WBC (Bld) 5.8 % 0-10 [facility] Neutrophils (Bld) [#/Vol] 3.8 10*3/uL 2.0-7.7 [facility] Neutrophils/100 WBC (Bld) 71.8 % 47-70 [facility] WBC (Bld) [#/Vol] 5.3 10*3/uL 4.4-11.0 [facility] Basophil percentageOrdered B y: Juliana Hernandez on 09-02-2023 Bilirubin [Mass/Vol] 0.30 mg/dL 0.20-1.00 [facility] Comment on above: For patients on eltr ombopag therapy, use of Dimension [place] TBIL is not recommended. Chloride [Moles/Vol] 109 mmol/L 98-107 [facility] Glucose [Mass/Vol] 145 mg/dL 74-106 [facility] Comment on above: Fasting Glucose resu lt greater than or equal to 126 mg/dL suggests DIABETES MELLITUS per A.D.A. criteria. Potassium [Moles/Vol] 2.8 mmol/L 3.5-5.1 [facility] Protein [Mass/Vol] 7.0 g/dL 6.4-8.2 [facility] Sodium [Moles/Vol] 138 mmol/L 136-145 [facility] Determination of erythrocyte mean corpuscular volume (MCV)Ordered By: Lurdes Barrera on 09-02-2023 MCV (RBC) [Entitic vol] 87.3 fL 81-99 [facility] Erythrocyte distribution wid th ratioOrdered By: Lurdes Barrera on 09-02-2023 Erythrocyte distribution width (RBC) [Ratio] 13.1 % 11.6-14.6 [facility] Erythrocyte distribution wid th standard deviationOrdered By: Lurdes Barrera on 09-02-2023 Erythrocyte distribution width (RBC) [Entitic vol] 41.8 fL 35.1-43.9 [facility] Gestational diabetes screen 1-hour screen with 50g oral glucose loadOrdered By: Lurdes Barrera on 09-02-2023 Glucose 1 Hr post 50 g glucose PO [Mass/Vol] 147 mg/dL 70-140 [facility] HIV 1 and HIV-2 antibody ass ay with HIV-1 p24 antigen detectionOrdered By: Lurdes Barrera on 09-02-2023 HIV 1+2 Ab+HIV1 p24 Ag IA Ql Non-Reactive Nonreactive [facility] HIV 1+2 Ab+HIV1 p24 Ag IA Ql on 09-02-2023 HIV-1/HIV-2 Ab Non-Reactive [facility] Hematocrit Auto (Bld) [Volum e fraction]Ordered By: Lurdes Barrera on 09-02-2023 Hematocrit (Bld) [Volume fraction] 27.6 % 37-47 [facility] Immature granulocytes/100 WB C Auto (Bld)Ordered By: Lurdes Barrera on 09-02-2023 Immature granulocytes/100 WBC (Bld) 0.600 % 0.0-0.9 [facility] Comment on above: IG% - Immature Granu locytes (promyelocytes, myelocytes and metamyelocytes) > 1% indicates that a LEFT SHIFT is Present. Laboratory - Chemistry and C hemistry - challengeon 09-02-2023 Glucose Ql (U) Negative [facility] Laboratory - Chemistry and C hemistry - challengeOrdered By: Juliana Hernandez on 09-02-2023 Albumin/Globulin [Mass ratio] 0.7 {ratio} 0.9-2.4 [facility] ALP [Catalytic activity/Vol] 89 U/L 45-117 [facility] ALT [Catalytic activity/Vol] 11 U/L 13-56 [facility] CO2 [Moles/Vol] 22.0 mmol/L 21.0-32.0 [facility] Cobalamin (Vitamin B12) [Mass/Vol] 317 pg/mL 211-911 [facility] Ferritin [Mass/Vol] 5 ng/mL 8-252 [facility] Globulin (S) [Mass/Vol] 4.2 g/dL 2.2-4.2 [facility] Urea nitrogen/Creatinine [Mass ratio] 7.3 mg/mg 10-20 [facility] Laboratory - Hematology and Cell countsOrdered By: Lurdes Barrera on 09-02-2023 MCH (RBC) [Entitic mass] 29.4 pg 27.0-32.0 [facility] MCHC (RBC) [Mass/Vol] 33.7 g/dL 32-36 [facility] Nucleated RBC/100 WBC (Bld) [Ratio] 0 % 0-5 [facility] Platelets (Bld) [#/Vol] 200 10*3/uL 150-450 [facility] Laboratory - Urinalysison Protein Ql (U) Negative [facility] No Panel InformationOrdered By: Juliana Hernandez on 09-02-2023 Estimated GFR (MDRD) Amer 170 mL/min >60 [facility] Comment on above: GFR Calc Estimated GFR (MDRD) Non-Af Amer 141 mL/min >60 [facility] Comment on above: Non- GFR Calc Total Iron Binding Capacity 478 ug/dL 250-450 [facility] Platelet mean volume Benjy-Ec ker (Bld) [Entitic vol]Ordered By: Lurdes Barrera on 09-02-2023 Platelet mean volume (Bld) [Entitic vol] 11.0 fL 6.2-12.0 [facility] RBC Auto (Bld) [#/Vol]Ordere d By: Lurdes Barrera on 09-02-2023 RBC (Bld) [#/Vol] 3.16 10*6/uL 4.2-5.4 [facility] Serum Treponema species anti body detectionOrdered By: Lurdes Barrera on 09-02-2023 Treponema sp Ab Ql (S) Non-Reactive [facility] Serum or plasma calcium valerie urement (mass/volume)Ordered By: Juliana Hernandez on 09-02-2023 Calcium [Mass/Vol] 9.2 mg/dL 8.5-10.1 [facility] Serum or plasma creatinine m easurement (mass/volume)Ordered By: Juliana Hernandez on 09-02-2023 Creatinine [Mass/Vol] 0.55 mg/dL 0.55-1.02 [facility] Comment on above: The validity of the calculated GFR & GFRAA in patients over 70 years has not been determined. Clinical correlation is essential. Serum or plasma urea nitroge n measurement (mass/volume)Ordered By: Juliana Hernandez on 09-02-2023 Urea nitrogen [Mass/Vol] 4 mg/dL 7-18 [facility] Thin prep Papanicolaou smear with manual screeningOrdered By: Juliana Hernandez on 09-02-2023 Thin prep Papanicolaou smear with manual screening 2.8 g/dL 3.2-5.0 [facility] Thin prep Papanicolaou smear with manual screening 10 U/L 15-37 [facility] Thin prep Papanicolaou smear with manual screening 7 5-15 [facility] Laboratory - Chemistry and C hemistry - challengeon 07-29-2023 Glucose Ql (U) Negative [facility] Laboratory - Urinalysison Protein Ql (U) Negative [facility] Laboratory - Chemistry and C hemistry - challengeon 07-01-2023 Glucose Ql (U) Negative [facility] Laboratory - Urinalysison Protein Ql (U) Negative [facility] Laboratory - Chemistry and C hemistry - challengeon 06-03-2023 Glucose Ql (U) Negative [facility] Laboratory - Urinalysison Protein Ql (U) Trace [facility] Culture, urineOrdered By: Martina Barrera on 05-06-2023 Bacteria identified Cx Nom (U) Positive [facility] Laboratory - Chemistry and C hemistry - challengeon 05-06-2023 Glucose Ql (U) Negative [facility] Laboratory - Urinalysison Protein Ql (U) Negative [facility] Chlamydia trachomatis rRNA d etection by probe and target amplification methodOrdered By: Juliana Hernandez on 04-08-2023 C. trachomatis rRNA SARAH+probe Ql (Unsp spec) Negative [facility] Culture, urineOrdered By: Kavon Hernandez on 04-08-2023 Bacteria identified Cx Nom (U) Positive [facility] Laboratory - Microbiology an d Antimicrobial susceptibilityOrdered By: Juliana Hernandez on 04-08-2023 N. gonorrhoeae DNA SARAH+probe Ql (Unsp spec) Negative Negative [facility] Comment on above: Performed at: =[address] [id number] Director: Bernadine Brandt MD, Phone: [phone] N. gonorrhoeae DNA SARAH+probe Ql (Cervical mucus)on 04-08-2023 N. gonorrhoeae rRNA SARAH+probe Ql (Unsp spec) Negative [facility] Urine creatinine measurement (mass/volume)Ordered By: Juliana Hernandez on 04-08-2023 Creatinine (U) [Mass/Vol] 63.60 mg/dL NO RANGE EST. [facility] Urine protein measurement (m ass/volume)Ordered By: Juliana Hernandez on 04-08-2023 Protein (U) [Mass/Vol] 6.4 mg/dL 0.0-11.8 [facility] Urine protein/creatinine mas s ratioOrdered By: Juliana Hernandez on 04-08-2023 Protein/Creatinine (U) [Mass ratio] 101 mg/g CRE 0-200 [facility] Absolute lymphocyte countOrd ered By: Juliana Hernandez on 03-31-2023 Lymphocytes Auto (Unsp spec) [#/Vol] 1.31 10*3/uL 0.83-4.51 [facility] Basophil percentageOrdered B y: Juliana Hernandez on 03-31-2023 Basophils/100 WBC (Bld) 0.5 % 0-1 [facility] Eosinophils/100 WBC (Bld) 0.9 % 0-5 [facility] Neutrophils (Bld) [#/Vol] 2.7 10*3/uL 2.0-7.7 [facility] Neutrophils/100 WBC (Bld) 61.7 % 47-70 [facility] WBC (Bld) [#/Vol] 4.4 10*3/uL 4.4-11.0 [facility] Blood erythrocytes count (nu mber/volume)Ordered By: Juliana Hernandez on 03-31-2023 RBC (Bld) [#/Vol] 3.73 10*6/uL 4.2-5.4 [facility] Blood hemoglobin measurement (mass/volume)Ordered By: Juliana Hernandez on 03-31-2023 Hemoglobin (Bld) [Mass/Vol] 10.2 g/dL 12.0-15.0 [facility] Blood lymphocytes/100 leukoc ytesOrdered By: Juliana Hernandez on 03-31-2023 Lymphocytes/100 WBC (Bld) 30.0 % 19-41 [facility] Blood monocytes/100 leukocyt esOrdered By: Juliana Hernandez on 03-31-2023 Monocytes/100 WBC (Bld) 6.9 % 0-10 [facility] Blood platelet mean volumeOr dered By: Juliana Hernandez on 03-31-2023 Platelet mean volume (Bld) [Entitic vol] 11.4 fL 6.2-12.0 [facility] Determination of erythrocyte mean corpuscular volume (MCV)Ordered By: Juliana Hernandez on 03-31-2023 MCV (RBC) [Entitic vol] 88.2 fL 81-99 [facility] HBV surface Ag IA QlOrdered By: Sarahy Grewal on 03-31-2023 External Hepatitis B Surface Ag Negative Negative, None Detected [facility] HIV 1 and HIV-2 antibody ass ay with HIV-1 p24 antigen detectionOrdered By: Juliana Hernandez on 03-31-2023 HIV 1+2 Ab+HIV1 p24 Ag IA Ql Non-Reactive Nonreactive [facility] HIV 1+2 Ab+HIV1 p24 Ag IA Ql on 03-31-2023 HIV-1/HIV-2 Ab Negative [facility] Hematocrit Auto (Bld) [Volum e fraction]Ordered By: Juliana Hernandez on 03-31-2023 Hematocrit (Bld) [Volume fraction] 32.9 % 37-47 [facility] Laboratory - Hematology and Cell countsOrdered By: Juliana Hernandez on 03-31-2023 Erythrocyte distribution width (RBC) [Entitic vol] 46.3 fL 35.1-43.9 [facility] Erythrocyte distribution width (RBC) [Ratio] 14.4 % 11.6-14.6 [facility] Immature granulocytes/100 WBC (Bld) 0.000 % 0.0-0.9 [facility] Comment on above: IG% - Immature Granu locytes (promyelocytes, myelocytes and metamyelocytes) > 1% indicates that a LEFT SHIFT is Present. MCH (RBC) [Entitic mass] 27.3 pg 27.0-32.0 [facility] Nucleated RBC/100 WBC (Bld) [Ratio] 0 % 0-5 [facility] Laboratory - Microbiology an d Antimicrobial susceptibilityon 03-31-2023 Reagin Ab RPR Ql (S) Non-Reactive Nonreactive S [facility] Rubella virus IgG Ql (S) Reactive [facility] MCHC Auto (RBC) [Mass/Vol]Or dered By: Juliana Hernandez on 03-31-2023 MCHC (RBC) [Mass/Vol] 31.0 g/dL 32-36 [facility] No Panel InformationOrdered By: Sarahy Grewal on 03-31-2023 [facility] No Panel InformationOrdered By: Juliana Hernandez on 03-31-2023 Hepatitis B Surface Antigen Non-Reactive Nonreactive [facility] Hepatitis C Antibody Non-Reactive Nonreactive [facility] Comment on above: Non Reactive: < 0.8 Equivocal: >/= 0.8 to < 1.0 Reactive: >/= 1.0The CDC recommends that a reactive/equivocal HCV antibody result be followed up by the HCV Nucleic Acid Amplificationtest (083649) Rubella IgG Antibody Reactive Nonreactive [facility] Comment on above: Antibody Results Int erpretation of Immune Status Non Reactive Presumed Non-Immune Equivocal Equivocal Reactive Presumed Immune Platelets bldOrdered By: Ana Cristina Hernandez on 03-31-2023 Platelets (Bld) [#/Vol] 213 10*3/uL 150-450 [facility] Serum Treponema species anti body detectionOrdered By: Juliana Hernandez on 03-31-2023 Treponema sp Ab Ql (S) Non-Reactive [facility] Serum or plasma choriogonado tropin detectionOrdered By: Juliana Hernandez on 03-31-2023 HCG ( [place]) [place] [address] mIU/mL <4 [facility] Comment on above: hCG levels with Gest ational AgeGestational Age hCG mIU/mL (IU/L)0.2 - 1 week 5 - 501-2 weeks 50 - 5002-3 weeks 100 - 11613-7 weeks 500 - 003867-0 weeks 1000 - 921606-1 weeks 02072 - 100,0006-8 weeks 95197 - 200,0002-3 months 88699 - 100,000 Serum or plasma choriogonado tropin detectionOrdered By: Juliana Hernandez on 03-29-2023 HCG ( test) Ql 28633 mIU/mL <4 [facility] Comment on above: hCG levels with Gest ational AgeGestational Age hCG mIU/mL (IU/L)0.2 - 1 week 5 - 501-2 weeks 50 - 5002-3 weeks 100 - 72775-3 weeks 500 - 923273-7 weeks 1000 - 823891-6 weeks 63338 - 100,0006-8 weeks 30153 - 200,0002-3 months 49484 - 100,000 Absolute lymphocyte countOrd ered By: Dr. Cruz on 12-23-2022 Lymphocytes Auto (Unsp spec) [#/Vol] 1.51 10*3/uL 0.83-4.51 [facility] Basophil percentageOrdered B y: Dr. Cruz on 12-23-2022 Basophils/100 WBC (Bld) 0.3 % 0-1 [facility] Eosinophils/100 WBC (Bld) 0.5 % 0-5 [facility] Neutrophils (Bld) [#/Vol] 4.1 10*3/uL 2.0-7.7 [facility] Neutrophils/100 WBC (Bld) 66.9 % 47-70 [facility] WBC (Bld) [#/Vol] 6.1 10*3/uL 4.4-11.0 [facility] Blood erythrocytes count (nu mber/volume)Ordered By: Dr. Cruz on 12-23-2022 RBC (Bld) [#/Vol] 3.85 10*6/uL 4.2-5.4 [facility] Blood hemoglobin measurement (mass/volume)Ordered By: Dr. Cruz on 12-23-2022 Hemoglobin (Bld) [Mass/Vol] 11.3 g/dL 12.0-15.0 [facility] Blood lymphocytes/100 leukoc ytesOrdered By: Dr. Cruz on 12-23-2022 Lymphocytes/100 WBC (Bld) 24.6 % 19-41 [facility] Blood monocytes/100 leukocyt esOrdered By: Dr. Cruz on 12-23-2022 Monocytes/100 WBC (Bld) 7.5 % 0-10 [facility] Blood platelet mean volumeOr dered By: Dr. Cruz on 12-23-2022 Platelet mean volume (Bld) [Entitic vol] 11.1 fL 6.2-12.0 [facility] Determination of erythrocyte mean corpuscular volume (MCV)Ordered By: Dr. Cruz on 12-23-2022 MCV (RBC) [Entitic vol] 87.5 fL 81-99 [facility] Hematocrit Auto (Bld) [Volum e fraction]Ordered By: Dr. Cruz on 12-23-2022 Hematocrit (Bld) [Volume fraction] 33.7 % 37-47 [facility] Laboratory - Hematology and Cell countsOrdered By: Dr. Cruz on 12-23-2022 Erythrocyte distribution width (RBC) [Entitic vol] 43.4 fL 35.1-43.9 [facility] Erythrocyte distribution width (RBC) [Ratio] 13.6 % 11.6-14.6 [facility] Immature granulocytes/100 WBC (Bld) 0.200 % 0.0-0.9 [facility] Comment on above: IG% - Immature Granu locytes (promyelocytes, myelocytes and metamyelocytes) > 1% indicates that a LEFT SHIFT is Present. MCH (RBC) [Entitic mass] 29.4 pg 27.0-32.0 [facility] Nucleated RBC/100 WBC (Bld) [Ratio] 0 % 0-5 [facility] MCHC Auto (RBC) [Mass/Vol]Or dered By: Dr. Cruz on 12-23-2022 MCHC (RBC) [Mass/Vol] 33.5 g/dL 32-36 [facility] Comment on above: Delta: 31.8 on 12/22-1738 Platelets bldOrdered By: Dr. rCuz on 12-23-2022 Platelets (Bld) [#/Vol] 193 10*3/uL 150-450 [facility] Serum or plasma choriogonado tropin detectionOrdered By: Dr. Cruz on 12-23-2022 HCG ( test) Ql 1015 mIU/mL <4 [facility] Comment on above: hCG levels with Gest ational AgeGestational Age hCG mIU/mL (IU/L)0.2 - 1 week 5 - 501-2 weeks 50 - 5002-3 weeks 100 - 17081-2 weeks 500 - 009980-1 weeks 1000 - 698034-8 weeks 99084 - 100,0006-8 weeks 14736 - 200,0002-3 months 16515 - 100,000 Absolute lymphocyte countOrd ered By: Dr. Bowden on 12-22-2022 Lymphocytes Auto (Unsp spec) [#/Vol] 2.04 10*3/uL 0.83-4.51 [facility] Basophil percentageOrdered B y: Dr. Bowden on 12-22-2022 Basophil percentage 0-5 SEEN /hpf 0-5 [facility] Basophils/100 WBC (Bld) 0.4 % 0-1 [facility] Eosinophils/100 WBC (Bld) 1.7 % 0-5 [facility] Neutrophils (Bld) [#/Vol] 2.1 10*3/uL 2.0-7.7 [facility] Neutrophils/100 WBC (Bld) 44.4 % 47-70 [facility] WBC (Bld) [#/Vol] 4.6 10*3/uL 4.4-11.0 [facility] Bilirubin Test strip Ql (U)O rdered By: Dr. Bowden on 12-22-2022 Bilirubin Ql (U) 1 mg/dL Negative [facility] Comment on above: COLOR OF URINE MAY A FFECT DIPSTICK RESULTS. Blood erythrocytes count (nu mber/volume)Ordered By: Dr. Bowden on 12-22-2022 RBC (Bld) [#/Vol] 3.84 10*6/uL 4.2-5.4 [facility] Blood hemoglobin measurement (mass/volume)Ordered By: Dr. Bowden on 12-22-2022 Hemoglobin (Bld) [Mass/Vol] 10.9 g/dL 12.0-15.0 [facility] Blood lymphocytes/100 leukoc ytesOrdered By: Dr. Bowden on 12-22-2022 Lymphocytes/100 WBC (Bld) 44.0 % 19-41 [facility] Blood monocytes/100 leukocyt esOrdered By: Dr. Bowden on 12-22-2022 Monocytes/100 WBC (Bld) 9.3 % 0-10 [facility] Blood platelet mean volumeOr dered By: Dr. Bowden on 12-22-2022 Platelet mean volume (Bld) [Entitic vol] 11.0 fL 6.2-12.0 [facility] Determination of erythrocyte mean corpuscular volume (MCV)Ordered By: Dr. Bowden on 12-22-2022 MCV (RBC) [Entitic vol] 89.3 fL 81-99 [facility] Hematocrit Auto (Bld) [Volum e fraction]Ordered By: Dr. Bowden on 12-22-2022 Hematocrit (Bld) [Volume fraction] 34.3 % 37-47 [facility] Influenza virus A and B and SARS-CoV-2 (COVID-19) Ag panel - Upper respiratory specimOrdered By: Alek Bowden on 12-22-2022 SARS-CoV-2 (COVID-19) RNA SARAH+probe Ql (Resp) [facility] Influenza virus A and B and SARS-CoV-2 (COVID-19) Ag panel - Upper respiratory specimOrdered By: Dr. Bowden on 12-22-2022 SARS-CoV-2 (COVID-19) RNA SARAH+probe Ql (Resp) [facility] Ketones Test strip Ql (U)Ord ered By: Dr. Bowden on 12-22-2022 Ketones Ql (U) 5 mg/dl Negative [facility] Laboratory - Hematology and Cell countsOrdered By: Dr. Bowden on 12-22-2022 Erythrocyte distribution width (RBC) [Entitic vol] 43.9 fL 35.1-43.9 [facility] Erythrocyte distribution width (RBC) [Ratio] 13.5 % 11.6-14.6 [facility] Immature granulocytes/100 WBC (Bld) 0.200 % 0.0-0.9 [facility] Comment on above: IG% - Immature Granu locytes (promyelocytes, myelocytes and metamyelocytes) > 1% indicates that a LEFT SHIFT is Present. MCH (RBC) [Entitic mass] 28.4 pg 27.0-32.0 [facility] Nucleated RBC/100 WBC (Bld) [Ratio] 0 % 0-5 [facility] MCHC Auto (RBC) [Mass/Vol]Or dered By: Dr. Bowden on 12-22-2022 MCHC (RBC) [Mass/Vol] 31.8 g/dL 32-36 [facility] Mucus LM Ql (Urine sed)Order ed By: Dr. Bowden on 12-22-2022 Mucus Ql (Urine sed) 0 SEEN /hpf [facility] Nitrite Test strip Ql (U)Ord ered By: Dr. Bowden on 12-22-2022 Nitrite Ql (U) Negative Negative [facility] Platelets bldOrdered By: Dr. Bowden on 12-22-2022 Platelets (Bld) [#/Vol] 210 10*3/uL 150-450 [facility] Protein Test strip Ql (U)Ord ered By: Dr. Bowden on 12-22-2022 Protein Ql (U) 100 mg/dl Negative [facility] Serum or plasma choriogonado tropin detectionOrdered By: Dr. Bowden on 12-22-2022 HCG ( test) Ql 1408 mIU/mL <4 [facility] Comment on above: hCG levels with Gest ational AgeGestational Age hCG mIU/mL (IU/L)0.2 - 1 week 5 - 501-2 weeks 50 - 5002-3 weeks 100 - 47861-5 weeks 500 - 210103-7 weeks 1000 - 617715-6 weeks 24460 - 100,0006-8 weeks 77831 - 200,0002-3 months 91481 - 100,000 Squamous epithelial cells de tection in urine sediment by light microscopyOrdered By: Dr. Bowden on 12-22-2022 Epithelial cells.squamous LM Ql (Urine sed) 25-50 SEEN /hpf 5-10 [facility] Urine blood detectionOrdered By: Dr. Bowden on 12-22-2022 RBC Ql (U) 250 /ul Negative [facility] RBC Ql (U) > 100 SEEN /hpf 0-5 [facility] Urine clarityOrdered By: Dr. Bowden on 12-22-2022 Clarity (U) Turbid Clear [facility] Urine color determinationOrd ered By: Dr. Bowden on 12-22-2022 Color (U) Andria Yellow [facility] Urine glucose detectionOrder ed By: Dr. Bowden on 12-22-2022 Glucose Ql (U) Normal mg/dl Normal [facility] Urine leukocyte esterase det ection by dipstickOrdered By: Dr. Bowden on 12-22-2022 Leukocyte esterase Test strip Ql (U) 100 /ul Negative [facility] Urine pHOrdered By: Dr. Yash valladares on 12-22-2022 pH (U) 6.0 [pH] 5.0 - 8.0 [facility] Urine sediment bacteria coun t by microscopy (number/high power field)Ordered By: Dr. Bowden on 12-22-2022 Bacteria LM.HPF (Urine sed) [#/Area] 0 /[HPF] None Seen [facility] Urine specific gravity measu rementOrdered By: Dr. Bowden on 12-22-2022 Specific gravity (U) [Rel density] 1.020 1.002-1.030 [facility] Urobilinogen Auto test strip Ql (U)Ordered By: Dr. Bowden on 12-22-2022 Urobilinogen Ql (U) 4 mg/dl Normal [facility] Absolute lymphocyte countOrd ered By: Dr. Houston on 12-18-2022 Lymphocytes Auto (Unsp spec) [#/Vol] 2.00 10*3/uL 0.83-4.51 [facility] Basophil percentageOrdered B y: Dr. Houston on 12-18-2022 Basophils/100 WBC (Bld) 0.4 % 0-1 [facility] Chloride [Moles/Vol] 110 mmol/L 98-107 [facility] Eosinophils/100 WBC (Bld) 1.1 % 0-5 [facility] Glucose [Mass/Vol] 87 mg/dL 74-106 [facility] Neutrophils (Bld) [#/Vol] 2.1 10*3/uL 2.0-7.7 [facility] Neutrophils/100 WBC (Bld) 45.9 % 47-70 [facility] Potassium [Moles/Vol] 3.9 mmol/L 3.5-5.1 [facility] Comment on above: Moderate Hemolysis, Result may be falsely increased. Sodium [Moles/Vol] 139 mmol/L 136-145 [facility] WBC (Bld) [#/Vol] 4.6 10*3/uL 4.4-11.0 [facility] Basophil percentage 0 SEEN /hpf 0-5 [facility] Bilirubin Test strip Ql (U)O rdered By: Dr. Houston on 12-18-2022 Bilirubin Ql (U) Negative Negative [facility] Blood erythrocytes count (nu mber/volume)Ordered By: Dr. Houston on 12-18-2022 RBC (Bld) [#/Vol] 3.72 10*6/uL 4.2-5.4 [facility] Blood hemoglobin measurement (mass/volume)Ordered By: Dr. Houston on 12-18-2022 Hemoglobin (Bld) [Mass/Vol] 10.4 g/dL 12.0-15.0 [facility] Blood lymphocytes/100 leukoc ytesOrdered By: Dr. Houston on 12-18-2022 Lymphocytes/100 WBC (Bld) 43.1 % 19-41 [facility] Blood monocytes/100 leukocyt esOrdered By: Dr. Houston on 12-18-2022 Monocytes/100 WBC (Bld) 9.3 % 0-10 [facility] Blood platelet mean volumeOr dered By: Dr. Houston on 12-18-2022 Platelet mean volume (Bld) [Entitic vol] 11.1 fL 6.2-12.0 [facility] Determination of erythrocyte mean corpuscular volume (MCV)Ordered By: Dr. Houston on 12-18-2022 MCV (RBC) [Entitic vol] 87.4 fL 81-99 [facility] Hematocrit Auto (Bld) [Volum e fraction]Ordered By: Dr. Houston on 12-18-2022 Hematocrit (Bld) [Volume fraction] 32.5 % 37-47 [facility] Ketones Test strip Ql (U)Ord ered By: Dr. Houston on 12-18-2022 Ketones Ql (U) Negative Negative [facility] Laboratory - Chemistry and C hemistry - challengeOrdered By: Dr. Houston on 12-18-2022 CO2 [Moles/Vol] 22.0 mmol/L 21.0-32.0 [facility] Urea nitrogen/Creatinine [Mass ratio] 10.3 mg/mg 10-20 [facility] Laboratory - Hematology and Cell countsOrdered By: Dr. Houston on 12-18-2022 Erythrocyte distribution width (RBC) [Entitic vol] 43.3 fL 35.1-43.9 [facility] Erythrocyte distribution width (RBC) [Ratio] 13.6 % 11.6-14.6 [facility] Immature granulocytes/100 WBC (Bld) 0.200 % 0.0-0.9 [facility] Comment on above: IG% - Immature Granu locytes (promyelocytes, myelocytes and metamyelocytes) > 1% indicates that a LEFT SHIFT is Present. MCH (RBC) [Entitic mass] 28.0 pg 27.0-32.0 [facility] Nucleated RBC/100 WBC (Bld) [Ratio] 0 % 0-5 [facility] MCHC Auto (RBC) [Mass/Vol]Or dered By: Dr. Houston on 12-18-2022 MCHC (RBC) [Mass/Vol] 32.0 g/dL 32-36 [facility] Mucus LM Ql (Urine sed)Order ed By: Dr. Houston on 12-18-2022 Mucus Ql (Urine sed) 0 SEEN /hpf [facility] Nitrite Test strip Ql (U)Ord ered By: Dr. Houston on 12-18-2022 Nitrite Ql (U) Negative Negative [facility] No Panel InformationOrdered By: Dr. Houston on 12-18-2022 Estimated Creatinine Clearance Calc 114.22 ml/min [facility] Estimated GFR (MDRD) Amer 115 mL/min >60 [facility] Comment on above: GFR Calc Estimated GFR (MDRD) Non-Af Amer 95 mL/min >60 [facility] Comment on above: Non- GFR Calc Platelets bldOrdered By: Dr. Houston on 12-18-2022 Platelets (Bld) [#/Vol] 199 10*3/uL 150-450 [facility] Protein Test strip Ql (U)Ord ered By: Dr. Houston on 12-18-2022 Protein Ql (U) Negative Negative [facility] Serum or plasma calcium valerie urement (mass/volume)Ordered By: Dr. Houston on 12-18-2022 Calcium [Mass/Vol] 8.9 mg/dL 8.5-10.1 [facility] Serum or plasma choriogonado tropin detectionOrdered By: Dr. Houston on 12-18-2022 HCG ( test) Ql 1352 mIU/mL <4 [facility] Comment on above: hCG levels with Gest ational AgeGestational Age hCG mIU/mL (IU/L)0.2 - 1 week 5 - 501-2 weeks 50 - 5002-3 weeks 100 - 12737-5 weeks 500 - 170467-6 weeks 1000 - 428973-7 weeks 93744 - 100,0006-8 weeks 96147 - 200,0002-3 months 38011 - 100,000 Serum or plasma creatinine m easurement (mass/volume)Ordered By: Dr. Houston on 12-18-2022 Creatinine [Mass/Vol] 0.78 mg/dL 0.55-1.02 [facility] Comment on above: The validity of the calculated GFR & GFRAA in patients over 70 years has not been determined. Clinical correlation is essential. Serum or plasma urea nitroge n measurement (mass/volume)Ordered By: Dr. Houston on 12-18-2022 Urea nitrogen [Mass/Vol] 8 mg/dL 7-18 [facility] Squamous epithelial cells de tection in urine sediment by light microscopyOrdered By: Dr. Houston on 12-18-2022 Epithelial cells.squamous LM Ql (Urine sed) 0-5 SEEN /hpf 5-10 [facility] Thin prep Papanicolaou smear with manual screeningOrdered By: Dr. Houston on 12-18-2022 Thin prep Papanicolaou smear with manual screening 7 5-15 [facility] Urine blood detectionOrdered By: Dr. Houston on 12-18-2022 RBC Ql (U) Negative Negative [facility] RBC Ql (U) 0 SEEN /hpf 0-5 [facility] Urine clarityOrdered By: Dr. Houston on 12-18-2022 Clarity (U) Sl. Cloudy Clear [facility] Urine color determinationOrd ered By: Dr. Houston on 12-18-2022 Color (U) Yellow Yellow [facility] Urine glucose detectionOrder ed By: Dr. Houston on 12-18-2022 Glucose Ql (U) Normal mg/dl Normal [facility] Urine leukocyte esterase det ection by dipstickOrdered By: Dr. Houston on 12-18-2022 Leukocyte esterase Test strip Ql (U) 25 /ul Negative [facility] Urine pHOrdered By: Dr. Pavel suh on 12-18-2022 pH (U) 6.0 [pH] 5.0 - 8.0 [facility] Urine sediment bacteria coun t by microscopy (number/high power field)Ordered By: Dr. Houston on 12-18-2022 Bacteria LM.HPF (Urine sed) [#/Area] 0 /[HPF] None Seen [facility] Urine specific gravity measu rementOrdered By: Dr. Houston on 12-18-2022 Specific gravity (U) [Rel density] 1.010 1.002-1.030 [facility] Urobilinogen Auto test strip Ql (U)Ordered By: Dr. Houston on 12-18-2022 Urobilinogen Ql (U) Normal mg/dl Normal [facility] Vital Signs Date Time Vital Sign Value Performing Clinician Rambo allen 12-16-2023 11:25-0400 Body height 175.26 cm No Primary Care Physician [facility] 12-16-2023 11:12-0400 Body mass index (BMI) [Ratio] 28.8 kg/m2 No Primary Care Physician [facility] 12-16-2023 11:12-0400 Body weight 88.62 kg No Primary Care Physician [facility] 12-16-2023 11:12-0400 Diastolic blood pressure 82 mm[Hg] No Primary Care Physician [facility] 12-16-2023 11:12-0400 Systolic blood pressure 120 mm[Hg] No Primary Care Physician [facility] 11-04-2023 08:45-0400 Body temperature 97.5 [degF] No Primary Care Physician [facility] 11-04-2023 08:45-0400 Diastolic blood pressure 87 mm[Hg] No Primary Care Physician [facility] 11-04-2023 08:45-0400 Heart rate 96 /min No Primary Care Physician [facility] 11-04-2023 08:45-0400 Respiratory rate 16 /min No Primary Care Physician [facility] 11-04-2023 08:45-0400 SaO2% (BldA) [Mass fraction] 99 % No Primary Care Physician [facility] 11-04-2023 08:45-0400 Systolic blood pressure 107 mm[Hg] No Primary Care Physician [facility] 11-03-2023 03:10-0400 Body temperature 97.9 [degF] No Primary Care Physician [facility] 11-03-2023 03:10-0400 Diastolic blood pressure 77 mm[Hg] No Primary Care Physician [facility] 11-03-2023 03:10-0400 Heart rate 88 /min No Primary Care Physician [facility] 11-03-2023 03:10-0400 Respiratory rate 16 /min No Primary Care Physician [facility] 11-03-2023 03:10-0400 SaO2% (BldA) [Mass fraction] 100 % No Primary Care Physician [facility] 11-03-2023 03:10-0400 Systolic blood pressure 118 mm[Hg] No Primary Care Physician [facility] 11-02-2023 07:44-0400 Body height 175.26 cm No Primary Care Physician [facility] 11-02-2023 07:44-0400 Body mass index (BMI) [Ratio] 32.4 kg/m2 No Primary Care Physician [facility] 11-02-2023 07:44-0400 Body weight 99.69 kg No Primary Care Physician [facility] 11-01-2023 15:22-0400 Body height 175.26 cm No Primary Care Physician [facility] 11-01-2023 15:22-0400 Body mass index (BMI) [Ratio] 32.5 kg/m2 No Primary Care Physician [facility] 11-01-2023 15:22-0400 Body weight 100 kg No Primary Care Physician [facility] 11-01-2023 15:12-0400 Body temperature 98.8 [degF] No Primary Care Physician [facility] 11-01-2023 15:12-0400 Diastolic blood pressure 75 mm[Hg] No Primary Care Physician [facility] 11-01-2023 15:12-0400 Heart rate 94 /min No Primary Care Physician [facility] 11-01-2023 15:12-0400 Respiratory rate 16 /min No Primary Care Physician [facility] 11-01-2023 15:12-0400 SaO2% (BldA) [Mass fraction] 94 % No Primary Care Physician [facility] 11-01-2023 15:12-0400 Systolic blood pressure 126 mm[Hg] No Primary Care Physician [facility] 10-28-2023 11:00-0400 Body weight 98.88 kg No Primary Care Physician [facility] 10-28-2023 09:25-0400 Diastolic blood pressure 89 mm[Hg] No Primary Care Physician [facility] 10-28-2023 09:25-0400 Systolic blood pressure 135 mm[Hg] No Primary Care Physician [facility] 10-21-2023 10:51-0500 Body height 175.26 cm No Primary Care Physician [facility] 10-21-2023 10:51-0500 Body mass index (BMI) [Ratio] 32.1 kg/m2 No Primary Care Physician [facility] 10-21-2023 10:51-0500 Body weight 98.48 kg No Primary Care Physician [facility] 10-21-2023 10:51-0500 Diastolic blood pressure 85 mm[Hg] No Primary Care Physician [facility] 10-21-2023 10:51-0500 Systolic blood pressure 126 mm[Hg] No Primary Care Physician [facility] 10-16-2023 16:12-0500 Body height 175.26 cm No Primary Care Physician [facility] 10-16-2023 16:12-0500 Body mass index (BMI) [Ratio] 32 kg/m2 No Primary Care Physician [facility] 10-16-2023 16:12-0500 Body weight 98.42 kg No Primary Care Physician [facility] 10-16-2023 15:31-0500 Body temperature 98.3 [degF] No Primary Care Physician [facility] 10-16-2023 15:31-0500 Heart rate 101 /min No Primary Care Physician [facility] 10-16-2023 15:31-0500 SaO2% (BldA) [Mass fraction] 100 % No Primary Care Physician [facility] 10-16-2023 15:30-0500 Diastolic blood pressure 74 mm[Hg] No Primary Care Physician [facility] 10-16-2023 15:30-0500 Systolic blood pressure 128 mm[Hg] No Primary Care Physician [facility] 10-13-2023 10:47-0500 Body mass index (BMI) [Ratio] 32 kg/m2 No Primary Care Physician [facility] 10-13-2023 10:47-0500 Body weight 98.42 kg No Primary Care Physician [facility] 10-13-2023 10:47-0500 Diastolic blood pressure 84 mm[Hg] No Primary Care Physician [facility] 10-13-2023 10:47-0500 Systolic blood pressure 124 mm[Hg] No Primary Care Physician [facility] 10-07-2023 10:51-0500 Body height 175.26 cm No Primary Care Physician [facility] 10-07-2023 10:49-0500 Body mass index (BMI) [Ratio] 31.1 kg/m2 No Primary Care Physician [facility] 10-07-2023 10:49-0500 Body weight 95.7 kg No Primary Care Physician [facility] 10-07-2023 10:49-0500 Diastolic blood pressure 82 mm[Hg] No Primary Care Physician [facility] 10-07-2023 10:49-0500 Systolic blood pressure 117 mm[Hg] No Primary Care Physician [facility] 09-29-2023 08:01-0500 Body mass index (BMI) [Ratio] 30.8 kg/m2 No Primary Care Physician [facility] 09-29-2023 08:01-0500 Body weight 94.8 kg No Primary Care Physician [facility] 09-29-2023 08:01-0500 Diastolic blood pressure 82 mm[Hg] No Primary Care Physician [facility] 09-29-2023 08:01-0500 Systolic blood pressure 119 mm[Hg] No Primary Care Physician [facility] 09-28-2023 07:53-0500 Body temperature 99.9 [degF] Stephanie Ruiz DO Work Phone: [facility] 09-28-2023 07:53-0500 Diastolic blood pressure 79 mm[Hg] Stephanie Ruiz DO Work Phone: [facility] 09-28-2023 07:53-0500 Heart rate 100 /min Stephanie Ruiz DO Work Phone: [facility] 09-28-2023 07:53-0500 Respiratory rate 18 /min Stephanie Ruiz DO Work Phone: [facility] 09-28-2023 07:53-0500 SaO2% (BldA) [Mass fraction] 97 % Stephanie Ruiz DO Work Phone: [facility] 09-28-2023 07:53-0500 Systolic blood pressure 119 mm[Hg] Stephanie Ruiz DO Work Phone: [facility] 09-26-2023 14:35-0500 Body height 175.3 cm Stephanie Ruiz DO Work Phone: [facility] 09-26-2023 14:35-0500 Body mass index (BMI) [Ratio] 29.68 kg/m2 Stephanie Ruiz DO Work Phone: [facility] 09-26-2023 14:35-0500 Body weight 91.17 kg Stephanie Ruiz DO Work Phone: [facility] 09-26-2023 09:54-0500 Heart rate 99 /min No Primary Care Physician [facility] 09-26-2023 09:54-0500 SaO2% (BldA) [Mass fraction] 100 % No Primary Care Physician [facility] 09-26-2023 09:40-0500 Diastolic blood pressure 84 mm[Hg] No Primary Care Physician [facility] 09-26-2023 09:40-0500 Systolic blood pressure 126 mm[Hg] No Primary Care Physician [facility] 09-26-2023 09:11-0500 Respiratory rate 16 /min No Primary Care Physician [facility] 09-26-2023 08:11-0500 Body temperature 97.9 [degF] No Primary Care Physician [facility] 09-26-2023 03:39-0500 Body height 175.26 cm No Primary Care Physician [facility] 09-26-2023 03:39-0500 Body mass index (BMI) [Ratio] 31.4 kg/m2 No Primary Care Physician [facility] 09-26-2023 03:39-0500 Body weight 96.7 kg No Primary Care Physician [facility] 09-18-2023 16:55-0500 Body temperature 97.9 [degF] Stephanie Ruiz DO Work Phone: [facility] 09-18-2023 16:55-0500 Diastolic blood pressure 75 mm[Hg] Stephanie Ruiz DO Work Phone: [facility] 09-18-2023 16:55-0500 Heart rate 92 /min Stephanie Ruiz DO Work Phone: [facility] 09-18-2023 16:55-0500 Respiratory rate 18 /min Stephanie Ruiz DO Work Phone: [facility] 09-18-2023 16:55-0500 SaO2% (BldA) [Mass fraction] 98 % Stephanie Ruiz DO Work Phone: [facility] 09-18-2023 16:55-0500 Systolic blood pressure 113 mm[Hg] Stephanie Ruiz DO Work Phone: [facility] 09-16-2023 15:10-0500 Body height 165.1 cm Stephanie Ruiz DO Work Phone: [facility] 09-16-2023 15:10-0500 Body mass index (BMI) [Ratio] 33.95 kg/m2 Stephanie Ruiz DO Work Phone: [facility] 09-16-2023 15:10-0500 Body weight 92.53 kg Stephanie Ruiz DO Work Phone: [facility] 09-16-2023 13:04-0500 Heart rate 93 /min No Primary Care Physician [facility] 09-16-2023 13:04-0500 SaO2% (BldA) [Mass fraction] 100 % No Primary Care Physician [facility] 09-16-2023 12:43-0500 Diastolic blood pressure 78 mm[Hg] No Primary Care Physician [facility] 09-16-2023 12:43-0500 Systolic blood pressure 118 mm[Hg] No Primary Care Physician [facility] 09-16-2023 12:36-0500 Body temperature 98.8 [degF] No Primary Care Physician [facility] 09-16-2023 12:18-0500 Respiratory rate 16 /min No Primary Care Physician [facility] 09-16-2023 10:26-0500 Body mass index (BMI) [Ratio] 31.2 kg/m2 No Primary Care Physician [facility] 09-16-2023 10:26-0500 Body weight 95.9 kg No Primary Care Physician [facility] 09-16-2023 09:34-0500 Body mass index (BMI) [Ratio] 29 kg/m2 No Primary Care Physician [facility] 09-16-2023 09:34-0500 Body weight 94.4 kg No Primary Care Physician [facility] 09-16-2023 09:34-0500 Diastolic blood pressure 90 mm[Hg] No Primary Care Physician [facility] 09-16-2023 09:34-0500 Systolic blood pressure 144 mm[Hg] No Primary Care Physician [facility] 09-02-2023 09:09-0500 Body height 180.34 cm No Primary Care Physician [facility] 09-02-2023 09:09-0500 Body mass index (BMI) [Ratio] 29 kg/m2 No Primary Care Physician [facility] 09-02-2023 09:09-0500 Body weight 94.57 kg No Primary Care Physician [facility] 09-02-2023 09:09-0500 Diastolic blood pressure 76 mm[Hg] No Primary Care Physician [facility] 09-02-2023 09:09-0500 Systolic blood pressure 121 mm[Hg] No Primary Care Physician [facility] 07-29-2023 10:31-0500 Body mass index (BMI) [Ratio] 28.5 kg/m2 No Primary Care Physician [facility] 07-29-2023 10:31-0500 Body weight 92.98 kg No Primary Care Physician [facility] 07-29-2023 10:31-0500 Diastolic blood pressure 80 mm[Hg] No Primary Care Physician [facility] 07-29-2023 10:31-0500 Systolic blood pressure 115 mm[Hg] No Primary Care Physician [facility] 07-01-2023 09:07-0500 Body mass index (BMI) [Ratio] 27.5 kg/m2 No Primary Care Physician [facility] 07-01-2023 09:07-0500 Body weight 89.52 kg No Primary Care Physician [facility] 07-01-2023 09:07-0500 Diastolic blood pressure 69 mm[Hg] No Primary Care Physician [facility] 07-01-2023 09:07-0500 Systolic blood pressure 120 mm[Hg] No Primary Care Physician [facility] 06-03-2023 11:05-0400 Body mass index (BMI) [Ratio] 27.1 kg/m2 No Primary Care Physician [facility] 06-03-2023 11:05-0400 Body weight 88.11 kg No Primary Care Physician [facility] 06-03-2023 11:05-0400 Diastolic blood pressure 74 mm[Hg] No Primary Care Physician [facility] 06-03-2023 11:05-0400 Systolic blood pressure 120 mm[Hg] No Primary Care Physician [facility] 05-06-2023 09:03-0400 Body height 180.34 cm No Primary Care Physician [facility] 05-06-2023 09:03-0400 Body mass index (BMI) [Ratio] 26.8 kg/m2 No Primary Care Physician [facility] 05-06-2023 09:03-0400 Body weight 87.25 kg No Primary Care Physician [facility] 05-06-2023 09:03-0400 Diastolic blood pressure 70 mm[Hg] No Primary Care Physician [facility] 05-06-2023 09:03-0400 Systolic blood pressure 112 mm[Hg] No Primary Care Physician [facility] 04-08-2023 09:34-0400 Body height 180.34 cm No Primary Care Physician [facility] 04-08-2023 09:34-0400 Body mass index (BMI) [Ratio] 27.5 kg/m2 No Primary Care Physician [facility] 04-08-2023 09:34-0400 Body weight 84.48 kg No Primary Care Physician [facility] 04-08-2023 09:34-0400 Diastolic blood pressure 82 mm[Hg] No Primary Care Physician [facility] 04-08-2023 09:34-0400 Systolic blood pressure 116 mm[Hg] No Primary Care Physician [facility] 12-23-2022 15:38-0400 Diastolic blood pressure 71 mm[Hg] [facility] 12-23-2022 15:38-0400 Heart rate 81 /min [facility] 12-23-2022 15:38-0400 Respiratory rate 16 /min [facility] 12-23-2022 15:38-0400 SaO2% (BldA) [Mass fraction] 97 % [facility] 12-23-2022 15:38-0400 Systolic blood pressure 121 mm[Hg] [facility] 12-23-2022 11:35-0400 Body height 180.34 cm [facility] 12-23-2022 11:35-0400 Body mass index (BMI) [Ratio] 26.1 kg/m2 [facility] 12-23-2022 11:35-0400 Body temperature 98 [degF] [facility] 12-23-2022 11:35-0400 Body weight 84.9 kg [facility] 12-22-2022 20:20-0400 Diastolic blood pressure 74 mm[Hg] [facility] 12-22-2022 20:20-0400 Heart rate 93 /min [facility] 12-22-2022 20:20-0400 Respiratory rate 16 /min [facility] 12-22-2022 20:20-0400 SaO2% (BldA) [Mass fraction] 99 % [facility] 12-22-2022 20:20-0400 Systolic blood pressure 125 mm[Hg] [facility] 12-22-2022 17:12-0400 Body height 175.26 cm [facility] 12-22-2022 17:12-0400 Body mass index (BMI) [Ratio] 27.8 kg/m2 [facility] 12-22-2022 17:12-0400 Body temperature 97.1 [degF] [facility] 12-22-2022 17:12-0400 Body weight 85.45 kg [facility] 12-18-2022 16:51-0400 Body temperature 97.8 [degF] [facility] 12-18-2022 16:51-0400 Diastolic blood pressure 79 mm[Hg] [facility] 12-18-2022 16:51-0400 Heart rate 64 /min [facility] 12-18-2022 16:51-0400 Respiratory rate 16 /min [facility] 12-18-2022 16:51-0400 SaO2% (BldA) [Mass fraction] 100 % [facility] 12-18-2022 16:51-0400 Systolic blood pressure 118 mm[Hg] [facility] 12-18-2022 13:15-0400 Body height 175.26 cm [facility] 12-18-2022 13:15-0400 Body mass index (BMI) [Ratio] 28.3 kg/m2 [facility] 12-18-2022 13:15-0400 Body weight 86.9 kg [facility] Encounters Encounter Date Encounter Type Care Provider Facility Start: 06-21-2025 End: 06-21-2025 ambulatory Maribel Lackey Facility:[facility] Start: 06-20-2025 End: 06-20-2025 ambulatory JAZMÍN Moreno [facility] Start: 06-18-2025 End: 06-18-2025 ambulatory Ivelisse oV Facility:[facility] Start: 06-14-2025 End: 06-14-2025 ambulatory No Primary Care Physician Facility:[facility] Start: 06-07-2025 End: 06-07-2025 ambulatory No Primary Care Physician Facility:[facility] Start: 06-07-2025 End: 06-07-2025 ambulatory Juliana Mike Facility:[facility] Start: 06-03-2025 End: 06[facility]03[facility] Start: 05-24-2025 End: 05-24-2025 ambulatory No Primary Care Physician Facility:[facility] Start: 04-25-2025 End: 04-25-2025 ambulatory No Primary Care Physician Facility:[facility] Start: 04-25-2025 End: 04-25-2025 ambulatory No Primary Care Physician Facility:[facility] Start: 03-22-2025 End: 03-22-2025 ambulatory No Primary Care Physician Facility:[facility] Start: 03-22-2025 End: 03-22-2025 ambulatory No Primary Care Physician Facility:[facility] Start: 02-01-2025 ambulatory No Primary Car e Physician Facility:[facility] Start: 01-06-2025 End: 01-06-2025 ambulatory No Primary Care Physician Facility:[facility] Start: 12-16-2023 End: 12-16-2023 ambulatory No Primary Care Physician [facility] Work Phone: Start: 12-16-2023 End: 12-16-2023 Patient encounter procedure No Primary Care Physician [facility] Spec[facility] Work Phone: Start: 12-16-2023 End: 12-16-2023 Patient encounter procedure No Primary Care Physician [facility] Work Phone: Start: 11-30-2023 End: 11-30-2023 Patient encounter procedure No Primary Care Physician [facility] Work Phone: Start: 11-23-2023 End: 11-23-2023 Patient encounter procedure No Primary Care Physician [facility] Work Phone: Start: 11-04-2023 Non-patient / Non-visit No Primary Care Physician [facility] Start: 11-03-2023 Non-patient / Non-visit No Primary Care Physician [facility] Start: 11-02-2023 Non-patient / Non-visit No Primary Care Physician [facility] Start: 11-02-2023 End: 11-04-2023 Evaluation and management of inpatient No [facility] Start: 11-01-2023 Non-patient / Non-visit No Primary Care Physician [facility] Start: 11-01-2023 End: 11-01-2023 ambulatory No Primary Care Physician [facility] Work Phone: Start: 11-01-2023 End: 11-01-2023 Patient encounter procedure No Primary Care Physician [facility] Out[facility] Work Phone: Start: 10-28-2023 End: 10-28-2023 ambulatory No Primary Care Physician [facility] Work Phone: Start: 10-28-2023 End: 10-28-2023 Patient encounter procedure No Primary Care Physician [facility] Work Phone: Start: 10-27-2023 End: 10-27-2023 ambulatory No Primary Care Physician [facility] Work Phone: Start: 10-27-2023 End: 10-27-2023 Patient encounter procedure No Primary Care Physician [facility], [facility] Work Phone: Start: 10-21-2023 End: 10-21-2023 ambulatory No Primary Care Physician [facility] Work Phone: Start: 10-21-2023 End: 10-21-2023 Patient encounter procedure No Primary Care Physician [facility]Labor[facility] Work Phone: Start: 10-21-2023 End: 10-21-2023 Patient encounter procedure No Primary Care Physician [facility] Work Phone: Start: 10-20-2023 End: 10-20-2023 ambulatory No Primary Care Physician [facility] Work Phone: Start: 10-20-2023 End: 10-20-2023 Patient encounter procedure No Primary Care Physician [facility] Work Phone: Start: 10-17-2023 Non-patient / Non-visit No Primary Care Physician [facility] Start: 10-16-2023 End: 10-16-2023 ambulatory No Primary Care Physician [facility] Work Phone: Start: 10-16-2023 End: 10-16-2023 Patient encounter procedure No Primary Care Physician [facility] Outpatients Work Phone: Start: 10-13-2023 End: 10-13-2023 Patient encounter procedure No Primary Care Physician [facility] Work Phone: Start: 10-13-2023 End: 10-13-2023 ambulatory No Primary Care Physician [facility] Work Phone: Start: 10-13-2023 End: 10-13-2023 Patient encounter procedure No Primary Care Physician [facility] Work Phone: Start: 10-11-2023 End: 10-11-2023 ambulatory No Primary Care Physician [facility] Work Phone: Start: 10-11-2023 End: 10-11-2023 Patient encounter procedure No Primary Care Physician [facility] Work Phone: Start: 10-07-2023 End: 10-07-2023 ambulatory No Primary Care Physician [facility] Work Phone: Start: 10-07-2023 End: 10-07-2023 Patient encounter procedure No Primary Care Physician [facility] Work Phone: Start: 10-07-2023 End: 10-07-2023 Patient encounter procedure No Primary Care Physician [facility] Work Phone: Start: 10-06-2023 End: 10-06-2023 ambulatory No Primary Care Physician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 refused) 0953 (Given - Provider: Herbert Mohan RN) 0906 (Given - Provider: Herbert Mohan RN) sodium chloride 0.9% (NS) flush 10 mL 10 mL, IntraVENous, Every 12 hours scheduled (2 times per day), First dose on Tue09/16/23 at 2100 2007 (Given - Provider: Sheron Meier, RN - Comment: Magnesium sulfate stopped, line flushed before injecting reglan, will flush again with normal saline before restarting Magnesium sulfate infusion) 0900 (Not Given - Provider: Herbert Mohan RN - Reason: IV Fluids Infusing)2128 (Given - Provider: Leah Pearl, RN) 0907 (Given - Provider: Herbert Mohan RN)2100 (Canceled Entry - Provider: Automatic Discharge Provider - Comment: Automatically canceled at discontinue of medication order) Continuous Medication Order 09/16/2023 09/17/2023 09/18/2023 lactated Ringer's infusion (CANCELED) 25 mL/hr, IntraVENous, Continuous, Starting on Tue09/16/23 at 1745 1620 (New Bag - Provider: Sarahy Lu RN) 0820 (Stopped - Provider: Leah Pearl, SAL) magnesium sulfate 20 GM/500ML infusion (CANCELED) 2,000 [...] on 09/17/23 at 0948, IV or ORAL Scheduled Medication [...] mEq per 1 oz fluid., Indications: Hypokalemia 181 (Given - Provider: Sarahy Grewal RN) vitamin tablet 1 tablet, Oral, Daily, First dose on Tue09/26/23 at 1430 1646 (Given - Provider: Sarahy Grewal RN) 0831 (Given - Provider: Mary Burr RN) 0941 (Given - Provider: Kody Milton RN) sodium chloride 0.9% (NS) flush 10 mL 10 mL, IntraVENous, Every 12 hours scheduled (2 times per day), First dose on Tue09/26/23 at 2100 2004 (Given - Provider: Aaliyah Galvez RN) 08 (Given - Provider: Mary Burr RN)2044 (Given - Provider: Shreya Baeza, SAL) 0900 [...] 2004 (Given - Provider: Aaliyah Galvez RN) 06 (Given - Provider: Aaliyah Galvez RN)161 (Given - Provider: Mary Burr RN)2050 (Given - Provider: Shreya Baeza RN) ondansetron (Zofran) injection 4 mg(Linked Group 1) [...] 8 hours PRN, nausea, vomiting, Starting on 09/26/23 at 1424, 1st Line. If inadequate response within 60 minutes, proceed to next-line agent or contact provider if no further options ordered. Patient should allow tablet to dissolve on tongue. Do not remove from blister pack until just before administering. Or ondansetron (Zofran) injection 4 mgJump to med 4 mg, IntraVENous, Every 6 hours PRN, nausea, vomiting, Starting on 09/26/23 at 1424, 1st Line. Give IV if patient is unable to take orally. If inadequate response within 60 minutes, proceed to next-line agent or contact provider if no further options ordered. INFORMATION SOURCE (unrecogn ized section and content) DATE CREATED AUTHOR 09/29/2023 [facility] DATE CREATED AUTHOR AUTHOR'S ORGANIZ ATION 06/22/2025 [facility] DATE CREATED AUTHOR AUTHOR'S ORGANIZ ATION 06/27/2025 [facility] FOR RECORDS PERTAINING TO PATIENTS WHO [...] BE BASED ON THE PRIMARY CLINICAL RECORDS. [employer] provides no warranty or guarantee of the accuracy or completeness of information in this document.
== END | disposition home or self-care (01) ==
PROVIDERS: Referring Provider Student in an Organized Health Care Education/Training Program; Visit Provider Student in an Organized Health Care Education/Training Program
DX: O43.193 Other malformation of placenta, third trimester (principal); O09.93 Supervision of high risk pregnancy, unspecified, third trimester; Z3A.28 28 weeks gestation of pregnancy
CPT/HCPCS: 76816